=== PATIENT | male | born 1965 | race Caucasian/White ===

== ENCOUNTER 2016-12-09 22:34 | Emergency (ER) | payer SELFPAY ==
[~2016-12-09] VITALS: Ht 175.3 cm; Wt 70.0 kg
[~2016-12-09 22:34] MED LIST: BACT800T5 PO; LEVE500 PO; MOTR200T PO
[2016-12-09 22:44] VITALS: BP 151/76; PULSE 112; RESP 22; TEMP 97.5
[2016-12-09] MEDS ORDERED: LEVE500 PO (23:02)
[2016-12-09] MEDS ORDERED: ONDANSETRON HCL 4 MG/2 ML VIAL IV PUSH ONE (23:15)
[2016-12-09] MEDS ORDERED: SODIUM CHLOR 0.9% 1000 ML INJ 1,000 ML IV ONE (23:15)
[2016-12-09 23:16] LABS: AUTOMATED NEUTROPHIL # 6.8 TH/MM3 (1.8-7.7); BASOPHIL # 0.1 TH/MM3 (0-0.2); BASOPHIL % 0.7 % (0.0-2.0); EOSINOPHIL # 0.4 TH/MM3 (0-0.4); EOSINOPHIL % 3.4 % (0.0-4.0); HEMATOCRIT 42.8 % (39.0-51.0); LYMPHOCYTE # 3.7 TH/MM3 (1.0-4.8); MEAN CELL VOLUME 94.4 FL (80.0-100.0); MEAN CORPUSCULAR HEMOGLOBIN 31.7 PG (27.0-34.0); MEAN CORPUSCULAR HGB CONC 33.6 % (32.0-36.0); NEUT % 58.9 % (16.0-70.0); PLATELET COUNT 332 TH/MM3 (150-450); RED BLOOD COUNT 4.54 MIL/MM3 (4.50-5.90); RED CELL DISTRIBUTION WIDTH 14.4 % (11.6-17.2); WHITE BLOOD COUNT 11.6 TH/MM3 (4.0-11.0)
[2016-12-09 23:18] LABS: HEMO FLAGS AUTO DIFF
[2016-12-09 23:45] LABS: ALT (GPT) 27 U/L (12-78); ANION GAP 12 MEQ/L (5-15); AST (GOT) 34 U/L (15-37); BICARBONATE 23.6 MEQ/L (21.0-32.0); BLOOD UREA NITROGEN 20 MG/DL (7-18); CHLORIDE 105 MEQ/L (98-107); GLOMERULAR FILTRATION RATE 59 ML/MIN (>89); POTASSIUM 4.7 MEQ/L (3.5-5.1); SODIUM (NA) 141 MEQ/L (136-145)
[2016-12-09 23:47] LABS: ALKALINE PHOSPHATASE 123 U/L (45-117); TOTAL BILIRUBIN ADULT 0.4 MG/DL (0.2-1.0)
--- NOTE | 2016-12-09 23:49 | PD ---
HPI Chief Complaint: Alcohol/Drug Intoxication Time Seen by Provider: 23:01 Travel History International Travel<30 days: No Contact w/Intl Traveler<30days: No Traveled to known affect area: No History of Present Illness HPI So 51-year-old man who presents to the emergency department via EMS. He was found unresponsive with pinpoint pupils slumped up against a building. He was reportedly breathing. He received 2 mg of Narcan with resolution of those coma. Admits to IV heroin use alcohol use today. He has no complaints at this time. History Past Medical History Narrative Medical Seizures, Active IV drug use Tetanus Vaccination: > 5 Years Influenza Vaccination: No Social History Alcohol Use: Yes Tobacco Use: Yes Allergies-Medications (Allergen,Severity, Reaction): Coded Allergies: Erythromycin (Verified Allergy, Severe, 05/15/15) Penicillin (Verified Allergy, Severe, 05/15/15) Tetracycline (Verified Allergy, Severe, 05/15/15) Reported Meds & Prescriptions Reported Meds & Active Scripts Active Keppra (Levetriacetam) 500 Mg Tab 500 Mg PO BID Bactrim DS (Sulfamethoxazole-Trimethoprim DS) 1 Tab Tab 1 Tab PO BID 14 Days Reported Keppra (Levetiracetam) 500 Mg Tab 500 Mg PO BID Advil (Ibuprofen) 200 Mg Tab 400 Mg PO DAILY PRN Review of Systems Except as stated in HPI: all other systems reviewed are Neg Physical Exam Narrative GENERAL: 51-year-old man, tremulous and shaking, no acute distress. SKIN: Focused skin assessment warm/dry. HEAD: Atraumatic. Normocephalic. EYES: Pupils equal and round. No scleral icterus. No injection or drainage. ENT: No nasal bleeding or discharge. Mucous membranes pink and moist. NECK: Trachea midline. No JVD. CARDIOVASCULAR: Regular rate and rhythm. No murmur appreciated. RESPIRATORY: No accessory muscle use. Clear to auscultation. Breath sounds equal bilaterally. GASTROINTESTINAL: Abdomen soft, non-tender, nondistended. Hepatic and splenic margins not palpable. MUSCULOSKELETAL: No obvious deformities. NEUROLOGICAL: Awake and alert. No obvious cranial nerve deficits. Motor grossly within normal limits. Some shaking tremors. Normal speech. PSYCHIATRIC: Anxious. Data Data Last Documented VS Vital Signs Date Time Temp Pulse Resp B/P Pulse Ox O2 Delivery O2 Flow Rate FiO2 12/09/16 22:51 97 Room Air 6/14/17 22:44 97.5 112 22 151/76 Orders Chest, Single Ap (12/09/16 ) Complete Blood Count With Diff (12/09/16 23:01) Comprehensive Metabolic Panel (12/09/16 23:01) Alcohol (Ethanol) (12/09/16 23:01) Ondansetron Inj (Zofran Inj) (12/09/16 23:15) Sodium Chlor 0.9% 1000 Ml Inj (Ns 1000 M (12/09/16 23:15) Labs Laboratory Tests Test 12/09/16 23:00 Sodium Level 141 MEQ/L Potassium Level 4.7 MEQ/L Chloride Level 105 MEQ/L Carbon Dioxide Level 23.6 MEQ/L Anion Gap 12 MEQ/L Blood Urea Nitrogen 20 MG/DL Creatinine 1.29 MG/DL Estimat Glomerular Filtration 59 ML/MIN Rate Random Glucose 215 MG/DL Calcium Level 8.4 MG/DL Total Bilirubin 0.4 MG/DL Aspartate Amino Transf 34 U/L (AST/SGOT) Alanine Aminotransferase 27 U/L (ALT/SGPT) Alkaline Phosphatase 123 U/L Total Protein 8.0 GM/DL Albumin 3.8 GM/DL Ethyl Alcohol Level 208 MG/DL White Blood Count 11.6 TH/MM3 Red Blood Count 4.54 MIL/MM3 Hemoglobin 14.4 GM/DL Hematocrit 42.8 % Mean Corpuscular Volume 94.4 FL Mean Corpuscular Hemoglobin 31.7 PG Mean Corpuscular Hemoglobin 33.6 % Concent Red Cell Distribution Width 14.4 % Platelet Count 332 TH/MM3 Mean Platelet Volume 7.9 FL Neutrophils (%) (Auto) 58.9 % Lymphocytes (%) (Auto) 32.0 % Monocytes (%) (Auto) 5.0 % Eosinophils (%) (Auto) 3.4 % Basophils (%) (Auto) 0.7 % Neutrophils # (Auto) 6.8 TH/MM3 Lymphocytes # (Auto) 3.7 TH/MM3 Monocytes # (Auto) 0.6 TH/MM3 Eosinophils # (Auto) 0.4 TH/MM3 Basophils # (Auto) 0.1 TH/MM3 CBC Comment AUTO DIFF Differential Total Cells 100 Counted Neutrophils % (Manual) 59 % Band Neutrophils % 7 % Lymphocytes % 22 % Monocytes % 6 % Eosinophils % 5 % Neutrophils # (Manual) 7.8 TH/MM3 Metamyelocytes 1 % Differential Comment FINAL DIFF MANUAL Platelet Estimate NORMAL Platelet Morphology Comment NORMAL MDM Medical Decision Making Medical Screen Exam Complete: Yes Emergency Medical Condition: Yes Interpretation(s) LABS: CBC remarkable for mild leukocytosis, 7% bands CMP unremarkable, glucose 2:15 Alcohol 208 Chest x-ray: Negative Differential Diagnosis Opiate overdose, intoxication, cold injury, occult illness, other Narrative Course Medical decision making 51-year-old man status post heroin overdose wall intoxicated. Looks well. Responded to Narcan. We monitored in the emergency department, discharge in a.m. Diagnosis Primary Impression: Heroin overdose Qualified Code: T40.1X1A - Heroin overdose, accidental or unintentional, initial encounter Referrals: [facility] day Additional Instructions: Avoid using heroin. Return to the emergency department for any new or worsening symptoms. Follow-up with [facility] for assistance with substance abuse treatment. Med/Other Pt SpecificInfo: No Change to Meds Disposition: 01 DISCHARGE HOME Condition: Stable Marcell Singh MD Dec 09, 2016 23:49
--- NOTE | 2016-12-10 00:03 | RADRPT ---
EXAM DATE/TIME: 12/09/2016 23:06 [facility] COMPARISON: CHEST SINGLE AP, December 28, 2014, 23:54. INDICATIONS : Shortness of breath. MEDICAL HISTORY : None. SURGICAL HISTORY : None. ENCOUNTER: Initial ACUITY: 1 day PAIN SCORE: 0/10 LOCATION: Bilateral chest FINDINGS: The lungs are clear without infiltrate, nodule, or mass. There is no appreciable pleural effusion fo r technique. Heart and mediastinum are unremarkable. CONCLUSION: No acute cardiopulmonary disease. Dorys Arguelles MD on December 10, 2016 at 0:01 Board Certified Radiologist. This report was verified electronically.
[2016-12-10 00:32] LABS: BANDS 7 % (0-6); EOSINOPHILS 5 % (0-4); METAMYELOCYTES 1 % (0-1); NEUTROPHIL # MANUAL DIFF 7.8 TH/MM3 (1.8-7.7); PLATELET ESTIMATE SMEAR NORMAL (NORMAL); PLATELET MORPHOLOGY NORMAL (NORMAL); POLYS (SEG NEUTROPHILS) 59 % (16-70); SCAN/DIFF FINAL DIFF MANUAL; WBC DIFF SAMPLE 100
== END 2016-12-10 07:07 | disposition home or self-care (01) ==
LOC: NEPE 22:34
DX: T40.1X1A Poisoning by heroin, accidental (unintentional), initial encounter (principal); Z72.0 Tobacco use
CPT/HCPCS: 71010; 80053; 80307; 85007; 85027; 96361; 96374; 99284; J2405; J7030

== ENCOUNTER 2016-12-25 01:24 | Emergency (ER) | payer SELFPAY ==
[~2016-12-25] VITALS: Ht 175.3 cm; Wt 70.0 kg
[2016-12-25 01:28] VITALS: BP 134/86; PULSE 82; RESP 18; TEMP 98.2; O2SAT 97
[2016-12-25] MEDS ORDERED: PHEN-523 PO (01:34)
--- NOTE | 2016-12-25 01:57 | PD ---
HPI Chief Complaint: Alcohol/Drug Intoxication Time Seen by Provider: 01:48 Travel History International Travel<30 days: No Contact w/Intl Traveler<30days: No Traveled to known affect area: No History of Present Illness HPI 51-year-old white male presents to emergency department by EMS from psychological evaluation. The patient states that he is tired of living. He states that if he is released he will walk out into traffic or try to overdose on drugs. He states that he had smoked crack cocaine earlier today. He's lost his home, and his job. He states that he has nothing else live for. He also states that his mother is in the final stages of cancer and probably only has 1 month to live. The patient admits to a history of alcohol abuse as well as substance abuse. Patient stated that he has smoked $20 worth of crack cocaine today and was hoping that it would be laced with rat poison so he would . The patient states that he would like to be admitted for evaluation of his depression with suicidal ideation. The patient also states that he has history of seizures but has been off his medications now for last few months. [facility] Past Medical History Narrative Medical Allegedly colon cancer Ulcerative colitis, Seizure disorder, alcohol abuse, substance abuse Heart Rhythm Problems: Yes Cancer: Yes (colon- in remission) Cardiovascular Problems: Yes (CHEST PAIN AND ANGINA) Chest Pain: Yes Congestive Heart Failure: No Diminished Hearing: No Gastrointestinal Disorders: Yes (ULCERATIVE COLITIS) Genitourinary: No Hypertension: Yes Immune Disorder: No Musculoskeletal: Yes Neurologic: Yes (SEIZURES) Psychiatric: Yes Reproductive: No Respiratory: No Seizures: Yes (ALCOHOL RELATED) Tetanus Vaccination: < 5 Years Past Surgical History Other Surgery: Yes (colon cancer) Social History Alcohol Use: Yes Tobacco Use: Yes (2 ppd) Substance Use: Yes (HEROIN, crack) Allergies-Medications (Allergen,Severity, Reaction): Coded Allergies: Erythromycin (Verified Allergy, Severe, 12/25/16) Penicillin (Verified Allergy, Severe, 12/25/16) Tetracycline (Verified Allergy, Severe, 12/25/16) Reported Meds & Prescriptions Reported Meds & Active Scripts Active Reported Phenobarbital 30 Mg Tab 30 Mg PO BID Keppra (Levetiracetam) 500 Mg Tab 500 Mg PO BID Review of Systems Except as stated in HPI: all other systems reviewed are Neg General / Constitutional: No: Fever, Chills Eyes: No: Diploplia, Blurred Vision HENT: Positive: Headaches, No: Sore Throat Cardiovascular: Positive: Chest Pain or Discomfort, Tachycardia Respiratory: No: Cough, Shortness of Breath Gastrointestinal: No: Nausea, Vomiting Genitourinary: No: Dysuria, Hematuria Musculoskeletal: Positive: Arthralgias, Pain Skin: No Rash, No Itching Neurologic: No: Seizures, Sensory Disturbance Psychiatric: Positive: Anxiety, Depression, Suicidal Ideations, Mood Disorder, Substance Abuse, No: Disorder of Thought, Homicidal Ideation Physical Exam Narrative GENERAL: Well-nourished, well-developed patient. SKIN: Warm and dry. HEAD: Normocephalic and atraumatic. EYES: No scleral icterus. No injection or drainage. ENT: No nasal drainage noted. Mucous membranes pink. Airway patent. NECK: Supple, trachea midline. Moves head freely without obvious discomfort. CARDIOVASCULAR: Regular rate and rhythm without murmurs, gallops, or rubs. RESPIRATORY: Breath sounds equal bilaterally. No accessory muscle use. GASTROINTESTINAL: Abdomen soft, non-tender, nondistended. EXTREMITIES: No cyanosis or edema. BACK: Nontender without obvious deformity. No CVA tenderness. NEURO: Patient is alert and oriented. no sensorimotor deficits. Nonfocal. Normal speech. PSYCH: No delusions. No auditory or visual hallucinations. Data Data Last Documented VS Vital Signs Date Time Temp Pulse Resp B/P Pulse Ox O2 Delivery O2 Flow Rate FiO2 12/25/16 01:28 98.2 82 18 134/86 97 Orders Complete Blood Count With Diff (12/25/16 01:38) Comprehensive Metabolic Panel (12/25/16 01:38) Psych Screen (12/25/16 01:38) Phenobarbital (12/25/16 01:38) Drug Screen, Random Urine (12/25/16 01:38) Alcohol (Ethanol) (12/25/16 01:38) Salicylates (Aspirin) (12/25/16 01:38) Tylenol (Acetaminophen) (12/25/16 01:38) Labs Laboratory Tests Test 12/25/16 12/25/16 01:30 02:10 White Blood Count 8.9 TH/MM3 Red Blood Count 4.81 MIL/MM3 Hemoglobin 15.6 GM/DL Hematocrit 44.1 % Mean Corpuscular Volume 91.7 FL Mean Corpuscular Hemoglobin 32.4 PG Mean Corpuscular Hemoglobin 35.3 % Concent Red Cell Distribution Width 14.3 % Platelet Count 294 TH/MM3 Mean Platelet Volume 8.3 FL Neutrophils (%) (Auto) 66.1 % Lymphocytes (%) (Auto) 22.3 % Monocytes (%) (Auto) 9.2 % Eosinophils (%) (Auto) 1.5 % Basophils (%) (Auto) 0.9 % Neutrophils # (Auto) 5.9 TH/MM3 Lymphocytes # (Auto) 2.0 TH/MM3 Monocytes # (Auto) 0.8 TH/MM3 Eosinophils # (Auto) 0.1 TH/MM3 Basophils # (Auto) 0.1 TH/MM3 CBC Comment DIFF FINAL Differential Comment Sodium Level 139 MEQ/L Potassium Level 4.2 MEQ/L Chloride Level 104 MEQ/L Carbon Dioxide Level 20.3 MEQ/L Anion Gap 15 MEQ/L Blood Urea Nitrogen 11 MG/DL Creatinine 0.83 MG/DL Estimat Glomerular Filtration 98 ML/MIN Rate Random Glucose 65 MG/DL Calcium Level 8.9 MG/DL Total Bilirubin 0.5 MG/DL Aspartate Amino Transf 32 U/L (AST/SGOT) Alanine Aminotransferase 27 U/L (ALT/SGPT) Alkaline Phosphatase 127 U/L Total Protein 8.3 GM/DL Albumin 4.0 GM/DL Salicylates Level 4.8 MG/DL Acetaminophen Level LESS THAN 2.0 MCG/ML Phenobarbital Level LESS THAN 2.1 MCG/ML Ethyl Alcohol Level 158 MG/DL Urine Opiates Screen NEG Urine Barbiturates Screen NEG Urine Amphetamines Screen NEG Urine Benzodiazepines Screen NEG Urine Cocaine Screen POS Urine Cannabinoids Screen POS [facility] Medical Decision Making Medical Screen Exam Complete: Yes Emergency Medical Condition: Yes Medical Record Reviewed: Yes Interpretation(s) Laboratory Tests Test 12/25/16 12/25/16 01:30 02:10 White Blood Count 8.9 TH/MM3 Red Blood Count 4.81 MIL/MM3 Hemoglobin 15.6 GM/DL Hematocrit 44.1 % Mean Corpuscular Volume 91.7 FL Mean Corpuscular Hemoglobin 32.4 PG Mean Corpuscular Hemoglobin 35.3 % Concent Red Cell Distribution Width 14.3 % Platelet Count 294 TH/MM3 Mean Platelet Volume 8.3 FL Neutrophils (%) (Auto) 66.1 % Lymphocytes (%) (Auto) 22.3 % Monocytes (%) (Auto) 9.2 % Eosinophils (%) (Auto) 1.5 % Basophils (%) (Auto) 0.9 % Neutrophils # (Auto) 5.9 TH/MM3 Lymphocytes # (Auto) 2.0 TH/MM3 Monocytes # (Auto) 0.8 TH/MM3 Eosinophils # (Auto) 0.1 TH/MM3 Basophils # (Auto) 0.1 TH/MM3 CBC Comment DIFF FINAL Differential Comment Sodium Level 139 MEQ/L Potassium Level 4.2 MEQ/L Chloride Level 104 MEQ/L Carbon Dioxide Level 20.3 MEQ/L Anion Gap 15 MEQ/L Blood Urea Nitrogen 11 MG/DL Creatinine 0.83 MG/DL Estimat Glomerular Filtration 98 ML/MIN Rate Random Glucose 65 MG/DL Calcium Level 8.9 MG/DL Total Bilirubin 0.5 MG/DL Aspartate Amino Transf 32 U/L (AST/SGOT) Alanine Aminotransferase 27 U/L (ALT/SGPT) Alkaline Phosphatase 127 U/L Total Protein 8.3 GM/DL Albumin 4.0 GM/DL Salicylates Level 4.8 MG/DL Acetaminophen Level LESS THAN 2.0 MCG/ML Phenobarbital Level LESS THAN 2.1 MCG/ML Ethyl Alcohol Level 158 MG/DL Urine Opiates Screen NEG Urine Barbiturates Screen NEG Urine Amphetamines Screen NEG Urine Benzodiazepines Screen NEG Urine Cocaine Screen POS Urine Cannabinoids Screen POS Differential Diagnosis MDM: High Differential diagnoses: Schizophrenia, schizoaffective disorder, bipolar, anxiety, depression, adjustment reaction, mood disorder NOS, ODD, depressive disorder NOS, dementia, dementia with agitation, psychosis NOS, substance induced mood disorder, intermittent explosive disorder, Asperger syndrome, infection,electrolyte abnormality, malingering. Narrative Course Mental health screening discussed with the patient. Psychiatric screen ordered. The patient is been medically cleared This is medical clearance for psychiatric admission, polysubstance abuse, substance induced mood disorder medical clearance Diagnosis Primary Impression: Medical clearance for psychiatric admission Additional Impressions: Polysubstance abuse Substance induced mood disorder Condition: Stable Lavelle López Dec 25, 2016 01:57
[2016-12-25 02:00] LABS: AUTOMATED NEUTROPHIL # 5.9 TH/MM3 (1.8-7.7); BASOPHIL # 0.1 TH/MM3 (0-0.2); BASOPHIL % 0.9 % (0.0-2.0); EOSINOPHIL # 0.1 TH/MM3 (0-0.4); EOSINOPHIL % 1.5 % (0.0-4.0); HEMATOCRIT 44.1 % (39.0-51.0); HEMO FLAGS DIFF FINAL; LYMPH % 22.3 % (9.0-44.0); MEAN CELL VOLUME 91.7 FL (80.0-100.0); MEAN CORPUSCULAR HEMOGLOBIN 32.4 PG (27.0-34.0); MEAN CORPUSCULAR HGB CONC 35.3 % (32.0-36.0); MONO % 9.2 % (0.0-8.0); NEUT % 66.1 % (16.0-70.0); PLATELET COUNT 294 TH/MM3 (150-450); RED BLOOD COUNT 4.81 MIL/MM3 (4.50-5.90); RED CELL DISTRIBUTION WIDTH 14.3 % (11.6-17.2); WHITE BLOOD COUNT 8.9 TH/MM3 (4.0-11.0)
[2016-12-25 02:30] LABS: ALT (GPT) 27 U/L (12-78); ANION GAP 15 MEQ/L (5-15); AST (GOT) 32 U/L (15-37); BICARBONATE 20.3 MEQ/L (21.0-32.0); BLOOD UREA NITROGEN 11 MG/DL (7-18); CHLORIDE 104 MEQ/L (98-107); GLOMERULAR FILTRATION RATE 98 ML/MIN (>89); POTASSIUM 4.2 MEQ/L (3.5-5.1); SODIUM (NA) 139 MEQ/L (136-145)
[2016-12-25 02:31] LABS: ALKALINE PHOSPHATASE 127 U/L (45-117); PHENOBARBITAL LESS THAN 2.1 MCG/ML (15.0-40.0); TOTAL BILIRUBIN ADULT 0.5 MG/DL (0.2-1.0)
[2016-12-25 02:33] LABS: ACETAMINOPHEN LESS THAN 2.0 MCG/ML (10.0-30.0)
[2016-12-25 02:45] LABS: AMPHETAMINE, URINE NEG (NEG); BARBITURATES, URINE NEG (NEG); COCAINE, URINE POS (NEG)
[2016-12-25 04:00] VITALS: BP 130/78; PULSE 77; RESP 18; O2SAT 97
[2016-12-25 07:24] VITALS: BP 125/87; PULSE 68; RESP 18; O2SAT 100
[2016-12-25 12:31] VITALS: BP 123/80; PULSE 76; RESP 18; O2SAT 95
--- NOTE | 2016-12-25 14:49 | PD ---
History of Present Illness Chief Complaint: Alcohol/Drug Intoxication Time Seen by Provider: 13:50 Travel History International Travel<30 Days: No Contact w/Intl Traveler<30days: No Known affected area: No Legal Status Legal Status: Voluntary History of Present Illness: This is a 51-year-old male who presents voluntarily to the emergency department after reportedly attempting to overdose on crack cocaine. Patient reportedly experienced chest pain after this overdose and called 911 for assistance. Since he arrived at this emergency department, he has repeatedly asserted that he is suicidal and that he has nothing to live for. This physician investigated his past history and noted the patient has made similar claims after using heroin. The patient is currently complaining that he has lost his , lost his job, lost his home, all in relation to his drug and alcohol use. As a result of these decisions, he is now reporting he has nothing to live for. He was asked by this physician if he wanted assistance with drug and alcohol detox and rehabilitation. Patient states he does not. This physician pointed out that drugs and alcohol were this man's primary problem and that all of his resulting issues regarding his former , loss of job, loss of house, have followed that drug and alcohol abuse. Patient does not want to accept responsibility for his drug and alcohol use. He just states at this time that he wants to . Patient does admit to crack cocaine use earlier today. He also admits to consistent alcohol abuse. [facility] Past Medical History Heart Rhythm Problems: Yes Cancer: Yes (colon- in remission) Cardiovascular Problems: Yes (CHEST PAIN AND ANGINA) Chest Pain: Yes Congestive Heart Failure: No Diminished Hearing: No Gastrointestinal Disorders: Yes (ULCERATIVE COLITIS) Genitourinary: No Hypertension: Yes Immune Disorder: No Musculoskeletal: Yes Neurologic: Yes (SEIZURES) Psychiatric: Yes Reproductive: No Respiratory: No Seizures: Yes (ALCOHOL RELATED) Tetanus Vaccination: < 5 Years Past Surgical History Other Surgery: Yes (colon cancer) Psychiatric History Psychiatric History Hx Psychiatric Treatment: Denies that he is seeing a psychiatrist a this time. States that when he was in long-term - let out in Apr 11, 2016 per pt - a female provider was giving him 2x psych meds ("It begins with a Z I think and Buspar") but he has not had any since he was let out. This physician does not find any significant objective evidence of a major mental illness at this time. Patient appears to have drug abuse problems and a personality disorder. History of Inpatient Treatment: No Guns or firearms in home: No Social History Hx Alcohol Use: Yes Hx Tobacco Use: Yes (2 ppd) Hx Substance Use: Yes Substance Use Type: Alcohol, Crack, Marijuana, Nicotine/Cigarettes, Heroin, Cocaine Hx of Substance Use Treatment: Yes Allergies-Medications (Allergen,Severity, Reaction): Coded Allergies: Erythromycin (Verified Allergy, Severe, 12/25/16) Penicillin (Verified Allergy, Severe, 12/25/16) Tetracycline (Verified Allergy, Severe, 12/25/16) Reported Meds & Prescriptions Reported Meds & Active Scripts Active Reported Phenobarbital 30 Mg Tab 30 Mg PO BID Keppra (Levetiracetam) 500 Mg Tab 500 Mg PO BID Review of Systems ROS Limitations: Clinical Condition, Uncooperative Exam Alert: Yes Patrick: Person, Place, Date, Situation Mood: Calm Affect: Other Speech: Clear, Logical Eye Contact: Normal Memory Intact: Immediate, Recent, Remote Suicidal: Plan, Ideation Insight/Judgement Adequate MDM Medical Decision Making Medical Record Reviewed: Yes Assessment/Plan Although the patient remains at high risk for self-injurious behavior, including suicide attempts, he does this knowingly and not as the result of a significant major mental illness but as the result of a drug addict who is manipulative. This physician feels it is entirely counter therapeutic to get into this man's manipulations and to enable this behavior to continue. Therefore, despite the patient's ascertain patient's that he will kill himself, this physician will not admit him or Hagan act him. This physician did offer him a referral to [facility] for his obvious drug and alcohol problems. However the patient declines. The patient remains competent at this time. He is not psychotic and his cognition is intact. He is felt to be manipulative and experiencing the consequences of his drug abuse. Orders Complete Blood Count With Diff (12/25/16 01:38) Comprehensive Metabolic Panel (12/25/16 01:38) Psych Screen (12/25/16 01:38) Phenobarbital (12/25/16 01:38) Drug Screen, Random Urine (12/25/16 01:38) Alcohol (Ethanol) (12/25/16 01:38) Salicylates (Aspirin) (12/25/16 01:38) Tylenol (Acetaminophen) (12/25/16 01:38) Diet Regular Basic (12/25/16 Breakfast) Results Vital Signs Date Time Temp Pulse Resp B/P Pulse Ox O2 Delivery O2 Flow Rate FiO2 12/25/16 12:31 76 18 123/80 95 Room Air 12/25/16 07:24 68 18 125/87 100 12/25/16 04:00 77 18 130/78 97 Room Air 12/25/16 01:28 98.2 82 18 134/86 97 Laboratory Tests Test 12/25/16 12/25/16 01:30 02:10 White Blood Count 8.9 Red Blood Count 4.81 Hemoglobin 15.6 Hematocrit 44.1 Mean Corpuscular Volume 91.7 Mean Corpuscular Hemoglobin 32.4 Mean Corpuscular Hemoglobin 35.3 Concent Red Cell Distribution Width 14.3 Platelet Count 294 Mean Platelet Volume 8.3 Neutrophils (%) (Auto) 66.1 Lymphocytes (%) (Auto) 22.3 Monocytes (%) (Auto) 9.2 Eosinophils (%) (Auto) 1.5 Basophils (%) (Auto) 0.9 Neutrophils # (Auto) 5.9 Lymphocytes # (Auto) 2.0 Monocytes # (Auto) 0.8 Eosinophils # (Auto) 0.1 Basophils # (Auto) 0.1 CBC Comment DIFF FINAL Differential Comment Sodium Level 139 Potassium Level 4.2 Chloride Level 104 Carbon Dioxide Level 20.3 Anion Gap 15 Blood Urea Nitrogen 11 Creatinine 0.83 Estimat Glomerular Filtration 98 Rate Random Glucose 65 Calcium Level 8.9 Total Bilirubin 0.5 Aspartate Amino Transf 32 (AST/SGOT) Alanine Aminotransferase 27 (ALT/SGPT) Alkaline Phosphatase 127 Total Protein 8.3 Albumin 4.0 Salicylates Level 4.8 Acetaminophen Level LESS THAN 2.0 Phenobarbital Level LESS THAN 2.1 Ethyl Alcohol Level 158 Urine Opiates Screen NEG Urine Barbiturates Screen NEG Urine Amphetamines Screen NEG Urine Benzodiazepines Screen NEG Urine Cocaine Screen POS Urine Cannabinoids Screen POS Diagnosis Primary Impression: Adjustment disorder with mixed emotional features Additional Impression: Substance abuse Condition: Stable Problem Qualifiers Jerald Jimenez MD Dec 25, 2016 14:49
== END 2016-12-25 15:24 | disposition home or self-care (01) ==
LOC: NEPD 01:24
DX: F43.25 Adjustment disorder with mixed disturbance of emotions and conduct (principal); F19.10 Other psychoactive substance abuse, uncomplicated; F17.200 Nicotine dependence, unspecified, uncomplicated; I10 Essential (primary) hypertension; R56.9 Unspecified convulsions; Z79.899 Other long term (current) drug therapy; Z88.0 Allergy status to penicillin; Z88.8 Allergy status to other drugs, medicaments and biological substances
CPT/HCPCS: 80053; 80184; 80307; 85025; 99283

== ENCOUNTER 2017-03-16 15:44 | Inpatient (IN) | payer OTHER ==
[~2017-03-16] VITALS: Ht 177.8 cm; Wt 71.4 kg
[2017-03-16] VITALS (7 sets, daily range): BP systolic 113–163; BP diastolic 72–106; PULSE 66–80; RESP 12–21; TEMP 97.7–99.3; O2SAT 97–100
[~2017-03-16 15:44] MED LIST changes: -BACT800T5 PO; -MOTR200T PO; +PHEN-523 PO
[2017-03-16] MEDS ORDERED: FAMOTIDINE 20 MG/2 ML VIAL IV PUSH ONE (16:00)
[2017-03-16] MEDS ORDERED: DIPHTH/TETANUS/ACEL PERTUSSIS (BOOSTER) 0.5 ML VIAL/PFS IM ONE (16:00)
[2017-03-16] MEDS ORDERED: LORazepam 2 MG/ML VIAL ONE (16:00)
[2017-03-16] MEDS ORDERED: SODIUM CHLORIDE 0.9% FLUSH 10 ML FLUSH IV FLUSH PRN (16:00)
[2017-03-16] MEDS ORDERED: TETANUS IMMUNE GLOBULIN (HUMAN) 250 UNITS/ML SYRINGE IM ONE (16:00)
[2017-03-16] MEDS ORDERED: diphenhydrAMINE HCL 50 MG/ML VIAL IV PUSH ONE (16:00)
[2017-03-16] MEDS ORDERED: SODIUM CHLOR 0.9% 1000 ML INJ 1,000 ML IV ONE (16:04)
[2017-03-16] MEDS ORDERED: PHENobarbital 32.4 MG TAB PO ONE (16:15)
[2017-03-16] MEDS ORDERED: levETIRAcetam 500 MG TAB PO ONE (16:15)
[2017-03-16] MEDS ORDERED: HYDROmorphone HCL PF 1 MG/ML VIAL IV PUSH ONE (16:30)
--- NOTE | 2017-03-16 16:49 | PD ---
HPI Chief Complaint: Bite or Sting Time Seen by Provider: 15:57 Travel History International Travel<30 days: No Contact w/Intl Traveler<30days: No Traveled to known affect area: No History of Present Illness HPI 51-year-old male arrives complaining of a snake bite to the right forearm. He believes he saw a black yellow and red striped snake of approximately 10 cm in length latched onto his forearm. The bite was not painful. This was about 30 minutes prior to ER evaluation. He flicked the snake off the arm. He describes a generalized sensation of malaise and "not feeling right." PFSH Past Medical History Heart Rhythm Problems: Yes Cancer: Yes (colon- in remission) Cardiovascular Problems: Yes (CHEST PAIN AND ANGINA) Chest Pain: Yes Congestive Heart Failure: No Diminished Hearing: No Gastrointestinal Disorders: Yes (ULCERATIVE COLITIS) Genitourinary: No Hypertension: Yes Immune Disorder: No Musculoskeletal: Yes Neurologic: Yes (SEIZURES) Psychiatric: Yes Reproductive: No Respiratory: No Seizures: Yes (ALCOHOL RELATED) Past Surgical History Other Surgery: Yes (colon cancer) Social History Alcohol Use: Yes Tobacco Use: Yes (2 ppd) Substance Use: Yes Allergies-Medications (Allergen,Severity, Reaction): Coded Allergies: doxycycline (Unverified Allergy, Severe, 02/09/17) erythromycin base (Unverified Allergy, Severe, 02/09/17) minocycline (Unverified Allergy, Severe, 02/09/17) penicillin G (Unverified Allergy, Severe, 02/09/17) tigecycline (Unverified Allergy, Severe, 02/09/17) Reported Meds & Prescriptions Reported Meds & Active Scripts Active Reported Phenobarbital 30 Mg Tab 30 Mg PO BID Keppra (Levetiracetam) 500 Mg Tab 500 Mg PO BID Review of Systems Except as stated in HPI: all other systems reviewed are Neg Physical Exam Narrative GENERAL: 51 yo M, mild/moderate distress SKIN: No obvious site of envenomation R forearm. Occasional dry linear abrasions right forearm. Diaphoresis. HEAD: Atraumatic. Normocephalic. EYES: Pupils equal and round. No scleral icterus. No injection or drainage. ENT: No nasal bleeding or discharge. Mucous membranes pink and moist. NECK: Trachea midline. No JVD. CARDIOVASCULAR: Regular rate and rhythm. RESPIRATORY: No accessory muscle use. Clear to auscultation. Breath sounds equal bilaterally. GASTROINTESTINAL: Abdomen soft, non-tender, nondistended. Hepatic and splenic margins not palpable. MUSCULOSKELETAL: R forearm edema/swelling along DRUJ and dorsal hand. No obvious bite trejo/site of envenomation. NEUROLOGICAL: Awake and alert. No obvious cranial nerve deficits. Motor grossly within normal limits. Five out of 5 muscle strength in the arms and legs. Normal speech. PSYCHIATRIC: Cooperative. Appropriate seasonal attire. Data Data Last Documented VS Vital Signs Date Time Temp Pulse Resp B/P (MAP) Pulse Ox O2 Delivery O2 Flow Rate FiO2 03/16/17 19:02 72 14 113/72 (86) 99 03/16/17 18:00 97.9 Room Air VS reviewed Orders Orders Ecg Monitoring (03/16/17 15:57) Iv Access Insert/Monitor (03/16/17 15:57) Wound Care (03/16/17 15:57) NPO (03/16/17 15:57) Call Poison Control (03/16/17 15:57) Complete Blood Count With Diff (03/16/17 15:57) Prothrombin Time / Inr (Pt) (03/16/17 15:57) Act Partial Throm Time (Ptt) (03/16/17 15:57) Fibrinogen (03/16/17 15:57) Creatine Kinase (Cpk) (03/16/17 15:57) Twxp-Owl-Whrqpp (Booster) Inj (Boostrix (03/16/17 16:00) Tetanus Immune Globulin (Hypertet S/D) (03/16/17 16:00) Sodium Chloride 0.9% Flush (Ns Flush) (03/16/17 16:00) Diphenhydramine Inj (Benadryl Inj) (03/16/17 16:00) Famotidine Inj (Pepcid Inj) (03/16/17 16:00) Lorazepam Inj (Ativan Inj) (03/16/17 16:00) Comprehensive Metabolic Panel (03/16/17 16:04) Blood Culture (03/16/17 16:04) Ct Brain W/O Iv Contrast(Rout) (03/16/17 16:04) Sodium Chlor 0.9% 1000 Ml Inj (Ns 1000 M (03/16/17 16:04) Lactic Acid (03/16/17 16:04) Drug Screen, Random Urine (03/16/17 16:07) Alcohol (Ethanol) (03/16/17 16:07) Salicylates (Aspirin) (03/16/17 16:07) Tylenol (Acetaminophen) (03/16/17 16:07) Levetiracetam (Keppra) (03/16/17 16:15) Phenobarbital (Phenobarbital) (03/16/17 16:15) Phenobarbital (03/16/17 16:13) Hydromorphone Pf Inj (Dilaudid Pf Inj) (03/16/17 16:30) Lactic Acid (03/16/17 18:04) Admit Order (Ed Use Only) (03/16/17 19:03) Labs Laboratory Tests Test 03/16/17 16:15 03/16/17 17:30 03/16/17 18:15 White Blood Count 9.1 TH/MM3 Red Blood Count 4.23 MIL/MM3 Hemoglobin 13.5 GM/DL Hematocrit 40.1 % Mean Corpuscular Volume 94.7 FL Mean Corpuscular Hemoglobin 31.9 PG Mean Corpuscular Hemoglobin Concent 33.6 % Red Cell Distribution Width 14.5 % Platelet Count 200 TH/MM3 Mean Platelet Volume 7.9 FL Neutrophils (%) (Auto) 54.1 % Lymphocytes (%) (Auto) 26.8 % Monocytes (%) (Auto) 11.0 % Eosinophils (%) (Auto) 7.2 % Basophils (%) (Auto) 0.9 % Neutrophils # (Auto) 4.9 TH/MM3 Lymphocytes # (Auto) 2.4 TH/MM3 Monocytes # (Auto) 1.0 TH/MM3 Eosinophils # (Auto) 0.7 TH/MM3 Basophils # (Auto) 0.1 TH/MM3 CBC Comment DIFF FINAL Differential Comment Prothrombin Time 9.7 SEC Prothromb Time International Ratio 0.9 RATIO Activated Partial Thromboplast Time 28.4 SEC Fibrinogen 321 mg/dL Blood Urea Nitrogen 16 MG/DL Creatinine 0.62 MG/DL Random Glucose 71 MG/DL Total Protein 7.2 GM/DL Albumin 3.6 GM/DL Calcium Level 8.1 MG/DL Alkaline Phosphatase 94 U/L Aspartate Amino Transf (AST/SGOT) 51 U/L Alanine Aminotransferase (ALT/SGPT) 68 U/L Total Bilirubin 0.4 MG/DL Sodium Level 139 MEQ/L Potassium Level 3.4 MEQ/L Chloride Level 108 MEQ/L Carbon Dioxide Level 20.8 MEQ/L Anion Gap 10 MEQ/L Estimat Glomerular Filtration Rate 138 ML/MIN Lactic Acid Level 2.2 mmol/L 1.2 mmol/L Total Creatine Kinase 173 U/L Salicylates Level 2.8 MG/DL Acetaminophen Level LESS THAN 2.0 MCG/ML Phenobarbital Level LESS THAN 2.1 MCG/ML Ethyl Alcohol Level 173 MG/DL Urine Opiates Screen NEG Urine Barbiturates Screen NEG Urine Amphetamines Screen NEG Urine Benzodiazepines Screen NEG Urine Cocaine Screen POS Urine Cannabinoids Screen POS MDM Medical Decision Making Medical Screen Exam Complete: Yes Emergency Medical Condition: Yes Medical Record Reviewed: Yes Differential Diagnosis elapid envenomation, seizure, polysubstance abuse Narrative Course CBC & BMP Diagram 03/16/17 16:15 Total Protein 7.2, Albumin 3.6, Calcium Level 8.1 L, Alkaline Phosphatase 94, Aspartate Amino Transf (AST/SGOT) 51 H, Alanine Aminotransferase (ALT/SGPT) 68, Total Bilirubin 0.4 Lactic acid 2.2 Repeat LA 1.2 Total CK 173 ASA/APAP: negative U tox: + cocaine and marijuana EtOH 173 Phenobarb level < 2.1 Last [address] 03/16/17 1604 Signed Impressions: Service Date/Time: Thursday, March 16, 2017 16:45 - CONCLUSION: 1. No acute intracranial abnormalities. Lavelle Toledo MD 1 tonic seizure event lasting approx 45 seconds with spontaneously resolution. pt reports non-compliance with Phenobarb and Keppra x last four days. Phenobarb and Keppra ordered. 1mg IV Ativan given. d/[place] [facility] [place] Possible false positive snake envenomation. Poison control: Q1H neuro evaluations; repeat coags and supportive care overnight. Diagnosis Primary Impression: Snake bite Qualified Codes: W59.11XA - Bitten by nonvenomous snake, initial encounter Additional Impression: Polysubstance abuse Admitting Information Admitting Physician Requests: Observation Rajat Beatty MD Mar 16, 2017 16:49
[2017-03-16 16:50] LABS: AUTOMATED NEUTROPHIL # 4.9 TH/MM3 (1.8-7.7); BASOPHIL # 0.1 TH/MM3 (0-0.2); BASOPHIL % 0.9 % (0.0-2.0); EOSINOPHIL # 0.7 TH/MM3 (0-0.4); EOSINOPHIL % 7.2 % (0.0-4.0); HEMATOCRIT 40.1 % (39.0-51.0); HEMO FLAGS DIFF FINAL; LYMPH % 26.8 % (9.0-44.0); LYMPHOCYTE # 2.4 TH/MM3 (1.0-4.8); MEAN CELL VOLUME 94.7 FL (80.0-100.0); MEAN CORPUSCULAR HEMOGLOBIN 31.9 PG (27.0-34.0); MEAN CORPUSCULAR HGB CONC 33.6 % (32.0-36.0); NEUT % 54.1 % (16.0-70.0); PLATELET COUNT 200 TH/MM3 (150-450); RED BLOOD COUNT 4.23 MIL/MM3 (4.50-5.90); RED CELL DISTRIBUTION WIDTH 14.5 % (11.6-17.2); WHITE BLOOD COUNT 9.1 TH/MM3 (4.0-11.0)
[2017-03-16 17:09] LABS: ACETAMINOPHEN LESS THAN 2.0 MCG/ML (10.0-30.0); ALCOHOL 173 MG/DL (0-5)
--- NOTE | 2017-03-16 17:09 | RADRPT ---
EXAM DATE/TIME: 03/16/2017 16:45 [facility] COMPARISON: No previous studies available for comparison. INDICATIONS : Altered mental status, snake bite right arm. RADIATION DOSE: 34.11 CTDIvol (mGy) MEDICAL HISTORY : Hypertension. Carcinoma, colon. SURGICAL HISTORY : None. ENCOUNTER: Initial ACUITY: 1 day PAIN SCALE: 0/10 LOCATION: cranial TECHNIQUE: Multiple contiguous axial images were obtained of the head. Using automated exposure control and adj ustment of the mA and/or kV according to patient size, radiation dose was kept as low as reasonably a chievable to obtain optimal diagnostic quality images. DICOM format image data is available electro nically for review and comparison. FINDINGS: CEREBRUM: The ventricles are normal for age. No evidence of midline shift, mass lesion, hemorrhage or acute in farction. No extra-axial fluid collections are seen. POSTERIOR FOSSA: The cerebellum and brainstem are intact. The 4th ventricle is midline. The cerebellopontine angle i s unremarkable. EXTRACRANIAL: The visualized portion of the orbits is intact. SKULL: The calvaria is intact. No evidence of skull fracture. CONCLUSION: 1. No acute intracranial abnormalities. Lavelle Toledo MD on March 16, 2017 at 17:05 Board Certified Radiologist. This report was verified electronically.
[2017-03-16 17:25] LABS: ANION GAP 10 MEQ/L (5-15); BICARBONATE 20.8 MEQ/L (21.0-32.0); BLOOD UREA NITROGEN 16 MG/DL (7-18); CHLORIDE 108 MEQ/L (98-107); GLOMERULAR FILTRATION RATE 138 ML/MIN (>89); POTASSIUM 3.4 MEQ/L (3.5-5.1); SODIUM (NA) 139 MEQ/L (136-145)
[2017-03-16 17:26] LABS: ALT (GPT) 68 U/L (12-78); AST (GOT) 51 U/L (15-37)
[2017-03-16 17:28] LABS: ALKALINE PHOSPHATASE 94 U/L (45-117); TOTAL BILIRUBIN ADULT 0.4 MG/DL (0.2-1.0)
[2017-03-16 17:58] LABS: APTT (PATIENT) 28.4 SEC (24.3-30.1); INTERNATIONAL NORMALIZED RATIO 0.9 RATIO; PROTHROMBIN TIME - PATIENT 9.7 SEC (9.8-11.6)
[2017-03-16] MEDS ORDERED: SODIUM CHLORIDE 0.9% FLUSH 10 ML FLUSH PRN (19:30)
[2017-03-16] MEDS ORDERED: ONDANSETRON HCL 4 MG/2 ML VIAL IV PUSH PRN (19:30)
[2017-03-16] MEDS ORDERED: RESP: ALBUTEROL 2.5 MG/IPRATROPIUM 0.5 MG NEB (PRN) INH (19:30)
[2017-03-16] MEDS ORDERED: CHLORHEXIDINE GLUCONATE 2 % 1 PACK (2 CLOTHS) TOP PRN (19:30)
[2017-03-16] MEDS ORDERED: TEMAZEPAM 15 MG CAP PO PRN (19:30)
[2017-03-16] MEDS ORDERED: SENNOSIDES 8.6 MG TAB PO PRN (19:30)
[2017-03-16] MEDS ORDERED: ACETAMINOPHEN 325 MG TAB PO PRN (19:30)
[2017-03-16] MEDS ORDERED: LACTULOSE SYRUP 20 GM/30 ML CUP PO PRN (19:30)
[2017-03-16] MEDS ORDERED: MISCELLANEOUS NURSING INFORMATION XX SCH (19:30)
[2017-03-16] MEDS ORDERED: MAGNESIUM HYDROXIDE SUSP 30 ML CUP PO PRN (19:30)
[2017-03-16] MEDS ORDERED: BISACODYL 10 MG SUPP RECTAL PRN (19:30)
[2017-03-16] MEDS: SODIUM CHLOR 0.9% 1000 ML INJ 1,000 ML IV SCH (20:40)
--- NOTE | 2017-03-16 20:51 | HHI.HP ---
HPI Service Critical Care Medicine Primary Care Physician No Primary Care Physician Admission Diagnosis Elapid Envenomation; PSA; Seizure Diagnosis: Travel History International Travel<30 Days: No Contact w/Intl Traveler <30 Da: No Traveled to Known Affected Are: No History of Present Illness 51-year-old male presents complaining of a snake bite to the right forearm. He believes he saw a black yellow and red striped snake of approximately 10 cm in length latched onto his forearm. The bite was not painful. This was about 30 minutes prior to ER evaluation. He describes a generalized sensation of malaise and "not feeling right." However he is also intoxicated with alcohol, marijuana, and cocaine. Review of Systems ROS Unable to obtain due to altered mental status due to intoxication Past Family Social History Allergies: Coded Allergies: doxycycline (Unverified Allergy, Severe, 02/09/17) erythromycin base (Unverified Allergy, Severe, 02/09/17) minocycline (Unverified Allergy, Severe, 02/09/17) penicillin G (Unverified Allergy, Severe, 02/09/17) tigecycline (Unverified Allergy, Severe, 02/09/17) Past Medical History Arrhythmias Colon cancer Chest pains Ulcerative colitis Hypertension Seizure disorder Past Surgical History Colon cancer Reported Medications Reported Meds & Active Scripts Active Reported Phenobarbital 30 Mg Tab 30 Mg PO BID Keppra (Levetiracetam) 500 Mg Tab 500 Mg PO BID Active Ordered Medications Current Medications Medications (Trade) Dose Ordered Sig/Umberto Route PRN Reason Start Time Stop Time Status Last Admin Dose Admin Sodium Chloride (NS Flush) 2 ml UNSCH PRN IV FLUSH FLUSH AFTER USING IV ACCESS 03/16/17 16:00 03/16/17 16:00 Levetriacetam (Keppra) 500 mg BID PO 03/16/17 21:00 Phenobarbital (PHENobarbital) 32.4 mg BID PO 03/16/17 21:00 Sodium Chloride 1,000 ml @ 144 mls/hr Q6H57M IV 03/16/17 19:25 03/16/17 20:40 Sodium Chloride (NS Flush) 2 ml UNSCH PRN .XX FLUSH AFTER USING IV ACCESS 03/16/17 19:30 Sodium Chloride (NS Flush) 2 ml BID .XX 03/16/17 21:00 Acetaminophen (Tylenol) 650 mg Q6H PRN PO PAIN 1-10 AND/OR FEVER >101F 03/16/17 19:30 Morphine Sulfate (Morphine Inj) 2 mg Q2H PRN IV PUSH PAIN SCALE 6 TO 10 03/16/17 19:30 Famotidine (Pepcid) 20 mg Q12HR PO 03/16/17 21:00 Ondansetron HCl (Zofran Inj) 4 mg Q6H PRN IV PUSH NAUSEA OR VOMITING 03/16/17 19:30 Temazepam (Restoril) 15 mg HS PRN PO INSOMNIA 03/16/17 19:30 Albuterol/ Ipratropium (Duoneb Neb) 1 ampule Q2HR NEB PRN INH WHEEZING 03/16/17 19:30 Miscellaneous Information 1 Q361D XX 03/16/17 19:30 Chlorhexidine Gluconate (Chlorhexidine 2% Cloth) 3 pack Taper DAILY@04 TOP 03/17/17 04:00 03/13/18 03:59 Chlorhexidine Gluconate (Chlorhexidine 2% Cloth) 3 pack UNSCH PRN TOP HYGIENIC CARE 03/16/17 19:30 Senna/Docusate Sodium (Viri-Colace) 1 tab BID PO 03/16/17 21:00 Magnesium Hydroxide (Milk Of Magnesia Liq) 30 ml Q12H PRN PO MILD - MODERATE CONSTIPATION 03/16/17 19:30 Sennosides (Senokot) 17.2 mg Q12H PRN PO MODERATE - SEVERE CONSTIPATION 03/16/17 19:30 Bisacodyl (Dulcolax Supp) 10 mg DAILY PRN RECTAL SEVERE CONSITIPATION 03/16/17 19:30 Lactulose (Lactulose Liq) 30 ml DAILY PRN PO SEVERE CONSITIPATION 03/16/17 19:30 Family History No family history significant for early coronary artery disease or cancer Social History Alcohol Use: Yes Tobacco Use: Yes (2 ppd) Substance Use: Yes Physical Exam Vital Signs Vital Signs Date Time Temp Pulse Resp B/P (MAP) Pulse Ox O2 Delivery O2 Flow Rate FiO2 03/16/17 19:02 14 113/72 (86) 99 03/16/17 18:00 97.9 72 16 126/77 (93) 99 Room Air 03/16/17 17:00 97.8 70 17 129/86 (100) 99 Room Air 03/16/17 16:54 17 03/16/17 16:06 97.7 79 17 136/91 (106) 100 Room Air 03/16/17 15:55 87 17 03/16/17 15:46 99.3 80 14 163/106 (125) 100 Physical Exam GENERAL: Well-nourished, well-developed patient. Intoxicated SKIN: Warm and dry. HEAD: Normocephalic. EYES: No scleral icterus. No injection or drainage. NECK: Supple, trachea midline. No JVD or lymphadenopathy. CARDIOVASCULAR: Regular rate and rhythm without murmurs, gallops, or rubs. RESPIRATORY: Breath sounds equal bilaterally. No accessory muscle use. GASTROINTESTINAL: Abdomen soft, non-tender, nondistended. MUSCULOSKELETAL: No cyanosis, or edema. Right hand edema, wrist swelling, warm BACK: Nontender without obvious deformity. NEURO EXAM: GCS: M 6 V 5 E 4 Mental Status: The patient is alert and oriented to person, place, and time with slightly slurred speech. Cranial Nerves: Visual acuity intact bilaterally. Visual morales normal in all quadrants. Pupils are round, reactive to light. Extraocular movements are intact without ptosis. Hearing is normal bilaterally. Voice is normal. Tongue protrudes midline and moves symmetrically. Reflexes: Biceps, patellar, and Achilles are 2/4 bilaterally. No clonus. Laboratory Laboratory Tests Test 03/16/17 16:15 03/16/17 17:30 03/16/17 18:15 White Blood Count 9.1 Red Blood Count 4.23 Hemoglobin 13.5 Hematocrit 40.1 Mean Corpuscular Volume 94.7 Mean Corpuscular Hemoglobin 31.9 Mean Corpuscular Hemoglobin Concent 33.6 Red Cell Distribution Width 14.5 Platelet Count 200 Mean Platelet Volume 7.9 Neutrophils (%) (Auto) 54.1 Lymphocytes (%) (Auto) 26.8 Monocytes (%) (Auto) 11.0 Eosinophils (%) (Auto) 7.2 Basophils (%) (Auto) 0.9 Neutrophils # (Auto) 4.9 Lymphocytes # (Auto) 2.4 Monocytes # (Auto) 1.0 Eosinophils # (Auto) 0.7 Basophils # (Auto) 0.1 CBC Comment DIFF FINAL Differential Comment Prothrombin Time 9.7 Prothromb Time International Ratio 0.9 Activated Partial Thromboplast Time 28.4 Fibrinogen 321 Blood Urea Nitrogen 16 Creatinine 0.62 Random Glucose 71 Total Protein 7.2 Albumin 3.6 Calcium Level 8.1 Alkaline Phosphatase 94 Aspartate Amino Transf (AST/SGOT) 51 Alanine Aminotransferase (ALT/SGPT) 68 Total Bilirubin 0.4 Sodium Level 139 Potassium Level 3.4 Chloride Level 108 Carbon Dioxide Level 20.8 Anion Gap 10 Estimat Glomerular Filtration Rate 138 Lactic Acid Level 2.2 1.2 Total Creatine Kinase 173 Salicylates Level 2.8 Acetaminophen Level LESS THAN 2.0 Phenobarbital Level LESS THAN 2.1 Ethyl Alcohol Level 173 Urine Opiates Screen NEG Urine Barbiturates Screen NEG Urine Amphetamines Screen NEG Urine Benzodiazepines Screen NEG Urine Cocaine Screen POS Urine Cannabinoids Screen POS Date/Time Source Procedure Growth Status 03/16/17 16:15 Blood Peripheral Aerobic Blood Culture Pending Received 03/16/17 16:15 Blood Peripheral Anaerobic Blood Culture Pending Received Result Diagram: 03/16/17 1615 03/16/17 1615 Imaging Last [address] 03/16/17 1604 Signed Impressions: Service Date/Time: Thursday, March 16, 2017 16:45 - CONCLUSION: 1. No acute intracranial abnormalities. Lavelle Toledo MD Caprini VTE Risk Assessment Caprini VTE Risk Assessment: No/Low Risk (score <= 1) Caprini Risk Assessment Model Point Value = 1 Point Value = 2 Point Value = 3 Point Value = 5 Age 41-60 Minor surgery BMI > 25 kg/m2 Swollen legs Varicose veins or History of unexplained or recurrent spontaneous Oral contraceptives or hormone replacement Sepsis (< 1 month) Serious lung disease, including pneumonia (< 1 month) Abnormal pulmonary function Acute myocardial infarction Congestive heart failure (< 1 month) History of inflammatory bowel disease Medical patient at bed rest Age 61-74 Arthroscopic surgery Major open surgery (> 45 min) Laparoscopic surgery (> 45 min) Malignancy Confined to bed (> 72 hours) Immobilizing plaster cast Central venous access Age >= 75 History of VTE Family history of VTE Factor V Leiden Prothrombin [id number] Lupus anticoagulant Anticardiolipin antibodies Elevated serum homocysteine Heparin-induced thrombocytopenia Other congenital or acquired thrombophilia Stroke (< 1 month) Elective arthroplasty Hip, pelvis, or leg fracture Acute spinal cord injury (< 1 month) Prophylaxis Regimen Total Risk Factor Score Risk Level Prophylaxis Regimen 0-1 Low Early ambulation 2 Moderate Order ONE of the following: *Sequential Compression Device (SCD) *Heparin 5000 units SQ BID 3-4 Higher Order ONE of the following medications: *Heparin 5000 units SQ TID *Enoxaparin/Lovenox 40 mg SQ daily (WT < 150 kg, CrCl > 30 mL/min) *Enoxaparin/Lovenox 30 mg SQ daily (WT < 150 kg, CrCl > 10-29 mL/min) *Enoxaparin/Lovenox 30 mg SQ BID (WT < 150 kg, CrCl > 30 mL/min) AND/OR *Sequential Compression Device (SCD) 5 or more Highest Order ONE of the following medications: *Heparin 5000 units SQ TID (Preferred with Epidurals) *Enoxaparin/Lovenox 40 mg SQ daily (WT < 150 kg, CrCl > 30 mL/min) *Enoxaparin/Lovenox 30 mg SQ daily (WT < 150 kg, CrCl > 10-29 mL/min) *Enoxaparin/Lovenox 30 mg SQ BID (WT < 150 kg, CrCl > 30 mL/min) AND *Sequential Compression Device (SCD) Assessment and Plan Assessment and Plan Snake bite ??? - Admit to ICU - Frequent neuro checks - Frequent labs including coag's - Poison Control Center appreciated - Supportive care Polysubstance abuse - CIWA protocol - Monitor for withdrawal Altered mental status - CT head negative - Intoxicated - Neuro checks and supportive care Seizure disorder - Keppra - Phenobarbital Hypertension - Hydralazine when necessary to keep SBP less than 1 DVT GI prophylaxis - Teds SCDs - Early aggressive mobilization - Hold pharmacological DVT prophylaxis due to possibility of coagulopathy due to snake poison Critical Care: The total critical care time was 35 minutes. Time to perform other separately billable procedures was not included in the critical care time. Petr Raya MD Mar 16, 2017 20:51
[2017-03-16] MEDS ORDERED: SODIUM CHLORIDE 0.9% FLUSH 10 ML FLUSH SCH (21:00)
[2017-03-16] MEDS ORDERED: FLUMAZENIL 0.5 MG/5 ML VIAL IV PUSH PRN (23:00)
[2017-03-16] MEDS ORDERED: LORazepam 1 MG TAB PO PRN (23:00)
[2017-03-16] MEDS ORDERED: LORazepam 2 MG/ML VIAL IV PUSH PRN ×2 (23:00)
[2017-03-16] MEDS ORDERED: LORazepam 2 MG TAB PO PRN (23:00)
[2017-03-16] MEDS ORDERED: hydrALAZINE HCL 20 MG/ML VIAL IV PUSH PRN (23:15)
[2017-03-16 23:19] LABS: AUTOMATED NEUTROPHIL # 3.2 TH/MM3 (1.8-7.7); BASOPHIL # 0.1 TH/MM3 (0-0.2); BASOPHIL % 0.8 % (0.0-2.0); EOSINOPHIL # 0.6 TH/MM3 (0-0.4); EOSINOPHIL % 9.3 % (0.0-4.0); HEMATOCRIT 40.2 % (39.0-51.0); HEMO FLAGS DIFF FINAL; LYMPH % 32.4 % (9.0-44.0); LYMPHOCYTE # 2.1 TH/MM3 (1.0-4.8); MEAN CELL VOLUME 94.9 FL (80.0-100.0); MEAN CORPUSCULAR HEMOGLOBIN 31.5 PG (27.0-34.0); MEAN CORPUSCULAR HGB CONC 33.2 % (32.0-36.0); MONO % 8.6 % (0.0-8.0); NEUT % 48.9 % (16.0-70.0); PLATELET COUNT 183 TH/MM3 (150-450); RED BLOOD COUNT 4.24 MIL/MM3 (4.50-5.90); RED CELL DISTRIBUTION WIDTH 13.8 % (11.6-17.2); WHITE BLOOD COUNT 6.6 TH/MM3 (4.0-11.0)
[2017-03-16 23:36] LABS: ANION GAP 8 MEQ/L (5-15); BICARBONATE 23.7 MEQ/L (21.0-32.0); BLOOD UREA NITROGEN 15 MG/DL (7-18); CHLORIDE 108 MEQ/L (98-107); POTASSIUM 3.5 MEQ/L (3.5-5.1); SODIUM (NA) 140 MEQ/L (136-145)
[2017-03-16 23:37] LABS: AST (GOT) 52 U/L (15-37); GLOMERULAR FILTRATION RATE 162 ML/MIN (>89)
[2017-03-16 23:41] LABS: ALKALINE PHOSPHATASE 92 U/L (45-117); ALT (GPT) 63 U/L (12-78); TOTAL BILIRUBIN ADULT 0.4 MG/DL (0.2-1.0)
[2017-03-16 23:47] LABS: APTT (PATIENT) 27.5 SEC (24.3-30.1); INTERNATIONAL NORMALIZED RATIO 0.9 RATIO; PROTHROMBIN TIME - PATIENT 9.9 SEC (9.8-11.6)
[2017-03-17] VITALS (15 sets, daily range): BP systolic 127–148; BP diastolic 73–98; PULSE 64–77; RESP 14–34; TEMP 97.9–99; O2SAT 95–99
[2017-03-17] MEDS: LORazepam 2 MG/ML VIAL IV PUSH PRN ×6 (00:28→22:29)
[2017-03-17] MEDS: MORPHINE SULFATE 4 MG/ML INJ IV PUSH PRN ×8 (00:29→22:29)
[2017-03-17] MEDS ORDERED: CHLORHEXIDINE GLUCONATE 2 % 1 PACK (2 CLOTHS) TOP SCH (04:00)
[2017-03-17] MEDS: SODIUM CHLOR 0.9% 1000 ML INJ 1,000 ML IV SCH ×2 (04:33→16:16)
[2017-03-17 04:43] LABS: AUTOMATED NEUTROPHIL # 3.7 TH/MM3 (1.8-7.7); BASOPHIL % 0.6 % (0.0-2.0); EOSINOPHIL # 0.7 TH/MM3 (0-0.4); EOSINOPHIL % 9.7 % (0.0-4.0); HEMATOCRIT 40.3 % (39.0-51.0); HEMO FLAGS DIFF FINAL; LYMPH % 29.1 % (9.0-44.0); LYMPHOCYTE # 2.1 TH/MM3 (1.0-4.8); MEAN CELL VOLUME 94.3 FL (80.0-100.0); MEAN CORPUSCULAR HEMOGLOBIN 31.9 PG (27.0-34.0); MEAN CORPUSCULAR HGB CONC 33.8 % (32.0-36.0); MONO % 8.7 % (0.0-8.0); NEUT % 51.9 % (16.0-70.0); PLATELET COUNT 189 TH/MM3 (150-450); RED BLOOD COUNT 4.27 MIL/MM3 (4.50-5.90); RED CELL DISTRIBUTION WIDTH 14.1 % (11.6-17.2); WHITE BLOOD COUNT 7.1 TH/MM3 (4.0-11.0)
[2017-03-17 04:51] LABS: INTERNATIONAL NORMALIZED RATIO 0.9 RATIO
[2017-03-17 04:54] LABS: ANION GAP 7 MEQ/L (5-15); AST (GOT) 55 U/L (15-37); BICARBONATE 25.2 MEQ/L (21.0-32.0); BLOOD UREA NITROGEN 15 MG/DL (7-18); CHLORIDE 107 MEQ/L (98-107); GLOMERULAR FILTRATION RATE 140 ML/MIN (>89); MAGNESIUM 1.9 MG/DL (1.5-2.5); POTASSIUM 3.9 MEQ/L (3.5-5.1); SODIUM (NA) 139 MEQ/L (136-145)
[2017-03-17 04:59] LABS: ALKALINE PHOSPHATASE 98 U/L (45-117); ALT (GPT) 67 U/L (12-78); TOTAL BILIRUBIN ADULT 0.7 MG/DL (0.2-1.0)
[2017-03-17] MEDS ORDERED: MAGNESIUM OXIDE 400 MG TAB PO PRN (05:45)
[2017-03-17] MEDS ORDERED: MAGNESIUM SULFATE INJ 4 GM in SODIUM CHLORIDE 0.9% INJ 92 ML IV PRN (05:45)
[2017-03-17] MEDS ORDERED: POTASSIUM PHOSPHATE INJ 30 MMOL in SODIUM CHLOR 0.9% 250 ML INJ 250 ML IV PRN (05:45)
[2017-03-17] MEDS ORDERED: POTASSIUM CHLORIDE 25 MEQ EFFERVESCENT TAB PO PRN (05:45)
[2017-03-17] MEDS ORDERED: SODIUM PHOSPHATE INJ 30 MMOL in SODIUM CHLOR 0.9% 250 ML INJ 240 ML IV PRN (05:45)
[2017-03-17] MEDS ORDERED: POTASSIUM CHLOR 20 MEQ PREMIX 100 ML IV PRN ×2 (05:45)
[2017-03-17] MEDS ORDERED: MAGNESIUM SULFATE INJ 2 GM in SODIUM CHLORIDE 0.9% INJ 96 ML IV PRN (05:45)
[2017-03-17] MEDS ORDERED: POTASSIUM PHOSPHATE MONOBASIC 500 MG TAB PO PRN (05:45)
[2017-03-17] MEDS ORDERED: POTASSIUM CHLOR 40 MEQ PREMIX 100 ML IV PRN ×2 (05:45)
[2017-03-17] MEDS ORDERED: POTASSIUM PHOSPHATE MONOBASIC 500 MG TAB PO/TUBE PRN (05:45)
--- NOTE | 2017-03-17 08:05 | PD.TRANSFR ---
Transfer Summary Admission Date Mar 16, 2017 at 19:05 Admitting Diagnosis Elapid Envenomation; PSA; Seizure Diagnoses: (1) Snake bite Diagnosis: Principal (2) Swelling of right hand Diagnosis: Principal (3) Intoxication by drug Diagnosis: Principal (4) Seizure disorder Diagnosis: Secondary (5) Polysubstance abuse Diagnosis: Secondary Transfer Summary/Subjective 51-year-old male presents complaining of a snake bite to the right forearm. He believes he saw a black yellow and red striped snake of approximately 10 cm in length latched onto his forearm. The bite was not painful. This was about 30 minutes prior to ER evaluation. He describes a generalized sensation of malaise and "not feeling right." However he is also intoxicated with alcohol, marijuana, and cocaine. SUBJ 03/17: On my interview patient is not sure whether it was a snake or a caterpillar but that he thinks it was a small coral snake. Patient has no respiratory symptoms or neuromuscular weakness. He has swelling of dorsum of his hand, distal to the bite site, but he may have also been bit by a hornet. ( Patient was intoxicated at the time of incident and history is not very reliable ) Objective Vital Signs Date Time Temp Pulse Resp B/P (MAP) Pulse Ox O2 Delivery O2 Flow Rate FiO2 03/17/17 04:00 98.7 66 20 128/79 (95) 97 03/16/17 21:24 Room Air Intake and Output 03/17/17 03/17/17 03/18/17 08:00 16:00 00:00 Intake Total 823 ml Output Total 600 ml Balance 223 ml Result Diagram: 03/17/17 0413 03/17/17 0413 Imaging Last [address] 03/16/17 1604 Signed Impressions: Service Date/Time: Thursday, March 16, 2017 16:45 - CONCLUSION: 1. No acute intracranial abnormalities. Lavelle Toledo MD Objective Remarks GENERAL: Well-nourished, well-developed patient. SKIN: Warm and dry. Possible bite omero on R fore arm without swelling or inflammation HEAD: Normocephalic. EYES: No scleral icterus. No injection or drainage. NECK: Supple, trachea midline. CARDIOVASCULAR: Regular rate and rhythm without murmurs, gallops, or rubs. RESPIRATORY: Breath sounds equal bilaterally. No accessory muscle use. GASTROINTESTINAL: Abdomen soft, non-tender, nondistended. MUSCULOSKELETAL: Right hand edema, wrist swelling, warm BACK: Nontender without obvious deformity. NEURO EXAM: Alert and oriented to person, place, and time. No focal deficits A/P Assessment and Plan Possible Snake bite (?Coral snake) - Admit to ICU - Frequent neuro checks - Frequent labs including coag's had been normal. No [employer] indicated - Poison Control Center appreciated - Supportive care R hand swelling (Probable Hornet bite) - Decadron 4 mg IV x 4 doses - Benadryl and Pepcid - X-ray R hand to rule out trauma. MRI hand if swelling not improving by above measures Polysubstance abuse - [facility] protocol - Monitor for withdrawal - Thiamine, MVI Altered mental status-resolved - CT head negative - Intoxication related - Neuro checks and supportive care Seizure disorder - Keppra - Phenobarbital Hypertension - Hydralazine when necessary to keep SBP less than 160 DVT GI prophylaxis - Teds SCDs - Early aggressive mobilization - Hold pharmacological DVT prophylaxis due to possibility of coagulopathy due to snake poison Critical Care: Level 2 Transfer to Med Surg. Consult hospitalist to assume care in am Fariba Barron MD Mar 17, 2017 08:05
[2017-03-17] MEDS: DEXAMETHASONE SOD PHOS 4 MG/ML VIAL IV PUSH SCH ×2 (08:51→18:02)
[2017-03-17] MEDS: DOCUSATE SODIUM 50 MG/SENNA 8.6 MG TAB PO SCH ×2 (08:52→20:14)
[2017-03-17] MEDS: diphenhydrAMINE HCL 25 MG CAP PO SCH ×3 (08:52→20:14)
[2017-03-17] MEDS: levETIRAcetam 500 MG TAB PO SCH ×2 (08:52→20:15)
[2017-03-17] MEDS: FAMOTIDINE 20 MG TAB PO SCH ×2 (08:52→20:14)
--- NOTE | 2017-03-17 09:13 | RADRPT ---
EXAM DATE/TIME: 03/17/2017 08:27 [facility] COMPARISON: No previous studies available for comparison. INDICATIONS : Right hand pain and swelling after snake bite yesterday to right forearm. MEDICAL HISTORY : Hypertension. Carcinoma, colon. SURGICAL HISTORY : None. ENCOUNTER: Subsequent ACUITY: 2 days PAIN SCORE: 10/10 LOCATION: Right hand FINDINGS: Small radiopaque foreign body the thenar eminenc that could be a fang correlation suggested.. Genera lized soft tissue swelling without fracture. CONCLUSION: Radiopaque foreign body as described above. . Dewayne Mccray MD FACR on March 17, 2017 at 9:08 Board Certified Radiologist. This report was verified electronically.
[2017-03-17] MEDS: SULFAMETHOXAZOLE-TRIMETHOPRIM DS 800-160 MG TAB PO SCH ×2 (09:45→20:14)
--- NOTE | 2017-03-17 12:30 | RADRPT ---
EXAM DATE/TIME: 03/17/2017 11:32 [facility] COMPARISON: No previous studies available for comparison. INDICATIONS : Snake bite to right hand; foreign body, pain and swelling. RADIATION DOSE: 6.51 CTDIvol (mGy) MEDICAL HISTORY : Seizures. Carcinoma, colon. Liver disease. SURGICAL HISTORY : None. ENCOUNTER: Initial ACUITY: 2 days PAIN SCALE: 7/10 LOCATION: Right hand. TECHNIQUE: Volumetric scanning of the hand was performed. Using automated exposure control and adjustment of th e mA and/or kV according to patient size, radiation dose was kept as low as reasonably achievable to obtain optimal diagnostic quality images. DICOM format image data is available electronically for re view and comparison. FINDINGS: CT scan of the head with 3-D reconstructions reveals the small and shaped ossification in the soft ti ssues thenar eminence similar to what was seen by plain film suspicious for snake fang. Correlation is suggested. This could be localized preoperatively by ultrasound if there is no obvious puncture w ound. CONCLUSION: Foreign body as described above.. Dewayne Mccray MD FACR on March 17, 2017 at 12:26 Board Certified Radiologist. This report was verified electronically.
[2017-03-17] MEDS: PHENobarbital 32.4 MG TAB PO SCH ×2 (12:38→20:14)
--- NOTE | 2017-03-17 13:59 | MB ---
cc: JONI MUNOZ MD, SINOJ K. MD DATE OF CONSULTATION: 03/17/[address] Barron. REASON FOR CONSULTATION Swelling and cellulitis of the right upper extremity; patient status post snakebite. 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 He states that there was a snake which latched onto his arm and he eventually was able to pull it off. Shortly thereafter he got nauseated and vomited. He also felt sweaty and told his boss and was told to go to the emergency department for evaluation. The patient said that the snake was a black mixed with yellow and red stripes. He reported feeling generally tired as well after the episode. The patient was evaluated in the emergency department and his blood pressure was normal and also his heart rate and white blood cell count were normal. The patient has a history of a seizure disorder and takes medication for seizures. He states that he has taken medication except for one time yesterday when he missed the medication. He was noted to have slightly slurred speech yesterday evening and it is noted in the report from the emergency department that he had a clonic seizure event lasting approximately 45 seconds with spontaneous resolution. The patient's toxicology screen was positive for cocaine and marijuana. He also was noted to a high alcohol level in the blood and reportedly drank a lot of alcohol yesterday. Currently the patient is sleepy. He is easily arousable and was able to give me adequate information. He still feels somewhat tired. He is asking for lunch. He denies chills or other symptoms. He states that his pain in the right arm is throbbing from the elbow down to the wrist. PAST MEDICAL HISTORY 1. Seizure disorder. 2. Hypertension. 3. Ulcerative colitis. 4. History of colon cancer. ALLERGIES 1. DOXYCYCLINE. 2. AZITHROMYCIN. 3. MINOCYCLINE. 4. PENICILLIN. 5. TIGECYCLINE. MEDICATIONS 1. Bactrim. 2. Dexamethasone. 3. Ativan. 4. Keppra. 5. Phenobarbital. 6. Morphine sulfate p.r.n. 7. Lactulose. SOCIAL HISTORY Positive tobacco use, two pack of cigarettes a day. Positive alcohol use. Positive substance abuse. FAMILY HISTORY Noncontributory. REVIEW OF SYSTEMS Positives reported above in the history of present illness. PHYSICAL EXAMINATION GENERAL: This is a well-developed male who is in no acute distress. He is awake, alert and oriented. His speech is fluent. VITAL SIGNS: Temperature 98.7, BP 142/87, respirations 20, heart rate 70. HEENT: Extraocular movements grossly intact. Pupils reactive to light. No icterus. Oropharynx slightly dry mucosa without lesions. NECK: Supple without adenopathy. LUNGS: Clear breath sounds. HEART: Regular rate and rhythm without murmurs, rubs or gallops. ABDOMEN: Bowel sounds present. Soft, nontender. No palpable masses. LYMPH: Positive adenopathy at the right axilla. RECTAL: Not performed. EXTREMITIES: The right upper extremity has swelling at the dorsum of the right wrist and also swelling of the right forearm up to the elbow, and very severe tenderness to palpation over the forearm and also over the wrist. There is no significant erythema. No visible blisters. The patient has two punctate areas at the mid forearm. There is no visible necrosis. Ulnar and radial pulses intact. Sensation over the right upper extremity is intact. The other extremities have no clubbing, cyanosis or edema. SKIN: No diffuse rash. NEUROLOGIC: Nonfocal. LABORATORY WBC 7.1, platelets1 189, 51% neutrophils, 21% lymphocytes, 8% monocytes, hemoglobin 13.6. Creatinine 0.61, BUN 15, estimated GFR 140. Liver function tests include AST 155, ALT 67, alk phos 98. IMAGING Upper extremity CT scan shows a foreign body suspicious for a snake fang at the thenar eminence. IMPRESSION 1. Swelling of the right upper extremity following snakebite injury. Patient is status post snakebite and subsequently developed nausea, vomiting and sweats. 2. Multiple antibiotic allergies. He does not seem to have any significant cellulitis on inspection of the upper extremity; however, he has significant swelling with the absence of blisters or signs of shock. RECOMMENDATIONS 1. Continue the Bactrim. 2. Monitor the wound. 3. Elevate the right upper extremity. 4. Monitor clinical status. It is not clear whether the snake which bit the patient was poisonous. Thank you for this consultation. Joni F. Dontfraid, MD FD/PAULA /12:50 PM /1:24 PM MTDDena
[2017-03-17] MEDS ORDERED: REMOVE OLD PATCH T-DERMAL SCH (21:00)
[2017-03-18] MEDS: DEXAMETHASONE SOD PHOS 4 MG/ML VIAL IV PUSH SCH ×2 (01:40→09:06)
[2017-03-18] MEDS: LORazepam 2 MG/ML VIAL IV PUSH PRN ×6 (01:40→13:57)
[2017-03-18] MEDS: MORPHINE SULFATE 4 MG/ML INJ IV PUSH PRN ×4 (01:41→15:19)
[2017-03-18 03:00] VITALS: BP 152/81; PULSE 59; RESP 19; TEMP 98.6; O2SAT 96
[2017-03-18] MEDS ORDERED: levETIRAcetam INJ 500 MG in SODIUM CHLORIDE 0.9% INJ 100 ML IV ONE (03:15)
[2017-03-18] MEDS: diphenhydrAMINE HCL 25 MG CAP PO SCH ×3 (03:23→14:41)
[2017-03-18] MEDS: SODIUM CHLOR 0.9% 1000 ML INJ 1,000 ML IV SCH (07:59)
[2017-03-18 08:00] VITALS: BP 134/86; PULSE 68; PULSE 73; RESP 18; TEMP 98; O2SAT 98
[2017-03-18] MEDS ORDERED: NICOTINE 21 MG/24 HR PATCH T-DERMAL SCH (09:00)
[2017-03-18] MEDS: levETIRAcetam 500 MG TAB PO SCH (09:07)
[2017-03-18] MEDS: PHENobarbital 32.4 MG TAB PO SCH (09:07)
[2017-03-18] MEDS: DOCUSATE SODIUM 50 MG/SENNA 8.6 MG TAB PO SCH (09:07)
[2017-03-18] MEDS: SULFAMETHOXAZOLE-TRIMETHOPRIM DS 800-160 MG TAB PO SCH (09:07)
[2017-03-18] MEDS: FAMOTIDINE 20 MG TAB PO SCH (09:07)
[2017-03-18 12:00] VITALS: BP 119/79; PULSE 86; RESP 16; TEMP 98.1; O2SAT 96
--- NOTE | 2017-03-18 12:24 | HHI.IDPN ---
Note Infectious Disease Note Patient notes pain in the r. arm mid forearm to elbow. Arm looks better with les swelling. Afebrile. Tremulous. BP stable. PAST MEDICAL HISTORY 1. Seizure disorder. 2. Hypertension. 3. Ulcerative colitis. 4. History of colon cancer. ALLERGIES 1. DOXYCYCLINE. 2. AZITHROMYCIN. 3. MINOCYCLINE. 4. PENICILLIN. 5. TIGECYCLINE. Antibiotics Bactrim. SOCIAL HISTORY Positive tobacco use, two pack of cigarettes a day. Positive alcohol use. Positive substance abuse. OBJECTIVE: Vital Signs Date Time Temp Pulse Resp B/P (MAP) Pulse Ox O2 Delivery O2 Flow Rate FiO2 03/18/17 08:00 68 03/18/17 03:00 98.6 59 19 152/81 (104) 96 03/17/17 23:00 65 03/17/17 23:00 97.9 65 19 135/86 (102) 95 03/17/17 21:00 99.0 64 14 141/86 (104) 96 03/17/17 20:00 99.0 65 15 127/80 (96) 95 03/17/17 19:50 98 21 03/17/17 19:00 98.9 71 34 139/98 (112) 95 03/17/17 18:00 98.7 66 20 137/84 (101) 97 03/17/17 17:00 98.7 77 20 131/85 (100) 97 03/17/17 16:00 98.7 66 20 128/79 (95) 97 03/17/17 15:00 98.8 68 20 135/73 (93) 97 03/17/17 15:00 77 03/17/17 14:00 98.7 66 20 128/79 (95) 97 03/18/17 03/18/17 03/19/17 15:00 23:00 07:00 Intake Total 2061 ml Balance 2061 ml IV Total 2061 ml Laboratory Tests Test 03/16/17 16:15 03/16/17 22:29 03/17/17 04:13 White Blood Count 9.1 TH/MM3 6.6 TH/MM3 7.1 TH/MM3 Red Blood Count 4.23 MIL/MM3 4.24 MIL/MM3 4.27 MIL/MM3 Hemoglobin 13.5 GM/DL 13.3 GM/DL 13.6 GM/DL Hematocrit 40.1 % 40.2 % 40.3 % Mean Corpuscular Volume 94.7 FL 94.9 FL 94.3 FL Mean Corpuscular Hemoglobin 31.9 PG 31.5 PG 31.9 PG Mean Corpuscular Hemoglobin Concent 33.6 % 33.2 % 33.8 % Red Cell Distribution Width 14.5 % 13.8 % 14.1 % Platelet Count 200 TH/MM3 183 TH/MM3 189 TH/MM3 Mean Platelet Volume 7.9 FL 8.4 FL 8.1 FL Neutrophils (%) (Auto) 54.1 % 48.9 % 51.9 % Lymphocytes (%) (Auto) 26.8 % 32.4 % 29.1 % Monocytes (%) (Auto) 11.0 % 8.6 % 8.7 % Eosinophils (%) (Auto) 7.2 % 9.3 % 9.7 % Basophils (%) (Auto) 0.9 % 0.8 % 0.6 % Neutrophils # (Auto) 4.9 TH/MM3 3.2 TH/MM3 3.7 TH/MM3 Lymphocytes # (Auto) 2.4 TH/MM3 2.1 TH/MM3 2.1 TH/MM3 Monocytes # (Auto) 1.0 TH/MM3 0.6 TH/MM3 0.6 TH/MM3 Eosinophils # (Auto) 0.7 TH/MM3 0.6 TH/MM3 0.7 TH/MM3 Basophils # (Auto) 0.1 TH/MM3 0.1 TH/MM3 0.0 TH/MM3 CBC Comment DIFF FINAL DIFF FINAL DIFF FINAL Differential Comment Laboratory Tests Test 03/16/17 16:15 03/16/17 18:15 03/16/17 22:29 03/17/17 04:13 Blood Urea Nitrogen 16 MG/DL 15 MG/DL 15 MG/DL Creatinine 0.62 MG/DL 0.54 MG/DL 0.61 MG/DL Random Glucose 71 MG/DL 72 MG/DL 75 MG/DL Total Protein 7.2 GM/DL 6.6 GM/DL 6.7 GM/DL Albumin 3.6 GM/DL 3.3 GM/DL 3.2 GM/DL Calcium Level 8.1 MG/DL 8.3 MG/DL 8.2 MG/DL Alkaline Phosphatase 94 U/L 92 U/L 98 U/L Aspartate Amino Transf (AST/SGOT) 51 U/L 52 U/L 55 U/L Alanine Aminotransferase (ALT/SGPT) 68 U/L 63 U/L 67 U/L Total Bilirubin 0.4 MG/DL 0.4 MG/DL 0.7 MG/DL Sodium Level 139 MEQ/L 140 MEQ/L 139 MEQ/L Potassium Level 3.4 MEQ/L 3.5 MEQ/L 3.9 MEQ/L Chloride Level 108 MEQ/L 108 MEQ/L 107 MEQ/L Carbon Dioxide Level 20.8 MEQ/L 23.7 MEQ/L 25.2 MEQ/L Anion Gap 10 MEQ/L 8 MEQ/L 7 MEQ/L Estimat Glomerular Filtration Rate 138 ML/MIN 162 ML/MIN 140 ML/MIN Lactic Acid Level 2.2 mmol/L 1.2 mmol/L 0.6 mmol/L Total Creatine Kinase 173 U/L Phosphorus Level 3.1 MG/DL Magnesium Level 1.9 MG/DL Microbiology Date/Time Source Procedure Growth Status 03/17/17 12:45 Blood Peripheral Aerobic Blood Culture - Preliminary NO GROWTH IN 1 DAY Resulted 03/17/17 12:45 Blood Peripheral Anaerobic Blood Culture - Preliminary NO GROWTH IN 1 DAY Resulted 03/17/17 12:35 Blood Peripheral Aerobic Blood Culture - Preliminary NO GROWTH IN 1 DAY Resulted 03/17/17 12:35 Blood Peripheral Anaerobic Blood Culture - Preliminary NO GROWTH IN 1 DAY Resulted 03/16/17 16:15 Blood Peripheral Aerobic Blood Culture - Preliminary NO GROWTH IN 2 DAYS Resulted 03/16/17 16:15 Blood Peripheral Anaerobic Blood Culture - Preliminary NO GROWTH IN 2 DAYS Resulted 03/16/17 16:10 Blood Peripheral Aerobic Blood Culture - Preliminary NO GROWTH IN 2 DAYS Resulted 03/16/17 16:10 Blood Peripheral Anaerobic Blood Culture - Preliminary NO GROWTH IN 2 DAYS Resulted IMAGING: Upper Extremity CT 03/17/17 0000 Signed Impressions: Service Date/Time: Friday, March 17, 2017 11:32 - CONCLUSION: Foreign body as described above.. Dewayne Mccray MD FACR Hand X-Ray 03/17/17 0000 Signed Impressions: Service Date/Time: Friday, March 17, 2017 08:27 - CONCLUSION: Radiopaque foreign body as described above. . Dewayne Mccray MD FACR Head CT 03/16/17 1604 Signed Impressions: Service Date/Time: Thursday, March 16, 2017 16:45 - CONCLUSION: 1. No acute intracranial abnormalities. Lavelle Toledo MD PHYSICAL EXAMINATION GENERAL: No acute distress. He is awake, alert and oriented. His speech is fluent. HEENT: No icterus. Oropharynx slightly dry mucosa without lesions. NECK: Supple without adenopathy. LUNGS: Clear breath sounds. HEART: Regular rate and rhythm without murmurs, rubs or gallops. ABDOMEN: Bowel sounds present. Soft, nontender. No palpable masses. LYMPH: Positive adenopathy at the right axilla. EXTREMITIES: The right upper extremity swelling at the dorsum of the right wrist has resolve. Also swelling of the right forearm up to the elbow is markedly decreased. No erythema. No visible blisters. The patient has two punctate areas at the mid forearm. There is no visible necrosis. Ulnar and radial pulses intact. Sensation over the right upper extremity is intact. Tremulous at the hands. SKIN: No diffuse rash. NEUROLOGIC: Nonfocal. IMPRESSION 1. Swelling of the right upper extremity following snakebite injury. Improved. Patient is status post snakebite and subsequently developed nausea, vomiting and sweats. 2. Multiple antibiotic allergies. He does not seem to have any significant cellulitis on inspection of the upper extremity; however, he has significant swelling with the absence of blisters or signs of shock. RECOMMENDATIONS 1. Continue the Bactrim. 2. Monitor the wound. 3. Elevate the right upper extremity. 4. Monitor clinical status. Mina Tran MD Mar 18, 2017 12:24
--- NOTE | 2017-03-18 15:35 | HHI.PR ---
Subjective Remarks Patient threatning to leave AMA he states that his right arm hurts requesting pain medication - Dilaudid specifically as per RN patient comes out and shakes his hands stating that he needs more medications denies hallucinations Objective Vitals Vital Signs Date Time Temp Pulse Resp B/P (MAP) Pulse Ox O2 Delivery O2 Flow Rate FiO2 03/18/17 10:20 16 03/18/17 08:00 68 03/18/17 03:00 98.6 59 19 152/81 (104) 96 03/17/17 23:00 65 03/17/17 23:00 97.9 65 19 135/86 (102) 95 03/17/17 21:00 99.0 64 14 141/86 (104) 96 03/17/17 20:00 99.0 65 15 127/80 (96) 95 03/17/17 19:50 98 21 03/17/17 19:00 98.9 71 34 139/98 (112) 95 03/17/17 18:00 98.7 66 20 137/84 (101) 97 03/17/17 17:00 98.7 77 20 131/85 (100) 97 03/17/17 16:00 98.7 66 20 128/79 (95) 97 I/O 03/17/17 03/17/17 03/17/17 03/18/17 03/18/17 03/18/17 07:00 15:00 23:00 07:00 15:00 23:00 Intake Total 823 ml 480 ml 2061 ml Output Total 600 ml 2200 ml 1600 ml Balance 223 ml -1720 ml -1600 ml 2061 ml Intake Oral 480 ml IV Total 823 ml 2061 ml Output Urine Total 600 ml 2200 ml 1600 ml # Voids 1 5 Result Diagram: 03/17/17 0413 03/17/17 0413 Imaging Last Impressions Upper Extremity CT 03/17/17 0000 Signed Impressions: Service Date/Time: Friday, March 17, 2017 11:32 - CONCLUSION: Foreign body as described above.. Dewayne Mccray MD FACR Hand X-Ray 03/17/17 0000 Signed Impressions: Service Date/Time: Friday, March 17, 2017 08:27 - CONCLUSION: Radiopaque foreign body as described above. . Dewayne Mccray MD FACR Head CT 03/16/17 1604 Signed Impressions: Service Date/Time: Thursday, March 16, 2017 16:45 - CONCLUSION: 1. No acute intracranial abnormalities. Lavelle Toledo MD Objective Remarks GENERAL: Well-nourished, well-developed patient. SKIN: Warm and dry. There is some swelling of right hand. I do not appreciate any bite trejo. HEAD: Normocephalic. EYES: No scleral icterus. No injection or drainage. NECK: Supple, trachea midline. CARDIOVASCULAR: Regular rate and rhythm without murmurs, gallops, or rubs. RESPIRATORY: Breath sounds equal bilaterally. No accessory muscle use. GASTROINTESTINAL: Abdomen soft, non-tender, nondistended. MUSCULOSKELETAL: Right hand edema, wrist swelling, warm BACK: Nontender without obvious deformity. NEURO EXAM: Alert and oriented to person, place, and time. No focal deficits. Mild tremors on extremities. Medications and IVs Current Medications Medications (Trade) Dose Ordered Sig/Umberto Route Start Time Stop Time Status Last Admin (Keppra) 500 mg BID PO 03/16/17 21:00 03/18/17 09:07 (PHENobarbital) 32.4 mg BID PO 03/16/17 21:00 03/18/17 09:07 (NS Flush) 2 ml UNSCH PRN .XX 03/16/17 19:30 (NS Flush) 2 ml BID .XX 03/16/17 21:00 (Tylenol) 650 mg Q6H PRN PO 03/16/17 19:30 (Morphine Inj) 2 mg Q2H PRN IV PUSH 03/16/17 19:30 03/18/17 15:19 (Pepcid) 20 mg Q12HR PO 03/16/17 21:00 03/18/17 09:07 (Zofran Inj) 4 mg Q6H PRN IV PUSH 03/16/17 19:30 (Restoril) 15 mg HS PRN PO 03/16/17 19:30 (Duoneb Neb) 1 ampule Q2HR NEB PRN INH 03/16/17 19:30 Miscellaneous Information 1 Q361D XX 03/16/17 19:30 (Chlorhexidine 2% Cloth) 3 pack Taper DAILY@04 TOP 03/17/17 04:00 03/13/18 03:59 (Chlorhexidine 2% Cloth) 3 pack UNSCH PRN TOP 03/16/17 19:30 (Viri-Colace) 1 tab BID PO 03/16/17 21:00 03/18/17 09:07 (Milk Of Magnesia Liq) 30 ml Q12H PRN PO 03/16/17 19:30 (Senokot) 17.2 mg Q12H PRN PO 03/16/17 19:30 (Dulcolax Supp) 10 mg DAILY PRN RECTAL 03/16/17 19:30 (Lactulose Liq) 30 ml DAILY PRN PO 03/16/17 19:30 03/17/17 08:52 (Romazicon Inj) 0.2 mg Q1M PRN IV PUSH 03/16/17 23:00 (Ativan) 1 mg Q4H PRN PO 03/16/17 23:00 (Ativan Inj) 1 mg Q4H PRN IV PUSH 03/16/17 23:00 (Ativan) 2 mg Q2H PRN PO 03/16/17 23:00 (Ativan Inj) 2 mg Q2H PRN IV PUSH 03/16/17 23:00 03/18/17 13:57 (Ativan Inj) 2 mg Q1H PRN IV PUSH 03/16/17 23:00 03/18/17 10:16 (Ativan Inj) 2 mg Q15M PRN IV PUSH 03/16/17 23:00 (Apresoline Inj) 20 mg Q4H PRN IV PUSH 03/16/17 23:15 Potassium Chloride 100 ml @ 50 mls/hr Q2H PRN IV 03/17/17 05:45 Potassium Chloride 100 ml @ 50 mls/hr Q2H PRN IV 03/17/17 05:45 (K-Lyte Cl Eff) 50 meq UNSCH PRN PO 03/17/17 05:45 Potassium Chloride 100 ml @ 25 mls/hr UNSCH PRN IV 03/17/17 05:45 Potassium Chloride 100 ml @ 50 mls/hr Q2H PRN IV 03/17/17 05:45 Magnesium Sulfate 4 gm/Sodium Chloride 100 ml @ 50 mls/hr UNSCH PRN IV 03/17/17 05:45 (Mag-Ox) 800 mg UNSCH PRN PO 03/17/17 05:45 Magnesium Sulfate 2 gm/Sodium Chloride 100 ml @ 50 mls/hr UNSCH PRN IV 03/17/17 05:45 (K-Phos) 2,000 mg Q4H PRN PO 03/17/17 05:45 Sodium Phosphate 30 mmol/Sodium Chloride 250 ml @ 42 mls/hr UNSCH PRN IV 03/17/17 05:45 (K-Phos) 2,000 mg UNSCH PRN PO/TUBE 03/17/17 05:45 Potassium Phosphate 30 mmol/ Sodium Chloride 260 ml @ 42 mls/hr UNSCH PRN IV 03/17/17 05:45 (Benadryl) 25 mg Q6H PO 03/17/17 09:00 03/18/17 14:41 (Bactrim Ds 800-160 Mg) 1 tab Q12HR PO 03/17/17 09:45 03/18/17 09:07 (Habitrol 21 Mg Patch.24 Hr) 1 patch DAILY T-DERMAL 03/18/17 09:00 03/18/17 03:26 Miscellaneous Information 1 HS T-DERMAL 03/17/17 21:00 A/P Problem List: (1) Snake bite ICD Code: W59.11XA - Bitten by nonvenomous snake, initial encounter Status: Acute (2) Swelling of right hand ICD Code: M79.89 - Other specified soft tissue disorders (3) Intoxication by drug ICD Code: F19.929 - Other psychoactive substance use, unspecified with intoxication, unspecified (4) Seizure disorder ICD Code: G40.909 - Seizure disorder Status: Acute (5) Polysubstance abuse ICD Code: F19.10 - Other psychoactive substance abuse, uncomplicated Status: Acute (6) Foreign body of hand, right, infected ICD Code: S60.551A - Superficial foreign body of right hand, initial encounter ; L08.9 - Local infection of the skin and subcutaneous tissue, unspecified Plan: CT of the right upper extremity obtained. Foreign body described as possible Fang. Consult hand surgery. Assessment and Plan Possible Snake bite (?Coral snake) - Admit to ICU - Frequent neuro checks - Frequent labs including coag's had been normal. No CroFab indicated - Poison Control Center consulted. - Supportive care R hand cellulitis - Decadron 4 mg IV x 4 doses - Benadryl and Pepcid -X-ray of the hand showed a bilateral opaque foreign body which resembles a snake fang. - ID consulted, the patient started on Bactrim. Continue. Polysubstance abuse - CIWA protocol - Monitor for withdrawal - Thiamine, MVI Altered mental status-resolved - CT head negative - Intoxication related - Neuro checks and supportive care - Patient awake and alert, seems to be improving. Seizure disorder - Keppra - Phenobarbital Hypertension - Hydralazine when necessary to keep SBP less than 160 DVT GI prophylaxis - Teds SCDs - Early aggressive mobilization - Hold pharmacological DVT prophylaxis due to possibility of coagulopathy due to snake poison Problem Qualifiers (1) Snake bite: Qualified Codes: W59.11XA - Bitten by nonvenomous snake, initial encounter David Alexander MD Mar 18, 2017 15:35
[2017-03-18 16:00] VITALS: BP 122/77; PULSE 67; RESP 19; TEMP 98.2; O2SAT 98
[2017-03-18 17:01] VITALS: PULSE 64
--- NOTE | 2017-03-18 21:37 | MB ---
cc: ELIDA SYKES MD DATE OF CONSULTATION 03/18/17 HISTORY OF PRESENT ILLNESS The patient is a 51-year-old [id number] male who states he was bitten by what he thinks is a small coral snake two days ago. His hand and his arm became swollen and painful. He came to the hospital and was admitted. He was treated with observation as well as multiple medications for other issues, but he was treated with Bactrim and observation was taking place. He states it became dramatically better and he was ready to go home. PAST MEDICAL HISTORY 1. Arrhythmia 2. Colon cancer 3. Chest pain. 4. Ulcerative colitis 5. Hypertension 6. Seizure disorder. PAST SURGICAL HISTORY Colon cancer. MEDICATIONS Reported 1. Phenobarbital. 2. Keppra. ALLERGIES DOXYCYCLINE ERYTHROMYCIN MINOCYCLINE PENICILLIN G TIGECYCLINE FAMILY HISTORY Noncontributory and not pertinent to this setting. SOCIAL HISTORY smokes two packs of cigarettes a day per report. REVIEW OF SYSTEMS Patient is not complaining of any headaches, blurry or double vision. He is not complaining of any coughing, wheezing or shortness breath. He is not complaining of any double or blurry vision or altered hearing. He is not complaining of any coughing, wheezing or shortness of breath. He is not complaining of any nausea, vomiting or abdominal pain. He is not complaining of any burning, frequency or urgency with urination. He is not complaining of any spine, neck or back pain. He is not complaining of any anxiety, depression or suicidal ideations. He is not complaining of any night sweats, fevers or chills. He is not complaining of any skin lesions, rashes or eruptions. LABORATORY DATA All in the computer. His white blood cell count was normal when he came in and remained normal down to 7.1000. Coagulation studies were normal when he came in and remained normal. Renal function was normal. Drug screen was somewhat revealing and is in the chart and in the computer. IMAGING STUDIES X-rays were done. X-ray of his hands revealed no fractures or dislocations but did reveal a foreign body which appears to be old. A CAT scan of his hand was also done which revealed the same foreign body. PHYSICAL EXAMINATION He is well-developed, well-nourished in no apparent distress except for being slightly anxious and wanting to get out of here. VITAL SIGNS: temperature is 98.2, respiratory rate 19, blood pressure 122/77, pulse oximetry 99% on room air. He is awake, alert and oriented x3. He is very pleasant. He is up around in his room moving normally and moving all four extremities normally. Examination of the right hand, wrist, forearm and elbow reveals a completely normal examination. All musculotendinous units are intact. The skin is intact. There is no evidence of any infection anywhere. There is no tenderness to full active and passive range of motion. There is no open wound. There is no tenderness over the thenar eminence where the foreign body is located. There is no edema anywhere. There is no cellulitis. There is no epitrochlear or axillary adenopathy. IMPRESSION Normal examination. No surgical intervention indicated at this time. Please recall as needed. I will sign off. MD JACLYN Frausto III/ /7:29 PM /9:13 PM
== END 2017-03-18 20:50 | disposition left against medical advice (07) | DRG 556 ==
LOC: NEPE 15:44 → NEDA 19:05 → HIMW 22:35
PROVIDERS: ADMIT Hospitalist; ATTEND Hospitalist
DX: M79.89 Other specified soft tissue disorders (principal); K51.90 Ulcerative colitis, unspecified, without complications; G40.89 Other seizures; W57.XXXA Bitten or stung by nonvenomous insect and other nonvenomous arthropods, initial encounter; F17.210 Nicotine dependence, cigarettes, uncomplicated; I10 Essential (primary) hypertension; F10.129 Alcohol abuse with intoxication, unspecified; Y90.6 Blood alcohol level of 120-199 mg/100 ml; Z85.038 Personal history of other malignant neoplasm of large intestine; K59.00 Constipation, unspecified; G47.00 Insomnia, unspecified; F14.120 Cocaine abuse with intoxication, uncomplicated; F12.920 Cannabis use, unspecified with intoxication, uncomplicated
CPT/HCPCS: 70450; 73120; 73200; 76937; 80053; 80184; 80307; 82550; 83605; 83735; 84100; 85025; 85384; 85610; 85730; 87040; 87641; 90471; 90715; 96361; 96374; 96375; J1100; J1170; J1200; J1670; J2060; J2270; J7030

== ENCOUNTER 2017-08-05 15:58 | Inpatient (IN) | payer OTHER ==
[~2017-08-05] VITALS: Ht 175.3 cm; Wt 76.3 kg
[2017-08-05] MEDS ORDERED: ceFAZolin 2 GM PREMIX 50 ML IV ONE (16:15)
[2017-08-05] MEDS ORDERED: SODIUM CHLORIDE 0.9% FLUSH 10 ML FLUSH IVF PRN (16:15)
[2017-08-05] MEDS ORDERED: ONDANSETRON HCL 4 MG/2 ML VIAL IV PUSH ONE (16:15)
[2017-08-05] MEDS ORDERED: MORPHINE SULFATE 4 MG/ML INJ IV PUSH ONE (16:15)
[2017-08-05] MEDS ORDERED: DIPHTH/TETANUS/ACEL PERTUSSIS (BOOSTER) 0.5 ML VIAL/PFS IM ONE (16:15)
[2017-08-05] MEDS ORDERED: SODIUM CHLOR 0.9% 1000 ML INJ 1,000 ML IV SCH ×2 (16:15→17:30)
[2017-08-05] MEDS ORDERED: ETOMIDATE 20 MG/10 ML VIAL ONE (16:24)
[2017-08-05] MEDS ORDERED: LORazepam 2 MG/ML VIAL ONE (16:24)
[2017-08-05] MEDS ORDERED: SUCCINYLCHOLINE CHLORIDE 200 MG/10 ML VIAL ONE (16:25)
[2017-08-05] MEDS ORDERED: PROPOFOL 1000 MG/100 ML INJ 100 ML ONE (16:30)
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
[2017-08-05] MEDS ORDERED: IOHEXOL 350 MG/ML 10 ML VIAL (for RAD DIAG) IVCONTRAST ONE (16:52)
[2017-08-05 16:58] LABS: INTERNATIONAL NORMALIZED RATIO 0.9 RATIO; PROTHROMBIN TIME - PATIENT 9.4 SEC (9.8-11.6)
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
[2017-08-05 17:11] LABS: BICARBONATE 25.3 MEQ/L (21.0-32.0); BLOOD UREA NITROGEN 16 MG/DL (7-18); CALCIUM 8.6 MG/DL (8.5-10.1); CHLORIDE 106 MEQ/L (98-107); CREATININE 1.02 MG/DL (0.60-1.30); GLOMERULAR FILTRATION RATE 77 ML/MIN (>89); GLUCOSE,RANDOM 96 MG/DL (74-106); SODIUM (NA) 139 MEQ/L (136-145)
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
[2017-08-05 17:13] LABS: PHENYTOIN (DILANTIN) LESS THAN 0.4 MCG/ML (10.0-20.0)
[2017-08-05 17:15] VITALS: O2SAT 100
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
[2017-08-05] MEDS ORDERED: LACTULOSE SYRUP 20 GM/30 ML CUP PO PRN (17:30)
[2017-08-05] MEDS ORDERED: POTASSIUM PHOSPHATE INJ 30 MMOL in SODIUM CHLOR 0.9% 250 ML INJ 250 ML IV PRN (17:30)
[2017-08-05] MEDS ORDERED: POTASSIUM CHLORIDE 25 MEQ EFFERVESCENT TAB PO PRN (17:30)
[2017-08-05] MEDS ORDERED: MAGNESIUM SULFATE INJ 4 GM in SODIUM CHLORIDE 0.9% INJ 92 ML IV PRN (17:30)
[2017-08-05] MEDS ORDERED: SODIUM CHLORIDE 0.9% FLUSH 10 ML FLUSH IV FLUSH PRN (17:30)
[2017-08-05] MEDS ORDERED: DEXTROSE 50% IN WATER 50 ML VIAL(D50) IV PUSH PRN (17:30)
[2017-08-05] MEDS ORDERED: SODIUM PHOSPHATE INJ 30 MMOL in SODIUM CHLOR 0.9% 250 ML INJ 240 ML IV PRN (17:30)
[2017-08-05] MEDS ORDERED: POTASSIUM PHOSPHATE MONOBASIC 500 MG TAB PO PRN (17:30)
[2017-08-05] MEDS ORDERED: MAGNESIUM SULFATE INJ 2 GM in SODIUM CHLORIDE 0.9% INJ 96 ML IV PRN (17:30)
[2017-08-05] MEDS ORDERED: POTASSIUM PHOSPHATE MONOBASIC 500 MG TAB PO/TUBE PRN (17:30)
[2017-08-05] MEDS ORDERED: BISACODYL 10 MG SUPP RECTAL PRN (17:30)
[2017-08-05] MEDS ORDERED: CHLORHEXIDINE GLUCONATE 2 % 1 PACK (2 CLOTHS) TOP PRN (17:30)
[2017-08-05] MEDS ORDERED: MISCELLANEOUS NURSING INFORMATION XX SCH (17:30)
[2017-08-05] MEDS ORDERED: MAGNESIUM OXIDE 400 MG TAB PO PRN (17:30)
[2017-08-05] MEDS ORDERED: POTASSIUM CHLOR 40 MEQ PREMIX 100 ML IV PRN ×2 (17:30)
[2017-08-05] MEDS ORDERED: GLUCAGON 1 MG/ML VIAL OTHER PRN (17:30)
[2017-08-05] MEDS ORDERED: ACETAMINOPHEN 325 MG TAB PO PRN (17:30)
[2017-08-05] MEDS ORDERED: POTASSIUM CHLOR 20 MEQ PREMIX 100 ML IV PRN ×2 (17:30)
[2017-08-05 17:33] LABS: AUTOMATED NEUTROPHIL # 3.9 TH/MM3 (1.8-7.7); BASOPHIL # 0.1 TH/MM3 (0-0.2); BASOPHIL % 0.7 % (0.0-2.0); EOSINOPHIL # 0.4 TH/MM3 (0-0.4); HEMATOCRIT 43.6 % (39.0-51.0); HEMOGLOBIN 15.1 GM/DL (13.0-17.0); LYMPH % 40.8 % (9.0-44.0); LYMPHOCYTE # 3.6 TH/MM3 (1.0-4.8); MEAN CELL VOLUME 93.7 FL (80.0-100.0); MEAN CORPUSCULAR HEMOGLOBIN 32.5 PG (27.0-34.0); MEAN CORPUSCULAR HGB CONC 34.7 % (32.0-36.0); MEAN PLATELET VOLUME 8.5 FL (7.0-11.0); MONO % 9.4 % (0.0-8.0); MONOCYTE # 0.8 TH/MM3 (0-0.9); NEUT % 44.1 % (16.0-70.0); PLATELET COUNT 267 TH/MM3 (150-450); RED BLOOD COUNT 4.65 MIL/MM3 (4.50-5.90); WHITE BLOOD COUNT 8.7 TH/MM3 (4.0-11.0)
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
[2017-08-05] MEDS: fentaNYL DRIP 250 ML IV PRN (17:57)
[2017-08-05] MEDS: PROPOFOL 1000 MG/100 ML INJ 100 ML IV PRN ×2 (17:57→20:29)
[2017-08-05 18:00] VITALS: BP 134/90; PULSE 80; RESP 16; TEMP 98.6; O2SAT 100
[2017-08-05] MEDS: INSULIN NovoLIN REGULAR SUPPLEMENTAL SCALE SQ SCH (18:00)
[2017-08-05] MEDS ORDERED: ARTIFICIAL TEARS OPTH SOLN 15 ML BTL EACH EYE SCH ×2 (18:00→22:00)
[2017-08-05] MEDS ORDERED: RESP: ALBUTEROL 2.5 MG/3 ML NEB (PRN) INH (18:00)
[2017-08-05] MEDS ORDERED: ONDANSETRON HCL 4 MG/2 ML VIAL IV PUSH PRN (18:00)
[2017-08-05] MEDS ORDERED: VANCOMYCIN INJ 1,000 MG in SODIUM CHLOR 0.9% 250 ML INJ 250 ML IV ONE (18:15)
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
[2017-08-05] MEDS ORDERED: PHENobarbital INJ 1,000 MG in SODIUM CHLORIDE 0.9% INJ 100 ML IV ONE (18:30)
[2017-08-05] MEDS: THIAMINE INJ 100 MG in SODIUM CHLORIDE 0.9% INJ 100 ML IV SCH (18:45)
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
[2017-08-05] MEDS: RESP: ALBUTEROL 2.5 MG/IPRATROPIUM 0.5 MG NEB (SCH) INH (19:39)
[2017-08-05 19:40] VITALS: O2SAT 100
[2017-08-05 20:00] VITALS: BP 88/59; PULSE 69; RESP 16; TEMP 97.8; O2SAT 100
[2017-08-05] MEDS: CHLORHEXIDINE 0.12% (ORAL KIT) 15 ML CUP MT SCH (20:00)
[2017-08-05] MEDS: levETIRAcetam INJ 500 MG in SODIUM CHLORIDE 0.9% INJ 100 ML IV SCH (20:12)
[2017-08-05] MEDS: SODIUM CHLORIDE 0.9% FLUSH 10 ML FLUSH IV FLUSH SCH (20:28)
[2017-08-05] MEDS: FAMOTIDINE 20 MG/2 ML VIAL IV PUSH SCH (20:28)
[2017-08-05] MEDS: DOCUSATE SODIUM 50 MG/SENNA 8.6 MG TAB PO SCH (21:00)
[2017-08-05] MEDS ORDERED: levETIRAcetam INJ 500 MG in SODIUM CHLORIDE 0.9% INJ 100 ML IV SCH (21:00)
[2017-08-05] MEDS ORDERED: SENNOSIDES 8.6 MG TAB PO PRN (21:00)
[2017-08-05] MEDS ORDERED: MAGNESIUM HYDROXIDE SUSP 30 ML CUP PO PRN (21:00)
[2017-08-05] MEDS: PHENobarbital ELIX 20 MG/5 ML CUP PO SCH (21:47)
[2017-08-05 22:00] VITALS: PULSE 72
[2017-08-05] MEDS: AZTREONAM INJ 1,000 MG in SODIUM CHLORIDE 0.9% INJ 100 ML IV SCH (23:31)
[2017-08-05] MEDS: DEXT 5%-NACL 0.9% 1000 ML INJ 1,000 ML IV SCH (23:47)
[2017-08-06] VITALS (21 sets, daily range): BP systolic 89–115; BP diastolic 52–71; PULSE 53–75; RESP 12–16; TEMP 97.8–98.6; O2SAT 98–100
[2017-08-06] MEDS: PROPOFOL 1000 MG/100 ML INJ 100 ML IV PRN ×2 (01:32→18:30)
[2017-08-06] MEDS: AZTREONAM INJ 1,000 MG in SODIUM CHLORIDE 0.9% INJ 100 ML IV SCH ×3 (03:10→20:39)
[2017-08-06] MEDS: CHLORHEXIDINE GLUCONATE 2 % 1 PACK (2 CLOTHS) TOP SCH (03:11)
[2017-08-06] MEDS: RESP: ALBUTEROL 2.5 MG/IPRATROPIUM 0.5 MG NEB (SCH) INH ×4 (03:24→19:39)
[2017-08-06 04:50] LABS: AUTOMATED NEUTROPHIL # 3.8 TH/MM3 (1.8-7.7); BASOPHIL % 0.6 % (0.0-2.0); EOSINOPHIL # 0.3 TH/MM3 (0-0.4); EOSINOPHIL % 3.7 % (0.0-4.0); HEMOGLOBIN 12.8 GM/DL (13.0-17.0); LYMPH % 35.5 % (9.0-44.0); LYMPHOCYTE # 2.6 TH/MM3 (1.0-4.8); MEAN CELL VOLUME 93.6 FL (80.0-100.0); MEAN CORPUSCULAR HEMOGLOBIN 32.4 PG (27.0-34.0); MEAN CORPUSCULAR HGB CONC 34.7 % (32.0-36.0); MEAN PLATELET VOLUME 7.9 FL (7.0-11.0); MONO % 8.1 % (0.0-8.0); MONOCYTE # 0.6 TH/MM3 (0-0.9); NEUT % 52.1 % (16.0-70.0); PLATELET COUNT 216 TH/MM3 (150-450); RED BLOOD COUNT 3.96 MIL/MM3 (4.50-5.90); RED CELL DISTRIBUTION WIDTH 13.9 % (11.6-17.2); WHITE BLOOD COUNT 7.3 TH/MM3 (4.0-11.0)
[2017-08-06 05:24] LABS: ALBUMIN 3.1 GM/DL (3.4-5.0); ALKALINE PHOSPHATASE 79 U/L (45-117); ALT (GPT) 30 U/L (12-78); AST (GOT) 30 U/L (15-37); BICARBONATE 21.9 MEQ/L (21.0-32.0); BLOOD UREA NITROGEN 15 MG/DL (7-18); CHLORIDE 108 MEQ/L (98-107); CREATININE 0.67 MG/DL (0.60-1.30); GLOMERULAR FILTRATION RATE 126 ML/MIN (>89); GLUCOSE,RANDOM 70 MG/DL (74-106); MAGNESIUM 1.9 MG/DL (1.5-2.5); PHOSPHORUS 2.2 MG/DL (2.5-4.9); SODIUM (NA) 142 MEQ/L (136-145); TOTAL BILIRUBIN ADULT 0.3 MG/DL (0.2-1.0); TOTAL PROTEIN 6.3 GM/DL (6.4-8.2)
[2017-08-06] MEDS: PHENobarbital ELIX 20 MG/5 ML CUP PO SCH ×3 (05:28→22:42)
[2017-08-06] MEDS: INSULIN NovoLIN REGULAR SUPPLEMENTAL SCALE SQ SCH ×5 (06:00→23:29)
[2017-08-06] MEDS ORDERED: POTASSIUM CHLORIDE 20 MEQ PWD PACKET PO ONE (06:30)
[2017-08-06] MEDS ORDERED: POTASSIUM PHOSPHATE INJ 30 MMOL in SODIUM CHLOR 0.9% 250 ML INJ 250 ML IV ONE (06:30)
[2017-08-06] MEDS: MAGNESIUM SULFATE 1 GM PREMIX 100 ML IV SCH ×2 (07:18→08:19)
[2017-08-06] MEDS: MULTIVITAMIN TAB PO SCH (08:18)
[2017-08-06] MEDS: FOLIC ACID 1 MG TAB PO SCH (08:18)
[2017-08-06] MEDS: THIAMINE INJ 100 MG in SODIUM CHLORIDE 0.9% INJ 100 ML IV SCH (08:18)
[2017-08-06] MEDS: FAMOTIDINE 20 MG/2 ML VIAL IV PUSH SCH ×2 (08:18→20:39)
[2017-08-06] MEDS: DOCUSATE SODIUM 50 MG/SENNA 8.6 MG TAB PO SCH ×2 (08:18→20:39)
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
[2017-08-06] MEDS: SODIUM CHLORIDE 0.9% FLUSH 10 ML FLUSH IV FLUSH SCH ×2 (08:19→20:39)
[2017-08-06] MEDS: DEXT 5%-NACL 0.9% 1000 ML INJ 1,000 ML IV SCH ×2 (08:19→13:53)
[2017-08-06] MEDS: CHLORHEXIDINE 0.12% (ORAL KIT) 15 ML CUP MT SCH ×2 (08:19→20:00)
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
[2017-08-06] MEDS: levETIRAcetam INJ 500 MG in SODIUM CHLORIDE 0.9% INJ 100 ML IV SCH ×2 (09:21→20:39)
[2017-08-06] MEDS: DEXMEDETOMIDINE INJ 1,000 MCG in SODIUM CHLORIDE 0.9% INJ 240 ML IV PRN (09:36)
[2017-08-06] MEDS ORDERED: DEXMEDETOMIDINE INJ 200 MCG in SODIUM CHLORIDE 0.9% INJ 50 ML IV PRN (09:45)
[2017-08-06] MEDS ORDERED: DEXMEDETOMIDINE IV PRN (10:00)
[2017-08-06] MEDS ORDERED: SODIUM CHLORIDE 0.9% IV PRN (10:00)
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
[2017-08-06] MEDS: ARTIFICIAL TEARS OPTH SOLN 15 ML BTL EACH EYE SCH ×2 (13:43→22:00)
[2017-08-06] MEDS: fentaNYL DRIP 250 ML IV PRN (17:00)
--- NOTE | 2017-08-06 18:33 | RADRPT ---
EXAM DATE/TIME: 08/06/2017 17:51 [facility] COMPARISON: CT BRAIN W/O CONTRAST, August 05, 2017, 16:41. INDICATIONS : Altered mental status. Post trauma. MEDICAL HISTORY : Carcinoma, colon. Seizures. SURGICAL HISTORY : Colon surgery/rt hand. ENCOUNTER: Initial ACUITY: 2 day PAIN SCORE: Nonresponsive. LOCATION: head TECHNIQUE: Multiplanar, multisequence MRI of the brain was performed without contrast. FINDINGS: CEREBRUM: The ventricles are normal for age. No evidence of midline shift, mass lesion, hemorrhage or acute in farction. No extraaxial fluid collections are seen. The pituitary gland and suprasellar cistern are normal in configuration. WHITE MATTER: There is a single high signal spots in the white matter tracks of the right frontal lobe. Otherwise, the white matter tracts are within normal limits for patient's age. POSTERIOR FOSSA: The cerebellum and brainstem are intact. There is an arachnoid cyst in the midline posterior fossa me asuring 3.0 x 2.1 cm. The 4th ventricle is midline. The cerebellopontine angle is unremarkable. The cerebellar tonsils are normal in position. DIFFUSION IMAGING: No focal areas of restricted diffusion are seen. No evidence of acute infarction. EXTRACRANIAL: The visualized portions of the orbits and paranasal sinuses are unremarkable. CONCLUSION: 1. Single high signal spots in the white matter tracts of the right frontal lobe. This finding is non specific. This can be seen with ischemic demyelinization or any demyelinating process. Recommend foll owup MRI of the brain in 6 months. 2. Focal arachnoid cyst in the midline posterior fossa measuring 3.0 x 2.1 cm. 3. No acute pathology. Alcides Fairbanks MD on August 06, 2017 at 18:26 Board Certified Radiologist. This report was verified electronically.
--- NOTE | 2017-08-06 18:42 | RADRPT ---
EXAM DATE/TIME: 08/06/2017 17:51 [facility] COMPARISON: MRI BRAIN W/O CONTRAST, August 06, 2017, 17:51. INDICATIONS : Altered mental status. MEDICAL HISTORY : Seizures. Carcinoma, colon. SURGICAL HISTORY : Colon surgery/ rt hand. ENCOUNTER: Initial ACUITY: 2 day PAIN SCORE: Nonresponsive. LOCATION: head Please note a normal MRA of the brain does not entirely exclude the possibility of a small aneurysm, nor the possibility of distal intracranial vessel disease. TECHNIQUE: 3D time of flight MRA was performed. Source images, multiplanar STS MIP, and 3D volume MIP reconstru ctions were reviewed. FINDINGS: There is excellent visualization of the major intracranial arteries out to the second-order branch ve ssels. There is no evidence for aneurysm, vessel truncation or stenosis, and no evidence for vascula r malformation. CONCLUSION: Normal examination for a patient of this age. Alcieds Fairbanks MD on August 06, 2017 at 18:38 Board Certified Radiologist. This report was verified electronically.
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
[2017-08-06] MEDS ORDERED: GADODIAMIDE PF 287 MG/ML 20 ML VIAL (for RAD MRI) IVCONTRAST ONE (20:09)
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
[2017-08-07] VITALS (19 sets, daily range): BP systolic 95–142; BP diastolic 52–80; PULSE 53–91; RESP 12–21; TEMP 98.5–99.7; O2SAT 100
[2017-08-07] MEDS: PROPOFOL 1000 MG/100 ML INJ 100 ML IV PRN ×2 (01:40→07:48)
[2017-08-07] MEDS: DEXT 5%-NACL 0.9% 1000 ML INJ 1,000 ML IV SCH (03:25)
[2017-08-07] MEDS: RESP: ALBUTEROL 2.5 MG/IPRATROPIUM 0.5 MG NEB (SCH) INH ×4 (03:27→19:35)
[2017-08-07] MEDS: CHLORHEXIDINE GLUCONATE 2 % 1 PACK (2 CLOTHS) TOP SCH (03:52)
[2017-08-07] MEDS: LORazepam 2 MG/ML VIAL IV PUSH PRN ×2 (03:59→11:40)
[2017-08-07] MEDS: AZTREONAM INJ 1,000 MG in SODIUM CHLORIDE 0.9% INJ 100 ML IV SCH ×3 (04:00→20:31)
[2017-08-07] MEDS: ARTIFICIAL TEARS OPTH SOLN 15 ML BTL EACH EYE SCH ×3 (05:21→20:31)
[2017-08-07] MEDS: PHENobarbital ELIX 20 MG/5 ML CUP PO SCH ×3 (05:22→21:49)
--- NOTE | 2017-08-07 05:51 | RADRPT ---
EXAM DATE/TIME: 08/07/2017 03:29 [facility] COMPARISON: CHEST SINGLE AP, August 05, 2017, 16:25. INDICATIONS : Respiratory failure. MEDICAL HISTORY : Seizures. Carcinoma, colon. SURGICAL HISTORY : Colon surgery/ rt hand. ENCOUNTER: Subsequent ACUITY: 3 days PAIN SCORE: Non-responsive. LOCATION: Bilateral chest FINDINGS: A single view of the chest demonstrates endotracheal tube tip at the level of the aortic arch. NG ent ers stomach. Subsegmental opacities in the lungs most likely basilar dependent atelectasis. No effusi on or pneumothorax. CONCLUSION: 1. Endotracheal tube and nasogastric tube in good position. Subsegmental basilar and dependent opacit y in the lungs, probably atelectasis. Lavelle Toledo MD on August 07, 2017 at 5:49 Board Certified Radiologist. This report was verified electronically.
[2017-08-07 05:53] LABS: BASOPHIL % 0.4 % (0.0-2.0); EOSINOPHIL # 0.3 TH/MM3 (0-0.4); EOSINOPHIL % 4.4 % (0.0-4.0); HEMATOCRIT 35.4 % (39.0-51.0); LYMPH % 20.2 % (9.0-44.0); LYMPHOCYTE # 1.6 TH/MM3 (1.0-4.8); MEAN CELL VOLUME 92.6 FL (80.0-100.0); MEAN CORPUSCULAR HEMOGLOBIN 31.5 PG (27.0-34.0); MEAN PLATELET VOLUME 8.4 FL (7.0-11.0); MONO % 10.3 % (0.0-8.0); MONOCYTE # 0.8 TH/MM3 (0-0.9); NEUT % 64.7 % (16.0-70.0); PLATELET COUNT 188 TH/MM3 (150-450); RED BLOOD COUNT 3.82 MIL/MM3 (4.50-5.90); RED CELL DISTRIBUTION WIDTH 13.9 % (11.6-17.2); WHITE BLOOD COUNT 7.8 TH/MM3 (4.0-11.0)
[2017-08-07] MEDS: INSULIN NovoLIN REGULAR SUPPLEMENTAL SCALE SQ SCH ×4 (06:00→23:35)
[2017-08-07 06:19] LABS: ALBUMIN 2.8 GM/DL (3.4-5.0); ALT (GPT) 25 U/L (12-78); AST (GOT) 24 U/L (15-37); BICARBONATE 25.9 MEQ/L (21.0-32.0); BLOOD UREA NITROGEN 14 MG/DL (7-18); CALCIUM 7.8 MG/DL (8.5-10.1); CHLORIDE 106 MEQ/L (98-107); CREATININE 0.61 MG/DL (0.60-1.30); GLOMERULAR FILTRATION RATE 140 ML/MIN (>89); GLUCOSE,RANDOM 81 MG/DL (74-106); MAGNESIUM 2.1 MG/DL (1.5-2.5); SODIUM (NA) 139 MEQ/L (136-145)
[2017-08-07 06:30] LABS: ALKALINE PHOSPHATASE 73 U/L (45-117); PHOSPHORUS 2.9 MG/DL (2.5-4.9); TOTAL BILIRUBIN ADULT 0.4 MG/DL (0.2-1.0); TOTAL PROTEIN 5.7 GM/DL (6.4-8.2)
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
[2017-08-07] MEDS: CHLORHEXIDINE 0.12% (ORAL KIT) 15 ML CUP MT SCH ×2 (07:47→20:31)
[2017-08-07] MEDS: levETIRAcetam INJ 500 MG in SODIUM CHLORIDE 0.9% INJ 100 ML IV SCH ×2 (07:48→20:31)
[2017-08-07] MEDS: DOCUSATE SODIUM 50 MG/SENNA 8.6 MG TAB PO SCH ×2 (07:49→21:00)
[2017-08-07] MEDS: MULTIVITAMIN TAB PO SCH (07:49)
[2017-08-07] MEDS: SODIUM CHLORIDE 0.9% FLUSH 10 ML FLUSH IV FLUSH SCH ×2 (07:49→20:31)
[2017-08-07] MEDS: FOLIC ACID 1 MG TAB PO SCH (07:49)
[2017-08-07] MEDS: THIAMINE INJ 100 MG in SODIUM CHLORIDE 0.9% INJ 100 ML IV SCH (07:49)
[2017-08-07] MEDS: FAMOTIDINE 20 MG TAB NG SCH ×2 (08:19→21:00)
[2017-08-07] MEDS: ENOXAPARIN SODIUM 40 MG/0.4 ML SYRINGE SQ SCH (08:51)
[2017-08-07] MEDS ORDERED: POTASSIUM CHLORIDE 20 MEQ PWD PACKET PO ONE (09:00)
[2017-08-07] MEDS: DEXMEDETOMIDINE INJ 1,000 MCG in SODIUM CHLORIDE 0.9% INJ 240 ML IV PRN (13:24)
[2017-08-07] MEDS ORDERED: ACETAMINOPHEN 325 MG TAB PO PRN (20:15)
[2017-08-07] MEDS: MORPHINE SULFATE 4 MG/ML INJ IV PUSH PRN (20:31)
[2017-08-08] VITALS (11 sets, daily range): BP systolic 116–158; BP diastolic 71–90; PULSE 74–85; RESP 18–22; TEMP 96.9–99.4; O2SAT 96–100
[2017-08-08] MEDS: MORPHINE SULFATE 4 MG/ML INJ IV PUSH PRN ×6 (00:12→19:46)
[2017-08-08] MEDS: LORazepam 2 MG/ML VIAL IV PUSH PRN (02:17)
[2017-08-08] MEDS: RESP: ALBUTEROL 2.5 MG/IPRATROPIUM 0.5 MG NEB (SCH) INH ×4 (03:15→19:38)
[2017-08-08] MEDS: CHLORHEXIDINE GLUCONATE 2 % 1 PACK (2 CLOTHS) TOP SCH (04:00)
[2017-08-08] MEDS: INSULIN NovoLIN REGULAR SUPPLEMENTAL SCALE SQ SCH ×4 (05:05→23:45)
[2017-08-08] MEDS: ARTIFICIAL TEARS OPTH SOLN 15 ML BTL EACH EYE SCH ×3 (05:05→19:46)
[2017-08-08] MEDS: PHENobarbital ELIX 20 MG/5 ML CUP PO SCH ×3 (05:20→22:53)
[2017-08-08] MEDS: AZTREONAM INJ 1,000 MG in SODIUM CHLORIDE 0.9% INJ 100 ML IV SCH ×3 (05:20→19:45)
[2017-08-08] MEDS: CHLORHEXIDINE 0.12% (ORAL KIT) 15 ML CUP MT SCH ×2 (07:32→19:45)
[2017-08-08] MEDS: THIAMINE INJ 100 MG in SODIUM CHLORIDE 0.9% INJ 100 ML IV SCH (08:13)
[2017-08-08] MEDS: SODIUM CHLORIDE 0.9% FLUSH 10 ML FLUSH IV FLUSH SCH ×2 (08:14→19:46)
[2017-08-08] MEDS: DOCUSATE SODIUM 50 MG/SENNA 8.6 MG TAB PO SCH ×2 (08:14→19:46)
[2017-08-08] MEDS: FAMOTIDINE 20 MG TAB NG SCH ×2 (08:14→19:46)
[2017-08-08] MEDS: FOLIC ACID 1 MG TAB PO SCH (08:14)
[2017-08-08] MEDS: ENOXAPARIN SODIUM 40 MG/0.4 ML SYRINGE SQ SCH (08:14)
[2017-08-08] MEDS: MULTIVITAMIN TAB PO SCH (08:14)
[2017-08-08] MEDS: levETIRAcetam INJ 500 MG in SODIUM CHLORIDE 0.9% INJ 100 ML IV SCH ×2 (08:14→19:45)
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
[2017-08-08 14:09] LABS: AUTOMATED NEUTROPHIL # 5.1 TH/MM3 (1.8-7.7); BASOPHIL % 0.4 % (0.0-2.0); EOSINOPHIL # 0.5 TH/MM3 (0-0.4); EOSINOPHIL % 5.9 % (0.0-4.0); HEMATOCRIT 37.8 % (39.0-51.0); HEMOGLOBIN 12.9 GM/DL (13.0-17.0); LYMPH % 21.3 % (9.0-44.0); LYMPHOCYTE # 1.8 TH/MM3 (1.0-4.8); MEAN CELL VOLUME 93.2 FL (80.0-100.0); MEAN CORPUSCULAR HEMOGLOBIN 31.9 PG (27.0-34.0); MEAN CORPUSCULAR HGB CONC 34.2 % (32.0-36.0); MEAN PLATELET VOLUME 8.9 FL (7.0-11.0); MONO % 10.2 % (0.0-8.0); MONOCYTE # 0.8 TH/MM3 (0-0.9); NEUT % 62.2 % (16.0-70.0); PLATELET COUNT 178 TH/MM3 (150-450); RED BLOOD COUNT 4.06 MIL/MM3 (4.50-5.90); RED CELL DISTRIBUTION WIDTH 13.6 % (11.6-17.2); WHITE BLOOD COUNT 8.3 TH/MM3 (4.0-11.0)
[2017-08-08 14:28] LABS: ALBUMIN 3.3 GM/DL (3.4-5.0); ALT (GPT) 27 U/L (12-78); AMYLASE 50 U/L (25-115); AST (GOT) 25 U/L (15-37); BICARBONATE 28.3 MEQ/L (21.0-32.0); BLOOD UREA NITROGEN 6 MG/DL (7-18); CALCIUM 8.6 MG/DL (8.5-10.1); CHLORIDE 101 MEQ/L (98-107); CREATININE 0.57 MG/DL (0.60-1.30); GLOMERULAR FILTRATION RATE 151 ML/MIN (>89); GLUCOSE,RANDOM 91 MG/DL (74-106); MAGNESIUM 1.8 MG/DL (1.5-2.5); PHOSPHORUS 3.7 MG/DL (2.5-4.9); SODIUM (NA) 136 MEQ/L (136-145)
[2017-08-08 14:31] LABS: ALKALINE PHOSPHATASE 85 U/L (45-117); TOTAL BILIRUBIN ADULT 0.5 MG/DL (0.2-1.0); TOTAL PROTEIN 6.9 GM/DL (6.4-8.2)
[2017-08-08] MEDS ORDERED: diphenhydrAMINE HCL 50 MG/ML VIAL IV PUSH PRN (18:00)
[2017-08-08] MEDS: ACETAMINOPHEN/HYDROcodone 325 MG/5 MG TAB PO PRN (19:46)
[2017-08-09] MEDS: CHLORHEXIDINE GLUCONATE 2 % 1 PACK (2 CLOTHS) TOP SCH (04:00)
[2017-08-09] MEDS: RESP: ALBUTEROL 2.5 MG/IPRATROPIUM 0.5 MG NEB (SCH) INH ×2 (04:42→08:54)
[2017-08-09 04:47] VITALS: BP 115/71; PULSE 80; RESP 18; TEMP 97.8; O2SAT 96
[2017-08-09] MEDS: ARTIFICIAL TEARS OPTH SOLN 15 ML BTL EACH EYE SCH (05:11)
[2017-08-09] MEDS: AZTREONAM INJ 1,000 MG in SODIUM CHLORIDE 0.9% INJ 100 ML IV SCH (05:11)
[2017-08-09] MEDS: PHENobarbital ELIX 20 MG/5 ML CUP PO SCH (05:11)
[2017-08-09] MEDS: ACETAMINOPHEN/HYDROcodone 325 MG/5 MG TAB PO PRN ×3 (05:12→09:04)
[2017-08-09] MEDS: INSULIN NovoLIN REGULAR SUPPLEMENTAL SCALE SQ SCH (05:18)
[2017-08-09 08:00] VITALS: BP 123/74; PULSE 70; RESP 18; TEMP 96.4; O2SAT 96
[2017-08-09] MEDS: CHLORHEXIDINE 0.12% (ORAL KIT) 15 ML CUP MT SCH (08:00)
[2017-08-09] MEDS: levETIRAcetam INJ 500 MG in SODIUM CHLORIDE 0.9% INJ 100 ML IV SCH (09:00)
[2017-08-09] MEDS: THIAMINE INJ 100 MG in SODIUM CHLORIDE 0.9% INJ 100 ML IV SCH (09:00)
[2017-08-09] MEDS: FOLIC ACID 1 MG TAB PO SCH (09:03)
[2017-08-09] MEDS: FAMOTIDINE 20 MG TAB NG SCH (09:03)
[2017-08-09] MEDS: DOCUSATE SODIUM 50 MG/SENNA 8.6 MG TAB PO SCH (09:04)
[2017-08-09] MEDS: MULTIVITAMIN TAB PO SCH (09:04)
[2017-08-09] MEDS: ENOXAPARIN SODIUM 40 MG/0.4 ML SYRINGE SQ SCH (09:04)
[2017-08-09] MEDS: SODIUM CHLORIDE 0.9% FLUSH 10 ML FLUSH IV FLUSH SCH (09:04)
== END 2017-08-09 10:14 | disposition left against medical advice (07) | DRG 208 ==
LOC: NEPE 15:58 → NEDA 16:39 → N03A 17:03 → N06B 08-08 21:56
PROVIDERS: ADMIT Hospitalist; ATTEND Hospitalist
PROC: 5A1945Z Respiratory Ventilation, 24-96 Consecutive Hours (ICD-10-PCS; principal; 2017-08-05)
PROC: 0BH17EZ Insertion of Endotracheal Airway into Trachea, Via Natural or Artificial Opening (ICD-10-PCS; 2017-08-05)
DX: S27.321A Contusion of lung, unilateral, initial encounter (principal); J96.00 Acute respiratory failure, unspecified whether with hypoxia or hypercapnia; J98.11 Atelectasis; M41.9 Scoliosis, unspecified; E88.09 Other disorders of plasma-protein metabolism, not elsewhere classified; S01.112A Laceration without foreign body of left eyelid and periocular area, initial encounter; S02.2XXA Fracture of nasal bones, initial encounter for closed fracture; F10.129 Alcohol abuse with intoxication, unspecified; F17.210 Nicotine dependence, cigarettes, uncomplicated; G40.909 Epilepsy, unspecified, not intractable, without status epilepticus; M25.552 Pain in left hip; K21.9 Gastro-esophageal reflux disease without esophagitis; Y90.8 Blood alcohol level of 240 mg/100 ml or more; G93.0 Cerebral cysts; F12.90 Cannabis use, unspecified, uncomplicated; M51.36 Other intervertebral disc degeneration, lumbar region; J34.2 Deviated nasal septum; J34.1 Cyst and mucocele of nose and nasal sinus; E83.39 Other disorders of phosphorus metabolism; E87.6 Hypokalemia; R00.1 Bradycardia, unspecified; Z85.038 Personal history of other malignant neoplasm of large intestine; Z92.3 Personal history of irradiation; Z91.19 Patient's noncompliance with other medical treatment and regimen; Z91.14 Patient's other noncompliance with medication regimen; V17.0XXA Pedal cycle driver injured in collision with fixed or stationary object in nontraffic accident, initial encounter; Y93.55 Activity, bike riding; Y92.89 Other specified places as the place of occurrence of the external cause
CPT/HCPCS: 31500; 36600; 70450; 70486; 70544; 70548; 70551; 71045; 71260; 72125; 72129; 72132; 72170; 74177; 80048; 80053; 80184; 80185; 80307; 82140; 82150; 82805; 82948; 83690; 83735; 84100; 84443; 85025; 85610; 85730; 86850; 86900; 86901; 87641; 94002; 94003; 94150; 94640; 94664; 94667; 94668; 95819; 96374; 96375; A9579; J0330; J0690; J1200; J1650; J1953; J2060; J2270; J2560; J3010; J3370; J3411; J3475; J7030; J7042; J7050; Q9967

== ENCOUNTER 2018-03-26 17:01 | Inpatient (IN) ==
[2018-03-26] MEDS ORDERED: Sod Chloride 0.9% Inj 1,000 ML IV.SIG ONE (17:07)
[2018-03-26] MEDS ORDERED: levETIRAcetam 1000mg/100mL Inj 100 ML IV.SIG ONE (17:13)
--- NOTE | 2018-03-26 17:15 | ED ---
HPI General Chief complaint: Seizure Stated complaint: medical Time Seen by Provider: 03/26/18 17:07 History of Present Illness HPI narrative: 52-year-old male with a history of seizure disorder is brought to the emergency department by EMS for evaluation of seizures. Per EMS report the patient was noted to have one witnessed seizure in front of friends who then called EMS. While patient under care of EMS he had 3 more seizures. He was then administered 2 mg of IV Versed. He has not had any seizures since then. Patient is currently sedated and unable to provide any history. Per EMS report the patient was awake and answering questions prior to the seizures and versed. Per EMS report the patient told them that he has about 2 seizures per day and "just rides them out." Per EMS report patient told them he has not taken his Keppra in several months or more. Related Data Previous Rx's Medication Instructions Recorded cyclobenzaprine 2.5 mg PO TID PRN #60 tab 04/08/18 levetiracetam [Keppra] 1,000 mg PO Q12H #60 tab 04/08/18 Allergies Allergy/AdvReac Type Severity Reaction Status Date / Time doxycycline Allergy Severe Rash Verified 03/30/18 16:38 erythromycin base Allergy Severe Rash Verified 03/30/18 16:38 minocycline Allergy Severe Rash Verified 03/30/18 16:38 penicillin G Allergy Severe Rash Verified 03/30/18 16:38 tigecycline Allergy Severe Rash Verified 03/30/18 16:38 Review of Systems ROS Unobtainable ROS Unobtainable: unobtainable due to mental status PMFSH Social History Social History Substance History: Unable to Obtain Second Hand Smoke Exposure: Yes Smoking Status: Cognitive impairment Tobacco Type: Cigarettes How Often Do You Have a Drink Containing Alcohol: Unable to Obtain Exam Narrative Exam Narrative: GENERAL: Well-nourished and well-developed male patient in no acute distress. Smells of etoh. SKIN: Warm and dry. HEAD: Normocephalic and atraumatic. EYES: No injection, drainage, or hyphema noted. PERRLA. EOMI. ENT: No nasal drainage noted. Oropharynx is clear. NECK: Supple and the trachea is midline. CARDIOVASCULAR: Regular rate and rhythm. RESPIRATORY: Breath sounds are equal bilaterally with no accessory muscle use, wheezing, rhonchi, or crackles. GASTROINTESTINAL: Abdomen is soft, non-tender, and nondistended. MUSCULOSKELETAL: No obvious deformities, swelling, cyanosis, or ecchymosis is present throughout the upper and lower extremities. Patient has full range of motion without any signs of neurovascular compromise. Distal pulses are 2+ throughout. NEUROLOGICAL: Sedated but responds to painful stimuli. Cranial nerves are grossly intact. Course Reevaluation(s) Reevaluation #1: Attending note: 52-year-old man with recurrent episodes of seizures secondary to medication noncompliance, current evaluation in process, was asked to be seen by me for complaint of right elbow pain, but no particular history that he is aware of, but is not thought to have injured himself during 1 of his seizures. He is concerned mostly about 2 skin lesions he has in the area, worried about infection, and repeats several times that he has had MRSA infections in the past. On my examination, patient is awake alert, coherent, but strong odor of alcohol , but somewhat confrontational, slightly insistent, but not quite belligerent. He is neurologically intact, right upper extremity shows full range of motion of the elbow, no bony effusion at the elbow joint, wrist joint, shoulder move normally as well. He has 2 old scabbed lesions on either posterior skin surrounding the epicondyles, with mild chronic changes, but no edema, no fluctuance, no signs of acute infection, no lymphangitis, and no increase in pain with range of motion. Patient is here by himself, brought by EMS, but will have someone to come pick him up, up acetaminophen had been ordered, but we will give him a single dose of codeine for his discomfort now, will probably cover him with Bactrim as well , but do not expect to provide any other analgesics beyond ibuprofen or acetaminophen on discharge. Time: 19:52 Initial Documented Vital Signs Temperature 97.7 F 03/26/18 17:05 Pulse Rate 88 03/26/18 17:05 Respiratory Rate 21 03/26/18 17:05 Blood Pressure 137/90 03/26/18 17:05 Pulse Oximetry 100 03/26/18 17:05 Last Documented Vital Signs Temperature 98.2 F 03/29/18 08:00 Pulse Rate 84 03/29/18 08:00 Respiratory Rate 22 03/29/18 08:00 Blood Pressure 131/66 03/29/18 08:00 Pulse Oximetry 98 03/29/18 08:07 Medical Decision Making MDM Narrative Medical decision making narrative: 52-year-old male is brought to the emergency department by EMS for evaluation of multiple seizures. Patient is afebrile, vital signs are stable. Patient is currently sedated and unable to provide any history. He was administered Versed 2 mg IV by EMS. IV access is obtained, labs of been drawn and sent. Patient is placed on cardiac telemetry and pulse oximetry monitoring. Will administer 1 g of Keppra IV. Patient became awake, alert and oriented after about 30 minutes here in the ED. He states he has not been on his seizure meds for 1 month or so. States he usually takes Keppra, phenytoin and phenobarbital but has no money to get these filled. Admits to drinking alcohol daily. States that he has had 3 beers today , normally has 12 beers. He denies any complaints at this time. CBC is unremarkable. Magnesium is unremarkable. CMP shows low calcium if 7.7, otherwise unremarkable. Urine tox positive for cannabinoids, benzos and cocaine. Chest x-ray is negative. Patient is now complaining of right elbow pain. States it has been bothering him for over a week. Denies any known injury or trauma to the elbow. He has a few abrasions to the elbow and it is slightly swollen. No erythema, warmth, discharge or drainage. Full range of motion. Will do x-ray of the right elbow to rule out any bony injury. Head CT is unremarkable. X-ray of the right elbow is negative for any acute abnormalities. Patient will be admitted due to multiple seizures. I spoke with Dr. Montemayor [facility] who accepts patient to her service. Medical Screen Exam Complete: Yes Emergency Medical Condition: Yes Differential Diagnosis Differential Diagnosis: Seizure disorder versus alcohol abuse versus substance abuse versus electrolyte abnormality versus other Lab Data Result diagrams: 03/27/18 03:55 03/27/18 03:55 Lab Results 03/26/18 03/26/18 03/26/18 Range/Units 17:15 17:15 17:15 WBC 9.7 (4.0-11.0) th/mm3 RBC 4.48 L (4.50-5.90) mil/mm3 Hgb 15.0 (13.0-17.0) gm/dL Hct 43.3 (39.0-51.0) % MCV 96.7 (80.0-100.0) fL MCH 33.5 (27.0-34.0) pg MCHC 34.6 (32.0-36.0) % RDW 13.5 (11.6-17.2) % Plt Count 265 (150-450) th/mm3 MPV 8.0 (7.0-11.0) fL Neut % (Auto) 55.2 (16.0-70.0) % Lymph % (Auto) 32.2 (9.0-44.0) % Limestone % (Auto) 9.2 H (0.0-8.0) % Eos % (Auto) 3.0 (0.0-4.0) % Baso % (Auto) 0.4 (0.0-2.0) % Neut # (Auto) 5.4 (1.8-7.7) th/mm3 Lymph # (Auto) 3.1 (1.0-4.8) th/mm3 Limestone # (Auto) 0.9 (0.0-0.9) th/mm3 Eos # (Auto) 0.3 (0.0-0.4) th/mm3 Baso # (Auto) 0.0 (0.0-0.2) th/mm3 WBC Differential . Differential Comment Auto diff final Sodium 141 (136-145) meq/L Potassium 3.5 (3.5-5.1) meq/L Chloride 107 (98-107) meq/L Carbon Dioxide 23.2 (21.0-32.0) meq/L Anion Gap 11 (5-15) meq/L BUN 11 (7-18) mg/dL Creatinine 0.72 (0.60-1.30) mg/dL Estimated GFR Greater than 89 (>89) mL/min POC Glucose (68-110) mg/dl Random Glucose 79 (74-106) mg/dL Calcium 7.7 L (8.5-10.1) mg/dL Magnesium 1.9 (1.5-2.5) mg/dL Total Bilirubin 0.2 (0.2-1.0) mg/dL AST 31 (15-37) U/L ALT 31 (12-78) U/L Alkaline Phosphatase 88 (45-117) U/L Total Protein 7.6 (6.4-8.2) g/dL Albumin 3.5 (3.4-5.0) g/dL Nasal Screen MRSA (PCR) (Negative) Urine Opiates Screen (Neg) Ur Barbiturates Screen (Neg) Ur Amphetamines Screen (Neg) Phenobarbital (15.0-40.0) mcg/mL U Benzodiazepines Scrn (Neg) Urine Cocaine Screen (Neg) U Cannabinoids Screen (Neg) Serum Alcohol 278 H (0-5) mg/dL 03/26/18 03/26/18 03/27/18 Range/Units 17:45 23:20 03:55 WBC 12.7 H (4.0-11.0) th/mm3 RBC 4.23 L (4.50-5.90) mil/mm3 Hgb 14.0 (13.0-17.0) gm/dL Hct 41.0 (39.0-51.0) % MCV 96.9 (80.0-100.0) fL MCH 33.1 (27.0-34.0) pg MCHC 34.1 (32.0-36.0) % RDW 13.4 (11.6-17.2) % Plt Count 237 (150-450) th/mm3 MPV 8.4 (7.0-11.0) fL Neut % (Auto) 78.7 H (16.0-70.0) % Lymph % (Auto) 13.3 (9.0-44.0) % Limestone % (Auto) 6.0 (0.0-8.0) % Eos % (Auto) 1.7 (0.0-4.0) % Baso % (Auto) 0.3 (0.0-2.0) % Neut # (Auto) 10.0 H (1.8-7.7) th/mm3 Lymph # (Auto) 1.7 (1.0-4.8) th/mm3 Limestone # (Auto) 0.8 (0.0-0.9) th/mm3 Eos # (Auto) 0.2 (0.0-0.4) th/mm3 Baso # (Auto) 0.0 (0.0-0.2) th/mm3 WBC Differential . Differential Comment Auto diff final Sodium (136-145) meq/L Potassium (3.5-5.1) meq/L Chloride (98-107) meq/L Carbon Dioxide (21.0-32.0) meq/L Anion Gap (5-15) meq/L BUN (7-18) mg/dL Creatinine (0.60-1.30) mg/dL Estimated GFR (>89) mL/min POC Glucose 111 H (68-110) mg/dl Random Glucose (74-106) mg/dL Calcium (8.5-10.1) mg/dL Magnesium (1.5-2.5) mg/dL Total Bilirubin (0.2-1.0) mg/dL AST (15-37) U/L ALT (12-78) U/L Alkaline Phosphatase (45-117) U/L Total Protein (6.4-8.2) g/dL Albumin (3.4-5.0) g/dL Nasal Screen MRSA (PCR) (Negative) Urine Opiates Screen Neg (Neg) Ur Barbiturates Screen Neg (Neg) Ur Amphetamines Screen Neg (Neg) Phenobarbital (15.0-40.0) mcg/mL U Benzodiazepines Scrn Pos H (Neg) Urine Cocaine Screen Pos H (Neg) U Cannabinoids Screen Pos H (Neg) Serum Alcohol (0-5) mg/dL 03/27/18 03/27/18 03/27/18 Range/Units 03:55 07:43 11:09 WBC (4.0-11.0) th/mm3 RBC (4.50-5.90) mil/mm3 Hgb (13.0-17.0) gm/dL Hct (39.0-51.0) % MCV (80.0-100.0) fL MCH (27.0-34.0) pg MCHC (32.0-36.0) % RDW (11.6-17.2) % Plt Count (150-450) th/mm3 MPV (7.0-11.0) fL Neut % (Auto) (16.0-70.0) % Lymph % (Auto) (9.0-44.0) % Limestone % (Auto) (0.0-8.0) % Eos % (Auto) (0.0-4.0) % Baso % (Auto) (0.0-2.0) % Neut # (Auto) (1.8-7.7) th/mm3 Lymph # (Auto) (1.0-4.8) th/mm3 Limestone # (Auto) (0.0-0.9) th/mm3 Eos # (Auto) (0.0-0.4) th/mm3 Baso # (Auto) (0.0-0.2) th/mm3 WBC Differential Differential Comment Sodium 144 (136-145) meq/L Potassium 3.7 (3.5-5.1) meq/L Chloride 111 H (98-107) meq/L Carbon Dioxide 22.5 (21.0-32.0) meq/L Anion Gap 11 (5-15) meq/L BUN 12 (7-18) mg/dL Creatinine 0.65 (0.60-1.30) mg/dL Estimated GFR Greater than 89 (>89) mL/min POC Glucose 120 H 167 H (68-110) mg/dl Random Glucose 68 L (74-106) mg/dL Calcium 7.8 L (8.5-10.1) mg/dL Magnesium (1.5-2.5) mg/dL Total Bilirubin 0.5 (0.2-1.0) mg/dL AST 24 (15-37) U/L ALT 27 (12-78) U/L Alkaline Phosphatase 80 (45-117) U/L Total Protein 6.8 D (6.4-8.2) g/dL Albumin 3.1 L (3.4-5.0) g/dL Nasal Screen MRSA (PCR) (Negative) Urine Opiates Screen (Neg) Ur Barbiturates Screen (Neg) Ur Amphetamines Screen (Neg) Phenobarbital (15.0-40.0) mcg/mL U Benzodiazepines Scrn (Neg) Urine Cocaine Screen (Neg) U Cannabinoids Screen (Neg) Serum Alcohol (0-5) mg/dL 03/27/18 03/27/18 03/28/18 Range/Units 15:39 21:28 08:10 WBC (4.0-11.0) th/mm3 RBC (4.50-5.90) mil/mm3 Hgb (13.0-17.0) gm/dL Hct (39.0-51.0) % MCV (80.0-100.0) fL MCH (27.0-34.0) pg MCHC (32.0-36.0) % RDW (11.6-17.2) % Plt Count (150-450) th/mm3 MPV (7.0-11.0) fL Neut % (Auto) (16.0-70.0) % Lymph % (Auto) (9.0-44.0) % [place] % (Auto) (0.0-8.0) % Eos % (Auto) (0.0-4.0) % Baso % (Auto) (0.0-2.0) % Neut # (Auto) (1.8-7.7) th/mm3 Lymph # (Auto) (1.0-4.8) th/mm3 Limestone # (Auto) (0.0-0.9) th/mm3 Eos # (Auto) (0.0-0.4) th/mm3 Baso # (Auto) (0.0-0.2) th/mm3 WBC Differential Differential Comment Sodium (136-145) meq/L Potassium (3.5-5.1) meq/L Chloride (98-107) meq/L Carbon Dioxide (21.0-32.0) meq/L Anion Gap (5-15) meq/L BUN (7-18) mg/dL Creatinine (0.60-1.30) mg/dL Estimated GFR (>89) mL/min POC Glucose 114 H 127 H (68-110) mg/dl Random Glucose (74-106) mg/dL Calcium (8.5-10.1) mg/dL Magnesium (1.5-2.5) mg/dL Total Bilirubin (0.2-1.0) mg/dL AST (15-37) U/L ALT (12-78) U/L Alkaline Phosphatase (45-117) U/L Total Protein (6.4-8.2) g/dL Albumin (3.4-5.0) g/dL Nasal Screen MRSA (PCR) Mrsa detected (Negative) Urine Opiates Screen (Neg) Ur Barbiturates Screen (Neg) Ur Amphetamines Screen (Neg) Phenobarbital (15.0-40.0) mcg/mL U Benzodiazepines Scrn (Neg) Urine Cocaine Screen (Neg) U Cannabinoids Screen (Neg) Serum Alcohol (0-5) mg/dL 03/28/18 03/28/18 03/29/18 Range/Units 08:20 16:47 04:23 WBC (4.0-11.0) th/mm3 RBC (4.50-5.90) mil/mm3 Hgb (13.0-17.0) gm/dL Hct (39.0-51.0) % MCV (80.0-100.0) fL MCH (27.0-34.0) pg MCHC (32.0-36.0) % RDW (11.6-17.2) % Plt Count (150-450) th/mm3 MPV (7.0-11.0) fL Neut % (Auto) (16.0-70.0) % Lymph % (Auto) (9.0-44.0) % Limestone % (Auto) (0.0-8.0) % Eos % (Auto) (0.0-4.0) % Baso % (Auto) (0.0-2.0) % Neut # (Auto) (1.8-7.7) th/mm3 Lymph # (Auto) (1.0-4.8) th/mm3 Limestone # (Auto) (0.0-0.9) th/mm3 Eos # (Auto) (0.0-0.4) th/mm3 Baso # (Auto) (0.0-0.2) th/mm3 WBC Differential Differential Comment Sodium (136-145) meq/L Potassium (3.5-5.1) meq/L Chloride (98-107) meq/L Carbon Dioxide (21.0-32.0) meq/L Anion Gap (5-15) meq/L BUN (7-18) mg/dL Creatinine (0.60-1.30) mg/dL Estimated GFR (>89) mL/min POC Glucose 97 (68-110) mg/dl Random Glucose (74-106) mg/dL Calcium (8.5-10.1) mg/dL Magnesium (1.5-2.5) mg/dL Total Bilirubin (0.2-1.0) mg/dL AST (15-37) U/L ALT (12-78) U/L Alkaline Phosphatase (45-117) U/L Total Protein (6.4-8.2) g/dL Albumin (3.4-5.0) g/dL Nasal Screen MRSA (PCR) (Negative) Urine Opiates Screen (Neg) Ur Barbiturates Screen (Neg) Ur Amphetamines Screen (Neg) Phenobarbital Less than 2.1 L 4.3 L (15.0-40.0) mcg/mL U Benzodiazepines Scrn (Neg) Urine Cocaine Screen (Neg) U Cannabinoids Screen (Neg) Serum Alcohol (0-5) mg/dL 03/29/18 Range/Units 08:43 WBC (4.0-11.0) th/mm3 RBC (4.50-5.90) mil/mm3 Hgb (13.0-17.0) gm/dL Hct (39.0-51.0) % MCV (80.0-100.0) fL MCH (27.0-34.0) pg MCHC (32.0-36.0) % RDW (11.6-17.2) % Plt Count (150-450) th/mm3 MPV (7.0-11.0) fL Neut % (Auto) (16.0-70.0) % Lymph % (Auto) (9.0-44.0) % [place] % (Auto) (0.0-8.0) % Eos % (Auto) (0.0-4.0) % Baso % (Auto) (0.0-2.0) % Neut # (Auto) (1.8-7.7) th/mm3 Lymph # (Auto) (1.0-4.8) th/mm3 Limestone # (Auto) (0.0-0.9) th/mm3 Eos # (Auto) (0.0-0.4) th/mm3 Baso # (Auto) (0.0-0.2) th/mm3 WBC Differential Differential Comment Sodium (136-145) meq/L Potassium (3.5-5.1) meq/L Chloride (98-107) meq/L Carbon Dioxide (21.0-32.0) meq/L Anion Gap (5-15) meq/L BUN (7-18) mg/dL Creatinine (0.60-1.30) mg/dL Estimated GFR (>89) mL/min POC Glucose 114 H (68-110) mg/dl Random Glucose (74-106) mg/dL Calcium (8.5-10.1) mg/dL Magnesium (1.5-2.5) mg/dL Total Bilirubin (0.2-1.0) mg/dL AST (15-37) U/L ALT (12-78) U/L Alkaline Phosphatase (45-117) U/L Total Protein (6.4-8.2) g/dL Albumin (3.4-5.0) g/dL Nasal Screen MRSA (PCR) (Negative) Urine Opiates Screen (Neg) Ur Barbiturates Screen (Neg) Ur Amphetamines Screen (Neg) Phenobarbital (15.0-40.0) mcg/mL U Benzodiazepines Scrn (Neg) Urine Cocaine Screen (Neg) U Cannabinoids Screen (Neg) Serum Alcohol (0-5) mg/dL Imaging Data Radiologist's impression: Head CT 03/26/18 17:07 CONCLUSION: 1. No acute findings in the brain. . Chest X-Ray 03/26/18 17:11 CONCLUSION: The lungs are clear. Elbow X-Ray 03/26/18 19:07 CONCLUSION: Negative examination Discharge Plan Discharge Disposition Patient Disposition: 30 Still Patient Discharge Condition Condition: Stable Discharge Order Discharge Orders: AMA Discharge (Routine); Ordered 03/29/18 Ordered By: Silvano Bloom Discharge Details Diagnosis: Seizures, Polysubstance abuse Physicians Team ED Provider: Isidro Montero ED Midlevel Provider: Sandra Cardozo Primary Care Provider: UNKNOWN, Attending Provider: Silvano Bloom Other Providers: Chavez Givens Discharge Interventions Interventions: ED Discharge Assessment Last Done: 03/26/18 21:30 Status ED Status: Left Department Discharge Information Discharge Date/Time: 03/26/18 21:34
[2018-03-26 17:46] LABS: Baso % (Auto) 0.4 % (0.0-2.0); Eos # (Auto) 0.3 th/mm3 (0.0-0.4); Hematocrit 43.3 % (39.0-51.0); Lymph # (Auto) 3.1 th/mm3 (1.0-4.8); Lymph % (Auto) 32.2 % (9.0-44.0); Mean Corpuscular HGB Conc 34.6 % (32.0-36.0); Mean Corpuscular Hemoglobin 33.5 pg (27.0-34.0); Mean Corpuscular Volume 96.7 fL (80.0-100.0); Mono # (Auto) 0.9 th/mm3 (0.0-0.9); Mono % (Auto) 9.2 % (0.0-8.0); Neut # (Auto) 5.4 th/mm3 (1.8-7.7); Neut % (Auto) 55.2 % (16.0-70.0); Platelet Count 265 th/mm3 (150-450); Red Blood Count 4.48 mil/mm3 (4.50-5.90); Red Cell Distribution Width 13.5 % (11.6-17.2); White Blood Count 9.7 th/mm3 (4.0-11.0)
[2018-03-26 18:15] LABS: Albumin 3.5 g/dL (3.4-5.0); Anion Gap 11 meq/L (5-15); Aspartate Aminotransferase 31 U/L (15-37); Blood Urea Nitrogen 11 mg/dL (7-18); Calcium 7.7 mg/dL (8.5-10.1); Carbon Dioxide 23.2 meq/L (21.0-32.0); Chloride 107 meq/L (98-107); Glomerular Filtration Rate Greater Than 89 mL/min (>89); Glucose,Random 79 mg/dL (74-106); Potassium 3.5 meq/L (3.5-5.1); Sodium 141 meq/L (136-145)
[2018-03-26 18:16] LABS: Alanine Aminotransferase 31 U/L (12-78)
[2018-03-26 18:19] LABS: Alkaline Phosphatase 88 U/L (45-117); Total Protein 7.6 g/dL (6.4-8.2)
--- NOTE | 2018-03-26 18:24 | XR ---
EXAM DATE: 03/26/2018 5:11 PM EDT AGE/SEX: 52 years / Male INDICATIONS: Cough. Medical. CLINICAL DATA: This is the patient's initial encounter. Patient reports that signs and symptoms have been present for 1 day and indicates a pain score of Nonresponsive. MEDICAL/SURGICAL HISTORY: . Seizures. Carcinoma, colon Non-responsive. COMPARISON: [facility], RIBS RIGHT MIN 3V W EXP CHEST, 01/02/2018. . FINDINGS: A single AP view of the chest demonstrates the lungs to be symmetrically aerated without evidence of mass, infiltrate or effusion. The cardiomediastinal contours are unremarkable. Osseous structures a re intact. CONCLUSION: The lungs are clear. Electronically signed by: Janak Soriano MD 03/26/2018 6:22 PM EDT
[2018-03-26 18:41] LABS: Amphetamine Screen,Urine Neg (Neg); Barbiturate Screen,Urine Neg (Neg); Cannabinoid Screen,Urine Pos (Neg); Cocaine Screen,Urine Pos (Neg)
[2018-03-26 18:49] LABS: Opiate Screen,Urine Neg (Neg)
[2018-03-26 18:49] LABS: Alcohol 278 mg/dL (0-5)
[2018-03-26] MEDS ORDERED: Acetaminophen 500 MG Tablet PO ONE (19:09)
--- NOTE | 2018-03-26 19:25 | CT ---
EXAM DATE: 03/26/2018 5:19 PM EDT AGE/SEX: 52 years / Male INDICATIONS: Seizure; fall. CLINICAL DATA: This is the patient's initial encounter. Patient reports that signs and symptoms have been present for 1 day and indicates a pain score of Nonresponsive. MEDICAL/SURGICAL HISTORY: . Seizure, ETOH None. RADIATION DOSE: 41.75 CTDI (mGy) COMPARISON: [facility] [place], CT HEAD W/O CONTRAST, 01/02/2018. [facility] [place], CT BRAIN W/O CONTRAST, 09/12/2012. . TECHNIQUE: CT of the head without contrast. Using automated exposure control and adjustment of the mA and/or kV according to patient size, radiation dose was kept as low as reasonably achievable to ob tain optimal diagnostic quality images. DICOM format image data is available electronically for revi ew and comparison. FINDINGS: Cerebrum: The ventricles are normal for age. No evidence of midline shift, mass lesion, hemorrhage or acute infarction. No extraaxial fluid collections are seen. Posterior Fossa: The cerebellum and brainstem are intact. The 4th ventricle is midline. The cerebe llopontine angle is unremarkable. Stable alexander cisterna magna in the left posterior fossa, unchanged f rom Extracranial: The visualized portion of the orbits is intact. Skull: The calvaria is intact. No evidence of skull fracture. CONCLUSION: 1. No acute findings in the brain. . Electronically signed by: Janak Soriano MD 03/26/2018 7:23 PM EDT
--- NOTE | 2018-03-26 19:38 | XR ---
EXAM DATE: 03/26/2018 7:07 PM EDT AGE/SEX: 52 years / Male INDICATIONS: Right elbow pain. CLINICAL DATA: This is the patient's initial encounter. Patient reports that signs and symptoms have been present for 1 day and indicates a pain score of Nonresponsive. MEDICAL/SURGICAL HISTORY: . Seizures. Carcinoma, colon. None. COMPARISON: No prior exams available for comparison. FINDINGS: Bony structures are intact and in normal alignment. Joints are intact without dislocation or signifi cant arthropathy. Osseous density is normal. Soft tissues are unremarkable. Angiocath in the antecu bital fossa.. CONCLUSION: Negative examination Electronically signed by: Janak Soriano MD 03/26/2018 7:37 PM EDT
[2018-03-26] MEDS ORDERED: Acetaminophen/Codeine 300/30 MG Tablet PO ONE (19:49)
[2018-03-26] MEDS ORDERED: Bisacodyl 10 MG Supp RECTAL PRN (20:01)
--- NOTE | 2018-03-26 20:02 | P.HPIM ---
History of Present Illness Primary Care Physician: UNKNOWN History of Present Illness: This is a 52-year-old male with a PMH of Seizure Disorder, Alcohol Abuse, Tobacco Abuse and Cocaine Abuse to the ER by EMS for seizures x4. Pt had apparent episode of seizure activity witnessed by friend who called EMS, while en route to ER pt had 3 additional seizures witnessed by EMS, s/p Versed 2mg IV. Pt post-ictal/sedated on arrival, currently AA&Ox4, mental status back to baseline. Pt tells me he is supposed to be taking Keppra 500mg bid and Phenobarbital 30mg bid. Says he's been taking medications [facility] / expiration date of Jul 2015 and has been taking a decreased dose "to make it last". Reports "mini seizures" weekly. Also admits to alcohol abuse, drinks daily 4-6 beers, and reports withdrawal symptoms. On arrival, BP 134/86, HR 87 , O2 sat 100% on 2L NC, Afebrile. CBC unremarkable. Chemistry essentially unremarkable. Urine Drug Screen positive for Benzos, Cocaine and Cannabis. Alcohol 278. CT Head with no acute findings. CXR negative. Elbow X-ray negative. - Diagnosis (1) Seizures (2) Alcohol abuse (3) Cocaine abuse Review of Systems PAST FAMILY HISTORY: Reviewed. 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 - Medical History Medical History: Medical History (Last Updated 03/26/18 @ 17:33 by Jennifer Patel) No significant past surgical history Seizure - Tobacco History Second Hand Smoke Exposure: Yes Tobacco Use In Past 30 Days: Yes Smoking Status: Current every day smoker Tobacco Type: Cigarettes - Alcohol History How Often Do You Have a Drink Containing Alcohol: 4 or more times a week - Travel History Recent Travel in the [facility] Within the Last 8 Weeks: No Recent Travel Out of the Country Within the Last 8 Weeks: No - Immunization History Tetanus Immunization: >5 Years Hx Influenza Vaccine This Season: No Medications and Allergies Active Medications: Active Medications Sodium Chloride (Ns Flush) 2 ml IV.FLUSH PRN PRN PRN Reason: FLUSH AFTER USING IV ACCESS Last Admin: 03/26/18 17:32 Dose: 2 ml Allergies Allergy/AdvReac Type Severity Reaction Status Date / Time doxycycline Allergy Severe Rash Verified 03/26/18 17:09 erythromycin base Allergy Severe Rash Verified 03/26/18 17:09 minocycline Allergy Severe Rash Verified 03/26/18 17:09 penicillin G Allergy Severe Rash Verified 03/26/18 17:09 tigecycline Allergy Severe Rash Verified 03/26/18 17:09 Home Medications Medication Instructions Recorded Confirmed Type levetiracetam [Keppra] 500 mg PO Q12H 01/02/18 03/26/18 History phenobarbital 30 mg PO Q12H 01/02/18 03/26/18 History phenytoin sodium extended 30 mg PO TID 01/02/18 03/26/18 History [Dilantin] Exam Vital signs: Vital Signs 03/26/18 17:05 03/26/18 17:08 03/26/18 17:48 Temperature 97.7 F 97.7 F Pulse Rate 88 88 87 Respiratory Rate 21 18 Blood Pressure 137/90 134/86 Pulse Oximetry 100 100 100 03/26/18 19:00 Temperature Pulse Rate 70 Respiratory Rate 15 Blood Pressure 121/77 Pulse Oximetry 99 Intake & Output 03/26/18 03/26/18 03/27/18 06:59 18:59 06:59 Intake Total 1100 / 1100 Output Total 500 / 500 Balance 600 / 600 Weight 81.647 kg Intake: IV 1100 / 1100 NS Inj 1,000 ML @ Wide Open IV. 1000 / 1000 SIG BOLUS ONE Rx#:[id number] Keppra 1000 mg/100 mL Premix 100 / 100 100 ML @ 400 mls/hr IV.SIG ONCE ONE Rx#:[id number] Output: Urine 500 / 500 Other: # Voids 1 Narrative: PE: GENERAL: Middle-aged white male in no acute distress, but anxious/tearful, mildly tremulous. SKIN: Focused skin assessment warm and dry. HEENT: PERRLA, EOMI. No scleral icterus or conjunctival pallor. No lid lag or facial droop. CARDIOVASCULAR: Regular rate and rhythm. No obvious murmurs to auscultation. No chest tenderness to palpation. RESPIRATORY: No obvious rhonchi or wheezing. Clear to auscultation. Breath sounds equal bilaterally. GASTROINTESTINAL: Abdomen soft, non-tender, nondistended. BS normal. MUSCULOSKELETAL: Extremities without clubbing, cyanosis, or edema. No obvious deformities. NEUROLOGICAL: Awake, alert and oriented x4. No focal neurologic deficits. Moving both upper and lower extremities spontaneously. PSYCHIATRIC: Appropriate mood and affect. Insight and judgment normal. Results - Labs CBC & Chem 7: 03/26/18 17:15 03/26/18 17:15 Labs: Short CBC 03/26/18 Range/Units 17:15 WBC 9.7 (4.0-11.0) th/mm3 Hgb 15.0 (13.0-17.0) gm/dL Hct 43.3 (39.0-51.0) % Plt Count 265 (150-450) th/mm3 BMP 03/26/18 17:15 Sodium 141 Potassium 3.5 Chloride 107 Carbon Dioxide 23.2 BUN 11 Creatinine 0.72 Calcium 7.7 L Liver Function 03/26/18 Range/Units 17:15 Total Bilirubin 0.2 (0.2-1.0) mg/dL AST 31 (15-37) U/L ALT 31 (12-78) U/L Alkaline Phosphatase 88 (45-117) U/L Albumin 3.5 (3.4-5.0) g/dL - Imaging Impressions Head CT 03/26/18 17:07 CONCLUSION: 1. No acute findings in the brain. . Chest X-Ray 03/26/18 17:11 CONCLUSION: The lungs are clear. Elbow X-Ray 03/26/18 19:07 CONCLUSION: Negative examination Caprini VTE Risk Assessment Caprini VTE Risk Assessment: No/Low Risk (score <= 1) Caprini Risk Assessment Model: Point Value = 1 Point Value = 2 Point Value = 3 Point Value = 5 Age 41-60 Minor surgery BMI > 25 kg/m2 Swollen legs Varicose veins or History of unexplained or recurrent spontaneous Oral contraceptives or hormone replacement Sepsis (< 1 month) Serious lung disease, including pneumonia (< 1 month) Abnormal pulmonary function Acute myocardial infarction Congestive heart failure (< 1 month) History of inflammatory bowel disease Medical patient at bed rest Age 61-74 Arthroscopic surgery Major open surgery (> 45 min) Laparoscopic surgery (> 45 min) Malignancy Confined to bed (> 72 hours) Immobilizing plaster cast Central venous access Age >= 75 History of VTE Family history of VTE Factor V Leiden Prothrombin [id number] Lupus anticoagulant Anticardiolipin antibodies Elevated serum homocysteine Heparin-induced thrombocytopenia Other congenital or acquired thrombophilia Stroke (< 1 month) Elective arthroplasty Hip, pelvis, or leg fracture Acute spinal cord injury (< 1 month) Prophylaxis Regimen: Total Risk Factor Score Risk Level Prophylaxis Regimen 0-1 Low Early ambulation 2 Moderate Order ONE of the following: *Sequential Compression Device (SCD) *Heparin 5000 units SQ BID 3-4 Higher Order ONE of the following medications: *Heparin 5000 units SQ TID *Enoxaparin/Lovenox 40 mg SQ daily (WT < 150 kg, CrCl > 30 mL/min) *Enoxaparin/Lovenox 30 mg SQ daily (WT < 150 kg, CrCl > 10-29 mL/min) *Enoxaparin/Lovenox 30 mg SQ BID (WT < 150 kg, CrCl > 30 mL/min) AND/OR *Sequential Compression Device (SCD) 5 or more Highest Order ONE of the following medications: *Heparin 5000 units SQ TID (Preferred with Epidurals) *Enoxaparin/Lovenox 40 mg SQ daily (WT < 150 kg, CrCl > 30 mL/min) *Enoxaparin/Lovenox 30 mg SQ daily (WT < 150 kg, CrCl > 10-29 mL/min) *Enoxaparin/Lovenox 30 mg SQ BID (WT < 150 kg, CrCl > 30 mL/min) AND *Sequential Compression Device (SCD) Assessment and Plan - Assessment (1) Seizures Code(s): R56.9 - Unspecified convulsions Status: Acute (2) Alcohol abuse Code(s): F10.10 - Alcohol abuse, uncomplicated Status: Acute (3) Cocaine abuse Code(s): F14.10 - Cocaine abuse, uncomplicated Status: Acute - Plan A/P: 1. Seizure: h/o Seizure Disorder, on Keppra 500mg bid and Phenobarbital 30mg bid, not taking medications as prescribed and using medications from 2015 [facility] in [facility]. Seizure x4 today. CT Head w/ no acute findings, images reviewed. Seizure Precautions, Ativan prn, Consult Neurology for further recommendations, s/p Keppra 1gm IV in ER, will continue w/ Keppra 500mg bid and Phenobarb 30mg bid. 2. Alcohol Abuse: w/ Acute Alcohol Intoxication, CIWA, Seizure Precautions, MVT/Thiamine/Folate 3. Cocaine Abuse: UDS +Cocaine, Ativan prn for withdrawal. 4. DVT Prophylaxis: SCD/Teds 5. Social work for d/c planning as needed 6. Case discussed w/ ER physician at length, labs/records/imaging reviewed by me
[2018-03-26] MEDS ORDERED: Haloperidol Inj 5 MG/ML Ampul IV.PUSH PRN (20:12)
[2018-03-26] MEDS: Senna/Docusate Sodium 8.6/50 MG Tablet PO SCH (21:02)
[2018-03-26] MEDS: Sod Chloride 0.9% Inj 1,000 ML IV.CONT SCH (21:02)
--- NOTE | 2018-03-26 21:32 | ECG ---
Date Performed: 03/26/2018 Time Performed: 17:06:25 PTAGE: 52 years EKG: Sinus rhythm INCOMPLETE RIGHT BUNDLE BRANCH BLOCK BORDERLINE ECG No significant change from prior electrocardiogr am. DOCTOR: Prakash Dumont Interpretating Date/Time 03/26/2018 21:31:26
[2018-03-27 04:56] LABS: Baso % (Auto) 0.3 % (0.0-2.0); Eos # (Auto) 0.2 th/mm3 (0.0-0.4); Eos % (Auto) 1.7 % (0.0-4.0); Lymph # (Auto) 1.7 th/mm3 (1.0-4.8); Lymph % (Auto) 13.3 % (9.0-44.0); Mean Corpuscular HGB Conc 34.1 % (32.0-36.0); Mean Corpuscular Hemoglobin 33.1 pg (27.0-34.0); Mean Corpuscular Volume 96.9 fL (80.0-100.0); Mean Platelet Volume 8.4 fL (7.0-11.0); Mono # (Auto) 0.8 th/mm3 (0.0-0.9); Neut % (Auto) 78.7 % (16.0-70.0); Platelet Count 237 th/mm3 (150-450); Red Blood Count 4.23 mil/mm3 (4.50-5.90); Red Cell Distribution Width 13.4 % (11.6-17.2); White Blood Count 12.7 th/mm3 (4.0-11.0)
[2018-03-27 05:26] LABS: Albumin 3.1 g/dL (3.4-5.0); Anion Gap 11 meq/L (5-15); Aspartate Aminotransferase 24 U/L (15-37); Blood Urea Nitrogen 12 mg/dL (7-18); Calcium 7.8 mg/dL (8.5-10.1); Carbon Dioxide 22.5 meq/L (21.0-32.0); Chloride 111 meq/L (98-107); Glomerular Filtration Rate Greater Than 89 mL/min (>89); Glucose,Random 68 mg/dL (74-106); Potassium 3.7 meq/L (3.5-5.1); Sodium 144 meq/L (136-145)
[2018-03-27 05:27] LABS: Alanine Aminotransferase 27 U/L (12-78)
[2018-03-27 05:29] LABS: Alkaline Phosphatase 80 U/L (45-117); Total Protein 6.8 g/dL (6.4-8.2)
[2018-03-27] MEDS: Sod Chloride 0.9% Inj 1,000 ML IV.CONT SCH (07:04)
[2018-03-27] MEDS: levETIRAcetam 500 MG Tablet PO SCH ×4 (08:23→20:49)
[2018-03-27] MEDS: Multivitamin/Minerals Therapeutic Tablet PO SCH (08:23)
[2018-03-27] MEDS: Folic Acid 1 MG Tablet PO SCH (08:23)
[2018-03-27] MEDS: Senna/Docusate Sodium 8.6/50 MG Tablet PO SCH ×2 (08:23→20:48)
--- NOTE | 2018-03-27 09:09 | P.PN ---
Subjective Interval history: Follow-up breakthrough seizures/alcohol abuse March 27, 2018-patient seen and examined, complains of right shoulder pain and requesting stronger narcotics. States he will go to withdrawal. Denies any more seizure activity since admission. Physical Exam Vital signs: Vital Signs 03/26/18 17:05 03/26/18 17:08 03/26/18 17:48 Temperature 97.7 F 97.7 F Pulse Rate 88 88 87 Respiratory Rate 21 18 Blood Pressure 137/90 134/86 Pulse Oximetry 100 100 100 03/26/18 19:00 03/26/18 21:43 03/27/18 00:00 Temperature 97.1 F L 97.6 F Pulse Rate 70 74 75 Respiratory Rate 15 21 18 Blood Pressure 121/77 130/84 103/66 Pulse Oximetry 99 98 100 03/27/18 01:27 03/27/18 04:00 03/27/18 05:01 Temperature 98.0 F Pulse Rate 77 79 87 Respiratory Rate 18 Blood Pressure 111/74 Pulse Oximetry 96 03/27/18 07:00 03/27/18 07:59 03/27/18 08:00 Temperature 97.4 F L Pulse Rate 85 Respiratory Rate 12 20 12 Blood Pressure 115/76 Pulse Oximetry 98 03/27/18 08:16 Temperature Pulse Rate 85 Respiratory Rate Blood Pressure Pulse Oximetry Intake & Output 03/26/18 03/27/18 03/27/18 18:59 06:59 18:59 Intake Total 1100 / 1100 2200 / 2200 1480 / 1480 Output Total 500 / 500 850 / 850 450 / 450 Balance 600 / 600 1350 / 1350 1030 / 1030 Weight 81.647 kg 73.4 kg Intake: IV 1100 / 1100 1000 / 1000 NS Inj 1,000 ML @ 100 mls/hr IV 1000 / 1000 .CONT .Q10H [facility] Rx#:[id number] NS Inj 1,000 ML @ Wide Open IV. 1000 / 1000 SIG BOLUS ONE Rx#:[id number] Keppra 1000 mg/100 mL Premix 100 / 100 100 ML @ 400 mls/hr IV.SIG ONCE ONE Rx#:[id number] Oral 2200 / 2200 480 / 480 Output: Urine 500 / 500 850 / 850 450 / 450 Other: # Voids 1 1 Date of Last Bowel Movement 03/27/18 Weight On Admission 73.4 kg Narrative: PE: GENERAL: Middle-aged white male in no acute distress, but anxious/tearful, mildly tremulous. SKIN: Focused skin assessment warm and dry. HEENT: PERRLA, EOMI. No scleral icterus or conjunctival pallor. CARDIOVASCULAR: Regular rate and rhythm. No obvious murmurs to auscultation. No chest tenderness to palpation. RESPIRATORY: No obvious rhonchi or wheezing. Clear to auscultation. Breath sounds equal bilaterally. GASTROINTESTINAL: Abdomen soft, non-tender, nondistended. BS normal. MUSCULOSKELETAL: Extremities without clubbing, cyanosis, or edema. No obvious deformities. Right upper extremity with limited range of motion NEUROLOGICAL: Awake, alert and oriented x4. No focal neurologic deficits. Moving both upper and lower extremities spontaneously. Results - Labs CBC & Chem 7: 03/27/18 03:55 03/27/18 03:55 Laboratory Results - last 24 hr 03/26/18 03/26/18 03/26/18 17:15 17:15 17:15 WBC 9.7 RBC 4.48 L Hgb 15.0 Hct 43.3 MCV 96.7 MCH 33.5 MCHC 34.6 RDW 13.5 Plt Count 265 MPV 8.0 Neut % (Auto) 55.2 Lymph % (Auto) 32.2 [place] % (Auto) 9.2 H Eos % (Auto) 3.0 Baso % (Auto) 0.4 Neut # (Auto) 5.4 Lymph # (Auto) 3.1 [place] # (Auto) 0.9 Eos # (Auto) 0.3 Baso # (Auto) 0.0 WBC Differential . Differential Comment Auto diff final Sodium 141 Potassium 3.5 Chloride 107 Carbon Dioxide 23.2 Anion Gap 11 BUN 11 Creatinine 0.72 Estimated GFR Greater than 89 POC Glucose Random Glucose 79 Calcium 7.7 L Magnesium 1.9 Total Bilirubin 0.2 AST 31 ALT 31 Alkaline Phosphatase 88 Total Protein 7.6 Albumin 3.5 Urine Opiates Screen Ur Barbiturates Screen Ur Amphetamines Screen U Benzodiazepines Scrn Urine Cocaine Screen U Cannabinoids Screen Serum Alcohol 278 H 03/26/18 03/26/18 03/27/18 17:45 23:20 03:55 WBC 12.7 H RBC 4.23 L Hgb 14.0 Hct 41.0 MCV 96.9 MCH 33.1 MCHC 34.1 RDW 13.4 Plt Count 237 MPV 8.4 Neut % (Auto) 78.7 H Lymph % (Auto) 13.3 [place] % (Auto) 6.0 Eos % (Auto) 1.7 Baso % (Auto) 0.3 Neut # (Auto) 10.0 H Lymph # (Auto) 1.7 [place] # (Auto) 0.8 Eos # (Auto) 0.2 Baso # (Auto) 0.0 WBC Differential . Differential Comment Auto diff final Sodium Potassium Chloride Carbon Dioxide Anion Gap BUN Creatinine Estimated GFR POC Glucose 111 H Random Glucose Calcium Magnesium Total Bilirubin AST ALT Alkaline Phosphatase Total Protein Albumin Urine Opiates Screen Neg Ur Barbiturates Screen Neg Ur Amphetamines Screen Neg U Benzodiazepines Scrn Pos H Urine Cocaine Screen Pos H U Cannabinoids Screen Pos H Serum Alcohol 03/27/18 03/27/18 03:55 07:43 WBC RBC Hgb Hct MCV MCH MCHC RDW Plt Count MPV Neut % (Auto) Lymph % (Auto) [place] % (Auto) Eos % (Auto) Baso % (Auto) Neut # (Auto) Lymph # (Auto) [place] # (Auto) Eos # (Auto) Baso # (Auto) WBC Differential Differential Comment Sodium 144 Potassium 3.7 Chloride 111 H Carbon Dioxide 22.5 Anion Gap 11 BUN 12 Creatinine 0.65 Estimated GFR Greater than 89 POC Glucose 120 H Random Glucose 68 L Calcium 7.8 L Magnesium Total Bilirubin 0.5 AST 24 ALT 27 Alkaline Phosphatase 80 Total Protein 6.8 D Albumin 3.1 L Urine Opiates Screen Ur Barbiturates Screen Ur Amphetamines Screen U Benzodiazepines Scrn Urine Cocaine Screen U Cannabinoids Screen Serum Alcohol - Imaging Impressions Head CT 03/26/18 17:07 CONCLUSION: 1. No acute findings in the brain. . Chest X-Ray 03/26/18 17:11 CONCLUSION: The lungs are clear. Elbow X-Ray 03/26/18 19:07 CONCLUSION: Negative examination Assessment and Plan - Assessment (1) Seizures Code(s): R56.9 - Unspecified convulsions Status: Acute (2) Alcohol abuse Code(s): F10.10 - Alcohol abuse, uncomplicated Status: Acute (3) Cocaine abuse Code(s): F14.10 - Cocaine abuse, uncomplicated Status: Acute - Plan 52-year-old man with 1. Seizure: h/o Seizure Disorder s/p Keppra 1gm IV in ER, will continue w/ Keppra 500mg bid and Phenobarb 30mg bid. Neurology consultation pending EEG, seizure precaution 2. Alcohol Abuse: w/ Acute Alcohol Intoxication, CIWA, Seizure Precautions, MVT/Thiamine/ Folate. Add Librium protocol 3. Cocaine Abuse: UDS +Cocaine, Ativan prn for withdrawal. 4. Right shoulder pain X-ray negative Tylenol as needed for pain 5. DVT Prophylaxis: SCD/Teds
[2018-03-27] MEDS: chlordiazePOXIDE 25 MG Capsule PO SCH ×2 (09:47→16:07)
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
[2018-03-27] MEDS: Acetaminophen 325 MG Tablet PO PRN (20:44)
[2018-03-28] MEDS: chlordiazePOXIDE 25 MG Capsule PO SCH ×5 (01:34→20:08)
--- NOTE | 2018-03-28 08:13 | P.PNNEU ---
Subjective Subjective Comments: 2 sz this am Active Medications: Active Medications Acetaminophen (Tylenol) 650 mg PO Q4H PRN PRN Reason: Temp > 100.4, pain 1 to 10 Last Admin: 03/27/18 20:44 Dose: 650 mg Al Hydroxide/Mg Hydroxide (Milk Of Magnesia Liq) 30 ml PO Q12H PRN PRN Reason: Mild Constipation Bisacodyl (Dulcolax Supp) 10 mg RECTAL DAILY PRN PRN Reason: SEVERE CONSITIPATION Chlordiazepoxide (Librium) 25 mg PO Q8H [facility] Last Admin: 03/28/18 01:34 Dose: 25 mg Flumazenil (Romazecon Inj) 0.2 mg IV.PUSH Q1M PRN PRN Reason: OVERSEDATION Folic Acid (Folic Acid) 1 mg PO DAILY [facility] Stop: 04/01/18 08:59 Last Admin: 03/27/18 08:23 Dose: 1 mg Haloperidol Lactate (Haldol Inj) 1 mg IV.PUSH Q15M PRN PRN Reason: for severe agitation Lactulose (Lactulose Liq) 30 ml PO DAILY PRN PRN Reason: SEVERE CONSITIPATION Levetiracetam (Keppra) 1,000 mg PO Q12HR [facility] Last Admin: 03/27/18 20:49 Dose: 1,000 mg Lorazepam (Ativan Inj) 1 mg IV.PUSH Q5M PRN PRN Reason: SEIZURES Lorazepam (Ativan) 1 mg PO Q4H PRN PRN Reason: for CIWA 8-10 Lorazepam (Ativan) 2 mg PO Q2H PRN PRN Reason: for CIWA 11-14 Lorazepam (Ativan Inj) 2 mg IV.PUSH Q2H PRN PRN Reason: for CIWA 11-14 Last Admin: 03/27/18 04:05 Dose: 2 mg Lorazepam (Ativan Inj) 2 mg IV.PUSH Q1H PRN PRN Reason: for CIWA 15-20 Lorazepam (Ativan Inj) 2 mg IV.PUSH Q15M PRN PRN Reason: for CIWA > 20 Lorazepam (Ativan Inj) 1 mg IV.PUSH Q4H PRN PRN Reason: for CIWA 8-10 Lorazepam (Ativan Inj) 8 mg IV.PUSH ONCE ONE Stop: 03/28/18 07:52 Multivitamins/Minerals (Theragran-M) 1 tab PO DAILY [facility] Stop: 04/01/18 08:59 Last Admin: 03/27/18 08:23 Dose: 1 tab Ondansetron HCl (Zofran Inj) 4 mg IV.PUSH Q6H PRN PRN Reason: NAUSEA OR VOMITING Phenobarbital (Phenobarbital) 32.4 mg PO Q12HR [facility] Last Admin: 03/27/18 20:48 Dose: 32.4 mg Senna/Docusate Sodium (Viri-Colace) 1 tab PO BID [facility] Last Admin: 03/27/18 20:48 Dose: 1 tab Sennosides (Senokot) 17.2 mg PO Q12H PRN PRN Reason: Moderate Constipation Sodium Chloride (Ns Flush) 2 ml IV.FLUSH PRN PRN PRN Reason: FLUSH AFTER USING IV ACCESS Last Admin: 03/26/18 17:32 Dose: 2 ml Thiamine HCl (Vitamin B1) 100 mg PO DAILY [facility] Last Admin: 03/27/18 08:23 Dose: 100 mg Allergies/Adverse Reactions: Allergies Allergy/AdvReac Type Severity Reaction Status Date / Time doxycycline Allergy Severe Rash Verified 03/26/18 17:09 erythromycin base Allergy Severe Rash Verified 03/26/18 17:09 minocycline Allergy Severe Rash Verified 03/26/18 17:09 penicillin G Allergy Severe Rash Verified 03/26/18 17:09 tigecycline Allergy Severe Rash Verified 03/26/18 17:09 Physical Exam Vital signs: Vital Signs 03/27/18 08:16 03/27/18 09:56 03/27/18 11:37 Temperature 97.4 F L Pulse Rate 85 84 Respiratory Rate 12 18 Blood Pressure 146/88 H Pulse Oximetry 97 03/27/18 13:39 03/27/18 15:31 03/27/18 16:00 Temperature 99 F Pulse Rate 75 Respiratory Rate 12 12 18 Blood Pressure 146/85 H Pulse Oximetry 97 03/27/18 16:49 03/27/18 20:00 03/27/18 20:38 Temperature 98.6 F Pulse Rate 77 75 Respiratory Rate 18 Blood Pressure 147/84 H Pulse Oximetry 97 98 03/28/18 00:00 03/28/18 04:00 03/28/18 08:09 Temperature 97.6 F 97.8 F Pulse Rate 63 Respiratory Rate 18 18 Blood Pressure 147/93 H 126/78 Pulse Oximetry 96 97 98 Intake & Output 03/27/18 03/28/18 03/28/18 18:59 06:59 18:59 Intake Total 3920 / 3920 Output Total 1250 / 1250 900 / 900 Balance 2670 / 2670 -900 / -900 Weight 73.4 kg Intake: IV 1999 NS Inj 1,000 ML @ 100 mls/hr IV 1999 .CONT .Q10H [facility] Rx#:[id number] Oral 1920 / 1920 Output: Urine 1250 / 1250 900 / 900 Other: Date of Last Bowel Movement 03/27/18 03/27/18 # Bowel Movements 1 Narrative: awake alert interact with me and moving all after 12 mg ativan Objective Laboratory Results - last 24 hr 03/27/18 03/27/18 03/27/18 11:09 15:39 21:28 POC Glucose 167 H 114 H 127 H Review/Management - Review/Management Plan: imp i am not sure these could not be pseudosz after 12 mg ativan still wide awake check eeg librium i dw nurse check pbarb level
[2018-03-28] MEDS: levETIRAcetam 500 MG Tablet PO SCH ×2 (09:11→20:06)
[2018-03-28] MEDS: Folic Acid 1 MG Tablet PO SCH (09:12)
[2018-03-28] MEDS: Senna/Docusate Sodium 8.6/50 MG Tablet PO SCH ×2 (09:12→20:09)
[2018-03-28] MEDS: Multivitamin/Minerals Therapeutic Tablet PO SCH (09:12)
--- NOTE | 2018-03-28 10:26 | P.PN ---
Subjective Interval history: Follow-up breakthrough seizures/alcohol abuse March 27, 2018-patient seen and examined, complains of right shoulder pain and requesting stronger narcotics. States he will go to withdrawal. Denies any more seizure activity since admission. March 28, 2018-patient seen and examined, patient had witnessed seizure for which I personally ordered a total of 4 mg x2 of Ativan, and he was transferred to [facility]/ICU for close monitoring Physical Exam Vital signs: Vital Signs 03/27/18 11:37 03/27/18 13:39 03/27/18 15:31 Temperature 97.4 F L Pulse Rate 84 Respiratory Rate 18 12 12 Blood Pressure 146/88 H Pulse Oximetry 97 03/27/18 16:00 03/27/18 16:49 03/27/18 20:00 Temperature 99 F 98.6 F Pulse Rate 75 77 75 Respiratory Rate 18 18 Blood Pressure 146/85 H 147/84 H Pulse Oximetry 97 97 03/27/18 20:38 03/28/18 00:00 03/28/18 04:00 Temperature 97.6 F 97.8 F Pulse Rate 63 Respiratory Rate 18 18 Blood Pressure 147/93 H 126/78 Pulse Oximetry 98 96 97 03/28/18 08:00 03/28/18 08:09 03/28/18 08:10 Temperature 98.1 F Pulse Rate 67 Respiratory Rate 23 Blood Pressure 158/96 H Pulse Oximetry 100 98 98 Intake & Output 03/27/18 03/28/18 03/28/18 18:59 06:59 18:59 Intake Total 3920 / 3920 Output Total 1250 / 1250 900 / 900 Balance 2670 / 2670 -900 / -900 Weight 73.4 kg Intake: IV 1999 NS Inj 1,000 ML @ 100 mls/hr IV 1999 .CONT .Q10H [facility] Rx#:[id number] Oral 1920 / 1920 Output: Urine 1250 / 1250 900 / 900 Other: Date of Last Bowel Movement 03/27/18 03/27/18 03/27/18 # Bowel Movements 1 Narrative: GENERAL: actively seizing during my exam SKIN: Warm and dry. HEAD: Normocephalic. EYES: No scleral icterus. No injection or drainage. NECK: Supple, trachea midline. No JVD or lymphadenopathy. CARDIOVASCULAR: Regular rate and rhythm without murmurs, gallops, or rubs. RESPIRATORY: Breath sounds equal bilaterally. No accessory muscle use. GASTROINTESTINAL: Abdomen soft, non-tender, nondistended. MUSCULOSKELETAL: No cyanosis, or edema. BACK: Nontender without obvious deformity. No CVA tenderness. Results - Labs CBC & Chem 7: 03/27/18 03:55 03/27/18 03:55 Laboratory Results - last 24 hr 03/27/18 03/27/18 03/27/18 11:09 15:39 21:28 POC Glucose 167 H 114 H 127 H Phenobarbital 03/28/18 08:20 POC Glucose Phenobarbital Less than 2.1 L Assessment and Plan - Assessment (1) Seizures Code(s): R56.9 - Status: Acute (2) Alcohol abuse Code(s): F10.10 - Status: Acute (3) Cocaine abuse Code(s): F14.10 - Status: Acute - Plan 52-year-old man with 1. Seizure: h/o Seizure Disorder Breakthrough seizure 03/28/18-given total of 8 mg IV Ativan, patient transferred to ICU continue w/ Keppra 500mg bid and Phenobarb 30mg bid. Neurology input appreciated EEG, seizure precaution 2. Alcohol Abuse: w/ Acute Alcohol Intoxication, CIWA, Seizure Precautions, MVT/Thiamine/ Folate. Continue Librium protocol 3. Cocaine Abuse: UDS +Cocaine, Ativan prn for withdrawal. 4. Right shoulder pain X-ray negative Tylenol as needed for pain 5. DVT Prophylaxis: SCD/Teds
[2018-03-28] MEDS: Acetaminophen 325 MG Tablet PO PRN ×2 (11:08→20:06)
[2018-03-28] MEDS ORDERED: chlordiazePOXIDE 25 MG Capsule PO ONE (11:15)
--- NOTE | 2018-03-28 11:44 | MG ---
cc: Donny Trujillo MD, PhD TEST NUMBER: [id number] TECHNIQUE: A 17-channel EEG. DESCRIPTION: The background rhythm reveals a symmetrical alpha frequency of 8 Hz, amplitude about 10-20 microvolts. There is some slowing in the theta range, probably related to drowsiness. There is some muscle artifact present. No lateralizing features are seen. No epileptiform discharges are present. Photic results in a good driving response. INTERPRETATION: Normal EEG. Donny Trujillo MD, PhD CORBY/jocy , 11:29 AM , 11:34 AM
[2018-03-29] MEDS: LORazepam 1 MG Tablet PO PRN ×2 (02:47→06:24)
[2018-03-29] MEDS: chlordiazePOXIDE 25 MG Capsule PO SCH ×2 (02:48→08:52)
[2018-03-29] MEDS: Acetaminophen 325 MG Tablet PO PRN (05:49)
--- NOTE | 2018-03-29 07:08 | P.PNNEU ---
Subjective Subjective Comments: no "sz" Active Medications: Active Medications Acetaminophen (Tylenol) 650 mg PO Q4H PRN PRN Reason: Temp > 100.4, pain 1 to 10 Last Admin: 03/29/18 05:49 Dose: 650 mg Al Hydroxide/Mg Hydroxide (Milk Of Magnesia Liq) 30 ml PO Q12H PRN PRN Reason: Mild Constipation Bisacodyl (Dulcolax Supp) 10 mg RECTAL DAILY PRN PRN Reason: SEVERE CONSITIPATION Chlordiazepoxide (Librium) 25 mg PO Q6H [facility] Stop: 03/31/18 13:00 Chlordiazepoxide (Librium) 25 mg PO Q4H [facility] Stop: 03/30/18 13:00 Chlordiazepoxide (Librium) 50 mg PO Q6H [facility] Stop: 03/29/18 13:00 Last Admin: 03/29/18 02:48 Dose: 50 mg Flumazenil (Romazecon Inj) 0.2 mg IV.PUSH Q1M PRN PRN Reason: OVERSEDATION Folic Acid (Folic Acid) 1 mg PO DAILY [facility] Stop: 04/01/18 08:59 Last Admin: 03/28/18 09:12 Dose: 1 mg Haloperidol Lactate (Haldol Inj) 1 mg IV.PUSH Q15M PRN PRN Reason: for severe agitation Lactulose (Lactulose Liq) 30 ml PO DAILY PRN PRN Reason: SEVERE CONSITIPATION Levetiracetam (Keppra) 1,000 mg PO Q12HR [facility] Last Admin: 03/28/18 20:06 Dose: 1,000 mg Lorazepam (Ativan Inj) 1 mg IV.PUSH Q5M PRN PRN Reason: SEIZURES Lorazepam (Ativan) 1 mg PO Q4H PRN PRN Reason: for CIWA 8-10 Last Admin: 03/29/18 06:24 Dose: 1 mg Lorazepam (Ativan) 2 mg PO Q2H PRN PRN Reason: for CIWA 11-14 Last Admin: 03/28/18 20:08 Dose: 2 mg Lorazepam (Ativan Inj) 2 mg IV.PUSH Q2H PRN PRN Reason: for CIWA 11-14 Last Admin: 03/29/18 05:02 Dose: 2 mg Lorazepam (Ativan Inj) 2 mg IV.PUSH Q1H PRN PRN Reason: for CIWA 15-20 Lorazepam (Ativan Inj) 2 mg IV.PUSH Q15M PRN PRN Reason: for CIWA > 20 Lorazepam (Ativan Inj) 1 mg IV.PUSH Q4H PRN PRN Reason: for CIWA 8-10 Multivitamins/Minerals (Theragran-M) 1 tab PO DAILY [facility] Stop: 04/01/18 08:59 Last Admin: 03/28/18 09:12 Dose: 1 tab Nicotine (Habitrol 21 Mg Patch.24 Hr) 1 patch T-DERMAL HS [facility] Last Admin: 03/28/18 20:43 Dose: 1 patch Ondansetron HCl (Zofran Inj) 4 mg IV.PUSH Q6H PRN PRN Reason: NAUSEA OR VOMITING Last Admin: 03/28/18 10:45 Dose: 4 mg Patch Removal (Remove Old Patch) 1 each T-DERMAL HS [facility] Last Admin: 03/28/18 20:44 Dose: 1 each Phenobarbital (Phenobarbital) 64.8 mg PO Q12H [facility] Last Admin: 03/28/18 22:00 Dose: 64.8 mg Senna/Docusate Sodium (Viri-Colace) 1 tab PO BID [facility] Last Admin: 03/28/18 20:09 Dose: Not Given Sennosides (Senokot) 17.2 mg PO Q12H PRN PRN Reason: Moderate Constipation Sodium Chloride (Ns Flush) 2 ml IV.FLUSH PRN PRN PRN Reason: FLUSH AFTER USING IV ACCESS Last Admin: 03/26/18 17:32 Dose: 2 ml Thiamine HCl (Vitamin B1) 100 mg PO DAILY [facility] Last Admin: 03/28/18 09:13 Dose: 100 mg Allergies/Adverse Reactions: Allergies Allergy/AdvReac Type Severity Reaction Status Date / Time doxycycline Allergy Severe Rash Verified 03/26/18 17:09 erythromycin base Allergy Severe Rash Verified 03/26/18 17:09 minocycline Allergy Severe Rash Verified 03/26/18 17:09 penicillin G Allergy Severe Rash Verified 03/26/18 17:09 tigecycline Allergy Severe Rash Verified 03/26/18 17:09 Physical Exam Vital signs: Vital Signs 03/28/18 08:00 03/28/18 08:09 03/28/18 08:10 Temperature 98.1 F Pulse Rate 67 Respiratory Rate 23 Blood Pressure 158/96 H Pulse Oximetry 100 98 98 03/28/18 10:00 03/28/18 12:00 03/28/18 16:00 Temperature 98.1 F 98.1 F Pulse Rate 64 64 Respiratory Rate 18 21 23 Blood Pressure 124/80 124/80 Pulse Oximetry 99 99 03/28/18 16:13 03/28/18 20:00 03/29/18 00:00 Temperature 98.4 F 98.5 F Pulse Rate 70 72 Respiratory Rate 21 17 Blood Pressure 127/88 146/85 H Pulse Oximetry 100 100 95 03/29/18 04:00 Temperature 98.6 F Pulse Rate 80 Respiratory Rate Blood Pressure 138/85 Pulse Oximetry 96 Intake & Output 03/28/18 03/29/18 03/29/18 18:59 06:59 18:59 Intake Total 1200 / 1200 560 / 560 Output Total 1400 / 1400 Balance -200 / -200 560 / 560 Weight 72.7 kg Intake: Oral 1200 / 1200 560 / 560 Output: Urine 1400 / 1400 Other: # Voids 4 Date of Last Bowel Movement 03/27/18 03/29/18 # Bowel Movements 2 1 Narrative: sleepy but awakens coarse tremor bue Objective Laboratory Results - last 24 hr 03/28/18 03/28/18 03/28/18 08:10 08:20 16:47 POC Glucose 97 Nasal Screen MRSA (PCR) Mrsa detected Phenobarbital Less than 2.1 L 03/29/18 04:23 POC Glucose Nasal Screen MRSA (PCR) Phenobarbital 4.3 L Review/Management - Review/Management Plan: imp i am not sure these could not be pseudosz after 12 mg ativan still wide awake check eeg librium i dw nurse check pbarb level 03/29/18 dt's eeg nl pbarb 4 cont pbarb and keppra ? brandon carrington? st[facility] neuro
[2018-03-29 08:08] VITALS: O2SAT 98
[2018-03-29] MEDS: levETIRAcetam 500 MG Tablet PO SCH (08:51)
[2018-03-29] MEDS: Senna/Docusate Sodium 8.6/50 MG Tablet PO SCH (08:51)
[2018-03-29] MEDS: Folic Acid 1 MG Tablet PO SCH (08:51)
[2018-03-29] MEDS: Multivitamin/Minerals Therapeutic Tablet PO SCH (08:51)
[2018-03-29 12:40] VITALS: BP 131/66; PULSE 84; RESP 22; TEMP 98.2
--- NOTE | 2018-03-29 14:12 | P.PN ---
Subjective Interval history: Follow-up breakthrough seizures/alcohol abuse March 27, 2018-patient seen and examined, complains of right shoulder pain and requesting stronger narcotics. States he will go to withdrawal. Denies any more seizure activity since admission. March 28, 2018-patient seen and examined, patient had witnessed seizure for which I personally ordered a total of 4 mg x2 of Ativan, and he was transferred to [facility]/ICU for close monitoring March 29, 2018-patient seen and examined, no seizure episode since yesterday. Wanted to sign AMA. States if he does not go home he will loose his house Physical Exam Vital signs: Vital Signs 03/28/18 16:00 03/28/18 16:13 03/28/18 20:00 Temperature 98.1 F 98.4 F Pulse Rate 64 70 Respiratory Rate 23 21 Blood Pressure 124/80 127/88 Pulse Oximetry 99 100 100 03/29/18 00:00 03/29/18 04:00 03/29/18 08:00 Temperature 98.5 F 98.6 F 98.2 F Pulse Rate 72 80 84 Respiratory Rate 17 22 Blood Pressure 146/85 H 138/85 131/66 Pulse Oximetry 95 96 97 03/29/18 08:07 Temperature Pulse Rate Respiratory Rate Blood Pressure Pulse Oximetry 98 Intake & Output 03/28/18 03/29/18 03/29/18 18:59 06:59 18:59 Intake Total 1200 / 1200 560 / 560 Output Total 1400 / 1400 Balance -200 / -200 560 / 560 Weight 72.7 kg Intake: Oral 1200 / 1200 560 / 560 Output: Urine 1400 / 1400 Other: # Voids 4 Date of Last Bowel Movement 03/27/18 03/29/18 03/29/18 # Bowel Movements 2 1 Narrative: GENERAL: NAD SKIN: Warm and dry. HEAD: Normocephalic. EYES: No scleral icterus. No injection or drainage. NECK: Supple, trachea midline. No JVD or lymphadenopathy. CARDIOVASCULAR: Regular rate and rhythm without murmurs, gallops, or rubs. RESPIRATORY: Breath sounds equal bilaterally. No accessory muscle use. GASTROINTESTINAL: Abdomen soft, non-tender, nondistended. MUSCULOSKELETAL: No cyanosis, or edema. BACK: Nontender without obvious deformity. No CVA tenderness. Results - Labs CBC & Chem 7: 03/27/18 03:55 03/27/18 03:55 Laboratory Results - last 24 hr 03/28/18 03/29/18 03/29/18 16:47 04:23 08:43 POC Glucose 97 114 H Phenobarbital 4.3 L - Procedures none Assessment and Plan - Assessment (1) Seizures Code(s): R56.9 - Unspecified convulsions Status: Acute (2) Alcohol abuse Code(s): F10.10 - Alcohol abuse, uncomplicated Status: Acute (3) Cocaine abuse Code(s): F14.10 - Cocaine abuse, uncomplicated Status: Acute - Plan 52-year-old man with 1. Seizure: h/o Seizure Disorder Breakthrough seizure 03/28/18-given total of 8 mg IV Ativan, patient transferred to ICU continue w/ Keppra and Phenobarb, which was adjusted by Neuro. Neurology input appreciated EEG, seizure precaution 2. Alcohol Abuse: w/ Acute Alcohol Intoxication, CIWA, Seizure Precautions, MVT/Thiamine/ Folate. Continue Librium protocol, which was adjusted 3. Cocaine Abuse: UDS +Cocaine, Ativan prn for withdrawal. 4. Right shoulder pain X-ray negative Tylenol as needed for pain 5. DVT Prophylaxis: SCD/Teds
--- NOTE | 2018-03-29 14:14 | P.DS ---
Date of admission: 03/26/18 19:52 Primary care physician: UNKNOWN Brief History from admission: This is a 52-year-old male with a PMH of Seizure Disorder, Alcohol Abuse, Tobacco Abuse and Cocaine Abuse to the ER by EMS for seizures x4. Pt had apparent episode of seizure activity witnessed by friend who called EMS, while en route to ER pt had 3 additional seizures witnessed by EMS, s/p Versed 2mg IV. Pt post-ictal/sedated on arrival, currently AA&Ox4, mental status back to baseline. Pt tells me he is supposed to be taking Keppra 500mg bid and Phenobarbital 30mg bid. Says he's been taking medications he got from [facility] w / expiration date of Jul 2015 and has been taking a decreased dose "to make it last". Reports "mini seizures" weekly. Also admits to alcohol abuse, drinks daily 4-6 beers, and reports withdrawal symptoms. On arrival, BP 134/86, HR 87 , O2 sat 100% on 2L NC, Afebrile. CBC unremarkable. Chemistry essentially unremarkable. Urine Drug Screen positive for Benzos, Cocaine and Cannabis. Alcohol 278. CT Head with no acute findings. CXR negative. Elbow X-ray negative. DS: Diagnosis - Discharge Diagnosis (1) Seizures Status: Acute (2) Alcohol abuse Status: Acute (3) Cocaine abuse Status: Acute DS: Summary Hospital Course: Prior to signing AMA, patient was treated for: 1. Seizure: h/o Seizure Disorder Breakthrough seizure 03/28/18-given total of 8 mg IV Ativan, patient transferred to ICU continue w/ Keppra and Phenobarb, Phenytoin was added Neurology input appreciated EEG, seizure precaution 2. Alcohol Abuse: w/ Acute Alcohol Intoxication, CIWA, Seizure Precautions, MVT/Thiamine/ Folate. Continue Librium protocol, which was adjusted 3. Cocaine Abuse: UDS +Cocaine, Ativan prn for withdrawal. 4. Right shoulder pain X-ray negative Tylenol as needed for pain 5. DVT Prophylaxis: SCD/Teds - Time Spent with Patient Total time spent providing and/or coordinating discharge services: Less than 30 minutes Exam Vital signs: Vital Signs 03/28/18 16:00 03/28/18 16:13 03/28/18 20:00 Temperature 98.1 F 98.4 F Pulse Rate 64 70 Respiratory Rate 23 21 Blood Pressure 124/80 127/88 Pulse Oximetry 99 100 100 03/29/18 00:00 03/29/18 04:00 03/29/18 08:00 Temperature 98.5 F 98.6 F 98.2 F Pulse Rate 72 80 84 Respiratory Rate 17 22 Blood Pressure 146/85 H 138/85 131/66 Pulse Oximetry 95 96 97 03/29/18 08:07 Temperature Pulse Rate Respiratory Rate Blood Pressure Pulse Oximetry 98 Intake & Output 03/28/18 03/29/18 03/29/18 18:59 06:59 18:59 Intake Total 1200 / 1200 560 / 560 Output Total 1400 / 1400 Balance -200 / -200 560 / 560 Weight 72.7 kg Intake: Oral 1200 / 1200 560 / 560 Output: Urine 1400 / 1400 Other: # Voids 4 Date of Last Bowel Movement 03/27/18 03/29/18 03/29/18 # Bowel Movements 2 1 Narrative: GENERAL: NAD SKIN: Warm and dry. HEAD: Normocephalic. EYES: No scleral icterus. No injection or drainage. NECK: Supple, trachea midline. No JVD or lymphadenopathy. CARDIOVASCULAR: Regular rate and rhythm without murmurs, gallops, or rubs. RESPIRATORY: Breath sounds equal bilaterally. No accessory muscle use. GASTROINTESTINAL: Abdomen soft, non-tender, nondistended. MUSCULOSKELETAL: No cyanosis, or edema. BACK: Nontender without obvious deformity. No CVA tenderness. Results Procedures completed during hospitalization: none Labs on day of discharge: Labs from last 24 hours 03/29/18 03/29/18 03/28/18 08:43 04:23 16:47 POC Glucose 114 H 97 Phenobarbital 4.3 L - Impressions ITS Impressions Head CT 03/26/18 17:07 CONCLUSION: 1. No acute findings in the brain. . Chest X-Ray 03/26/18 17:11 CONCLUSION: The lungs are clear. Elbow X-Ray 03/26/18 19:07 CONCLUSION: Negative examination Discharge Plan - Discharge Disposition Patient Disposition: 07 Against Medical Advice - Discharge Order Discharge Orders: AMA Discharge (Routine); Ordered 03/29/18 Ordered By: Silvano Bloom - Physicians Team Primary Care Provider: UNKNOWN, Attending Provider: Silvano Bloom Other Providers: Chavez Givens MD
[2018-03-29] MEDS ORDERED: chlordiazePOXIDE 25 MG Capsule PO SCH (14:15)
[2018-03-30] MEDS ORDERED: chlordiazePOXIDE 25 MG Capsule PO SCH (14:30)
== END 2018-03-29 12:21 | disposition left against medical advice (07) ==
LOC: NEPC 17:01 → NEDA 19:52 → N05 21:22 → N03 03-28 08:04
PROVIDERS: ADMIT Hospitalist; ATTEND Hospitalist

== ENCOUNTER 2018-03-30 16:33 | Inpatient (IN) ==
[2018-03-30] MEDS ORDERED: Naloxone Inj 2 MG/2 ML Vial ONE (16:42)
[2018-03-30] MEDS ORDERED: Naloxone Inj 0.4 MG/ML Vial ONE (16:42)
[2018-03-30] MEDS ORDERED: Etomidate Inj 40 MG/20 ML Vial IV.PUSH ONE (16:49)
[2018-03-30] MEDS ORDERED: Sod Chloride 0.9% Inj 1,000 ML IV.CONT SCH (17:00)
[2018-03-30] MEDS ORDERED: Etomidate Inj 20 MG/10 ML Ampul IV.PUSH ONE (17:02)
[2018-03-30] MEDS ORDERED: Naloxone Inj 2 MG/2 ML Vial IV.PUSH ONE (17:02)
[2018-03-30] MEDS ORDERED: Succinylcholine Inj 200 MG/10 ML Vial IV.PUSH ONE (17:02)
[2018-03-30] MEDS: Propofol 1000 mg/100 ml Inj 1,000 MG/100 ML BOTTLE IV.CONT PRN ×2 (17:02→21:41)
[2018-03-30] MEDS ORDERED: Sod Chloride 0.9% Inj 1,000 ML IV.SIG SCH (17:15)
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
[2018-03-30 17:17] LABS: Baso % (Auto) 0.4 % (0.0-2.0); Eos # (Auto) 0.4 th/mm3 (0.0-0.4); Eos % (Auto) 4.2 % (0.0-4.0); Hematocrit 41.6 % (39.0-51.0); Hemoglobin 14.7 gm/dL (13.0-17.0); Lymph # (Auto) 2.4 th/mm3 (1.0-4.8); Lymph % (Auto) 26.4 % (9.0-44.0); Mean Corpuscular HGB Conc 35.3 % (32.0-36.0); Mean Corpuscular Hemoglobin 33.7 pg (27.0-34.0); Mean Corpuscular Volume 95.5 fL (80.0-100.0); Mean Platelet Volume 8.3 fL (7.0-11.0); Mono % (Auto) 10.9 % (0.0-8.0); Neut # (Auto) 5.2 th/mm3 (1.8-7.7); Neut % (Auto) 58.1 % (16.0-70.0); Platelet Count 276 th/mm3 (150-450); Red Blood Count 4.35 mil/mm3 (4.50-5.90); Red Cell Distribution Width 13.4 % (11.6-17.2)
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
[2018-03-30 17:40] LABS: Albumin 3.3 g/dL (3.4-5.0); Anion Gap 10 meq/L (5-15); Aspartate Aminotransferase 24 U/L (15-37); Blood Urea Nitrogen 9 mg/dL (7-18); Calcium 8.5 mg/dL (8.5-10.1); Carbon Dioxide 24.2 meq/L (21.0-32.0); Chloride 105 meq/L (98-107); Glomerular Filtration Rate Greater Than 89 mL/min (>89); Glucose,Random 81 mg/dL (74-106); Potassium 3.6 meq/L (3.5-5.1); Sodium 139 meq/L (136-145)
[2018-03-30 17:44] LABS: Alanine Aminotransferase 29 U/L (12-78); Alcohol 144 mg/dL (0-5); Alkaline Phosphatase 91 U/L (45-117); Total Protein 7.3 g/dL (6.4-8.2)
[2018-03-30 17:47] LABS: Creatine Kinase 76 U/L (39-308)
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
[2018-03-30 18:48] LABS: ABG Base Excess -3.8 mmol/L (-2-2); ABG PCO2 26 mmHg (38-42); ABG PO2 172 mmHg (61-120)
[2018-03-30] MEDS ORDERED: levETIRAcetam 1000mg/100mL Inj 100 ML IV.SIG ONE (19:01)
[2018-03-30 19:10] LABS: Bilirubin,Urine Negative (Negative); Clarity,Urine Clear (Clear); Glucose,Urine (UA) Negative (Negative); Leukocyte Esterase,Urine Negative (Negative); Nitrite,Urine Negative (Negative); Specific Gravity,Urine 1.032 (1.002-1.035)
[2018-03-30 19:14] LABS: Color,Urine Light-Yellow (Yellw/Straw)
[2018-03-30 19:18] LABS: Amphetamine Screen,Urine Neg (Neg); Barbiturate Screen,Urine Pos (Neg); Cannabinoid Screen,Urine Neg (Neg); Cocaine Screen,Urine Neg (Neg)
[2018-03-30 19:20] LABS: Opiate Screen,Urine Neg (Neg)
[2018-03-30] MEDS ORDERED: fentaNYL Citrate Inj 100 MCG/2 ML Ampul IV PUSH PRN (21:16)
[2018-03-30] MEDS ORDERED: Bisacodyl 10 MG Supp RECTAL PRN (21:16)
[2018-03-30] MEDS ORDERED: SODIUM CHLOR IV.SIG ONE (21:26)
[2018-03-30] MEDS ORDERED: FOSPHENYTOIN IV.SIG ONE (21:26)
[2018-03-30] MEDS: Enoxaparin Inj 40 MG/0.4 ML Syringe SQ SCH (21:41)
[2018-03-31] MEDS: KCL 20 mEq/D5W/NaCl 0.45% Inj 1,000 ML IV.CONT SCH ×2 (01:56→12:26)
[2018-03-31] MEDS: Propofol 1000 mg/100 ml Inj 1,000 MG/100 ML BOTTLE IV.CONT PRN ×5 (02:50→19:49)
[2018-03-31] MEDS ORDERED: Chlorhexidine Gluconate 2% 1 Pack (2 Cloths) TOPICAL PRN (04:00)
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
[2018-03-31] MEDS: Chlorhexidine Gluconate 2% 1 Pack (2 Cloths) TOPICAL SCH (05:53)
[2018-03-31 06:34] LABS: Hematocrit 45.1 % (39.0-51.0); Hemoglobin 15.4 gm/dL (13.0-17.0); Mean Corpuscular HGB Conc 34.1 % (32.0-36.0); Mean Corpuscular Hemoglobin 33.3 pg (27.0-34.0); Mean Corpuscular Volume 97.6 fL (80.0-100.0); Platelet Count 246 th/mm3 (150-450); Red Blood Count 4.62 mil/mm3 (4.50-5.90); Red Cell Distribution Width 13.5 % (11.6-17.2); White Blood Count 11.7 th/mm3 (4.0-11.0)
[2018-03-31] MEDS: Pantoprazole Inj 40 MG Vial IV.PUSH SCH (08:56)
[2018-03-31] MEDS: Senna/Docusate Sodium 8.6/50 MG Tablet PO SCH ×2 (08:56→21:16)
[2018-03-31] MEDS: Fosphenytoin Inj 150 MGPE in Sodium Chlor 0.9% Inj 50 ML IV.SIG SCH ×2 (08:56→21:16)
[2018-03-31] MEDS: levETIRAcetam 1000mg/100mL Inj 100 ML IV.SIG SCH ×2 (08:57→21:16)
[2018-03-31] MEDS ORDERED: Dexmedetomidine Inj 200 MCG in Sodium Chlor 0.9% Inj 48 ML IV.CONT PRN (13:22)
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
--- NOTE | 2018-03-31 17:51 | MR ---
EXAM DATE: 03/31/2018 4:00 PM EDT AGE/SEX: 52 years / Male INDICATIONS: Epilepsy. Skin trauma. CLINICAL DATA: This is the patient's subsequent encounter. Patient reports that signs and symptoms h ave been present for 1 day and indicates a pain score of Nonresponsive. MEDICAL/SURGICAL HISTORY: Seizures. Non-responsive. COMPARISON: [facility] [place], MRI BRAIN W/O CONTRAST, 08/06/2017. . TECHNIQUE: Multiplanar, multisequence examination of the brain was performed without contrast. FINDINGS: Cerebrum: The ventricles are normal for age. No evidence of midline shift, mass lesion, hemorrhage or acute infarction. No extraaxial fluid collections are seen. The pituitary gland and suprasellar cistern are normal in configuration. White Matter: No significant signal abnormalities are seen in the white matter. Posterior Fossa: The cerebellum and brainstem are intact. The 4th ventricle is midline. The cerebel lopontine angle is unremarkable. The cerebellar tonsils are normal in position. Diffusion Imaging: No focal areas of restricted diffusion are seen. No evidence of acute infarction . Extracranial: The visualized portions of the orbits are unremarkable. There is mucosal thickening in the ethmoidal air cells and left sphenoid sinus. There are small retention cysts in the maxillary si nus. CONCLUSION: 1. No acute hemorrhage, mass or infarction. Electronically signed by: Hever Ortega MD 03/31/2018 5:50 PM EDT
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
[2018-03-31] MEDS: Enoxaparin Inj 40 MG/0.4 ML Syringe SQ SCH (21:16)
[2018-04-01] MEDS: Propofol 1000 mg/100 ml Inj 1,000 MG/100 ML BOTTLE IV.CONT PRN ×2 (00:05→04:18)
[2018-04-01] MEDS: Acetaminophen 325 MG Tablet PO PRN ×2 (00:37→09:04)
[2018-04-01] MEDS: KCL 20 mEq/D5W/NaCl 0.45% Inj 1,000 ML IV.CONT SCH ×3 (02:19→20:10)
[2018-04-01] MEDS: Chlorhexidine Gluconate 2% 1 Pack (2 Cloths) TOPICAL SCH (03:46)
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
[2018-04-01] MEDS: Fosphenytoin Inj 150 MGPE in Sodium Chlor 0.9% Inj 50 ML IV.SIG SCH ×2 (07:59→20:10)
[2018-04-01] MEDS: Pantoprazole Inj 40 MG Vial IV.PUSH SCH (07:59)
[2018-04-01] MEDS: Senna/Docusate Sodium 8.6/50 MG Tablet PO SCH ×2 (07:59→20:12)
[2018-04-01] MEDS: levETIRAcetam 1000mg/100mL Inj 100 ML IV.SIG SCH ×2 (08:00→20:11)
[2018-04-01 09:06] LABS: ABG PCO2 34 mmHg (38-42); ABG PO2 136 mmHG (61-120)
[2018-04-01 09:10] LABS: Baso # (Auto) 0.1 th/mm3 (0.0-0.2); Baso % (Auto) 0.3 % (0.0-2.0); Eos # (Auto) 0.1 th/mm3 (0.0-0.4); Eos % (Auto) 0.7 % (0.0-4.0); Hematocrit 42.7 % (39.0-51.0); Hemoglobin 14.5 gm/dL (13.0-17.0); Lymph # (Auto) 1.2 th/mm3 (1.0-4.8); Lymph % (Auto) 6.1 % (9.0-44.0); Mean Corpuscular Hemoglobin 32.5 pg (27.0-34.0); Mean Corpuscular Volume 95.7 fL (80.0-100.0); Mean Platelet Volume 8.2 fL (7.0-11.0); Mono # (Auto) 1.5 th/mm3 (0.0-0.9); Mono % (Auto) 7.7 % (0.0-8.0); Neut % (Auto) 85.2 % (16.0-70.0); Platelet Count 250 th/mm3 (150-450); Red Blood Count 4.46 mil/mm3 (4.50-5.90); Red Cell Distribution Width 13.3 % (11.6-17.2)
[2018-04-01] MEDS ORDERED: Vancomycin Inj 1 GM/200 ML PIGGYBACK IV.SIG ONE (09:22)
[2018-04-01 09:27] LABS: Albumin 3.1 g/dL (3.4-5.0); Anion Gap 11 meq/L (5-15); Aspartate Aminotransferase 19 U/L (15-37); Blood Urea Nitrogen 5 mg/dL (7-18); Calcium 8.4 mg/dL (8.5-10.1); Carbon Dioxide 24.9 meq/L (21.0-32.0); Chloride 102 meq/L (98-107); Glomerular Filtration Rate 89 mL/min (>89); Glucose,Random 143 mg/dL (74-106); Magnesium 1.7 mg/dL (1.5-2.5); Potassium 3.8 meq/L (3.5-5.1); Sodium 138 meq/L (136-145)
[2018-04-01 09:28] LABS: Alanine Aminotransferase 24 U/L (12-78); Phosphorus 2.7 mg/dL (2.5-4.9)
[2018-04-01 09:31] LABS: Alkaline Phosphatase 110 U/L (45-117); Total Protein 7.5 g/dL (6.4-8.2)
[2018-04-01] MEDS ORDERED: Vancomycin Inj 1,000 MG in Sodium Chlor 0.9% Inj 250 ML IV.SIG ONE (10:00)
[2018-04-01] MEDS: Enoxaparin Inj 40 MG/0.4 ML Syringe SQ SCH (21:46)
[2018-04-02] MEDS: Haloperidol Inj 5 MG/ML Ampul IV.PUSH PRN (00:20)
[2018-04-02] MEDS: KCL 20 mEq/D5W/NaCl 0.45% Inj 1,000 ML IV.CONT SCH ×2 (03:55→14:33)
[2018-04-02] MEDS: Chlorhexidine Gluconate 2% 1 Pack (2 Cloths) TOPICAL SCH (03:55)
[2018-04-02 05:30] LABS: Baso % (Auto) 0.2 % (0.0-2.0); Eos # (Auto) 0.5 th/mm3 (0.0-0.4); Eos % (Auto) 2.9 % (0.0-4.0); Hematocrit 39.7 % (39.0-51.0); Hemoglobin 13.6 gm/dL (13.0-17.0); Lymph # (Auto) 1.7 th/mm3 (1.0-4.8); Lymph % (Auto) 9.7 % (9.0-44.0); Mean Corpuscular HGB Conc 34.3 % (32.0-36.0); Mean Corpuscular Hemoglobin 32.8 pg (27.0-34.0); Mean Corpuscular Volume 95.6 fL (80.0-100.0); Mean Platelet Volume 8.3 fL (7.0-11.0); Mono # (Auto) 1.8 th/mm3 (0.0-0.9); Mono % (Auto) 10.1 % (0.0-8.0); Neut # (Auto) 13.6 th/mm3 (1.8-7.7); Neut % (Auto) 77.1 % (16.0-70.0); Platelet Count 213 th/mm3 (150-450); Red Blood Count 4.15 mil/mm3 (4.50-5.90); White Blood Count 17.6 th/mm3 (4.0-11.0)
[2018-04-02 05:44] LABS: Albumin 2.6 g/dL (3.4-5.0); Anion Gap 10 meq/L (5-15); Aspartate Aminotransferase 14 U/L (15-37); Blood Urea Nitrogen 5 mg/dL (7-18); Carbon Dioxide 26.3 meq/L (21.0-32.0); Chloride 103 meq/L (98-107); Glomerular Filtration Rate Greater Than 89 mL/min (>89); Glucose,Random 96 mg/dL (74-106); Magnesium 1.8 mg/dL (1.5-2.5); Potassium 3.6 meq/L (3.5-5.1); Sodium 139 meq/L (136-145)
[2018-04-02 05:45] LABS: Alanine Aminotransferase 18 U/L (12-78); Phosphorus 2.6 mg/dL (2.5-4.9)
[2018-04-02 05:48] LABS: Alkaline Phosphatase 86 U/L (45-117); Total Protein 6.4 g/dL (6.4-8.2)
[2018-04-02] MEDS: Senna/Docusate Sodium 8.6/50 MG Tablet PO SCH ×2 (08:03→20:15)
[2018-04-02] MEDS: Fosphenytoin Inj 150 MGPE in Sodium Chlor 0.9% Inj 50 ML IV.SIG SCH ×2 (08:03→20:14)
[2018-04-02] MEDS: levETIRAcetam 1000mg/100mL Inj 100 ML IV.SIG SCH ×2 (08:03→20:15)
[2018-04-02] MEDS: Pantoprazole Inj 40 MG Vial IV.PUSH SCH (08:04)
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
[2018-04-02] MEDS: Acetaminophen 325 MG Tablet PO PRN (10:34)
[2018-04-02] MEDS: chlordiazePOXIDE 25 MG Capsule PO SCH ×2 (10:35→17:03)
[2018-04-02] MEDS: Enoxaparin Inj 40 MG/0.4 ML Syringe SQ SCH (22:42)
[2018-04-03] MEDS: chlordiazePOXIDE 25 MG Capsule PO SCH ×3 (00:46→16:08)
[2018-04-03] MEDS: KCL 20 mEq/D5W/NaCl 0.45% Inj 1,000 ML IV.CONT SCH ×2 (02:20→15:49)
[2018-04-03] MEDS: Haloperidol Inj 5 MG/ML Ampul IV.PUSH PRN ×3 (03:18→16:08)
[2018-04-03] MEDS: Chlorhexidine Gluconate 2% 1 Pack (2 Cloths) TOPICAL SCH (03:18)
[2018-04-03] MEDS: levETIRAcetam 1000mg/100mL Inj 100 ML IV.SIG SCH ×2 (08:02→20:39)
[2018-04-03] MEDS: Fosphenytoin Inj 150 MGPE in Sodium Chlor 0.9% Inj 50 ML IV.SIG SCH ×2 (08:02→20:41)
[2018-04-03] MEDS: Pantoprazole Inj 40 MG Vial IV.PUSH SCH (08:03)
[2018-04-03] MEDS: Senna/Docusate Sodium 8.6/50 MG Tablet PO SCH ×2 (08:03→20:41)
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
[2018-04-03] MEDS: Enoxaparin Inj 40 MG/0.4 ML Syringe SQ SCH (21:43)
[2018-04-04] MEDS: chlordiazePOXIDE 25 MG Capsule PO SCH ×3 (02:20→18:07)
[2018-04-04 03:58] LABS: Baso # (Auto) 0.1 th/mm3 (0.0-0.2); Baso % (Auto) 0.8 % (0.0-2.0); Eos # (Auto) 0.5 th/mm3 (0.0-0.4); Eos % (Auto) 6.3 % (0.0-4.0); Hematocrit 41.1 % (39.0-51.0); Lymph # (Auto) 1.6 th/mm3 (1.0-4.8); Lymph % (Auto) 18.6 % (9.0-44.0); Mean Corpuscular HGB Conc 34.1 % (32.0-36.0); Mean Corpuscular Hemoglobin 32.5 pg (27.0-34.0); Mean Corpuscular Volume 95.5 fL (80.0-100.0); Mean Platelet Volume 7.8 fL (7.0-11.0); Mono # (Auto) 0.8 th/mm3 (0.0-0.9); Mono % (Auto) 9.5 % (0.0-8.0); Neut # (Auto) 5.6 th/mm3 (1.8-7.7); Neut % (Auto) 64.8 % (16.0-70.0); Platelet Count 340 th/mm3 (150-450); White Blood Count 8.6 th/mm3 (4.0-11.0)
[2018-04-04] MEDS: Chlorhexidine Gluconate 2% 1 Pack (2 Cloths) TOPICAL SCH (04:08)
[2018-04-04 04:30] LABS: Alanine Aminotransferase 18 U/L (12-78); Alkaline Phosphatase 107 U/L (45-117); Anion Gap 11 meq/L (5-15); Aspartate Aminotransferase 12 U/L (15-37); Blood Urea Nitrogen 3 mg/dL (7-18); Calcium 8.9 mg/dL (8.5-10.1); Carbon Dioxide 26.1 meq/L (21.0-32.0); Chloride 104 meq/L (98-107); Free T4 (Free Thyroxine) 1.04 ng/dL (0.76-1.46); Glomerular Filtration Rate Greater Than 89 mL/min (>89); Glucose,Random 101 mg/dL (74-106); Magnesium 1.8 mg/dL (1.5-2.5); Phosphorus 3.3 mg/dL (2.5-4.9); Potassium 3.7 meq/L (3.5-5.1); Sodium 141 meq/L (136-145); Total Protein 7.3 g/dL (6.4-8.2)
[2018-04-04] MEDS: levETIRAcetam 1000mg/100mL Inj 100 ML IV.SIG SCH ×2 (08:16→20:11)
[2018-04-04] MEDS: KCL 20 mEq/D5W/NaCl 0.45% Inj 1,000 ML IV.CONT SCH ×3 (08:16→20:10)
[2018-04-04] MEDS: Senna/Docusate Sodium 8.6/50 MG Tablet PO SCH ×2 (08:17→20:12)
[2018-04-04] MEDS: Pantoprazole Inj 40 MG Vial IV.PUSH SCH (08:18)
[2018-04-04] MEDS: Fosphenytoin Inj 150 MGPE in Sodium Chlor 0.9% Inj 50 ML IV.SIG SCH ×2 (08:18→20:11)
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
[2018-04-04 15:53] LABS: Hemoglobin A1c 5.1 % (4.3-6.0)
[2018-04-04] MEDS: Acetaminophen 325 MG Tablet PO PRN (18:07)
[2018-04-04] MEDS: Enoxaparin Inj 40 MG/0.4 ML Syringe SQ SCH (23:40)
[2018-04-05] MEDS: chlordiazePOXIDE 25 MG Capsule PO SCH ×3 (01:50→17:49)
[2018-04-05] MEDS: KCL 20 mEq/D5W/NaCl 0.45% Inj 1,000 ML IV.CONT SCH ×3 (06:56→22:18)
[2018-04-05] MEDS: Pantoprazole Inj 40 MG Vial IV.PUSH SCH (07:59)
[2018-04-05] MEDS: Fosphenytoin Inj 150 MGPE in Sodium Chlor 0.9% Inj 50 ML IV.SIG SCH ×2 (08:00→20:47)
[2018-04-05] MEDS: levETIRAcetam 1000mg/100mL Inj 100 ML IV.SIG SCH ×2 (08:00→20:48)
[2018-04-05] MEDS: Senna/Docusate Sodium 8.6/50 MG Tablet PO SCH ×2 (08:01→20:48)
[2018-04-05 08:14] LABS: Baso # (Auto) 0.1 th/mm3 (0.0-0.2); Baso % (Auto) 0.7 % (0.0-2.0); Eos # (Auto) 0.4 th/mm3 (0.0-0.4); Eos % (Auto) 5.4 % (0.0-4.0); Hematocrit 44.6 % (39.0-51.0); Lymph # (Auto) 1.8 th/mm3 (1.0-4.8); Lymph % (Auto) 25.1 % (9.0-44.0); Mean Corpuscular HGB Conc 33.7 % (32.0-36.0); Mean Corpuscular Hemoglobin 32.6 pg (27.0-34.0); Mean Corpuscular Volume 96.8 fL (80.0-100.0); Mean Platelet Volume 8.1 fL (7.0-11.0); Mono # (Auto) 0.7 th/mm3 (0.0-0.9); Mono % (Auto) 10.4 % (0.0-8.0); Neut # (Auto) 4.1 th/mm3 (1.8-7.7); Neut % (Auto) 58.4 % (16.0-70.0); Platelet Count 366 th/mm3 (150-450); Red Blood Count 4.61 mil/mm3 (4.50-5.90); Red Cell Distribution Width 13.3 % (11.6-17.2)
[2018-04-05 08:37] LABS: Albumin 2.8 g/dL (3.4-5.0); Anion Gap 8 meq/L (5-15); Aspartate Aminotransferase 12 U/L (15-37); Blood Urea Nitrogen 5 mg/dL (7-18); Calcium 9.3 mg/dL (8.5-10.1); Carbon Dioxide 23.2 meq/L (21.0-32.0); Chloride 105 meq/L (98-107); Glomerular Filtration Rate Greater Than 89 mL/min (>89); Glucose,Random 99 mg/dL (74-106); Magnesium 1.8 mg/dL (1.5-2.5); Sodium 136 meq/L (136-145)
[2018-04-05 08:38] LABS: Alanine Aminotransferase 16 U/L (12-78)
[2018-04-05 08:41] LABS: Alkaline Phosphatase 104 U/L (45-117); Total Protein 7.4 g/dL (6.4-8.2)
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
[2018-04-05] MEDS ORDERED: Vancomycin Consult Pharmacy 1 EACH OTHER SCH (10:30)
[2018-04-05] MEDS ORDERED: Vancomycin Inj 1,000 MG in Sodium Chlor 0.9% Inj 250 ML IV.SIG ONE (11:00)
[2018-04-05] MEDS: LORazepam 1 MG Tablet PO PRN (20:46)
[2018-04-05] MEDS: Enoxaparin Inj 40 MG/0.4 ML Syringe SQ SCH (21:28)
[2018-04-05] MEDS: Vancomycin Inj 1,250 MG in Sodium Chlor 0.9% Inj 250 ML IV.SIG SCH (22:19)
[2018-04-06] MEDS: chlordiazePOXIDE 25 MG Capsule PO SCH ×3 (00:05→17:24)
[2018-04-06 04:07] LABS: Baso # (Auto) 0.1 th/mm3 (0.0-0.2); Baso % (Auto) 1.1 % (0.0-2.0); Eos # (Auto) 0.2 th/mm3 (0.0-0.4); Eos % (Auto) 4.1 % (0.0-4.0); Hematocrit 45.2 % (39.0-51.0); Hemoglobin 15.9 gm/dL (13.0-17.0); Lymph # (Auto) 1.6 th/mm3 (1.0-4.8); Lymph % (Auto) 29.7 % (9.0-44.0); Mean Corpuscular HGB Conc 35.2 % (32.0-36.0); Mean Corpuscular Hemoglobin 33.2 pg (27.0-34.0); Mean Corpuscular Volume 94.5 fL (80.0-100.0); Mean Platelet Volume 7.8 fL (7.0-11.0); Mono # (Auto) 0.4 th/mm3 (0.0-0.9); Mono % (Auto) 8.2 % (0.0-8.0); Neut % (Auto) 56.9 % (16.0-70.0); Platelet Count 420 th/mm3 (150-450); Red Blood Count 4.78 mil/mm3 (4.50-5.90); Red Cell Distribution Width 13.2 % (11.6-17.2); White Blood Count 5.2 th/mm3 (4.0-11.0)
[2018-04-06 04:24] LABS: Alkaline Phosphatase 109 U/L (45-117); Total Protein 7.7 g/dL (6.4-8.2)
[2018-04-06 04:25] LABS: Alanine Aminotransferase 17 U/L (12-78); Anion Gap 9 meq/L (5-15); Aspartate Aminotransferase 15 U/L (15-37); Blood Urea Nitrogen 3 mg/dL (7-18); Calcium 8.7 mg/dL (8.5-10.1); Carbon Dioxide 25.8 meq/L (21.0-32.0); Chloride 104 meq/L (98-107); Glomerular Filtration Rate Greater Than 89 mL/min (>89); Glucose,Random 107 mg/dL (74-106); Magnesium 1.8 mg/dL (1.5-2.5); Phosphorus 3.3 mg/dL (2.5-4.9); Potassium 4.1 meq/L (3.5-5.1); Sodium 139 meq/L (136-145)
[2018-04-06] MEDS: LORazepam 1 MG Tablet PO PRN ×4 (04:27→22:27)
[2018-04-06] MEDS: KCL 20 mEq/D5W/NaCl 0.45% Inj 1,000 ML IV.CONT SCH ×2 (07:59→17:25)
[2018-04-06] MEDS: levETIRAcetam 1000mg/100mL Inj 100 ML IV.SIG SCH ×2 (08:00→21:29)
[2018-04-06] MEDS: Pantoprazole Inj 40 MG Vial IV.PUSH SCH (08:01)
[2018-04-06] MEDS: Senna/Docusate Sodium 8.6/50 MG Tablet PO SCH ×2 (08:04→21:29)
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
[2018-04-06] MEDS: Fosphenytoin Inj 150 MGPE in Sodium Chlor 0.9% Inj 50 ML IV.SIG SCH ×2 (09:58→21:29)
[2018-04-06] MEDS: Vancomycin Inj 1,250 MG in Sodium Chlor 0.9% Inj 250 ML IV.SIG SCH ×2 (09:59→23:01)
[2018-04-06] MEDS: Enoxaparin Inj 40 MG/0.4 ML Syringe SQ SCH (21:29)
[2018-04-07] MEDS: chlordiazePOXIDE 25 MG Capsule PO SCH ×3 (01:04→18:59)
[2018-04-07] MEDS: KCL 20 mEq/D5W/NaCl 0.45% Inj 1,000 ML IV.CONT SCH ×2 (05:50→18:00)
[2018-04-07 06:36] LABS: Baso # (Auto) 0.1 th/mm3 (0.0-0.2); Baso % (Auto) 1.4 % (0.0-2.0); Eos # (Auto) 0.4 th/mm3 (0.0-0.4); Eos % (Auto) 6.1 % (0.0-4.0); Hematocrit 41.4 % (39.0-51.0); Hemoglobin 14.5 gm/dL (13.0-17.0); Lymph % (Auto) 28.6 % (9.0-44.0); Mean Corpuscular HGB Conc 35.1 % (32.0-36.0); Mean Corpuscular Hemoglobin 33.3 pg (27.0-34.0); Mean Corpuscular Volume 94.7 fL (80.0-100.0); Mean Platelet Volume 7.6 fL (7.0-11.0); Mono # (Auto) 0.9 th/mm3 (0.0-0.9); Mono % (Auto) 13.5 % (0.0-8.0); Neut # (Auto) 3.5 th/mm3 (1.8-7.7); Neut % (Auto) 50.4 % (16.0-70.0); Platelet Count 408 th/mm3 (150-450); Red Blood Count 4.37 mil/mm3 (4.50-5.90); Red Cell Distribution Width 13.2 % (11.6-17.2)
--- NOTE | 2018-04-07 09:00 | P.PNIM ---
Subjective Interval history: f/u; DT's in no acute distress. no seizures over night. no fever. d/w the RN and no acute issues over night. Physical Exam Vital signs: Vital Signs 04/06/18 10:00 04/06/18 12:00 04/06/18 16:00 Temperature 98.4 F 98.8 F Pulse Rate 75 80 77 Respiratory Rate 23 24 Blood Pressure 123/75 130/75 Pulse Oximetry 98 97 04/06/18 20:00 04/07/18 00:00 04/07/18 04:00 Temperature 97.1 F L 97.6 F 97.7 F Pulse Rate 84 81 82 Respiratory Rate 27 H 27 H 27 H Blood Pressure 130/84 118/63 97/74 L Pulse Oximetry 97 96 94 L Intake & Output 04/06/18 04/07/18 04/07/18 18:59 06:59 18:59 Intake Total 3466 / 3466 2415.5 / 2415.5 Output Total 1200 / 1200 1600 / 1600 Balance 2266 / 2266 815.5 / 815.5 Weight 69 kg Intake: IV 2666 / 2666 1515.5 / 1515.5 D5W/1/2NS + KCL 20 mEq Inj , 2049 / 2049 1000 / 1000 000 ML @ 100 mls/hr IV.CONT . Q10H [facility] Rx#:[id number] Azactam Inj 1,000 MG In NS Inj 200 / 200 100 / 100 100 ML @ 200 mls/hr IV.SIG Q8H [facility] Rx#:[id number] Cerebyx Inj 150 MGPE In NS Inj 53 / 53 53 / 53 50 ML @ 212 mls/hr IV.SIG Q12H [facility] Rx#:[id number] Vancomycin Inj 1,250 MG In NS 263 / 263 262.5 / 262.5 Inj 250 ML @ 250 mls/hr IV.SIG Q12H [facility] Rx#:[id number] Keppra 1000 mg/100 mL Premix 100 / 100 100 / 100 100 ML @ 400 mls/hr IV.SIG Q12H [facility] Rx#:[id number] Oral 800 / 800 900 / 900 Output: Urine 1200 / 1200 1600 / 1600 Other: Date of Last Bowel Movement 04/06/18 04/06/18 # Bowel Movements 2 1 - Constitutional no acute distress - Routine Respiratory Exam Present: CTA bilaterally - Routine Cardiovascular Exam Present: RRR - Routine Abdominal Exam Present: soft - Routine Extremities Exam Comments: no pedal edema. - Routine Neurological Exam Present: alert, oriented X3 - Urinary Catheter Management Indwelling Urethral Catheter Cath placed during this visit: yes, but has since been removed by the nurse Reason for continuing: Not indwelling catheter Insertion date: 03/30/18 Insertion time: 16:57 Removal date: 04/01/18 Removal time: 12:45 Condom Cath placed during this visit: no Results - Labs CBC & Chem 7: 04/07/18 06:15 04/06/18 03:49 Laboratory Results - last 24 hr 04/06/18 04/06/18 04/06/18 12:54 17:01 22:50 WBC RBC Hgb Hct MCV MCH MCHC RDW Plt Count MPV Neut % (Auto) Lymph % (Auto) [place] % (Auto) Eos % (Auto) Baso % (Auto) Neut # (Auto) Lymph # (Auto) [place] # (Auto) Eos # (Auto) Baso # (Auto) WBC Differential Differential Comment POC Glucose 102 115 H 111 H Ammonia 04/07/18 04/07/18 04/07/18 05:56 06:15 06:15 WBC 7.0 RBC 4.37 L Hgb 14.5 Hct 41.4 MCV 94.7 MCH 33.3 MCHC 35.1 RDW 13.2 Plt Count 408 MPV 7.6 Neut % (Auto) 50.4 Lymph % (Auto) 28.6 [place] % (Auto) 13.5 H Eos % (Auto) 6.1 H Baso % (Auto) 1.4 Neut # (Auto) 3.5 Lymph # (Auto) 2.0 [place] # (Auto) 0.9 Eos # (Auto) 0.4 Baso # (Auto) 0.1 WBC Differential . Differential Comment Auto diff final POC Glucose 99 Ammonia 40 H Microbiology 04/01/18 01:55 Blood - Peripheral Aerobic Blood Culture - Final No growth in 5 days 04/01/18 01:55 Blood - Peripheral Anaerobic Blood Culture - Final QNS - See aerobic report. 04/01/18 02:00 Blood - Peripheral Aerobic Blood Culture - Final No growth in 5 days 04/01/18 02:00 Blood - Peripheral Anaerobic Blood Culture - Final QNS - See aerobic report. - Procedures NONE Assessment and Plan - Plan Acute alcohol withdrawal/delirium tremens Acute seizure Acute encephalopathy Hx seizure disorder with prior suspicion of non epileptic seizure Cocaine abuse (UDS +03/17 03/15) Marijuana abuse EtOH dependence. Currently on CIWA protocol. Start Librium 50 mg p.o. every 8 hours, use Precedex if needed MRI brain 03/31: No acute findings. EEG 03/31: Unremarkable UDS 06/30: + Radha, Benzos. On Keppra and Cerebyx. Has h/o seizures and medication nonadherence. 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 Use Ativan as needed, loaded with Cerebyx for additional seizures post intubation. CT brain 03/29 and 03/30 were negative for acute abnormality MRI brain 08/06/17 - Report states abnormality R frontal lobe c/w demyelinating process. Posterior fossa arachnoid cyst 3x2.1 cm. MRA brain and neck 08/06/17 was negative. consulted neurology. Thiamine/MVI/folic acid Acute respiratory failure-resolved possible pneumonia Tobacco abuse Intubated in the emergency department for airway protection on 03/30, extubated 04/01/2018 Albuterol every 2 hours as needed Tobacco cessation counseling when appropriate CT chest 03/30 bibasilar atelectasis SP EXTUBATION ON 04-01 continue Bactrim- will stop Vanco and Aztreonam elevated ammonia level started on Lactulose- will monitor. for transfer to floor.
[2018-04-07] MEDS: Senna/Docusate Sodium 8.6/50 MG Tablet PO SCH ×2 (09:25→21:41)
[2018-04-07] MEDS: Pantoprazole Inj 40 MG Vial IV.PUSH SCH (09:26)
[2018-04-07] MEDS: levETIRAcetam 1000mg/100mL Inj 100 ML IV.SIG SCH ×2 (09:26→21:41)
[2018-04-07] MEDS: Fosphenytoin Inj 150 MGPE in Sodium Chlor 0.9% Inj 50 ML IV.SIG SCH ×2 (09:30→21:00)
[2018-04-07] MEDS: LORazepam 1 MG Tablet PO PRN ×3 (09:47→21:41)
[2018-04-07] MEDS ORDERED: Pharmacy Ordered Lab Info OTHER ONE (10:45)
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
[2018-04-07 12:22] LABS: Alanine Aminotransferase 17 U/L (12-78); Anion Gap 11 meq/L (5-15); Aspartate Aminotransferase 11 U/L (15-37); Blood Urea Nitrogen 3 mg/dL (7-18); Calcium 8.6 mg/dL (8.5-10.1); Carbon Dioxide 24.8 meq/L (21.0-32.0); Chloride 104 meq/L (98-107); Glomerular Filtration Rate Greater Than 89 mL/min (>89); Glucose,Random 87 mg/dL (74-106); Magnesium 1.8 mg/dL (1.5-2.5); Phosphorus 2.9 mg/dL (2.5-4.9); Potassium 4.1 meq/L (3.5-5.1); Sodium 140 meq/L (136-145)
[2018-04-07 12:24] LABS: Alkaline Phosphatase 110 U/L (45-117); Total Protein 7.7 g/dL (6.4-8.2); Vancomycin,Trough 7.7 mcg/mL (5.0-10.0)
[2018-04-07 15:47] LABS: Alanine Aminotransferase 17 U/L (12-78); Albumin 2.8 g/dL (3.4-5.0); Anion Gap 11 meq/L (5-15); Aspartate Aminotransferase 13 U/L (15-37); Blood Urea Nitrogen 4 mg/dL (7-18); Calcium 8.5 mg/dL (8.5-10.1); Carbon Dioxide 24.9 meq/L (21.0-32.0); Chloride 104 meq/L (98-107); Glomerular Filtration Rate Greater Than 89 mL/min (>89); Glucose,Random 91 mg/dL (74-106); Potassium 3.9 meq/L (3.5-5.1); Sodium 140 meq/L (136-145)
[2018-04-07 15:49] LABS: Alkaline Phosphatase 100 U/L (45-117); Total Protein 7.1 g/dL (6.4-8.2)
[2018-04-07] MEDS: Enoxaparin Inj 40 MG/0.4 ML Syringe SQ SCH (21:41)
[2018-04-08] MEDS: chlordiazePOXIDE 25 MG Capsule PO SCH ×2 (00:25→08:19)
[2018-04-08] MEDS: KCL 20 mEq/D5W/NaCl 0.45% Inj 1,000 ML IV.CONT SCH ×3 (00:52→14:20)
[2018-04-08] MEDS: LORazepam 1 MG Tablet PO PRN (05:06)
--- NOTE | 2018-04-08 07:55 | P.PNNEU ---
Subjective Active Medications: Active Medications Acetaminophen (Tylenol) 650 mg PO Q6H PRN PRN Reason: PAIN 1-5 AND/OR FEVER >101F Last Admin: 04/04/18 18:07 Dose: 650 mg Al Hydroxide/Mg Hydroxide (Milk Of Magnesia Liq) 30 ml PO Q12H PRN PRN Reason: Mild Constipation Bisacodyl (Dulcolax Supp) 10 mg RECTAL DAILY PRN PRN Reason: SEVERE CONSITIPATION Chlordiazepoxide (Librium) 50 mg PO Q8H [facility] Last Admin: 04/08/18 00:25 Dose: 50 mg Cyclobenzaprine HCl (Flexeril) 5 mg PO Q8H PRN PRN Reason: muscle spasm Last Admin: 04/07/18 23:27 Dose: 5 mg Enoxaparin Sodium (Lovenox Inj) 40 mg SQ Q24H [facility] Last Admin: 04/07/18 21:41 Dose: 40 mg Flumazenil (Romazecon Inj) 0.2 mg IV.PUSH Q1M PRN PRN Reason: OVERSEDATION Fluticasone Propionate (Flonase Nasal [place]) 1 spray NASAL BID PRN PRN Reason: NASAL CONGESTION Last Admin: 04/05/18 22:20 Dose: 1 spray Haloperidol Lactate (Haldol Inj) 1 mg IV.PUSH Q15M PRN PRN Reason: for severe agitation Last Admin: 04/03/18 16:08 Dose: 1 mg Levetiracetam (Keppra 1000 Mg/100 Ml Premix) 100 mls @ 400 mls/hr IV.SIG Q12H [facility] Last Admin: 04/07/18 21:41 Dose: 400 mls/hr Fosphenytoin Sodium 150 mgpe/ (Sodium Chloride) 53 mls @ 212 mls/hr IV.SIG Q12H [facility] Last Admin: 04/07/18 21:00 Dose: 212 mls/hr Potassium Chloride/Dextrose/Sod Cl (D5w/1/2ns + Kcl 20 Meq Inj) 1,000 mls @ 100 mls/hr IV.CONT .Q10H [facility] Last Admin: 04/08/18 05:07 Dose: 100 mls/hr Lactulose (Lactulose Liq) 30 ml PO TID [facility] Last Admin: 04/07/18 18:29 Dose: Not Given Lorazepam (Ativan Inj) 2 mg IV.PUSH Q15M PRN PRN Reason: seizure Last Admin: 04/05/18 08:00 Dose: 2 mg Lorazepam (Ativan) 1 mg PO Q4H PRN PRN Reason: for CIWA 8-10 Last Admin: 04/08/18 05:06 Dose: 1 mg Lorazepam (Ativan) 2 mg PO Q2H PRN PRN Reason: for CIWA 11-14 Last Admin: 04/04/18 15:50 Dose: 2 mg Lorazepam (Ativan Inj) 2 mg IV.PUSH Q2H PRN PRN Reason: for CIWA 11-14 Last Admin: 04/05/18 01:52 Dose: 2 mg Lorazepam (Ativan Inj) 2 mg IV.PUSH Q1H PRN PRN Reason: for CIWA 15-20 Last Admin: 04/05/18 06:56 Dose: 2 mg Lorazepam (Ativan Inj) 2 mg IV.PUSH Q15M PRN PRN Reason: for CIWA > 20 Lorazepam (Ativan Inj) 1 mg IV.PUSH Q4H PRN PRN Reason: for CIWA 8-10 Nicotine (Habitrol 21 Mg Patch.24 Hr) 1 patch T-DERMAL DAILY [facility] Last Admin: 04/07/18 09:46 Dose: 1 patch Ondansetron HCl (Zofran Inj) 4 mg IV.PUSH Q6H PRN PRN Reason: NAUSEA OR VOMITING Pantoprazole Sodium (Protonix Inj) 40 mg IV.PUSH DAILY [facility] Last Admin: 04/07/18 09:26 Dose: 40 mg Patch Removal (Remove Old Patch) 1 each T-DERMAL DAILY [facility] Last Admin: 04/07/18 09:31 Dose: 1 each Senna/Docusate Sodium (Viri-Colace) 1 tab PO BID [facility] Last Admin: 04/07/18 21:41 Dose: 1 tab Sennosides (Senokot) 17.2 mg PO Q12H PRN PRN Reason: Moderate Constipation Sodium Chloride (Ns Flush) 2 ml IV.FLUSH BID [facility] Last Admin: 04/07/18 21:41 Dose: 2 ml Sodium Chloride (Ns Flush) 2 ml IV.FLUSH PRN PRN PRN Reason: FLUSH AFTER USING IV ACCESS Trimethoprim/Sulfamethoxazole (Bactrim Ds) 1 tab PO Q12H [facility] Last Admin: 04/07/18 23:27 Dose: 1 tab Zinc Sulfate (Zinc-220) 220 mg PO DAILY [facility] Last Admin: 04/07/18 09:25 Dose: 220 mg Allergies/Adverse Reactions: Allergies Allergy/AdvReac Type Severity Reaction Status Date / Time doxycycline Allergy Severe Rash Verified 03/30/18 16:38 erythromycin base Allergy Severe Rash Verified 03/30/18 16:38 minocycline Allergy Severe Rash Verified 03/30/18 16:38 penicillin G Allergy Severe Rash Verified 03/30/18 16:38 tigecycline Allergy Severe Rash Verified 03/30/18 16:38 Physical Exam Vital signs: Vital Signs 04/07/18 08:00 04/07/18 09:00 04/07/18 10:00 Temperature 98.5 F Pulse Rate 72 71 75 Respiratory Rate 24 23 25 H Blood Pressure 121/77 122/78 117/79 Pulse Oximetry 98 98 99 04/07/18 10:58 04/07/18 11:00 04/07/18 12:00 Temperature Pulse Rate 85 77 79 Respiratory Rate 27 H 19 21 Blood Pressure 118/76 112/64 117/62 Pulse Oximetry 95 96 04/07/18 13:00 04/07/18 14:00 04/07/18 15:00 Temperature Pulse Rate 81 74 76 Respiratory Rate 18 24 24 Blood Pressure 118/77 116/73 123/75 Pulse Oximetry 97 98 04/07/18 16:00 04/07/18 17:00 04/07/18 17:01 Temperature Pulse Rate 76 76 76 Respiratory Rate 23 23 23 Blood Pressure 109/67 112/68 Pulse Oximetry 97 88 L 94 L 04/07/18 20:00 04/08/18 00:00 Temperature 98.6 F 98.1 F Pulse Rate 77 76 Respiratory Rate 23 17 Blood Pressure 121/69 113/65 Pulse Oximetry 100 99 Intake & Output 04/07/18 04/08/18 04/08/18 18:59 06:59 18:59 Intake Total 1153 / 1153 1880 / 1880 Output Total 1850 / 1850 2700 / 2700 Balance -697 / -697 -820 / -820 Weight 69 kg Intake: IV 1153 / 1153 1000 / 1000 D5W/1/2NS + KCL 20 mEq Inj 1, 1000 / 1000 1000 / 1000 000 ML @ 100 mls/hr IV.CONT . Q10H [facility] Rx#:[id number] Cerebyx Inj 150 MGPE In NS Inj 53 / 53 50 ML @ 212 mls/hr IV.SIG Q12H [facility] Rx#:[id number] Keppra 1000 mg/100 mL Premix 100 / 100 100 ML @ 400 mls/hr IV.SIG Q12H [facility] Rx#:[id number] Oral 880 / 880 Output: Urine 1850 / 1850 2700 / 2700 Other: # Voids 2 Date of Last Bowel Movement 04/06/18 04/07/18 # Bowel Movements 1 Narrative: sleeping quietly - Urinary Catheter Management Indwelling Urethral Catheter Cath placed during this visit: yes, but has since been removed by the nurse Reason for continuing: Not indwelling catheter Insertion date: 03/30/18 Insertion time: 16:57 Removal date: 04/01/18 Removal time: 12:45 Condom Cath placed during this visit: no Objective Laboratory Results - last 24 hr 04/07/18 04/07/18 04/07/18 10:23 11:46 11:46 Sodium 140 Potassium 4.1 Chloride 104 Carbon Dioxide 24.8 Anion Gap 11 BUN 3 L Creatinine 0.73 Estimated GFR Greater than 89 POC Glucose 102 Random Glucose 87 Calcium 8.6 Phosphorus 2.9 Magnesium 1.8 Total Bilirubin 0.2 AST 11 L ALT 17 Alkaline Phosphatase 110 Ammonia 51 H Total Protein 7.7 Albumin 3.0 L Vancomycin Trough 7.7 Phenytoin 04/07/18 04/07/18 04/07/18 11:46 14:23 23:07 Sodium 140 Potassium 3.9 Chloride 104 Carbon Dioxide 24.9 Anion Gap 11 BUN 4 L Creatinine 0.81 Estimated GFR Greater than 89 POC Glucose 67 L Random Glucose 91 Calcium 8.5 Phosphorus Magnesium Total Bilirubin Less than 0.1 L AST 13 L ALT 17 Alkaline Phosphatase 100 Ammonia Total Protein 7.1 D Albumin 2.8 L Vancomycin Trough Phenytoin 5.5 L 04/07/18 04/08/18 23:15 05:06 Sodium Potassium Chloride Carbon Dioxide Anion Gap BUN Creatinine Estimated GFR POC Glucose 83 113 H Random Glucose Calcium Phosphorus Magnesium Total Bilirubin AST ALT Alkaline Phosphatase Ammonia Total Protein Albumin Vancomycin Trough Phenytoin Review/Management - Review/Management Plan: imp i suspect some drug seeking behavior eeg always neg etoh withdrawa some tremors yest but no sz considering hx i would not use pbarb ok dc by me
[2018-04-08] MEDS: Pantoprazole Inj 40 MG Vial IV.PUSH SCH (08:19)
[2018-04-08] MEDS: Senna/Docusate Sodium 8.6/50 MG Tablet PO SCH (08:19)
[2018-04-08] MEDS: Fosphenytoin Inj 150 MGPE in Sodium Chlor 0.9% Inj 50 ML IV.SIG SCH (08:42)
[2018-04-08] MEDS: levETIRAcetam 1000mg/100mL Inj 100 ML IV.SIG SCH (09:06)
[2018-04-08 09:26] VITALS: BP 113/70; PULSE 74; RESP 19; TEMP 97.2; O2SAT 97
[2018-04-08] MEDS ORDERED: diphenhydrAMINE 2%/Zinc Cream 30 GM Tube TOPICAL ONE (11:00)
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
== END 2018-04-08 15:31 | disposition home or self-care (01) ==
LOC: NEPE 16:33 → NEDA 19:01 → HIMC 21:00 → N07 04-07 22:50
PROVIDERS: ADMIT Hospitalist; ATTEND Hospitalist

== ENCOUNTER 2018-04-24 18:13 | Observation (INO) ==
[2018-04-24] MEDS ORDERED: levETIRAcetam 1000mg/100mL Inj 100 ML IV.SIG ONE (18:26)
--- NOTE | 2018-04-24 18:38 | ED ---
HPI General Chief Complaint: Seizure Stated Complaint: poss seizure/evac Time Seen by Provider: 04/24/18 18:26 Source: EMS Mode of arrival: EMS Limitations: altered mental status History of Present Illness HPI Narrative: Middle-aged male was brought in by EMS after patient was witnessed to having seizure at a local facility. EMS was called. Patient was witnessed to have 2 more seizure episodes on the way to the ED. Patient was given Versed 2 [address] IV [address] the way to the ED. Patient has active seizure activity upon arrival. Patient gave EMS information on the way that patient was on Keppra however has not been taking it for the past month because of financial situation. Patient denies any recent injury. Patient denies any alcohol or drug abuse. No report of bladder or bowel incontinence. Patient was postictal between seizure episodes. MD complaint: Reports seizure Onset (ago): minute(s) Description of Episode: Reports tonic-clonic movement -: minutes(s) Witnessed: yes - by bystander and yes - by EMS Trauma: No Seizure History: Reports known seizure disorder and history of non-compliance with treatment Place: other (Local restaurant) Possible Precipitating Event: Reports none Associated symptoms: Reports denies other symptoms Treatments prior to arrival: Reports benzodiazepines and restraints Related Data Home Medications Medication Instructions Recorded Confirmed Unable to Obtain Home Meds 04/24/18 04/24/18 Allergies Allergy/AdvReac Type Severity Reaction Status Date / Time erythromycin base Allergy Rash, Verified 04/25/18 08:40 Generalized tetracycline Allergy Hives Verified 04/25/18 09:04 Penicillins AdvReac Difficulty Verified 04/25/18 08:40 Breathing Review of Systems ROS Unobtainable ROS Unobtainable: unobtainable due to mental condition PMFSH History History 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 SKIN: Focused skin assessment warm/dry. HEAD: Normocephalic. EYES: No scleral icterus. No injection or drainage. NECK: Supple, trachea midline. No JVD or lymphadenopathy. CARDIOVASCULAR: Regular rate and rhythm without murmurs, gallops, or rubs. RESPIRATORY: Breath sounds equal bilaterally. No accessory muscle use. GASTROINTESTINAL: Abdomen soft, non-tender, nondistended. MUSCULOSKELETAL: No cyanosis, or edema. BACK: Nontender without obvious deformity. No CVA tenderness. Neurologic exam patient is having generalized tonic-clonic seizure upon arrival. Patient moves all extremity. No obvious focal neurologic deficit. Course Initial Documented Vital Signs Temperature 98.0 F 04/24/18 18:26 Pulse Rate 104 H 04/24/18 18:26 Respiratory Rate 20 04/24/18 18:26 Blood Pressure 140/88 04/24/18 18:26 Pulse Oximetry 99 04/24/18 18:26 Last Documented Vital Signs Temperature 98.3 F 04/25/18 16:00 Pulse Rate 78 04/25/18 16:00 Respiratory Rate 16 04/25/18 16:00 Blood Pressure 123/78 04/25/18 16:00 Pulse Oximetry 97 04/25/18 16:00 Sign Out Sign Out Data: Patient Sign Out occurred on 04/24/18 at 19:35. Patient's care was discussed, and care was transferred from Berhane Baugh to Janice Cortez MD. Sign Out Comment: Patient with recurrent seizure. Patient has been noncompliant on Keppra. Keppra 1 g IV given. Ativan 8 mg IV given. Patient will be signed out to incoming ED physician. Last updated by Berhane Baugh MD at 04/24/18 19:20 Post-Handoff Eval: The patient's case was checked out to me by Dr. Baugh. Please see his complete history and physical. The patient's case was checked out to me at the conclusion of the shift. The patient presented with a history of recurrent seizure activity. Patient reportedly received Versed in the field and then a total of 8 mg of Ativan IV. The patient is drowsy on my arrival to the room. The patient was loaded with Keppra. The patient has had no further seizure activity since being in the emergency department since my arrival to assume care. The patient will be admitted for status epilepticus. The patient's case including history, pertinent physical examination findings, and laboratory studies were discussed with the family practice residents It was agreed that the patient would be admitted to the family practice resident's service. The patient's results were discussed with the patient, including the plan of care. I explained that further testing and/ or monitoring is indicated based on the patient's history, examination, and/ or laboratory findings. Therefore, I recommended admission for additional evaluation. The patient expressed understanding and was agreeable with this plan. The patient was admitted to the hospital in guarded condition and sent to a bed under the care of the family practice resident's service. Medical Decision Making MDM Narrative Medical decision making narrative: Middle-aged male was brought in by EMS for seizure. Patient continued to have persistent seizure upon arrival. History of seizure and noncompliant on Keppra. Ativan 4 mg IV x2. Keppra 1 g IV given. Medical Screen Exam Complete: Yes Emergency Medical Condition: Yes Differential Diagnosis Differential Diagnosis: Differential diagnosis including breakthrough seizure, noncompliance on medications, electrolyte abnormality, substance abuse. Lab Data Result diagrams: 04/24/18 18:50 04/25/18 05:00 Lab Results 04/24/18 04/24/18 04/24/18 Range/Units 18:50 18:50 18:50 WBC 7.6 (4.0-11.0) th/mm3 RBC 4.24 L (4.50-5.90) mil/mm3 Hgb 13.6 (13.0-17.0) gm/dL Hct 40.0 (39.0-51.0) % MCV 94.4 (80.0-100.0) fL MCH 32.1 (27.0-34.0) pg MCHC 34.0 (32.0-36.0) % RDW 13.4 (11.6-17.2) % Plt Count 255 (150-450) th/mm3 MPV 8.7 (7.0-11.0) fL Neut % (Auto) 50.8 (16.0-70.0) % Lymph % (Auto) 38.7 (9.0-44.0) % [place] % (Auto) 9.9 H (0.0-8.0) % Eos % (Auto) 0.0 (0.0-4.0) % Baso % (Auto) 0.6 (0.0-2.0) % Neut # (Auto) 3.9 (1.8-7.7) th/mm3 Lymph # (Auto) 2.9 (1.0-4.8) th/mm3 [place] # (Auto) 0.8 (0.0-0.9) th/mm3 Eos # (Auto) 0.0 (0.0-0.4) th/mm3 Baso # (Auto) 0.0 (0.0-0.2) th/mm3 WBC Differential . Differential Comment Auto diff final Sodium 138 (136-145) meq/L Potassium 3.5 (3.5-5.1) meq/L Chloride 104 (98-107) meq/L Carbon Dioxide 24.0 (21.0-32.0) meq/L Anion Gap 10 (5-15) meq/L BUN 9 (7-18) mg/dL Creatinine 0.70 (0.60-1.30) mg/dL Estimated GFR Greater than 89 (>89) mL/min POC Glucose (68-110) mg/dl Random Glucose 70 L (74-106) mg/dL Calcium 8.1 L (8.5-10.1) mg/dL Phosphorus 3.4 (2.5-4.9) mg/dL Magnesium 1.8 (1.5-2.5) mg/dL Total Bilirubin 0.3 (0.2-1.0) mg/dL AST 22 (15-37) U/L ALT 21 (12-78) U/L Alkaline Phosphatase 99 (45-117) U/L Ammonia (11-32) mcmol/L Total Creatine Kinase (39-308) U/L Total Protein 7.8 (6.4-8.2) g/dL Albumin 3.7 (3.4-5.0) g/dL TSH (0.358-3.740) uIU/mL Urine Color (Yellw/Straw) Urine Clarity (Clear) Urine pH (5.0-8.5) Ur Specific [place] (1.002-1.035) Urine Protein (Neg-Trace) mg/dL Urine Glucose (UA) (Negative) mg/dL Urine Ketones (Negative) mg/dL Urine Occult Blood (Negative) Urine Nitrate (Negative) Urine Bilirubin (Negative) Urine Urobilinogen (Less than 2) mg/dL Ur Leukocyte Esterase (Negative) Urine RBC (0-3) /hpf Micro UA Comment Ur Microscopic Review Urine Culture Comments Urine Opiates Screen (Neg) Ur Barbiturates Screen (Neg) Ur Amphetamines Screen (Neg) U Benzodiazepines Scrn (Neg) Urine Cocaine Screen (Neg) U Cannabinoids Screen (Neg) Serum Alcohol 319 H (0-5) mg/dL 04/24/18 04/24/18 04/24/18 Range/Units 18:50 18:50 18:50 WBC (4.0-11.0) th/mm3 RBC (4.50-5.90) mil/mm3 Hgb (13.0-17.0) gm/dL Hct (39.0-51.0) % MCV (80.0-100.0) fL MCH (27.0-34.0) pg MCHC (32.0-36.0) % RDW (11.6-17.2) % Plt Count (150-450) th/mm3 MPV (7.0-11.0) fL Neut % (Auto) (16.0-70.0) % Lymph % (Auto) (9.0-44.0) % [place] % (Auto) (0.0-8.0) % Eos % (Auto) (0.0-4.0) % Baso % (Auto) (0.0-2.0) % Neut # (Auto) (1.8-7.7) th/mm3 Lymph # (Auto) (1.0-4.8) th/mm3 [place] # (Auto) (0.0-0.9) th/mm3 Eos # (Auto) (0.0-0.4) th/mm3 Baso # (Auto) (0.0-0.2) th/mm3 WBC Differential Differential Comment Sodium (136-145) meq/L Potassium (3.5-5.1) meq/L Chloride (98-107) meq/L Carbon Dioxide (21.0-32.0) meq/L Anion Gap (5-15) meq/L BUN (7-18) mg/dL Creatinine (0.60-1.30) mg/dL Estimated GFR (>89) mL/min POC Glucose (68-110) mg/dl Random Glucose (74-106) mg/dL Calcium (8.5-10.1) mg/dL Phosphorus (2.5-4.9) mg/dL Magnesium (1.5-2.5) mg/dL Total Bilirubin (0.2-1.0) mg/dL AST (15-37) U/L ALT (12-78) U/L Alkaline Phosphatase (45-117) U/L Ammonia (11-32) mcmol/L Total Creatine Kinase 295 (39-308) U/L Total Protein (6.4-8.2) g/dL Albumin (3.4-5.0) g/dL TSH (0.358-3.740) uIU/mL Urine Color Colorless (Yellw/Straw) Urine Clarity Clear (Clear) Urine pH 6.0 (5.0-8.5) Ur Specific [place] 1.003 (1.002-1.035) Urine Protein Negative (Neg-Trace) mg/dL Urine Glucose (UA) Negative (Negative) mg/dL Urine Ketones Negative (Negative) mg/dL Urine Occult Blood Negative (Negative) Urine Nitrate Negative (Negative) Urine Bilirubin Negative (Negative) Urine Urobilinogen Less than 2 (Less than 2) mg/dL Ur Leukocyte Esterase Negative (Negative) Urine RBC Less than 1 (0-3) /hpf Micro UA Comment Cath-culture not ind Ur Microscopic Review Not Reportable Urine Culture Comments Cath-cult not ind Urine Opiates Screen Neg (Neg) Ur Barbiturates Screen Neg (Neg) Ur Amphetamines Screen Neg (Neg) U Benzodiazepines Scrn Pos H (Neg) Urine Cocaine Screen Neg (Neg) U Cannabinoids Screen Neg (Neg) Serum Alcohol (0-5) mg/dL 04/24/18 04/24/18 04/25/18 Range/Units 18:50 22:20 05:00 WBC (4.0-11.0) th/mm3 RBC (4.50-5.90) mil/mm3 Hgb (13.0-17.0) gm/dL Hct (39.0-51.0) % MCV (80.0-100.0) fL MCH (27.0-34.0) pg MCHC (32.0-36.0) % RDW (11.6-17.2) % Plt Count (150-450) th/mm3 MPV (7.0-11.0) fL Neut % (Auto) (16.0-70.0) % Lymph % (Auto) (9.0-44.0) % [place] % (Auto) (0.0-8.0) % Eos % (Auto) (0.0-4.0) % Baso % (Auto) (0.0-2.0) % Neut # (Auto) (1.8-7.7) th/mm3 Lymph # (Auto) (1.0-4.8) th/mm3 [place] # (Auto) (0.0-0.9) th/mm3 Eos # (Auto) (0.0-0.4) th/mm3 Baso # (Auto) (0.0-0.2) th/mm3 WBC Differential Differential Comment Sodium 144 (136-145) meq/L Potassium 3.8 (3.5-5.1) meq/L Chloride 112 H D (98-107) meq/L Carbon Dioxide 23.8 (21.0-32.0) meq/L Anion Gap 8 (5-15) meq/L BUN 8 (7-18) mg/dL Creatinine 0.54 L (0.60-1.30) mg/dL Estimated GFR Greater than 89 (>89) mL/min POC Glucose (68-110) mg/dl Random Glucose 70 L (74-106) mg/dL Calcium 7.9 L (8.5-10.1) mg/dL Phosphorus (2.5-4.9) mg/dL Magnesium (1.5-2.5) mg/dL Total Bilirubin 0.4 (0.2-1.0) mg/dL AST 22 (15-37) U/L ALT 19 (12-78) U/L Alkaline Phosphatase 95 (45-117) U/L Ammonia 27 (11-32) mcmol/L Total Creatine Kinase (39-308) U/L Total Protein 6.9 D (6.4-8.2) g/dL Albumin 3.2 L (3.4-5.0) g/dL TSH 1.870 (0.358-3.740) uIU/mL Urine Color (Yellw/Straw) Urine Clarity (Clear) Urine pH (5.0-8.5) Ur Specific [place] (1.002-1.035) Urine Protein (Neg-Trace) mg/dL Urine Glucose (UA) (Negative) mg/dL Urine Ketones (Negative) mg/dL Urine Occult Blood (Negative) Urine Nitrate (Negative) Urine Bilirubin (Negative) Urine Urobilinogen (Less than 2) mg/dL Ur Leukocyte Esterase (Negative) Urine RBC (0-3) /hpf Micro UA Comment Ur Microscopic Review Urine Culture Comments Urine Opiates Screen (Neg) Ur Barbiturates Screen (Neg) Ur Amphetamines Screen (Neg) U Benzodiazepines Scrn (Neg) Urine Cocaine Screen (Neg) U Cannabinoids Screen (Neg) Serum Alcohol (0-5) mg/dL 04/25/18 04/25/18 Range/Units 06:49 12:07 WBC (4.0-11.0) th/mm3 RBC (4.50-5.90) mil/mm3 Hgb (13.0-17.0) gm/dL Hct (39.0-51.0) % MCV (80.0-100.0) fL MCH (27.0-34.0) pg MCHC (32.0-36.0) % RDW (11.6-17.2) % Plt Count (150-450) th/mm3 MPV (7.0-11.0) fL Neut % (Auto) (16.0-70.0) % Lymph % (Auto) (9.0-44.0) % [place] % (Auto) (0.0-8.0) % Eos % (Auto) (0.0-4.0) % Baso % (Auto) (0.0-2.0) % Neut # (Auto) (1.8-7.7) th/mm3 Lymph # (Auto) (1.0-4.8) th/mm3 [place] # (Auto) (0.0-0.9) th/mm3 Eos # (Auto) (0.0-0.4) th/mm3 Baso # (Auto) (0.0-0.2) th/mm3 WBC Differential Differential Comment Sodium (136-145) meq/L Potassium (3.5-5.1) meq/L Chloride (98-107) meq/L Carbon Dioxide (21.0-32.0) meq/L Anion Gap (5-15) meq/L BUN (7-18) mg/dL Creatinine (0.60-1.30) mg/dL Estimated GFR (>89) mL/min POC Glucose 75 88 (68-110) mg/dl Random Glucose (74-106) mg/dL Calcium (8.5-10.1) mg/dL Phosphorus (2.5-4.9) mg/dL Magnesium (1.5-2.5) mg/dL Total Bilirubin (0.2-1.0) mg/dL AST (15-37) U/L ALT (12-78) U/L Alkaline Phosphatase (45-117) U/L Ammonia (11-32) mcmol/L Total Creatine Kinase (39-308) U/L Total Protein (6.4-8.2) g/dL Albumin (3.4-5.0) g/dL TSH (0.358-3.740) uIU/mL Urine Color (Yellw/Straw) Urine Clarity (Clear) Urine pH (5.0-8.5) Ur Specific [place] (1.002-1.035) Urine Protein (Neg-Trace) mg/dL Urine Glucose (UA) (Negative) mg/dL Urine Ketones (Negative) mg/dL Urine Occult Blood (Negative) Urine Nitrate (Negative) Urine Bilirubin (Negative) Urine Urobilinogen (Less than 2) mg/dL Ur Leukocyte Esterase (Negative) Urine RBC (0-3) /hpf Micro UA Comment Ur Microscopic Review Urine Culture Comments Urine Opiates Screen (Neg) Ur Barbiturates Screen (Neg) Ur Amphetamines Screen (Neg) U Benzodiazepines Scrn (Neg) Urine Cocaine Screen (Neg) U Cannabinoids Screen (Neg) Serum Alcohol (0-5) mg/dL Imaging Data Radiologist's impression: Chest X-Ray 04/25/18 00:00 CONCLUSION: Negative for acute process Head CT 04/25/18 00:00 CONCLUSION: 1. Prominent cisterna magna otherwise negative . Discharge Plan Discharge Disposition Patient Disposition: 30 Still Patient Discharge Details Diagnosis: Status epilepticus Physicians Team ED Provider: Janice Cortez Primary Care Provider: UNKNOWN, Attending Provider: Johan Valdez Other Providers: Yadira Stout ED Status: Left Department Discharge Information Discharge Date/Time: 04/25/18 01:54
[2018-04-24] MEDS: Sod Chloride 0.9% Inj 1,000 ML IV.CONT SCH (19:10)
[2018-04-24 19:52] LABS: Baso % (Auto) 0.6 % (0.0-2.0); Hemoglobin 13.6 gm/dL (13.0-17.0); Lymph # (Auto) 2.9 th/mm3 (1.0-4.8); Lymph % (Auto) 38.7 % (9.0-44.0); Mean Corpuscular Hemoglobin 32.1 pg (27.0-34.0); Mean Corpuscular Volume 94.4 fL (80.0-100.0); Mean Platelet Volume 8.7 fL (7.0-11.0); Mono # (Auto) 0.8 th/mm3 (0.0-0.9); Mono % (Auto) 9.9 % (0.0-8.0); Neut # (Auto) 3.9 th/mm3 (1.8-7.7); Neut % (Auto) 50.8 % (16.0-70.0); Platelet Count 255 th/mm3 (150-450); Red Blood Count 4.24 mil/mm3 (4.50-5.90); Red Cell Distribution Width 13.4 % (11.6-17.2); White Blood Count 7.6 th/mm3 (4.0-11.0)
[2018-04-24 19:59] LABS: Bilirubin,Urine Negative (Negative); Clarity,Urine Clear (Clear); Color,Urine Colorless (Yellw/Straw); Glucose,Urine (UA) Negative (Negative); Leukocyte Esterase,Urine Negative (Negative); Nitrite,Urine Negative (Negative); Specific Gravity,Urine 1.003 (1.002-1.035)
[2018-04-24 20:07] LABS: Amphetamine Screen,Urine Neg (Neg); Barbiturate Screen,Urine Neg (Neg); Cocaine Screen,Urine Neg (Neg)
[2018-04-24 20:11] LABS: Opiate Screen,Urine Neg (Neg)
[2018-04-24 20:14] LABS: Albumin 3.7 g/dL (3.4-5.0); Anion Gap 10 meq/L (5-15); Aspartate Aminotransferase 22 U/L (15-37); Blood Urea Nitrogen 9 mg/dL (7-18); Calcium 8.1 mg/dL (8.5-10.1); Chloride 104 meq/L (98-107); Glomerular Filtration Rate Greater Than 89 mL/min (>89); Glucose,Random 70 mg/dL (74-106); Potassium 3.5 meq/L (3.5-5.1); Sodium 138 meq/L (136-145)
[2018-04-24 20:15] LABS: Alanine Aminotransferase 21 U/L (12-78); Phosphorus 3.4 mg/dL (2.5-4.9)
[2018-04-24 20:17] LABS: Alkaline Phosphatase 99 U/L (45-117); Total Protein 7.8 g/dL (6.4-8.2)
[2018-04-24 20:21] LABS: Cannabinoid Screen,Urine Neg (Neg)
[2018-04-24 20:31] LABS: Alcohol 319 mg/dL (0-5)
[2018-04-24] MEDS ORDERED: Ibuprofen 600 MG Tablet PO PRN (21:19)
[2018-04-24] MEDS ORDERED: Acetaminophen 325 MG Tablet PO PRN (21:19)
--- NOTE | 2018-04-24 21:19 | P.HPFP ---
History of Present Illness Chief Complaint: Status epilepticus <Radha Eugene 04/24/18 21:19> History of Present Illness: Middle aged M presenting w/status epilepticus. Per ED report, patient was witnessed to have a [place] seizure [place]. Had 2 more seizures occur on the way to the ED. Was given Versed x1 which did not break the seizure. Arrived in the ED seizing. Received 4 mg Ativan x2 and 1 g of Keppra in the ED, after which the seizure resolved. EMS was told (by patient) that he was supposed to be taking Keppra but stopped due to lack of finances. No recent injury. No bladder or bowel incontinence was observed. Denies a hx of alcohol or drug use but blood alcohol level is 319 on arrival. Unable to obtain patient information upon arrival to his room, as he is very sleepy and post-ictal and does not arouse to verbal or physical stimuli. Hands are in soft restraints. <Radha Eugene 04/24/18 21:40> - Diagnosis (1) Status epilepticus (2) History of seizures (3) Nutrition, metabolism, and development symptoms (4) DVT prophylaxis <Radha Eugene 04/24/18 23:04> Inpatient Certification: I certify that the inpatient services were ordered in accordance with Medicare regulations governing the order. This includes certification that hospital inpatient services are reasonable and necessary and in the case of services not specified as inpatient-only under 42 CFR 419.22(n), that they are appropriately provided as inpatient services in accordance to with the 2-midnight benchmark under 43 CFR 412.3(e) <Johan Valdez - 04/25/18 14:00> I certify that the inpatient services were ordered in accordance with Medicare regulations governing the order. This includes certification that hospital inpatient services are reasonable and necessary and in the case of services not specified as inpatient-only under 42 CFR 419.22(n), that they are appropriately provided as inpatient services in accordance to with the 2-midnight benchmark under 43 CFR 412.3(e) <Radha Eugene 04/24/18 21:19> Review of Systems unobtainable due to mental status <Radha Eugene 04/24/18 21:40> PMFSH - History History Provided By: [facility] Consultant / EMT <Radha Eugene - 04/24/18 21:19> - Medical History Medical History: Medical History (Last Reviewed 04/24/18 @ 18:35 by Berhane Baugh MD) Medical history unknown Seizure Surgical history unknown <Johan Valdez - 04/25/18 14:00> Medical History (Last Reviewed 04/24/18 @ 18:35 by Berhane Baugh MD) Medical history unknown Seizure Surgical history unknown <Radha Eugene - 04/24/18 21:19> - Tobacco History Smoking Status: Cognitive impairment <Radha Eugene - 04/24/18 21:19> - Alcohol History How Often Do You Have a Drink Containing Alcohol: Unable to Obtain <Radha Eugene 04/24/18 21:19> - Travel History Recent Travel in the [facility] Within the Last 8 Weeks: No <Radha Eugene 21:19> Recent Travel Out of the Country Within the Last 8 Weeks: No <Radha Eugene 04/24/18 21:19> - Immunization History Tetanus Immunization: Unable to Assess <Radha Eugene 04/24/18 21:19> Medications and Allergies Allergies Allergy/AdvReac Type Severity Reaction Status Date / Time erythromycin base Allergy Rash, Verified 04/25/18 08:40 Generalized tetracycline Allergy Hives Verified 04/25/18 09:04 Penicillins AdvReac Difficulty Verified 04/25/18 08:40 Breathing <Johan Valdez - 04/25/18 14:00> Home Medications Medication Instructions Recorded Confirmed Type Unable to Obtain Home Meds 04/24/18 04/24/18 History <Johan Valdez - 04/25/18 14:00> Active Medications: Active Medications Acetaminophen (Tylenol) 650 mg PO Q4H PRN PRN Reason: PAIN 1-5/FEVER Flumazenil (Romazecon Inj) 0.2 mg IV.PUSH Q1M PRN PRN Reason: OVERSEDATION Folic Acid (Folic Acid) 1 mg PO DAILY [facility] Stop: 04/30/18 08:59 Last Admin: 04/25/18 09:01 Dose: 1 mg Haloperidol Lactate (Haldol Inj) 1 mg IV.PUSH Q15M PRN PRN Reason: for severe agitation Ketorolac Tromethamine (Toradol Inj) 15 mg IV.PUSH Q6H PRN PRN Reason: PAIN 3-5; IF UABLE TO TAKE PO Stop: 04/30/18 08:51 Ketorolac Tromethamine (Toradol Inj) 30 mg IV.PUSH Q6H PRN PRN Reason: PAIN SCALE 6 TO 10 Stop: 04/30/18 08:51 Last Admin: 04/25/18 09:21 Dose: 30 mg Levetiracetam (Keppra) 1,000 mg PO BID [facility]OL[facility] Lorazepam (Ativan Inj) 2 mg IV.PUSH Q10M PRN PRN Reason: SEE LABEL COMMENTS Lorazepam (Ativan) 1 mg PO Q4H PRN PRN Reason: for CIWA 8-10 Lorazepam (Ativan) 2 mg PO Q2H PRN PRN Reason: for CIWA 11-14 Lorazepam (Ativan Inj) 2 mg IV.PUSH Q2H PRN PRN Reason: for CIWA 11-14 Lorazepam (Ativan Inj) 2 mg IV.PUSH Q15M PRN PRN Reason: for CIWA > 20 Lorazepam (Ativan Inj) 1 mg IV.PUSH Q4H PRN PRN Reason: for CIWA 8-10 Lorazepam (Ativan Inj) 2 mg IV.PUSH Q1H PRN PRN Reason: for CIWA 15-20 Multivitamins/Minerals (Theragran-M) 1 tab PO DAILY [facility] Stop: 04/30/18 08:59 Last Admin: 04/25/18 09:01 Dose: 1 tab Naloxone HCl (Narcan Inj) 0.4 mg IV.PUSH UNSCH PRN PRN Reason: SEE LABEL COMMENTS Ondansetron HCl (Zofran Inj) 4 mg IV.PUSH Q6H PRN PRN Reason: NAUSEA Thiamine HCl (Vitamin B1) 100 mg PO DAILY [facility] Last Admin: 04/25/18 09:01 Dose: 100 mg <Johan Valdez - 04/25/18 14:00> Active Medications Sodium Chloride (Ns Inj) 1,000 mls @ 125 mls/hr IV.CONT .Q8H [facility] Last Admin: 04/24/18 19:10 Dose: 125 mls/hr <Radha Eugene N - 04/24/18 21:19> Exam Vital signs: Vital Signs 04/24/18 18:26 10/28/18 19:15 04/24/18 19:19 Temperature 98.0 F Pulse Rate 104 H 95 H 93 H Respiratory Rate 20 17 Blood Pressure 140/88 128/73 Pulse Oximetry 99 100 100 04/24/18 21:01 04/24/18 21:53 04/25/18 00:00 Temperature Pulse Rate 91 H 77 Respiratory Rate 18 17 Blood Pressure 143/83 H 114/74 Pulse Oximetry 96 94 L 97 04/25/18 04:00 04/25/18 07:50 04/25/18 11:57 Temperature 98.0 F 98.6 F Pulse Rate 83 78 76 Respiratory Rate 17 16 18 Blood Pressure 100/67 117/78 121/68 Pulse Oximetry 95 99 98 Intake & Output 04/24/18 04/25/18 04/25/18 18:59 06:59 18:59 Intake Total 1100 / 1100 Balance 1100 / 1100 Weight 72.575 kg 72.5 kg Intake: IV 1100 / 1100 NS Inj 1,000 ML @ 125 mls/hr IV 1000 / 1000 .CONT .Q8H [facility] Rx#:[id number] Keppra 1000 mg/100 mL Premix 100 / 100 100 ML @ 400 mls/hr IV.SIG ONCE ONE Rx#:[id number] Other: # Voids 1 <Johan Valdez - 04/25/18 14:00> Vital Signs 04/24/18 18:26 04/24/18 19:15 04/24/18 19:19 Temperature 98.0 F Pulse Rate 104 H 95 H 93 H Respiratory Rate 20 17 Blood Pressure 140/88 128/73 Pulse Oximetry 99 100 100 04/24/18 21:01 Temperature Pulse Rate 91 H Respiratory Rate 18 Blood Pressure 143/83 H Pulse Oximetry 96 Intake & Output 04/24/18 04/24/18 04/25/18 06:59 18:59 06:59 Intake Total 100 / 100 Balance 100 / 100 Weight 72.575 kg Intake: IV 100 / 100 Keppra 1000 mg/100 mL Premix 100 / 100 100 ML @ 400 mls/hr IV.SIG ONCE ONE Rx#:[id number] <Radha Eugene - 04/24/18 21:19> Narrative: GENERAL: Thin, flushed, disheveled white man sleeping deeply in bed. Not rousable to verbal stimuli. SKIN: Warm and dry. HEAD: Normocephalic. EYES: No scleral icterus. Pupils dilated, reacting slowly to light. NECK: Supple, trachea midline. CARDIOVASCULAR: Regular rate and rhythm without murmurs, gallops, or rubs. Pulses 2+ at the upper extremities. RESPIRATORY: Breath sounds equal bilaterally at the anterior chest. No crackles or rhonchi. GASTROINTESTINAL: Abdomen soft, non-tender, nondistended. MUSCULOSKELETAL: No cyanosis, or edema. <Radha Eugene - 04/24/18 23:12> Results - Labs Result diagrams: 04/24/18 18:50 04/25/18 05:00 <Johan Valdez - 04/25/18 14:00> Abnormal lab results 04/24/18 04/24/18 04/24/18 Range/Units 18:50 18:50 18:50 RBC 4.24 L (4.50-5.90) mil/mm3 [place] % (Auto) 9.9 H (0.0-8.0) % Chloride (98-107) meq/L Creatinine (0.60-1.30) mg/dL Random Glucose 70 L (74-106) mg/dL Calcium 8.1 L (8.5-10.1) mg/dL Albumin (3.4-5.0) g/dL U Benzodiazepines Scrn Pos H (Neg) Serum Alcohol 319 H (0-5) mg/dL 04/25/18 Range/Units 05:00 RBC (4.50-5.90) mil/mm3 [place] % (Auto) (0.0-8.0) % Chloride 112 H D (98-107) meq/L Creatinine 0.54 L (0.60-1.30) mg/dL Random Glucose 70 L (74-106) mg/dL Calcium 7.9 L (8.5-10.1) mg/dL Albumin 3.2 L (3.4-5.0) g/dL U Benzodiazepines Scrn (Neg) Serum Alcohol (0-5) mg/dL Short CBC 04/24/18 Range/Units 18:50 WBC 7.6 (4.0-11.0) th/mm3 Hgb 13.6 (13.0-17.0) gm/dL Hct 40.0 (39.0-51.0) % Plt Count 255 (150-450) th/mm3 BMP 04/24/18 04/25/18 18:50 05:00 Sodium 138 144 Potassium 3.5 3.8 Chloride 104 112 H D Carbon Dioxide 24.0 23.8 BUN 9 8 Creatinine 0.70 0.54 L Calcium 8.1 L 7.9 L Cardiac Enzymes 04/24/18 Range/Units 18:50 Total Creatine Kinase 295 (39-308) U/L Liver Function 04/24/18 04/25/18 Range/Units 18:50 05:00 Total Bilirubin 0.3 0.4 (0.2-1.0) mg/dL AST 22 22 (15-37) U/L ALT 21 19 (12-78) U/L Alkaline Phosphatase 99 95 (45-117) U/L Albumin 3.7 3.2 L (3.4-5.0) g/dL Urine 04/24/18 Range/Units 18:50 Urine Color Colorless (Yellw/Straw) Urine Clarity Clear (Clear) Urine pH 6.0 (5.0-8.5) Ur Specific [place] 1.003 (1.002-1.035) Urine Protein Negative (Neg-Trace) mg/dL Urine Glucose (UA) Negative (Negative) mg/dL <Johan Valdez - 04/25/18 14:00> Abnormal lab results 04/24/18 04/24/18 04/24/18 Range/Units 18:50 18:50 18:50 RBC 4.24 L (4.50-5.90) mil/mm3 [place] % (Auto) 9.9 H (0.0-8.0) % Random Glucose 70 L (74-106) mg/dL Calcium 8.1 L (8.5-10.1) mg/dL U Benzodiazepines Scrn Pos H (Neg) Serum Alcohol 319 H (0-5) mg/dL Short CBC 04/24/18 Range/Units 18:50 WBC 7.6 (4.0-11.0) th/mm3 Hgb 13.6 (13.0-17.0) gm/dL Hct 40.0 (39.0-51.0) % Plt Count 255 (150-450) th/mm3 BMP 04/24/18 18:50 Sodium 138 Potassium 3.5 Chloride 104 Carbon Dioxide 24.0 BUN 9 Creatinine 0.70 Calcium 8.1 L Liver Function 04/24/18 Range/Units 18:50 Total Bilirubin 0.3 (0.2-1.0) mg/dL AST 22 (15-37) U/L ALT 21 (12-78) U/L Alkaline Phosphatase 99 (45-117) U/L Albumin 3.7 (3.4-5.0) g/dL Urine 04/24/18 Range/Units 18:50 Urine Color Colorless (Yellw/Straw) Urine Clarity Clear (Clear) Urine pH 6.0 (5.0-8.5) Ur Specific [place] 1.003 (1.002-1.035) Urine Protein Negative (Neg-Trace) mg/dL Urine Glucose (UA) Negative (Negative) mg/dL <Radha Eugene N - 04/24/18 21:19> - Imaging Impressions Chest X-Ray 04/25/18 00:00 CONCLUSION: Negative for acute process Head CT 04/25/18 00:00 CONCLUSION: 1. Prominent cisterna magna otherwise negative . <Johan Valdez - 04/25/18 14:00> Caprini VTE Risk Assessment Caprini VTE Risk Assessment: No/Low Risk (score <= 1) <Radha Eugene - 23:12> Caprini Risk Assessment Model: Point Value = 1 Point Value = 2 Point Value = 3 Point Value = 5 Age 41-60 Minor surgery BMI > 25 kg/m2 Swollen legs Varicose veins or History of unexplained or recurrent spontaneous Oral contraceptives or hormone replacement Sepsis (< 1 month) Serious lung disease, including pneumonia (< 1 month) Abnormal pulmonary function Acute myocardial infarction Congestive heart failure (< 1 month) History of inflammatory bowel disease Medical patient at bed rest Age 61-74 Arthroscopic surgery Major open surgery (> 45 min) Laparoscopic surgery (> 45 min) Malignancy Confined to bed (> 72 hours) Immobilizing plaster cast Central venous access Age >= 75 History of VTE Family history of VTE Factor V Leiden Prothrombin [id number] Lupus anticoagulant Anticardiolipin antibodies Elevated serum homocysteine Heparin-induced thrombocytopenia Other congenital or acquired thrombophilia Stroke (< 1 month) Elective arthroplasty Hip, pelvis, or leg fracture Acute spinal cord injury (< 1 month) <Johan Valdez - 04/25/18 14:00> Point Value = 1 Point Value = 2 Point Value = 3 Point Value = 5 Age 41-60 Minor surgery BMI > 25 kg/m2 Swollen legs Varicose veins or History of unexplained or recurrent spontaneous Oral contraceptives or hormone replacement Sepsis (< 1 month) Serious lung disease, including pneumonia (< 1 month) Abnormal pulmonary function Acute myocardial infarction Congestive heart failure (< 1 month) History of inflammatory bowel disease Medical patient at bed rest Age 61-74 Arthroscopic surgery Major open surgery (> 45 min) Laparoscopic surgery (> 45 min) Malignancy Confined to bed (> 72 hours) Immobilizing plaster cast Central venous access Age >= 75 History of VTE Family history of VTE Factor V Leiden Prothrombin [id number] Lupus anticoagulant Anticardiolipin antibodies Elevated serum homocysteine Heparin-induced thrombocytopenia Other congenital or acquired thrombophilia Stroke (< 1 month) Elective arthroplasty Hip, pelvis, or leg fracture Acute spinal cord injury (< 1 month) <Radha Eugene - 04/24/18 21:19> Prophylaxis Regimen: Total Risk Factor Score Risk Level Prophylaxis Regimen 0-1 Low Early ambulation 2 Moderate Order ONE of the following: *Sequential Compression Device (SCD) *Heparin 5000 units SQ BID 3-4 Higher Order ONE of the following medications: *Heparin 5000 units SQ TID *Enoxaparin/Lovenox 40 mg SQ daily (WT < 150 kg, CrCl > 30 mL/min) *Enoxaparin/Lovenox 30 mg SQ daily (WT < 150 kg, CrCl > 10-29 mL/min) *Enoxaparin/Lovenox 30 mg SQ BID (WT < 150 kg, CrCl > 30 mL/min) AND/OR *Sequential Compression Device (SCD) 5 or more Highest Order ONE of the following medications: *Heparin 5000 units SQ TID (Preferred with Epidurals) *Enoxaparin/Lovenox 40 mg SQ daily (WT < 150 kg, CrCl > 30 mL/min) *Enoxaparin/Lovenox 30 mg SQ daily (WT < 150 kg, CrCl > 10-29 mL/min) *Enoxaparin/Lovenox 30 mg SQ BID (WT < 150 kg, CrCl > 30 mL/min) AND *Sequential Compression Device (SCD) <Johan Valdez - 04/25/18 14:00> Total Risk Factor Score Risk Level Prophylaxis Regimen 0-1 Low Early ambulation 2 Moderate Order ONE of the following: *Sequential Compression Device (SCD) *Heparin 5000 units SQ BID 3-4 Higher Order ONE of the following medications: *Heparin 5000 units SQ TID *Enoxaparin/Lovenox 40 mg SQ daily (WT < 150 kg, CrCl > 30 mL/min) *Enoxaparin/Lovenox 30 mg SQ daily (WT < 150 kg, CrCl > 10-29 mL/min) *Enoxaparin/Lovenox 30 mg SQ BID (WT < 150 kg, CrCl > 30 mL/min) AND/OR *Sequential Compression Device (SCD) 5 or more Highest Order ONE of the following medications: *Heparin 5000 units SQ TID (Preferred with Epidurals) *Enoxaparin/Lovenox 40 mg SQ daily (WT < 150 kg, CrCl > 30 mL/min) *Enoxaparin/Lovenox 30 mg SQ daily (WT < 150 kg, CrCl > 10-29 mL/min) *Enoxaparin/Lovenox 30 mg SQ BID (WT < 150 kg, CrCl > 30 mL/min) AND *Sequential Compression Device (SCD) <Radha Eugene N - 04/24/18 21:19> Assessment and Plan - Assessment (1) Status epilepticus Code(s): G40.901 - Epilepsy, unspecified, not intractable, with status epilepticus Status: Acute Plan: S/p loading dose of Keppra - Start Keppra 500 BID 12 hours after loading dose - Ativan 2 mg IV push PRN for seizures - seizure precautions - NPO for now - CT head pending - TSH, ammonia, CPK ordered - Vital signs and neurochecks - EKG - ETOH level elevated. Assess in AM for alcohol abuse hx, consider CIWA protocol after 12 hrs - Neurology consulted - CM consulted for D/C assistance (hx of poor compliance and financial challenges) (2) History of seizures Code(s): Z87.898 - Personal history of other specified conditions Status: Acute Plan: Hx of taking Keppra, rest unknown Con't Keppra level Check CMP tomorrow for changes (3) Nutrition, metabolism, and development symptoms Code(s): R63.8 - Other symptoms and signs concerning food and fluid intake Status: Acute Plan: Fluids: maintenance IV Electrolytes: PRN Nutrition: NPO for now, reg diet after awakening/per demand (4) DVT prophylaxis Status: Acute Plan: SCDs <Radha Eugene - 04/24/18 23:04> - Assessment and Plan See the residents documentation for details. I saw and evaluated the patient regarding the lopez portions of this evaluation and agree with the residents findings and plans as written. Parts of this note were created using [employer] voice recognition software program. While efforts were made to correct any mistakes made by this software, some mistakes, errors, and omissions may remain in the final note that were not caught when the note was originally created. Plan of care was discussed and agreed upon with the patient as specifically documented in the above note. An opportunity to ask questions with explanation was provided. Patient voiced understanding on all information reviewed and discussed. <Johan Valdez - 04/25/18 14:00> Discussed w/ED physician <Radha Eugene - 04/24/18 23:12>
[2018-04-24] MEDS ORDERED: Sod Chloride 0.9% Inj 1,000 ML IV.CONT SCH (21:30)
[2018-04-25 06:11] LABS: Alanine Aminotransferase 19 U/L (12-78); Albumin 3.2 g/dL (3.4-5.0); Anion Gap 8 meq/L (5-15); Aspartate Aminotransferase 22 U/L (15-37); Blood Urea Nitrogen 8 mg/dL (7-18); Calcium 7.9 mg/dL (8.5-10.1); Carbon Dioxide 23.8 meq/L (21.0-32.0); Chloride 112 meq/L (98-107); Glomerular Filtration Rate Greater Than 89 mL/min (>89); Glucose,Random 70 mg/dL (74-106); Potassium 3.8 meq/L (3.5-5.1); Sodium 144 meq/L (136-145)
[2018-04-25] MEDS: levETIRAcetam 500 MG Tablet PO SCH ×4 (06:12→20:32)
[2018-04-25] MEDS: Sod Chloride 0.9% Inj 1,000 ML IV.CONT SCH (06:12)
[2018-04-25 06:16] LABS: Alkaline Phosphatase 95 U/L (45-117); Total Protein 6.9 g/dL (6.4-8.2)
[2018-04-25] MEDS ORDERED: Naloxone Inj 0.4 MG/ML Vial IV.PUSH PRN ×2 (08:41→08:52)
[2018-04-25] MEDS ORDERED: Haloperidol Inj 5 MG/ML Ampul IV.PUSH PRN (08:45)
[2018-04-25] MEDS ORDERED: LORazepam 1 MG Tablet PO PRN (08:45)
[2018-04-25] MEDS ORDERED: Ketorolac Inj 30 MG/ML (IVP) Vial IV.PUSH PRN (08:52)
[2018-04-25] MEDS: Folic Acid 1 MG Tablet PO SCH (09:01)
[2018-04-25] MEDS: Multivitamin/Minerals Therapeutic Tablet PO SCH (09:01)
[2018-04-25] MEDS: Ketorolac Inj 30 MG/ML (IVP) Vial IV.PUSH PRN ×2 (09:21→14:52)
--- NOTE | 2018-04-25 09:24 | XR ---
EXAM DATE: 04/25/2018 9:00 AM EDT AGE/SEX: 89 years / Male INDICATIONS: Left sided chest pain post seizure. CLINICAL DATA: This is the patient's initial encounter. Patient reports that signs and symptoms have been present for 2 days and indicates a pain score of 10/10. MEDICAL/SURGICAL HISTORY: Seizures. None. COMPARISON: No prior exams available for comparison. FINDINGS: A single AP view of the chest demonstrates the lungs to be symmetrically aerated without evidence of mass, infiltrate or effusion. The cardiomediastinal contours are unremarkable. Osseous structures a re intact. CONCLUSION: Negative for acute process Electronically signed by: Dewayne Mccray MD 04/25/2018 9:23 AM EDT
--- NOTE | 2018-04-25 10:23 | P.PNFP ---
Subjective Interval history: Patient's name is SIM Smith 1965. He is a 52 yo male with known seizure D/o admitted for repeat seizure, now being seen for f/u. Post-ictal state has resolved, now notes pain in his lower left chest, non-radiating, no SOB. No tremor, weakness, or paresthesias. Today he provides additional history: He was recently discharged from the hospital on 04/08 after a similar seizure episode. MRI brain at that time was negative for intracranial mass or ischemia. He was discharged on 1000 mg Keppra BID but has been out of it since hospitalization (cant' afford his meds). He has not followed up with anyone because [employer] wanted him to pay $20 which he states he does not have. <Anshu Tyler - 04/25/18 10:22> Results - Labs Result diagrams: 04/24/18 18:50 04/25/18 05:00 <Johan Valdez - 04/25/18 14:14> Abnormal lab results 04/24/18 04/24/18 04/24/18 Range/Units 18:50 18:50 18:50 RBC 4.24 L (4.50-5.90) mil/mm3 Sierra % (Auto) 9.9 H (0.0-8.0) % Chloride (98-107) meq/L Creatinine (0.60-1.30) mg/dL Random Glucose 70 L (74-106) mg/dL Calcium 8.1 L (8.5-10.1) mg/dL Albumin (3.4-5.0) g/dL U Benzodiazepines Scrn Pos H (Neg) Serum Alcohol 319 H (0-5) mg/dL 04/25/18 Range/Units 05:00 RBC (4.50-5.90) mil/mm3 Sierra % (Auto) (0.0-8.0) % Chloride 112 H D (98-107) meq/L Creatinine 0.54 L (0.60-1.30) mg/dL Random Glucose 70 L (74-106) mg/dL Calcium 7.9 L (8.5-10.1) mg/dL Albumin 3.2 L (3.4-5.0) g/dL U Benzodiazepines Scrn (Neg) Serum Alcohol (0-5) mg/dL Short CBC 04/24/18 Range/Units 18:50 WBC 7.6 (4.0-11.0) th/mm3 Hgb 13.6 (13.0-17.0) gm/dL Hct 40.0 (39.0-51.0) % Plt Count 255 (150-450) th/mm3 BMP 04/24/18 04/25/18 18:50 05:00 Sodium 138 144 Potassium 3.5 3.8 Chloride 104 112 H D Carbon Dioxide 24.0 23.8 BUN 9 8 Creatinine 0.70 0.54 L Calcium 8.1 L 7.9 L Cardiac Enzymes 04/24/18 Range/Units 18:50 Total Creatine Kinase 295 (39-308) U/L Liver Function 04/24/18 04/25/18 Range/Units 18:50 05:00 Total Bilirubin 0.3 0.4 (0.2-1.0) mg/dL AST 22 22 (15-37) U/L ALT 21 19 (12-78) U/L Alkaline Phosphatase 99 95 (45-117) U/L Albumin 3.7 3.2 L (3.4-5.0) g/dL Urine 04/24/18 Range/Units 18:50 Urine Color Colorless (Yellw/Straw) Urine Clarity Clear (Clear) Urine pH 6.0 (5.0-8.5) Ur Specific Leon 1.003 (1.002-1.035) Urine Protein Negative (Neg-Trace) mg/dL Urine Glucose (UA) Negative (Negative) mg/dL <Johan Valdez - 04/25/18 14:14> Abnormal lab results 04/24/18 04/24/18 04/24/18 Range/Units 18:50 18:50 18:50 RBC 4.24 L (4.50-5.90) mil/mm3 Sierra % (Auto) 9.9 H (0.0-8.0) % Chloride (98-107) meq/L Creatinine (0.60-1.30) mg/dL Random Glucose 70 L (74-106) mg/dL Calcium 8.1 L (8.5-10.1) mg/dL Albumin (3.4-5.0) g/dL U Benzodiazepines Scrn Pos H (Neg) Serum Alcohol 319 H (0-5) mg/dL 04/25/18 Range/Units 05:00 RBC (4.50-5.90) mil/mm3 Sierra % (Auto) (0.0-8.0) % Chloride 112 H D (98-107) meq/L Creatinine 0.54 L (0.60-1.30) mg/dL Random Glucose 70 L (74-106) mg/dL Calcium 7.9 L (8.5-10.1) mg/dL Albumin 3.2 L (3.4-5.0) g/dL U Benzodiazepines Scrn (Neg) Serum Alcohol (0-5) mg/dL Short CBC 04/24/18 Range/Units 18:50 WBC 7.6 (4.0-11.0) th/mm3 Hgb 13.6 (13.0-17.0) gm/dL Hct 40.0 (39.0-51.0) % Plt Count 255 (150-450) th/mm3 BMP 04/24/18 04/25/18 18:50 05:00 Sodium 138 144 Potassium 3.5 3.8 Chloride 104 112 H D Carbon Dioxide 24.0 23.8 BUN 9 8 Creatinine 0.70 0.54 L Calcium 8.1 L 7.9 L Cardiac Enzymes 04/24/18 Range/Units 18:50 Total Creatine Kinase 295 (39-308) U/L Liver Function 04/24/18 04/25/18 Range/Units 18:50 05:00 Total Bilirubin 0.3 0.4 (0.2-1.0) mg/dL AST 22 22 (15-37) U/L ALT 21 19 (12-78) U/L Alkaline Phosphatase 99 95 (45-117) U/L Albumin 3.7 3.2 L (3.4-5.0) g/dL Urine 04/24/18 Range/Units 18:50 Urine Color Colorless (Yellw/Straw) Urine Clarity Clear (Clear) Urine pH 6.0 (5.0-8.5) Ur Specific Leon 1.003 (1.002-1.035) Urine Protein Negative (Neg-Trace) mg/dL Urine Glucose (UA) Negative (Negative) mg/dL <Anshu Tyler S - 04/25/18 10:22> - Imaging Impressions Chest X-Ray 04/25/18 00:00 CONCLUSION: Negative for acute process Head CT 10/29/18 00:00 CONCLUSION: 1. Prominent cisterna magna otherwise negative . <Johan Valdez - 04/25/18 14:14> Impressions Chest X-Ray 04/25/18 00:00 CONCLUSION: Negative for acute process <Anshu Tyler S - 04/25/18 10:22> Physical Exam Vital signs: Vital Signs 04/24/18 18:26 04/24/18 19:15 04/24/18 19:19 Temperature 98.0 F Pulse Rate 104 H 95 H 93 H Respiratory Rate 20 17 Blood Pressure 140/88 128/73 Pulse Oximetry 99 100 100 04/24/18 21:01 04/24/18 21:53 04/25/18 00:00 Temperature Pulse Rate 91 H 77 Respiratory Rate 18 17 Blood Pressure 143/83 H 114/74 Pulse Oximetry 96 94 L 97 04/25/18 04:00 04/25/18 07:50 04/25/18 11:57 Temperature 98.0 F 98.6 F Pulse Rate 83 78 76 Respiratory Rate 17 16 18 Blood Pressure 100/67 117/78 121/68 Pulse Oximetry 95 99 98 Intake & Output 04/24/18 04/25/18 04/25/18 18:59 06:59 18:59 Intake Total 1100 / 1100 Balance 1100 / 1100 Weight 72.575 kg 72.5 kg Intake: IV 1100 / 1100 NS Inj 1,000 ML @ 125 mls/hr IV 1000 / 1000 .CONT .Q8H [facility] Rx#:[id number] Keppra 1000 mg/100 mL Premix 100 / 100 100 ML @ 400 mls/hr IV.SIG ONCE ONE Rx#:[id number] Other: # Voids 1 <Johan Valdez - 04/25/18 14:14> Vital Signs 04/24/18 18:26 04/24/18 19:15 04/24/18 19:19 Temperature 98.0 F Pulse Rate 104 H 95 H 93 H Respiratory Rate 20 17 Blood Pressure 140/88 128/73 Pulse Oximetry 99 100 100 04/24/18 21:01 04/24/18 21:53 04/25/18 00:00 Temperature Pulse Rate 91 H 77 Respiratory Rate 18 17 Blood Pressure 143/83 H 114/74 Pulse Oximetry 96 94 L 97 04/25/18 04:00 04/25/18 07:50 Temperature 98.0 F Pulse Rate 83 78 Respiratory Rate 17 16 Blood Pressure 100/67 117/78 Pulse Oximetry 95 99 Intake & Output 04/24/18 04/25/18 04/25/18 18:59 06:59 18:59 Intake Total 1100 / 1100 Balance 1100 / 1100 Weight 72.575 kg 72.5 kg Intake: IV 1100 / 1100 NS Inj 1,000 ML @ 125 mls/hr IV 1000 / 1000 .CONT .Q8H [facility] Rx#:[id number] Keppra 1000 mg/100 mL Premix 100 / 100 100 ML @ 400 mls/hr IV.SIG ONCE ONE Rx#:[id number] Other: # Voids 1 <Anshu Tyler S - 04/25/18 10:22> - Constitutional no acute distress, average body habitus, cooperative <Anshu Tyler S - 10:22> - Routine HEENT Exam Head: Present: normocephalic, atraumatic <TylerAnshu lopez S - 04/25/18 10:22> Eye: Present: EOMI, PERRL <Anshu Tyler S - 04/25/18 10:22> - Routine Neck Exam Present: supple, full ROM <TlyerAnshu lopez S - 04/25/18 10:22> - Routine Chest/Breast/Axilla Exam Chest wall: Present: tenderness (on left side) <TylerAnshu lopez S - 04/25/18 10: 22> - Routine Respiratory Exam Present: CTA bilaterally. Absent: accessory muscle use, wheezes, crackles < TylerAnshu lopez S - 04/25/18 10:22> - Routine Cardiovascular Exam Present: RRR, S1, S2. Absent: murmur <TylerAnshu lopez S - 04/25/18 10:22> - Routine Extremities Exam Absent: cyanosis, edema <TylerAnshu lopez S - 04/25/18 10:22> - Routine Neurological Exam Present: alert, oriented X3, CN II-XII intact, moving all extremities <Tyler Anshu S - 04/25/18 10:22> - Detailed Neurological Exam: Coma Scale Eye Opening: Spontaneous <TylerAnshu S - 04/25/18 10:22> Verbal Response: Oriented <Anshu Tyler - 04/25/18 10:22> Motor Response: Obey commands <Anshu Tyler - 04/25/18 10:22> [place] Coma Scale Total: 15 <Anshu Tyler - 04/25/18 10:22> - Urinary Catheter Management Straight Cath placed during this visit: no <Johan Valdez - 04/25/18 14:14> no <Anshu Tyler - 04/25/18 10:22> Reason for continuing: Not indwelling catheter <Anshu Tyler - 04/25/18 10: 22> Assessment and Plan - Assessment (1) Status epilepticus Code(s): G40.901 - Epilepsy, unspecified, not intractable, with status epilepticus Status: Resolved Plan: Status epilepticus now resolved, likely occurred due to alcohol use and being off Keppra. * Plan as below (2) History of seizures Code(s): Z87.898 - Personal history of other specified conditions Status: Acute Plan: Known seizure d/o with repeat seizure due to missing Keppra, alcohol use CT head pending Negative MRI brain from 03/31/18 - Start Keppra 1000 BID unless otherwise directed by neurology - Check EEG - Ativan 2 mg IV push PRN for seizures - seizure precautions - Vital signs and neurochecks - ETOH level elevated, patient is chronic drinker - [facility] protocol - Await neurology consult for further recs - CM consulted for D/C assistance (hx of poor compliance and financial challenges) (3) Costochondritis Code(s): M94.0 - Chondrocostal junction syndrome [Tietze] Status: Acute Plan: Exam consistent w/ costochondral pain CXR negative for rib fracture or acute pathology EKG without evidence of ischemia; questionable incomplete RBBB - Tylenol and Toradol PRN based on pain scale (4) Nutrition, metabolism, and development symptoms Code(s): R63.8 - Other symptoms and signs concerning food and fluid intake Status: Acute Plan: Fluids: PO only Electrolytes: PRN Nutrition: reg diet (5) DVT prophylaxis Status: Acute Plan: SCDs <Anshu Tyler - 04/25/18 10:12> - Assessment and Plan See the residents documentation for details. I saw and evaluated the patient regarding the lopez portions of this evaluation and agree with the residents findings and plans as written. Parts of this note were created using [employer] voice recognition software program. While efforts were made to correct any mistakes made by this software, some mistakes, errors, and omissions may remain in the final note that were not caught when the note was originally created. Plan of care was discussed and agreed upon with the patient as specifically documented in the above note. An opportunity to ask questions with explanation was provided. Patient voiced understanding on all information reviewed and discussed. <Johan Valdez - 04/25/18 14:14> Discharge Planning: Pending neurology evaluation and clearance <Anshu Tyler - 04/25/18 10:22>
--- NOTE | 2018-04-25 10:42 | CT ---
EXAM DATE: 04/25/2018 10:38 AM EDT AGE/SEX: 89 years / Male INDICATIONS: Seizures after drinking alcohol CLINICAL DATA: This is the patient's initial encounter. Patient reports that signs and symptoms have been present for 1 day and indicates a pain score of 0/10. MEDICAL/SURGICAL HISTORY: Seizures. None. RADIATION DOSE: 37.64 CTDI (mGy) COMPARISON: No prior exams available for comparison. TECHNIQUE: CT of the head without contrast. Using automated exposure control and adjustment of the mA and/or kV according to patient size, radiation dose was kept as low as reasonably achievable to ob tain optimal diagnostic quality images. DICOM format image data is available electronically for revi ew and comparison. FINDINGS: Cerebrum: The ventricles are normal for age. No evidence of midline shift, mass lesion, hemorrhage or acute infarction. No extraaxial fluid collections are seen. Posterior Fossa: Prominent cisterna magna The cerebellum and brainstem are intact. The 4th ventricle is midline. The cerebellopontine angle is unremarkable. Extracranial: The visualized portion of the orbits is intact. Skull: The calvaria is intact. No evidence of skull fracture. CONCLUSION: 1. Prominent cisterna magna otherwise negative . Electronically signed by: Dewayne Mccray MD 04/25/2018 10:41 AM EDT
--- NOTE | 2018-04-25 12:02 | MB ---
cc: Yadira Stout MD DATE: 04/25/2018 HISTORY OF PRESENT ILLNESS: This is a 15-h[age]-fglr-old man who comes in with possible status epilepticus. Had what was described as a witnessed seizure, tonic-clonic at a local club. Had [address] to the ED. Given Versed which did not break the seizure. Arrived in the ED seizing. Received 4 mg Ativan twice and 1 g of Keppra, after which the seizure resolved. EMS was told by the patient that he was supposed to take Keppra, but is homeless and could not afford it. It costs him $20. His actual name is I am told by the nurse as Lavelle Mcqueen with a date of 1965 and has been here, last time back in 03/2018. Has been seen by my partner, and I saw him back in 07/2017. Has had normal seizures, some drug-seeking behavior, polysubstance abuse, ethanol, cocaine, and heroin in the past. His blood alcohol level on admission this time was 319. He is asking for some pain medication when I am trying to talk to him, as well as muscle relaxants. He is awake and alert. He is not in any distress, but does have some rib pain. He states that he cannot afford the medicines. It costs him $20 even if he goes to [place]. He is pending another EEG. PAST MEDICAL HISTORY: He states he had some head trauma about 20 years ago, and that is the cause of his seizures. MEDICATIONS: Denies SUBSTANCE ABUSE: Denies. PHYSICAL EXAMINATION: VITAL SIGNS: Temperature is 98, pulse 70, respiratory rate 16, blood pressure 117/78, saturating at 99% on room air. NEUROLOGIC: He is awake and alert. He is fluent. His pupils are reactive. Face is symmetric. Tongue midline. Motor murray, he seems to move everything fairly equal. DTRs are slightly brisk. He has been ambulating to the bathroom. No significant difficulty. LABORATORY DATA: His CBC is unremarkable. Chemistries are reviewed. Urine negative. Tox screen positive for benzodiazepines and serum alcohol 319. IMAGING: CT head: Prominent cisterna magna, otherwise negative. His last MRI did not show anything really acute either, some white matter changes. IMPRESSION: Seizure, questionable nonepileptic seizures as well. Continue his Keppra 1000 mg twice a day. Avoid any drugs such as tramadol that can decrease his seizure threshold and provoke seizures. Maintain seizure precautions. He was at one point on phenobarbital, but I would not restart that drug at this point in time. Continue current care and is stable. DISCHARGE PLANNING: Have social service to see if they can assist him with obtaining medication. I would recommend that he go ahead and buy his medications if needed instead of alcohol, and he should not be drinking whatsoever as this would just provoke withdrawal seizures. Continue current care. MD MARLEE Sloan/jocy , 11:12 AM , 11:21 AM
--- NOTE | 2018-04-25 14:36 | ECG ---
Date Performed: 04/24/2018 Time Performed: 18:55:34 PTAGE: 89 years EKG: Sinus rhythm INCOMPLETE RIGHT BUNDLE BRANCH BLOCK BORDERLINE ECG NO PREVIOUS TRACING DOCTOR: Chavez Mendez Interpretating Date/Time 04/25/2018 14:35:29
--- NOTE | 2018-04-25 20:41 | MG ---
cc: Yadira Stout MD Hyperventilation and photic with good effort. Awake, drowsy, asleep. CT shows no significant findings. CLINICAL HISTORY: Apparently came in with a seizure. History of seizures. Unable to taper his Keppra. Also history of remote alcohol use. DESCRIPTION OF RECORD: A somewhat low-amplitude EEG with overall some faster frequency waves but overall about 9 Hz, 20 microvolt background. Symmetrical. EKG is artifactual and cannot be interpreted. EEG overall is low amplitude, but again, the patient has a normal overall alpha rhythm. No epileptic activity seen. Photic stimulation shows a driving response. IMPRESSION: Overall normal-appearing electroencephalogram. No change with hyperventilation. There was a driving response. Clinical correlation. MD MARLEE Sloan/chris , 08:21 PM , 08:25 PM
[2018-04-26] MEDS: Folic Acid 1 MG Tablet PO SCH (08:25)
[2018-04-26] MEDS: Multivitamin/Minerals Therapeutic Tablet PO SCH (08:25)
[2018-04-26] MEDS: levETIRAcetam 500 MG Tablet PO SCH (08:26)
[2018-04-26] MEDS: Ketorolac Inj 30 MG/ML (IVP) Vial IV.PUSH PRN (08:33)
--- NOTE | 2018-04-26 11:47 | P.PNFP ---
Subjective Interval history: Patient states he is ok. Would like Flexeril to go home on. Discussing difficulty with finances this morning. No new seizure activity. <Radha Eugene N - 04/26/18 11:47> Results - Labs Result diagrams: 04/24/18 18:50 04/25/18 05:00 <Sandy Valdezy - 04/27/18 11:33> Physical Exam Vital signs: Intake & Output 04/26/18 04/27/18 04/27/18 18:59 06:59 18:59 Other: Date of Last Bowel Movement 04/24/18 <CourtneyJohan - 04/27/18 11:33> Vital Signs 04/25/18 11:57 04/25/18 16:00 04/25/18 19:55 Temperature 98.6 F 98.3 F Pulse Rate 76 78 Respiratory Rate 18 16 Blood Pressure 121/68 123/78 Pulse Oximetry 98 97 97 04/25/18 20:00 04/26/18 00:00 04/26/18 03:45 Temperature 97.8 F Pulse Rate 67 62 54 L Respiratory Rate 19 19 19 Blood Pressure 124/79 133/87 139/87 Pulse Oximetry 98 98 98 04/26/18 07:29 04/26/18 11:28 Temperature 98.5 F 98.3 F Pulse Rate 60 61 Respiratory Rate 18 16 Blood Pressure 129/84 125/83 Pulse Oximetry 98 97 Intake & Output 04/25/18 04/26/18 04/26/18 18:59 06:59 18:59 Intake Total 0 / 0 Balance 0 / 0 Intake: IV 0 / 0 NS Inj 1,000 ML @ 125 mls/hr IV 0 / 0 .CONT .Q8H [facility] Rx#:[id number] Other: Date of Last Bowel Movement 04/24/18 <Radha Eugene N - 04/26/18 11:47> Narrative: GENERAL: Thin, white man resting comfortably in bed. No new focal deficits. Alert and conversant. SKIN: Warm and dry. HEAD: Normocephalic. EYES: No scleral icterus. NECK: Supple, trachea midline. CARDIOVASCULAR: Regular rate and rhythm without murmurs, gallops, or rubs. RESPIRATORY: Breath sounds equal bilaterally at the anterior chest. No crackles or rhonchi. GASTROINTESTINAL: Abdomen nondistended. MUSCULOSKELETAL: No cyanosis, or edema. <Radha Eugene N - 04/26/18 11:51> - Urinary Catheter Management Straight Cath placed during this visit: no <Johan Valdez - 04/27/18 11:33> no <Radha Eugene N - 04/26/18 11:51> Reason for continuing: Not indwelling catheter <Radha Eugene N - 04/26/18 11:47 > Assessment and Plan - Assessment (1) Status epilepticus Code(s): G40.901 - Epilepsy, unspecified, not intractable, with status epilepticus Status: Resolved Plan: Status epilepticus now resolved, likely occurred due to alcohol use and being off Keppra. Keppra 1,000 BID per neurology Counseled to avoid alcohol CM consulted to help with medications and PCP f/u (2) History of seizures Code(s): Z87.898 - Personal history of other specified conditions Status: Acute Plan: See above (3) Nutrition, metabolism, and development symptoms Code(s): R63.8 - Other symptoms and signs concerning food and fluid intake Status: Acute Plan: Fluids: PO only Electrolytes: PRN Nutrition: reg diet (4) DVT prophylaxis Status: Acute Plan: SCDs <Radha Eugene N - 04/26/18 11:50> - Assessment and Plan Discharge Planning: DC today <Radha Eugene N - 04/26/18 11:51> - Attending Attestation I have reviewed the patients past medical/surgical and social histories and updated as appropriate. Parts of this note were created using [employer] voice recognition software program. While efforts were made to correct any mistakes made by this software, some mistakes, errors, and omissions may remain in the final note that were not caught when the note was originally created. Plan of care was discussed and agreed upon with the patient as specifically documented in the above note. An opportunity to ask questions with explanation was provided. Medications were reviewed and discussed as appropriate including side effects and risks vs. benefit. Pt. was instructed should any symptoms worsen he should call for an [facility] appointment or report to the emergency department for further evaluation. Patient voiced understanding on all information reviewed and discussed. <Johan Valdez - 04/27/18 11:33>
--- NOTE | 2018-04-26 16:10 | P.DS ---
Date of admission: 04/24/18 20:32 Primary care physician: UNKNOWN Brief History from admission: Middle aged M presenting w/status epilepticus. Per ED report, patient was witnessed to have a tonic-clonic seizure at a local strip club. Had 2 more seizures occur on the way to the ED. Was given Versed x1 which did not break the seizure. Arrived in the ED seizing. Received 4 mg Ativan x2 and 1 g of Keppra in the ED, after which the seizure resolved. EMS was told (by patient) that he was supposed to be taking Keppra but stopped due to lack of finances. No recent injury. No bladder or bowel incontinence was observed. Denies a hx of alcohol or drug use but blood alcohol level is 319 on arrival. Unable to obtain patient information upon arrival to his room, as he is very sleepy and post-ictal and does not arouse to verbal or physical stimuli. Hands are in soft restraints. DS: Medications - Discharge Medications Prescriptions: levetiracetam [Keppra] 1,000 mg PO BID 30 Days #120 tab DS: Summary Hospital Course: This is a 52 year old male with history of seizure disorder admitted for status epilepticus. Patient was initially post-ictal in the ED following a seizure that lasted for greater than 30 mins and given versed and ativan by EMS prior to arrival. Patient given a loading dose of Keppra and placed on seizure precautions. Patient had a serum alcohol level in the 300s and UDS positive for benzodiazepines following ativan administration by EMS and in the ED. Patient placed on CIWA protocol overnight. Patient alert and oriented the following morning. Patient has been seen multiple times at [facility] for seizures in the past, almost always occurring after running out of seizure medications. He is homeless and admitted to drinking 4-5 alcoholic drinks daily. He states that he has been provided with seizure medications by the hospital with prior hospital discharges, but that he refused to pay the $20 copay to establish primary care for continued monitoring of his seizure disorder. Neurology consulted who ordered CT head and EEG, which showed no acute abnormalities. Recommended that patient continue Keppra 1000 mg BID, stop drinking alcohol and establish primary care with [facility]. Patient discharged in stable condition from the hospital with 30 days worth of Keppra, provided by CM, and was instructed and given contact information for [facility]. - Time Spent with Patient Total time spent providing and/or coordinating discharge services: Greater than 30 minutes - Quality: VTE Deep Vein Thrombosis/Pulmonary Embolism Present on Admission: No Exam Vital signs: Vital Signs 04/25/18 16:00 04/25/18 19:55 04/25/18 20:00 Temperature 98.3 F 97.8 F Pulse Rate 78 67 Respiratory Rate 16 19 Blood Pressure 123/78 124/79 Pulse Oximetry 97 97 98 04/26/18 00:00 04/26/18 03:45 04/26/18 07:29 Temperature 98.5 F Pulse Rate 62 54 L 60 Respiratory Rate 19 19 18 Blood Pressure 133/87 139/87 129/84 Pulse Oximetry 98 98 98 04/26/18 11:28 Temperature 98.3 F Pulse Rate 61 Respiratory Rate 16 Blood Pressure 125/83 Pulse Oximetry 97 Intake & Output 04/25/18 04/26/18 04/26/18 18:59 06:59 18:59 Intake Total 0 / 0 Balance 0 / 0 Intake: IV 0 / 0 NS Inj 1,000 ML @ 125 mls/hr IV 0 / 0 .CONT .Q8H [facility] Rx#:[id number] Other: Date of Last Bowel Movement 04/24/18 Results Procedures completed during hospitalization: EEG - Impressions ITS Impressions Chest X-Ray 04/25/18 00:00 CONCLUSION: Negative for acute process Head CT 04/25/18 00:00 CONCLUSION: 1. Prominent cisterna magna otherwise negative . Discharge Plan - Discharge Disposition Patient Disposition: 01 Discharge Home - Discharge Condition Condition: Stable - Discharge Order Discharge Orders: Discharge Order (Routine); Ordered 04/26/18 Ordered By: Bridgett Mooney - Discharge Details Anticipated Discharge Date: 04/26/18 Discharge Comment: Discharge after CM/financial services director speaks to patient - Physicians Team Primary Care Provider: UNKNOWN, Attending Provider: Johan Valdez Other Providers: Yadira Stout MD
== END 2018-04-26 13:58 | disposition home or self-care (01) ==
LOC: NEPE 18:13 → MERGE 20:32 → EDBD 20:32 → NEDA 20:32 → INTOOBSV 21:19 → NEPFCDU 22:53
PROVIDERS: ADMIT Family Medicine; ATTEND Family Medicine

== ENCOUNTER 2018-04-26 23:24 | Inpatient (IN) ==
[2018-04-26] MEDS ORDERED: Sodium Chlor 0.9% Inj 500 ML IV.SIG ONE (23:39)
--- NOTE | 2018-04-27 00:16 | ED ---
HPI General Chief complaint: Seizure Stated complaint: Medical Time Seen by Provider: 04/26/18 23:33 Source: patient Limitations: no limitations History of Present Illness HPI narrative: The patient is a reportedly 52 year old male who presents to the [facility] emergency department with a history of generalized tonic-clonic seizure activity noted by bystanders prior to arrival. Ambulance services were called and when they were on scene the patient continued to have generalized tonic-clonic seizure activity with frothing at the mouth. The patient had IV access obtained and was given Versed 2 mg IV. The patient had resolution of his seizure activity, however he continued to be altered with a reported GCS of 7. The patient in route to this facility was given 20 mg of etomidate IV and an attempt was made at intubation, however the patient vomited. The patient was suctioned and reportedly his airway was clear. The patient was bagged in route to this facility. The patient on arrival is moving all extremities spontaneously, however not in a purposeful way. The patient does not appear to be having any active seizure activity currently. The patient is nonverbal, therefore his history is obtained from reviewing the electronic medical record. The patient does have a bottle of Keppra on his person. The patient's name is Lavelle Mcqueen with date of 1965. The patient according to the record was just discharged from the hospital this morning after an admission for status epilepticus. The patient was discharged home on the Keppra found on his person. Related Data Home Medications Medication Instructions Recorded Confirmed Unable to Obtain Home Meds 04/27/18 04/27/18 Allergies Allergy/AdvReac Type Severity Reaction Status Date / Time No Known Allergies Allergy Verified 04/26/18 23:39 Review of Systems ROS Unobtainable ROS Unobtainable: unobtainable due to mental status PMFSH History History Provided By: Medical Record Social History Social History Substance History: Unable to Obtain Smoking Status: Current every day smoker Tobacco Type: Cigarettes How Often Do You Have a Drink Containing Alcohol: 4 or more times a week Recent Travel in [facility] within the Last 8 Weeks: No Recent Out of Country Travel within the Last 8 Weeks: No Exam Narrative Exam Narrative: The patient arrives by ambulance services being bagged to bag valve mask. The patient is moving all extremities with 5/5 strength. The patient is nonverbal. Const General: acute distress and disheveled Nutritional Appearance: well nourished Orientation: other (Agitated, moving all extremities in a nonpurposeful way.) HENNC Head: normocephalic and atraumatic Nose: no nasal discharge and no epistaxis Mouth: moist mucous membranes Throat: posterior oropharynx normal and uvula midline Eyes Sclera: normal sclerae Pupils: PERRL Neck Neck: no meningeal signs, trachea midline and no JVD Resp Effort & Inspection: no use of accessory muscles Auscultation: clear to auscultation bilaterally Cardio Rate: tachycardic (Sinus tachycardia in the 1 teens, no pulse deficits to the extremities on simultaneous auscultation and palpation of his radial artery) Rhythm: regular rhythm Heart Sounds: no gallops, no murmurs and no rubs GI Inspection: non-distended Palpation: soft, no hepatosplenomegaly, no guarding, not rigid and nontender Auscultation: normal bowel sounds Skin General: dry skin (warm) Neuro General: awake, moves all extremities, no focal motor deficits and other (The patient is nonverbal, the patient is not following commands.) Motor: strength 5/5 throughout and no movement abnormalities noted Sensory Exam: other (The patient is unable to state whether his sensation is intact on neurologic examination.) Extrem General: normal to inspection (2+ pulses in all 4 extremities.), no calf tenderness, no clubbing, no cyanosis and no edema Right upper extremity: normal to inspection and full ROM Left upper extremity: normal to inspection and full ROM Right lower extremity: normal to inspection and full ROM Left lower extremity: normal to inspection and full ROM Course Consultations Consultation #1: The patient's case including history, pertinent physical examination findings, and laboratory studies were discussed with Dr. Barron. It was agreed that the patient would be admitted to the [facility]. Initial Documented Vital Signs Pulse Rate 128 H 04/26/18 23:31 Respiratory Rate 16 04/26/18 23:31 Blood Pressure 116/72 04/26/18 23:31 Pulse Oximetry 98 04/26/18 23:31 Last Documented Vital Signs Temperature 98.1 F 04/27/18 04:00 Pulse Rate 71 04/27/18 06:00 Respiratory Rate 16 04/27/18 06:00 Blood Pressure 117/79 04/27/18 06:00 Pulse Oximetry 100 04/27/18 06:00 Critical Care Time Critical Care Time: Yes Total Critical Care Time: 41 Attestation: Aggregate critical care time was 41 minutes. Time to perform other separately billable procedures was not included in the critical care time. My time did not include minutes spent treating any other patients simultaneously or on activities that did not directly contribute to the patient's treatment. The services I provided to this patient were to treat and/or prevent clinically significant deterioration that could result in: Hypoxic brain injury, versus cardiovascular collapse, versus brain injury from status epilepticus I provided critical care services requiring my management, as noted below: Chart data review, documentation time, medication orders and management, vital sign assessments/reviewing monitor data, ordering and reviewing lab tests, ordering and interpreting/reviewing x-rays and diagnostic studies, care of the patient and discussion of the patient with the admitting physicians. Medical Decision Making MDM Narrative Medical decision making narrative: During the course of the patient's emergency department visit, the patient was placed on a fish bailer with oximetry and frequent blood pressure monitoring. The patient had IV access obtained and blood work sent for analysis. The patient was prepped for rapid sequence intubation. The patient was initially provided normal saline IV fluids, supplemental oxygen by bag valve mask. The patient was provided 20 mg of etomidate, 100 mg of succinyl choline and intubated with an 8 size endotracheal tube. The patient was placed on propofol for sedation. The patient continued to be agitated in spite of maximum doses of propofol, therefore a Versed drip was also added for sedation. An OG tube was placed and connected to low intermittent suction. The patient had a Asher catheter placed to gravity. Diagnostic studies revealed a normal CBC, PT PTT within normal limits, chemistries remarkable for a sodium of 146, chloride 110, BUN 6, GFR of 78, cardiac enzymes within normal limits, lipase elevated at 505, urinalysis shows 2 urobilinogen, trace ketones, rare bacteria, many mucus, urine drug screen is positive for benzodiazepines and cannabinoids, alcohol level 261. CT scan of the brain shows no acute abnormality, incidental posterior fossa arachnoid cyst , sinusitis, CT scan of the C-spine shows degenerative changes, no other acute abnormality. Chest x-ray shows no acute cardiopulmonary disease, endotracheal tube and NG tube in good position. As the patient has been on Keppra. The patient was loaded with fosphenytoin 1 g IV for recurrent seizure activity. The patient's results were discussed with the patient, including the plan of care. I explained that further testing and/ or monitoring is indicated based on the patient's history, examination, and/ or laboratory findings. Therefore, I recommended admission for additional evaluation. The patient expressed understanding and was agreeable with this plan. The patient was admitted to the hospital in guarded condition and sent to a bed under the care of the [facility]. The patient was started on normal saline 500 mL's x1. The patient was continued on maintenance IV fluids. Medical Screen Exam Complete: Yes Emergency Medical Condition: Yes Differential Diagnosis Differential Diagnosis: Intracranial hemorrhage, versus ischemic stroke, versus status epilepticus, versus encephalopathy, versus withdrawal syndrome Medical Records Medical records reviewed: Yes I reviewed the patient's medical records. Lab Data Lab results reviewed: Yes I reviewed the patient's lab results. Result diagrams: 04/26/18 23:45 04/26/18 23:45 Lab Results 04/26/18 04/26/18 04/26/18 Range/Units 23:42 23:45 23:45 WBC 7.8 (4.0-11.0) th/mm3 RBC 4.56 (4.50-5.90) mil/mm3 Hgb 14.8 (13.0-17.0) gm/dL Hct 43.9 (39.0-51.0) % MCV 96.2 (80.0-100.0) fL MCH 32.4 (27.0-34.0) pg MCHC 33.6 (32.0-36.0) % RDW 13.3 (11.6-17.2) % Plt Count 259 (150-450) th/mm3 MPV 8.7 (7.0-11.0) fL Neut % (Auto) 50.8 (16.0-70.0) % Lymph % (Auto) 42.0 (9.0-44.0) % [place] % (Auto) 6.4 (0.0-8.0) % Eos % (Auto) 0.0 (0.0-4.0) % Baso % (Auto) 0.8 (0.0-2.0) % Neut # (Auto) 4.0 (1.8-7.7) th/mm3 Lymph # (Auto) 3.3 (1.0-4.8) th/mm3 [place] # (Auto) 0.5 (0.0-0.9) th/mm3 Eos # (Auto) 0.0 (0.0-0.4) th/mm3 Baso # (Auto) 0.1 (0.0-0.2) th/mm3 WBC Differential . Differential Comment Auto diff final PT (9.8-11.6) sec INR Ratio APTT (24.3-30.1) sec Puncture Site Left radial Patient Temperature 98.6 O2 Saturation 94 (90-100) % ABG pH 7.37 L (7.380-7.420) ABG pCO2 40 (38-42) mmHg ABG pO2 195 H (61-120) mmHg ABG HCO3 23 (22-26) mmol/L ABG O2 Content 17.4 (12.0-20.0) Vol % ABG Base Excess -1.9 (-2-2) mmol/L ABG Methemoglobin 0.9 (0-2) % Augie Test Present Hemoglobin 12.8 (12.0-16.0) G/DL Carboxyhemoglobin 4.5 H (0-4) % O2 Delivery Device Vent Vent Setting Prvc/ac Inspired O2 40 % Critical Value No Sodium 146 H (136-145) meq/L Potassium 4.6 (3.5-5.1) meq/L Chloride 110 H (98-107) meq/L Carbon Dioxide 27.0 (21.0-32.0) meq/L Anion Gap 9 (5-15) meq/L BUN 6 L (7-18) mg/dL Creatinine 0.85 (0.60-1.30) mg/dL Estimated GFR 78 L (>89) mL/min Random Glucose 83 (74-106) mg/dL Calcium 8.9 (8.5-10.1) mg/dL Magnesium 2.2 (1.5-2.5) mg/dL Total Bilirubin 0.3 (0.2-1.0) mg/dL AST 27 (15-37) U/L ALT 23 (12-78) U/L Alkaline Phosphatase 96 (45-117) U/L Total Creatine Kinase 288 (39-308) U/L CK-MB (CK-2) Less than 1.0 (0.5-3.6) ng/mL Troponin I Less than 0.02 L (0.02-0.05) ng/mL Total Protein 7.8 (6.4-8.2) g/dL Albumin 3.6 (3.4-5.0) g/dL Lipase 505 H (73-393) U/L Urine Color (Yellw/Straw) Urine Clarity (Clear) Urine pH (5.0-8.5) Ur Specific [place] (1.002-1.035) Urine Protein (Neg-Trace) mg/dL Urine Glucose (UA) (Negative) mg/dL Urine Ketones (Negative) mg/dL Urine Occult Blood (Negative) Urine Nitrate (Negative) Urine Bilirubin (Negative) Urine Urobilinogen (Less than 2) mg/dL Ur Leukocyte Esterase (Negative) Urine RBC (0-3) /hpf Urine WBC (0-5) /hpf Urine Bacteria (None) /hpf Hyaline Casts (0-3) /lpf Granular Casts (None) /lpf Waxy Casts (None) /lpf Urine Mucus (Occasional) /lpf Micro UA Comment Ur Microscopic Review Urine Culture Comments Nasal Screen MRSA (PCR) (Negative) Urine Opiates Screen (Neg) Ur Barbiturates Screen (Neg) Ur Amphetamines Screen (Neg) U Benzodiazepines Scrn (Neg) Urine Cocaine Screen (Neg) U Cannabinoids Screen (Neg) Serum Alcohol 261 H (0-5) mg/dL 04/26/18 04/26/18 04/26/18 Range/Units 23:45 23:45 23:45 WBC (4.0-11.0) th/mm3 RBC (4.50-5.90) mil/mm3 Hgb (13.0-17.0) gm/dL Hct (39.0-51.0) % MCV (80.0-100.0) fL MCH (27.0-34.0) pg MCHC (32.0-36.0) % RDW (11.6-17.2) % Plt Count (150-450) th/mm3 MPV (7.0-11.0) fL Neut % (Auto) (16.0-70.0) % Lymph % (Auto) (9.0-44.0) % [place] % (Auto) (0.0-8.0) % Eos % (Auto) (0.0-4.0) % Baso % (Auto) (0.0-2.0) % Neut # (Auto) (1.8-7.7) th/mm3 Lymph # (Auto) (1.0-4.8) th/mm3 [place] # (Auto) (0.0-0.9) th/mm3 Eos # (Auto) (0.0-0.4) th/mm3 Baso # (Auto) (0.0-0.2) th/mm3 WBC Differential Differential Comment PT 10.0 (9.8-11.6) sec INR 1.0 Ratio APTT 25.3 (24.3-30.1) sec Puncture Site Patient Temperature O2 Saturation (90-100) % ABG pH (7.380-7.420) ABG pCO2 (38-42) mmHg ABG pO2 (61-120) mmHg ABG HCO3 (22-26) mmol/L ABG O2 Content (12.0-20.0) Vol % ABG Base Excess (-2-2) mmol/L ABG Methemoglobin (0-2) % Augie Test Hemoglobin (12.0-16.0) G/DL Carboxyhemoglobin (0-4) % O2 Delivery Device Vent Setting Inspired O2 % Critical Value Sodium (136-145) meq/L Potassium (3.5-5.1) meq/L Chloride (98-107) meq/L Carbon Dioxide (21.0-32.0) meq/L Anion Gap (5-15) meq/L BUN (7-18) mg/dL Creatinine (0.60-1.30) mg/dL Estimated GFR (>89) mL/min Random Glucose (74-106) mg/dL Calcium (8.5-10.1) mg/dL Magnesium (1.5-2.5) mg/dL Total Bilirubin (0.2-1.0) mg/dL AST (15-37) U/L ALT (12-78) U/L Alkaline Phosphatase (45-117) U/L Total Creatine Kinase (39-308) U/L CK-MB (CK-2) (0.5-3.6) ng/mL Troponin I (0.02-0.05) ng/mL Total Protein (6.4-8.2) g/dL Albumin (3.4-5.0) g/dL Lipase (73-393) U/L Urine Color Abby (Yellw/Straw) Urine Clarity Hazy H (Clear) Urine pH 5.0 (5.0-8.5) Ur Specific [place] 1.027 (1.002-1.035) Urine Protein Negative (Neg-Trace) mg/dL Urine Glucose (UA) Negative (Negative) mg/dL Urine Ketones Trace H (Negative) mg/dL Urine Occult Blood Negative (Negative) Urine Nitrate Negative (Negative) Urine Bilirubin Negative (Negative) Urine Urobilinogen 2.0 H (Less than 2) mg/dL Ur Leukocyte Esterase Negative (Negative) Urine RBC 1 (0-3) /hpf Urine WBC 2 (0-5) /hpf Urine Bacteria Rare H (None) /hpf Hyaline Casts 8 (0-3) /lpf Granular Casts 3 (None) /lpf Waxy Casts 1 (None) /lpf Urine Mucus Many H (Occasional) /lpf Micro UA Comment Cath-culture ind Ur Microscopic Review Not Reportable Urine Culture Comments Cath-cult indicated Nasal Screen MRSA (PCR) (Negative) Urine Opiates Screen Neg (Neg) Ur Barbiturates Screen Neg (Neg) Ur Amphetamines Screen Neg (Neg) U Benzodiazepines Scrn Pos H (Neg) Urine Cocaine Screen Neg (Neg) U Cannabinoids Screen Pos H (Neg) Serum Alcohol (0-5) mg/dL 04/27/18 Range/Units 03:30 WBC (4.0-11.0) th/mm3 RBC (4.50-5.90) mil/mm3 Hgb (13.0-17.0) gm/dL Hct (39.0-51.0) % MCV (80.0-100.0) fL MCH (27.0-34.0) pg MCHC (32.0-36.0) % RDW (11.6-17.2) % Plt Count (150-450) th/mm3 MPV (7.0-11.0) fL Neut % (Auto) (16.0-70.0) % Lymph % (Auto) (9.0-44.0) % [place] % (Auto) (0.0-8.0) % Eos % (Auto) (0.0-4.0) % Baso % (Auto) (0.0-2.0) % Neut # (Auto) (1.8-7.7) th/mm3 Lymph # (Auto) (1.0-4.8) th/mm3 [place] # (Auto) (0.0-0.9) th/mm3 Eos # (Auto) (0.0-0.4) th/mm3 Baso # (Auto) (0.0-0.2) th/mm3 WBC Differential Differential Comment PT (9.8-11.6) sec INR Ratio APTT (24.3-30.1) sec Puncture Site Patient Temperature O2 Saturation (90-100) % ABG pH (7.380-7.420) ABG pCO2 (38-42) mmHg ABG pO2 (61-120) mmHg ABG HCO3 (22-26) mmol/L ABG O2 Content (12.0-20.0) Vol % ABG Base Excess (-2-2) mmol/L ABG Methemoglobin (0-2) % Augie Test Hemoglobin (12.0-16.0) G/DL Carboxyhemoglobin (0-4) % O2 Delivery Device Vent Setting Inspired O2 % Critical Value Sodium (136-145) meq/L Potassium (3.5-5.1) meq/L Chloride (98-107) meq/L Carbon Dioxide (21.0-32.0) meq/L Anion Gap (5-15) meq/L BUN (7-18) mg/dL Creatinine (0.60-1.30) mg/dL Estimated GFR (>89) mL/min Random Glucose (74-106) mg/dL Calcium (8.5-10.1) mg/dL Magnesium (1.5-2.5) mg/dL Total Bilirubin (0.2-1.0) mg/dL AST (15-37) U/L ALT (12-78) U/L Alkaline Phosphatase (45-117) U/L Total Creatine Kinase (39-308) U/L CK-MB (CK-2) (0.5-3.6) ng/mL Troponin I (0.02-0.05) ng/mL Total Protein (6.4-8.2) g/dL Albumin (3.4-5.0) g/dL Lipase (73-393) U/L Urine Color (Yellw/Straw) Urine Clarity (Clear) Urine pH (5.0-8.5) Ur Specific [place] (1.002-1.035) Urine Protein (Neg-Trace) mg/dL Urine Glucose (UA) (Negative) mg/dL Urine Ketones (Negative) mg/dL Urine Occult Blood (Negative) Urine Nitrate (Negative) Urine Bilirubin (Negative) Urine Urobilinogen (Less than 2) mg/dL Ur Leukocyte Esterase (Negative) Urine RBC (0-3) /hpf Urine WBC (0-5) /hpf Urine Bacteria (None) /hpf Hyaline Casts (0-3) /lpf Granular Casts (None) /lpf Waxy Casts (None) /lpf Urine Mucus (Occasional) /lpf Micro UA Comment Ur Microscopic Review Urine Culture Comments Nasal Screen MRSA (PCR) Not detected (Negative) Urine Opiates Screen (Neg) Ur Barbiturates Screen (Neg) Ur Amphetamines Screen (Neg) U Benzodiazepines Scrn (Neg) Urine Cocaine Screen (Neg) U Cannabinoids Screen (Neg) Serum Alcohol (0-5) mg/dL Imaging Data Radiologist's impression: Cervical Spine CT 04/26/18 23:39 CONCLUSION: 1. No fracture, subluxation or other acute abnormality seen of the cervical spine. 2. Degenerative changes as above. Associated mild to moderate bilateral foraminal stenosis and mild spinal stenosis at C5/C6. Chest X-Ray 04/26/18 23:39 CONCLUSION: No acute cardiopulmonary disease. Endotracheal tube and nasogastric tube positions as above. Head CT 04/26/18 23:39 CONCLUSION: 1. No acute intracranial abnormality. 2. Incidentally seen posterior fossa arachnoid cyst. 3. Sinusitis. . ECG Data Attestation: I personally reviewed and interpreted this ECG as follows: Interpretation: An EKG was done on arrival. The patient's EKG reveals a sinus tachycardia rate of 109, QRS duration 103 ms, QTC 408 ms. The patient has an incomplete right bundle branch block noted. No acute ST segment elevation. Discharge Plan Discharge Disposition Patient Disposition: 30 Still Patient Discharge Details Diagnosis: Seizure disorder, Alcohol intoxication, Altered mental status Physicians Team ED Provider: Janice Cortez Primary Care Provider: UNKNOWN, Attending Provider: Fariba Barron Other Providers: Donny Trujillo Discharge Interventions Interventions: ED Discharge Assessment Last Done: 04/27/18 03:26 Vital Signs Last Done: 04/26/18 23:38 Status ED Status: Left Department Discharge Information Discharge Date/Time: 04/27/18 03:28
[2018-04-27] MEDS ORDERED: Midazolam 50 MG/50 ML Inj 50 MG/50 ML BAG IV.CONT ONE (00:17)
[2018-04-27 00:19] LABS: Baso # (Auto) 0.1 th/mm3 (0.0-0.2); Baso % (Auto) 0.8 % (0.0-2.0); Hematocrit 43.9 % (39.0-51.0); Hemoglobin 14.8 gm/dL (13.0-17.0); Lymph # (Auto) 3.3 th/mm3 (1.0-4.8); Mean Corpuscular HGB Conc 33.6 % (32.0-36.0); Mean Corpuscular Hemoglobin 32.4 pg (27.0-34.0); Mean Corpuscular Volume 96.2 fL (80.0-100.0); Mean Platelet Volume 8.7 fL (7.0-11.0); Mono # (Auto) 0.5 th/mm3 (0.0-0.9); Mono % (Auto) 6.4 % (0.0-8.0); Neut % (Auto) 50.8 % (16.0-70.0); Platelet Count 259 th/mm3 (150-450); Red Blood Count 4.56 mil/mm3 (4.50-5.90); Red Cell Distribution Width 13.3 % (11.6-17.2); White Blood Count 7.8 th/mm3 (4.0-11.0)
--- NOTE | 2018-04-27 00:23 | XR ---
EXAM DATE: 04/27/2018 12:15 AM EDT AGE/SEX: 89 years / Male INDICATIONS: Post intubation. CLINICAL DATA: This is the patient's initial encounter. Patient reports that signs and symptoms have been present for 1 day and indicates a pain score of 0/10. MEDICAL/SURGICAL HISTORY: Non-responsive. Non-responsive. COMPARISON: No prior exams available for comparison. FINDINGS: A single AP view of the chest demonstrates the lungs to be symmetrically aerated without evidence of mass, infiltrate or effusion. The cardiomediastinal contours are unremarkable. Osseous structures are grossly intact. Endotracheal tube tip is approximately 4 cm above the mayur. Nasogastric tube is coiled in the stoma ch. CONCLUSION: No acute cardiopulmonary disease. Endotracheal tube and nasogastric tube positions as above. Electronically signed by: Anderson Elizondo MD 04/27/2018 12:21 AM EDT
[2018-04-27 00:28] LABS: Amphetamine Screen,Urine Neg (Neg); Barbiturate Screen,Urine Neg (Neg); Cannabinoid Screen,Urine Pos (Neg); Cocaine Screen,Urine Neg (Neg); Opiate Screen,Urine Neg (Neg)
[2018-04-27 00:29] LABS: Activated Partial Thrombo Time 25.3 sec (24.3-30.1)
[2018-04-27 00:34] LABS: Bacteria,Urine Rare /hpf; Bilirubin,Urine Negative (Negative); Clarity,Urine Hazy (Clear); Color,Urine Amber (Yellw/Straw); Glucose,Urine (UA) Negative (Negative); Hyaline Casts,Urine 8 /lpf (0-3); Leukocyte Esterase,Urine Negative (Negative); Mucus,Urine Many /lpf (Occasional); Nitrite,Urine Negative (Negative); Specific Gravity,Urine 1.027 (1.002-1.035)
[2018-04-27 00:40] LABS: Anion Gap 9 meq/L (5-15)
[2018-04-27] MEDS: Midazolam 50 MG/50 ML Inj 50 MG/50 ML BAG IV.CONT PRN ×4 (00:41→22:01)
--- NOTE | 2018-04-27 00:42 | CT ---
EXAM DATE: 04/27/2018 12:34 AM EDT AGE/SEX: 89 years / Male INDICATIONS: Seizure. CLINICAL DATA: This is the patient's initial encounter. Patient reports that signs and symptoms have been present for 1 day and indicates a pain score of Nonresponsive. MEDICAL/SURGICAL HISTORY: Non-responsive. Non-responsive. RADIATION DOSE: 17.62 CTDI (mGy) COMPARISON: No prior exams available for comparison. TECHNIQUE: Contiguous axial images were obtained using helical multirow detector technique. The vol umetric data was post-processed with multiplanar reconstruction in oblique axial, sagittal, and coron al planes. Using automated exposure control and adjustment of the mA and/or kV according to patient s ize, radiation dose was kept as low as reasonably achievable to obtain optimal diagnostic quality chano ges. DICOM format image data is available electronically for review and comparison. FINDINGS: Vertebrae: Normal vertebral body height. Alignment: Normal. No subluxation. C2-3: The bony spinal canal is normal in size. No evidence of disc bulge or herniation. The neural foramina are bilaterally patent. C3-4: The bony spinal canal is normal in size. No evidence of disc bulge or herniation. The neural foramina are bilaterally patent. C4-5: Slight disc space narrowing and mild bilateral uncovertebral and facet osteoarthritis. No fora amry or spinal stenosis. C5-6: Moderate to severe disc space narrowing and moderate bilateral uncovertebral and facet osteoar thritis. There is mild to moderate bilateral foraminal stenosis and mild spinal stenosis. C6-7: Mild disc space narrowing and annular bulging. Mild bilateral uncovertebral and facet osteoart hritis. No foraminal or spinal stenosis. C7-T1: The bony spinal canal is normal in size. No evidence of disc bulge or herniation. The neura l foramina are bilaterally patent. CONCLUSION: 1. No fracture, subluxation or other acute abnormality seen of the cervical spine. 2. Degenerative changes as above. Associated mild to moderate bilateral foraminal stenosis and mild spinal stenosis at C5/C6. Electronically signed by: Anderson Elizondo MD 04/27/2018 12:40 AM EDT
[2018-04-27] MEDS: Propofol 1000 mg/100 ml Inj 1,000 MG/100 ML BOTTLE IV.CONT PRN ×5 (00:44→22:01)
[2018-04-27 00:45] LABS: Alanine Aminotransferase 23 U/L (12-78); Albumin 3.6 g/dL (3.4-5.0); Alcohol 261 mg/dL (0-5); Alkaline Phosphatase 96 U/L (45-117); Aspartate Aminotransferase 27 U/L (15-37); Blood Urea Nitrogen 6 mg/dL (7-18); Calcium 8.9 mg/dL (8.5-10.1); Chloride 110 meq/L (98-107); Creatine Kinase 288 U/L (39-308); Glomerular Filtration Rate 78 mL/min (>89); Glucose,Random 83 mg/dL (74-106); Lipase 505 U/L (73-393); Magnesium 2.2 mg/dL (1.5-2.5); Potassium 4.6 meq/L (3.5-5.1); Sodium 146 meq/L (136-145); Total Protein 7.8 g/dL (6.4-8.2)
--- NOTE | 2018-04-27 00:45 | CT ---
EXAM DATE: 04/27/2018 12:33 AM EDT AGE/SEX: 89 years / Male INDICATIONS: Seizure CLINICAL DATA: This is the patient's initial encounter. Patient reports that signs and symptoms have been present for 1 day and indicates a pain score of Nonresponsive. MEDICAL/SURGICAL HISTORY: Non-responsive. Non-responsive. RADIATION DOSE: 56.34 CTDI (mGy) COMPARISON: No prior exams available for comparison. TECHNIQUE: CT of the head without contrast. Using automated exposure control and adjustment of the mA and/or kV according to patient size, radiation dose was kept as low as reasonably achievable to ob tain optimal diagnostic quality images. DICOM format image data is available electronically for revi ew and comparison. FINDINGS: Cerebrum: The ventricles are normal for age. No evidence of midline shift, mass lesion, hemorrhage or acute infarction. No extraaxial fluid collections are seen. Posterior Fossa: The cerebellum and brainstem are intact. 2.8 cm arachnoid cyst posteriorly in the posterior fossa. The 4th ventricle is midline. The cerebellopontine angle is unremarkable. Extracranial: Mucoperiosteal thickening of the ethmoid air cells. There is a 9 mm polyp or mucous re tention cysts of the left sphenoid sinuses. Skull: The calvaria is intact. No evidence of skull fracture. CONCLUSION: 1. No acute intracranial abnormality. 2. Incidentally seen posterior fossa arachnoid cyst. 3. Sinusitis. . Electronically signed by: Anderson Elizondo MD 04/27/2018 12:43 AM EDT
[2018-04-27 00:47] LABS: ABG Base Excess -1.9 mmol/L (-2-2); ABG PCO2 40 mmHg (38-42); ABG PO2 195 mmHg (61-120)
[2018-04-27] MEDS ORDERED: Sodium Chlor 0.9% Inj 500 ML IV.SIG ONE ×2 (01:37→02:40)
[2018-04-27] MEDS ORDERED: Fosphenytoin Inj 1,000 MGPE in Sodium Chlor 0.9% Inj 50 ML IV.SIG ONE (01:38)
[2018-04-27] MEDS ORDERED: Acetaminophen 325 MG Tablet PO PRN (01:41)
[2018-04-27] MEDS: Sod Chloride 0.9% Inj 1,000 ML IV.CONT SCH ×5 (02:45→17:11)
[2018-04-27] MEDS: Fosphenytoin Sodium Inj 100 MGPE/2 ML Vial IV.SIG SCH ×3 (02:46→17:25)
[2018-04-27] MEDS: levETIRAcetam 1000mg/100mL Inj 100 ML IV.SIG SCH ×2 (02:55→13:46)
[2018-04-27] MEDS: Heparin - SQ 10,000 UNITS/ML Vial SQ SCH ×3 (02:55→17:26)
--- NOTE | 2018-04-27 03:25 | P.HPCC ---
History of Present Illness Primary Care Physician: UNKNOWN Chief Complaint: Status epilepticus History of Present Illness: The patient is a 52 year old male (Lavelle Mcqueen with date of 04/1966) who was brought to the ED after sustaining witnessed tonic-clonic seizures. Patient received IV Versed by EMS, with which the seizure resolved but patient remained partially responsive with a GCS of 7. En route, intubation was attempted by EMS after giving 20 mg etomidate IV, however patient vomited and attempt was unsuccessful. Patient was suctioned, bag and mask ventilation was started and he was intubated in the emergency department. ER workup showed an alcohol level of 261, CT of the head and CT of the neck was unremarkable, chest x-ray did not show any evidence of aspiration. Critical care medicine was contacted for admission When I evaluated the patient he was intubated heavily sedated with propofol and Versed. Patient has received loading dose of Cerebyx in the ED. I will continue Cerebyx 100 mg IV every 8 hours, add Keppra 1 g every 12 hours, consult neurology, and get an EEG. Watch for alcohol withdrawal and supplement multivitamin and thiamine. - Diagnosis (1) Status epilepticus (2) Acute respiratory failure (3) Alcohol intoxication (4) Seizure disorder Inpatient Certification: I certify that the inpatient services were ordered in accordance with Medicare regulations governing the order. This includes certification that hospital inpatient services are reasonable and necessary and in the case of services not specified as inpatient-only under 42 CFR 419.22(n), that they are appropriately provided as inpatient services in accordance to with the 2-midnight benchmark under 43 CFR 412.3(e) Estimated Total Length of Stay (Days): 5 Plans for Post Hospital Care: Not yet determined Review of Systems unobtainable due to endotracheal tube PMFSH - History History Provided By: Medical Record - Medical History Medical History: Medical History (Last Reviewed 04/27/18 @ 03:18 by Fariba Barron MD) Seizures Surgical history unknown TBI (traumatic brain injury) - Tobacco History Smoking Status: Current every day smoker - Alcohol History How Often Do You Have a Drink Containing Alcohol: 4 or more times a week - Substance Use History Substance History: Unable to Obtain - Travel History Recent Travel in the [place] Within the Last 8 Weeks: No Recent Travel Out of the Country Within the Last 8 Weeks: No - Immunization History Tetanus Immunization: Unable to Assess Medications and Allergies Active Medications: Active Medications Acetaminophen (Tylenol) 650 mg PO Q6H PRN PRN Reason: PAIN 1-10 AND/OR FEVER >101F Albuterol (Duoneb Neb (Umberto)) 1 ampul NEB Q6HR NEB UMBERTO Albuterol (Duoneb Neb (Prn)) 1 ampul NEB Q4HR NEB PRN PRN Reason: SHORTNESS OF BREATH Chlorhexidine Gluconate (Chlorhexidine 2% Cloth) 3 pack TOPICAL DAILY@0400 UMBERTO Stop: 05/02/18 03:59 Chlorhexidine Gluconate (Chlorhexidine 2% Cloth) 3 pack TOPICAL DAILY@0400 PRN PRN Reason: Extra cloth needed Stop: 05/02/18 03:59 Chlorhexidine Gluconate (Peridex 0.12% Oral Kit) 15 ml OROPHARYNG BID@0800, 2000 [facility] Famotidine (Pepcid Pf Inj) 20 mg IV.PUSH Q12HR [facility] Fosphenytoin Sodium (Cerebyx Inj) 100 mgpe IV.SIG Q8H [facility] Last Admin: 04/27/18 02:46 Dose: Not Given Heparin Sodium (Porcine) (Heparin Inj) 5,000 units SQ Q8H [facility] Last Admin: 04/27/18 02:55 Dose: 5,000 units Propofol (Diprivan 1000 Mg/100 Ml Inj) 1,000 mg in 100 mls @ 2.1 mls/hr IV.CONT TITRATE PRN; Protocol PRN Reason: Per Protocol Last Titration: 04/27/18 01:09 Dose: 35 mcg/kg/min, 14.7 mls/hr Midazolam HCl (Versed Inj) 50 mg in 50 mls @ 2 mls/hr IV.CONT TITRATE PRN; Protocol PRN Reason: Per Protocol Last Titration: 04/27/18 02:29 Dose: 8 mg/hr, 8 mls/hr Sodium Chloride (Ns Inj) 1,000 mls @ 125 mls/hr IV.CONT .Q8H [facility] Last Admin: 04/27/18 02:45 Dose: 125 mls/hr Sodium Chloride (Ns Inj) 1,000 mls @ 75 mls/hr IV.CONT .[id number] [facility] Last Admin: 04/27/18 02:45 Dose: Not Given Levetiracetam (Keppra 1000 Mg/100 Ml Premix) 100 mls @ 400 mls/hr IV.SIG Q12H UMBERTO Last Admin: 04/27/18 02:55 Dose: 400 mls/hr Miscellaneous Medication () 1 each OROPHARYNG 0000,0400,1200,1600 UMBERTO Sodium Chloride (Ns Flush) 2 ml IV.FLUSH UNSCH PRN PRN Reason: FLUSH AFTER USING IV ACCESS Allergies Allergy/AdvReac Type Severity Reaction Status Date / Time No Known Allergies Allergy Verified 04/26/18 23:39 Home Medications Medication Instructions Recorded Confirmed Type Unable to Obtain Home Meds 04/27/18 04/27/18 History Results - Labs CBC & Chem 7: 04/26/18 23:45 04/26/18 23:45 Labs: Short CBC 04/26/18 Range/Units 23:45 WBC 7.8 (4.0-11.0) th/mm3 Hgb 14.8 (13.0-17.0) gm/dL Hct 43.9 (39.0-51.0) % Plt Count 259 (150-450) th/mm3 BMP 04/26/18 23:45 Sodium 146 H Potassium 4.6 Chloride 110 H Carbon Dioxide 27.0 BUN 6 L Creatinine 0.85 Calcium 8.9 Cardiac Enzymes 04/26/18 Range/Units 23:45 Total Creatine Kinase 288 (39-308) U/L CK-MB (CK-2) Less than 1.0 (0.5-3.6) ng/mL Troponin I Less than 0.02 L (0.02-0.05) ng/mL Liver Function 04/26/18 Range/Units 23:45 Total Bilirubin 0.3 (0.2-1.0) mg/dL AST 27 (15-37) U/L ALT 23 (12-78) U/L Alkaline Phosphatase 96 (45-117) U/L Albumin 3.6 (3.4-5.0) g/dL Urine 04/26/18 Range/Units 23:45 Urine Color Abby (Yellw/Straw) Urine Clarity Hazy H (Clear) Urine pH 5.0 (5.0-8.5) Ur Specific [place] 1.027 (1.002-1.035) Urine Protein Negative (Neg-Trace) mg/dL Urine Glucose (UA) Negative (Negative) mg/dL - Imaging Impressions Cervical Spine CT 04/26/18 23:39 CONCLUSION: 1. No fracture, subluxation or other acute abnormality seen of the cervical spine. 2. Degenerative changes as above. Associated mild to moderate bilateral foraminal stenosis and mild spinal stenosis at C5/C6. Chest X-Ray 04/26/18 23:39 CONCLUSION: No acute cardiopulmonary disease. Endotracheal tube and nasogastric tube positions as above. Head CT 04/26/18 23:39 CONCLUSION: 1. No acute intracranial abnormality. 2. Incidentally seen posterior fossa arachnoid cyst. 3. Sinusitis. . Exam Vital signs: Vital Signs 04/26/18 23:31 04/26/18 23:34 04/26/18 23:38 Pulse Rate 128 H 110 H Respiratory Rate 16 15 22 Blood Pressure 116/72 131/71 Pulse Oximetry 98 100 98 04/26/18 23:39 04/27/18 00:10 04/27/18 00:42 Pulse Rate 99 H Respiratory Rate 18 Blood Pressure 101/62 Pulse Oximetry 98 100 99 04/27/18 01:05 04/27/18 01:55 04/27/18 02:07 Pulse Rate 90 85 Respiratory Rate 15 17 16 Blood Pressure 81/44 L 94/51 L Pulse Oximetry 99 99 99 04/27/18 02:29 Pulse Rate 83 Respiratory Rate 16 Blood Pressure 109/64 Pulse Oximetry 99 Intake & Output 04/26/18 04/26/18 04/27/18 06:59 18:59 06:59 Intake Total 500 / 500 Balance 500 / 500 Weight 70 kg Intake: IV 500 / 500 NS Inj 500 ML @ Wide Open IV. 500 / 500 SIG BOLUS ONE Rx#:[id number] Narrative: GEN: Intubated sedated with propofol and Versed HEENT: normocephalic and atraumatic. Orotracheally intubated. ANA Neck: no meningeal signs, trachea midline and no JVD Resp: Air entry equal, no wheezes or crackles CVS: Regular rhythm, no gallops, no murmurs and no rubs GI:Soft, no hepatosplenomegaly, no guarding, not rigid and nontender Neuro: Intubated sedated, ANA, Moves all extremities to painful stimuli Septic Shock Reassessment Septic shock perfusion: reassessment completed Caprini VTE Risk Assessment Caprini VTE Risk Assessment: Moderate/High Risk (score >= 2) Caprini Risk Assessment Model: Point Value = 1 Point Value = 2 Point Value = 3 Point Value = 5 Age 41-60 Minor surgery BMI > 25 kg/m2 Swollen legs Varicose veins or History of unexplained or recurrent spontaneous Oral contraceptives or hormone replacement Sepsis (< 1 month) Serious lung disease, including pneumonia (< 1 month) Abnormal pulmonary function Acute myocardial infarction Congestive heart failure (< 1 month) History of inflammatory bowel disease Medical patient at bed rest Age 61-74 Arthroscopic surgery Major open surgery (> 45 min) Laparoscopic surgery (> 45 min) Malignancy Confined to bed (> 72 hours) Immobilizing plaster cast Central venous access Age >= 75 History of VTE Family history of VTE Factor V Leiden Prothrombin [id number] Lupus anticoagulant Anticardiolipin antibodies Elevated serum homocysteine Heparin-induced thrombocytopenia Other congenital or acquired thrombophilia Stroke (< 1 month) Elective arthroplasty Hip, pelvis, or leg fracture Acute spinal cord injury (< 1 month) Prophylaxis Regimen: Total Risk Factor Score Risk Level Prophylaxis Regimen 0-1 Low Early ambulation 2 Moderate Order ONE of the following: *Sequential Compression Device (SCD) *Heparin 5000 units SQ BID 3-4 Higher Order ONE of the following medications: *Heparin 5000 units SQ TID *Enoxaparin/Lovenox 40 mg SQ daily (WT < 150 kg, CrCl > 30 mL/min) *Enoxaparin/Lovenox 30 mg SQ daily (WT < 150 kg, CrCl > 10-29 mL/min) *Enoxaparin/Lovenox 30 mg SQ BID (WT < 150 kg, CrCl > 30 mL/min) AND/OR *Sequential Compression Device (SCD) 5 or more Highest Order ONE of the following medications: *Heparin 5000 units SQ TID (Preferred with Epidurals) *Enoxaparin/Lovenox 40 mg SQ daily (WT < 150 kg, CrCl > 30 mL/min) *Enoxaparin/Lovenox 30 mg SQ daily (WT < 150 kg, CrCl > 10-29 mL/min) *Enoxaparin/Lovenox 30 mg SQ BID (WT < 150 kg, CrCl > 30 mL/min) AND *Sequential Compression Device (SCD) Assessment and Plan - Problem List (1) Status epilepticus Code(s): G40.901 - Epilepsy, unspecified, not intractable, with status epilepticus Status: Acute (2) Acute respiratory failure Code(s): J96.00 - Acute respiratory failure, unspecified whether with hypoxia or hypercapnia Status: Acute (3) Alcohol intoxication Code(s): F10.929 - Alcohol use, unspecified with intoxication, unspecified Status: Acute (4) Seizure disorder Code(s): G40.909 - Epilepsy, unspecified, not intractable, without status epilepticus Status: Acute - Assessment and Plan Plan: NEURO: Status epilepticus Acute metabolic encephalopathy Seizure disorder Alcohol intoxication History of TBI Cocaine abuse and Marijuana abuse -Propofol and Versed for sedation and ventilator synchrony -Loaded with Cerebyx in the ED, continue Cerebyx 100 mg IV every 8 hours -Keppra thousand milligrams IV every 12 -Check EEG, neurology consult -Once extubated patient needs counseling/treatment for alcohol abuse -Multivitamin thiamine, watch for withdrawal -CT head, CT C-spine negative for acute findings RESP: Acute respiratory failure -PRVC/AC -Ventilator bundle -DuoNeb every 6 hours scheduled and as needed -SBT when appropriate CV: -Normal saline IV fluids 125 ML per hour GI: -N.p.o., IV famotidine : -Monitor renal function closely. ID: -Monitor for evidence infection HEME: -Monitor CBC, coags ENDO: -Electrolyte replacement per protocol PROPH: -Bilateral lower extremity SCDs. Heparin sq/famotidine LINES: -Utilize peripheral IVs, central line if needed CC time 35 min Code Status: Full Discussed Condition With: Dr. Cortez
[2018-04-27] MEDS ORDERED: Chlorhexidine Gluconate 2% 1 Pack (2 Cloths) TOPICAL PRN (04:00)
[2018-04-27] MEDS: Multivitamin Inj 10 ML, Thiamine Inj 100 MG, Folic Acid Inj 1 MG in Sodium Chlor 0.9% I... IV.SIG SCH (05:26)
[2018-04-27] MEDS: Chlorhexidine Gluconate 2% 1 Pack (2 Cloths) TOPICAL SCH (05:26)
[2018-04-27] MEDS: Oral Hygiene Kit OROPHARYNG SCH ×3 (05:26→17:11)
[2018-04-27] MEDS ORDERED: Fosphenytoin Inj 100 MGPE in Sodium Chlor 0.9% Inj 50 ML IV.SIG SCH (06:00)
[2018-04-27] MEDS: Chlorhexidine 0.12% Oral Kit 15 ML UDC OROPHARYNG SCH ×2 (10:38→21:59)
[2018-04-27] MEDS: Famotidine PF Inj 20 MG/2 ML Vial IV.PUSH SCH ×2 (10:38→21:59)
--- NOTE | 2018-04-27 17:11 | MG ---
cc: Yadira Stout MD EEG NUMBER: [id number] CLINICAL HISTORY: The patient is room 511. Intubated on Versed 6 mg, Diprivan 40 mcg with photic only. EEG 04/15/2018 overall was unremarkable. The patient was positive for benzos, marijuana, ethanol. CT did not show anything acute. Admitted with generalized tonic seizure. Activity nonverbal on 04/26/2018 status. CURRENT MEDICATIONS: On Keppra, Cerebyx, Versed, Diprivan, thiamine, folic acid, multivitamin and heparin. DESCRIPTION OF RECORD: The patient has overall some slowing of the background, predominantly higher theta range. EKG cannot be interpreted. Some ICU artifact seen. Photic stimulation is done. Photic stimulation did elicit driving response. No appreciable epileptic activity. Garage Attendant at one point was trying to wake the patient up. IMPRESSION: Some mild slowing of background, may be due to medicine effect and encephalopathic process, but no obvious epileptiform features. Clinical correlation. MD MARLEE Sloan/vito , 04:03 PM , 04:10 PM
--- NOTE | 2018-04-27 18:33 | MB ---
cc: Donny Trujillo MD, PhD DATE: 04/27/2018 REASON FOR CONSULTATION: Status epilepticus. HISTORY OF PRESENT ILLNESS: This is a 52-year-old man who was brought to the emergency room after he had witnessed tonic-clonic seizures, apparently multiple seen by EMS and was given IV Versed. He has been started on IV Keppra and loaded with Cerebyx with no recurrent seizure activity. PAST MEDICAL HISTORY: Unknown at the present time. Apparently, he does have a history of traumatic brain injury. Seizures are noted on the chart. CURRENT MEDICATIONS: 1. Tylenol. 2. DuoNeb. 3. Pepcid. 4. Cerebyx 100 mg IV q.8 hours. 5. Subcutaneous heparin. 6. Keppra 1000 mg IV q.12 hours. 7. Midazolam drip 2 mg per hour. 8. Multivitamin. 9. Propofol. 10. He received 1000 mg loading fosphenytoin. NEUROLOGIC EXAMINATION: VITAL SIGNS: His blood pressure is 135/93, pulse 53, temperature 97.1 degrees. HIGHER CORTICAL FUNCTION: Sedated, nonresponsive. Neck is supple. No meningismus. Pupils are equal and reactive. The extraocular movements are intact. MOTOR: No withdrawal. No spontaneous limb movements. No seizure activity. IMAGING DATA: CT brain is unremarkable. There is an incidental note of sinusitis. Arachnoid cyst is seen in the posterior fossa. CT cervical spine, no fracture, degenerative changes with mild stenosis at C5-C6. LABORATORY DATA: White count 7800, hemoglobin 14.8, hematocrit 43%, platelets 259,000. Tox screen positive for cannabis, benzodiazepines. Alcohol level was elevated at 261. PT 10, INR 1. Sodium 146, potassium 4.6, chloride 110, BUN 6, creatinine 0.85, GFR 78. IMPRESSION: Status epilepticus, now resolved, with a history of seizures, possibly related to brain injury that is on the chart, history of alcohol abuse, which could be contributory. According to the chart, a history of cocaine use, which may be contributory. RECOMMENDATIONS: Continue current medications, i.e., Cerebyx, Keppra. We will follow phenytoin levels. We will obtain an EEG as well as an MRI of the brain. We will also treat him with thiamine parenterally because of the history of alcohol use. Donny Trujillo MD, PhD CORBY/chris , 04:02 PM , 04:10 PM
[2018-04-28] MEDS: Propofol 1000 mg/100 ml Inj 1,000 MG/100 ML BOTTLE IV.CONT PRN ×2 (02:01→06:37)
[2018-04-28] MEDS: Sod Chloride 0.9% Inj 1,000 ML IV.CONT SCH ×3 (02:01→10:53)
[2018-04-28] MEDS: Heparin - SQ 10,000 UNITS/ML Vial SQ SCH ×2 (02:02→10:52)
[2018-04-28] MEDS: levETIRAcetam 1000mg/100mL Inj 100 ML IV.SIG SCH (02:02)
[2018-04-28] MEDS: Fosphenytoin Sodium Inj 100 MGPE/2 ML Vial IV.SIG SCH ×2 (02:03→10:52)
[2018-04-28 02:43] VITALS: TEMP 97.5
[2018-04-28] MEDS: Oral Hygiene Kit OROPHARYNG SCH ×2 (06:36→06:39)
[2018-04-28] MEDS: Chlorhexidine Gluconate 2% 1 Pack (2 Cloths) TOPICAL SCH (06:37)
[2018-04-28] MEDS: Midazolam 50 MG/50 ML Inj 50 MG/50 ML BAG IV.CONT PRN (06:38)
[2018-04-28 07:43] VITALS: BP 157/92
[2018-04-28] MEDS: Famotidine PF Inj 20 MG/2 ML Vial IV.PUSH SCH (08:57)
[2018-04-28 09:02] VITALS: PULSE 75; RESP 22
[2018-04-28 09:05] LABS: Baso % (Auto) 0.5 % (0.0-2.0); Hematocrit 37.6 % (39.0-51.0); Hemoglobin 13.1 gm/dL (13.0-17.0); Lymph # (Auto) 1.9 th/mm3 (1.0-4.8); Lymph % (Auto) 21.7 % (9.0-44.0); Mean Corpuscular HGB Conc 34.7 % (32.0-36.0); Mean Corpuscular Hemoglobin 32.9 pg (27.0-34.0); Mean Corpuscular Volume 94.8 fL (80.0-100.0); Mean Platelet Volume 8.2 fL (7.0-11.0); Mono # (Auto) 0.7 th/mm3 (0.0-0.9); Neut # (Auto) 6.2 th/mm3 (1.8-7.7); Neut % (Auto) 69.8 % (16.0-70.0); Platelet Count 198 th/mm3 (150-450); Red Blood Count 3.97 mil/mm3 (4.50-5.90); Red Cell Distribution Width 13.8 % (11.6-17.2); White Blood Count 8.9 th/mm3 (4.0-11.0)
[2018-04-28 09:24] LABS: Albumin 2.8 g/dL (3.4-5.0); Anion Gap 8 meq/L (5-15); Aspartate Aminotransferase 11 U/L (15-37); Blood Urea Nitrogen 8 mg/dL (7-18); Carbon Dioxide 26.2 meq/L (21.0-32.0); Chloride 112 meq/L (98-107); Glomerular Filtration Rate Greater Than 89 mL/min (>89); Glucose,Random 88 mg/dL (74-106); Potassium 3.7 meq/L (3.5-5.1); Sodium 146 meq/L (136-145)
[2018-04-28 09:30] LABS: Alanine Aminotransferase 17 U/L (12-78); Alkaline Phosphatase 110 U/L (45-117); Total Protein 6.5 g/dL (6.4-8.2)
[2018-04-28 09:33] VITALS: O2SAT 99
--- NOTE | 2018-04-28 09:35 | P.PNCC ---
Subjective Subjective Remarks/Hospital Course: 04/27: The patient is a 52 year old male (Lavelle Mcqueen with date of 1965) who was brought to the ED after sustaining witnessed tonic- clonic seizures. Patient received IV Versed by EMS, with which the seizure resolved but patient remained partially responsive with a GCS of 7. En route, intubation was attempted by EMS after giving 20 mg etomidate IV, however patient vomited and attempt was unsuccessful. Patient was suctioned, bag and mask ventilation was started and he was intubated in the emergency department. ER workup showed an alcohol level of 261, CT of the head and CT of the neck was unremarkable, chest x-ray did not show any evidence of aspiration. Critical care medicine was contacted for admission When I evaluated the patient he was intubated heavily sedated with propofol and Versed. Patient has received loading dose of Cerebyx in the ED. I will continue Cerebyx 100 mg IV every 8 hours, add Keppra 1 g every 12 hours, consult neurology, and get an EEG. Watch for alcohol withdrawal and supplement multivitamin and thiamine. 04/28: Arousable off sedation, orally intubated on mechanical ventilation at the time of my evaluation this morning. CPAP trials to decide extubation. No seizures overnight. Objective Vital Signs / I&O: Vital Signs 04/27/18 09:45 04/27/18 10:00 04/27/18 10:15 Temperature Pulse Rate 67 68 63 Respiratory Rate 16 16 16 Blood Pressure 99/60 L 113/72 119/75 Pulse Oximetry 100 100 100 04/27/18 10:30 04/27/18 11:00 04/27/18 11:15 Temperature Pulse Rate 67 65 60 Respiratory Rate 16 16 16 Blood Pressure 129/84 126/86 110/73 Pulse Oximetry 100 100 100 04/27/18 11:30 04/27/18 11:45 04/27/18 12:00 Temperature 97 F L Pulse Rate 59 L 57 L 57 L Respiratory Rate 16 16 16 Blood Pressure 103/68 103/69 101/68 Pulse Oximetry 100 100 100 04/27/18 12:15 04/27/18 12:30 04/27/18 12:45 Temperature Pulse Rate 55 L 54 L 54 L Respiratory Rate 16 16 16 Blood Pressure 102/71 104/69 104/68 Pulse Oximetry 100 100 100 04/27/18 12:56 04/27/18 13:00 04/27/18 13:16 Temperature Pulse Rate 59 L 59 L Respiratory Rate 16 16 16 Blood Pressure 146/87 H 137/81 Pulse Oximetry 100 100 100 04/27/18 13:30 04/27/18 13:45 04/27/18 14:00 Temperature Pulse Rate 54 L 54 L 53 L Respiratory Rate 16 16 16 Blood Pressure 119/74 111/71 104/66 Pulse Oximetry 100 100 100 04/27/18 14:15 04/27/18 14:30 04/27/18 14:45 Temperature Pulse Rate 53 L 53 L 57 L Respiratory Rate 16 16 16 Blood Pressure 107/70 117/78 140/90 Pulse Oximetry 100 100 100 04/27/18 15:00 04/27/18 15:15 04/27/18 15:30 Temperature Pulse Rate 60 53 L 52 L Respiratory Rate 16 16 16 Blood Pressure 157/102 H 135/93 H 132/85 Pulse Oximetry 100 100 100 04/27/18 15:45 04/27/18 16:00 04/27/18 16:15 Temperature 97 F L Pulse Rate 51 L 51 L 51 L Respiratory Rate 16 16 16 Blood Pressure 134/91 H 139/84 116/73 Pulse Oximetry 100 100 100 04/27/18 16:30 04/27/18 16:45 04/27/18 17:00 Temperature Pulse Rate 50 L 51 L 50 L Respiratory Rate 16 16 16 Blood Pressure 121/77 117/75 119/77 Pulse Oximetry 100 100 100 04/27/18 17:01 04/27/18 17:07 04/27/18 17:15 Temperature Pulse Rate 50 L 57 L Respiratory Rate 16 16 16 Blood Pressure 154/95 H Pulse Oximetry 100 97 04/27/18 17:45 04/27/18 18:00 04/27/18 18:15 Temperature Pulse Rate 59 L 61 54 L Respiratory Rate 16 16 16 Blood Pressure 144/86 H 151/95 H 140/85 Pulse Oximetry 100 100 100 04/27/18 18:30 04/27/18 19:00 04/27/18 20:00 Temperature 97.7 F 97.5 F L Pulse Rate 63 59 L 59 L Respiratory Rate 16 16 16 Blood Pressure 146/91 H 150/97 H 125/82 Pulse Oximetry 100 100 100 04/27/18 20:30 04/27/18 20:45 04/27/18 21:00 Temperature Pulse Rate 54 L 55 L 51 L Respiratory Rate 16 16 16 Blood Pressure 156/95 H 135/80 Pulse Oximetry 100 100 100 04/27/18 21:15 04/27/18 21:28 04/27/18 21:30 Temperature Pulse Rate 52 L 51 L Respiratory Rate 16 16 16 Blood Pressure 138/84 130/81 Pulse Oximetry 100 100 100 04/27/18 21:34 04/27/18 21:45 04/27/18 22:00 Temperature Pulse Rate 61 52 L 61 Respiratory Rate 16 16 16 Blood Pressure 126/82 156/99 H Pulse Oximetry 100 100 04/27/18 22:15 04/27/18 22:30 04/27/18 22:45 Temperature Pulse Rate 60 69 65 Respiratory Rate 16 17 18 Blood Pressure 163/101 H 168/106 H 168/93 H Pulse Oximetry 100 100 100 04/27/18 23:00 04/27/18 23:01 04/27/18 23:15 Temperature Pulse Rate 58 L 58 L 56 L Respiratory Rate 16 16 16 Blood Pressure 143/88 H 122/76 Pulse Oximetry 100 100 100 04/27/18 23:30 04/27/18 23:45 04/28/18 00:00 Temperature Pulse Rate 55 L 54 L 53 L Respiratory Rate 16 16 16 Blood Pressure 112/71 113/74 129/82 Pulse Oximetry 100 100 100 04/28/18 00:15 04/28/18 00:31 04/28/18 00:45 Temperature Pulse Rate 57 L 65 52 L Respiratory Rate 16 16 16 Blood Pressure 153/95 H 176/97 H 149/83 H Pulse Oximetry 100 99 100 04/28/18 01:00 04/28/18 01:07 04/28/18 01:15 Temperature Pulse Rate 54 L 58 L Respiratory Rate 16 16 16 Blood Pressure 153/88 H 153/96 H Pulse Oximetry 100 100 04/28/18 01:30 04/28/18 01:45 04/28/18 02:00 Temperature Pulse Rate 53 L 52 L 52 L Respiratory Rate 16 16 16 Blood Pressure 135/83 126/79 129/85 Pulse Oximetry 100 100 100 04/28/18 02:15 04/28/18 02:30 04/28/18 02:45 Temperature Pulse Rate 52 L 52 L 52 L Respiratory Rate 16 16 16 Blood Pressure 129/81 135/87 131/84 Pulse Oximetry 100 100 100 04/28/18 03:00 04/28/18 03:15 04/28/18 03:30 Temperature Pulse Rate 64 59 L 65 Respiratory Rate 16 16 18 Blood Pressure 164/98 H 158/97 H 164/100 H Pulse Oximetry 89 L 100 99 04/28/18 03:45 04/28/18 04:00 04/28/18 04:16 Temperature Pulse Rate 59 L 56 L 63 Respiratory Rate 16 16 18 Blood Pressure 150/95 H 130/81 170/99 H Pulse Oximetry 100 100 100 04/28/18 04:30 04/28/18 04:45 04/28/18 05:00 Temperature Pulse Rate 58 L 56 L 55 L Respiratory Rate 16 16 16 Blood Pressure 145/88 H 119/77 112/77 Pulse Oximetry 100 100 100 04/28/18 05:15 04/28/18 05:24 04/28/18 05:30 Temperature Pulse Rate 53 L 63 53 L Respiratory Rate 16 17 16 Blood Pressure 114/78 120/78 Pulse Oximetry 100 100 100 04/28/18 05:46 04/28/18 06:00 04/28/18 06:01 Temperature Pulse Rate 57 L 68 66 Respiratory Rate 16 17 19 Blood Pressure 138/83 156/98 H Pulse Oximetry 100 86 L 100 04/28/18 06:15 04/28/18 06:30 04/28/18 06:34 Temperature Pulse Rate 66 66 63 Respiratory Rate 16 20 17 Blood Pressure 161/92 H 171/136 H 157/92 H Pulse Oximetry 100 100 100 04/28/18 07:00 04/28/18 08:57 Temperature Pulse Rate 56 L 75 Respiratory Rate 16 22 Blood Pressure Pulse Oximetry 100 Intake & Output 04/27/18 04/28/18 04/28/18 18:59 06:59 18:59 Intake Total 2851.2 / 2851.2 3292 / 3292 100 / 100 Output Total 350 / 350 850 / 850 Balance 2501.2 / 2501.2 2442 / 2442 100 / 100 Intake: IV 2851.2 / 2851.2 1400 / 1400 100 / 100 Versed Inj 50 mg In 50 ml @ 2 50 / 50 100 / 100 MG/HR 2 mls/hr IV.CONT TITRATE PRN Rx#:[id number] Diprivan 1000 mg/100 ml Inj 1, 290 / 290 300 / 300 000 mg In 100 ml @ 5 MCG/KG/MIN 2.1 mls/hr IV.CONT TITRATE PRN Rx#:[id number] NS Inj 1,000 ML @ 125 mls/hr IV 1900 / 1900 1000 / 1000 .CONT .Q8H [facility] Rx#:[id number] MVI-12 Inj 10 ML Thiamine Inj 511.2 / 511.2 100 MG Folvite Inj 1 MG In NS Inj 500 ML @ 125 mls/hr IV.SIG Q24H [facility] Rx#:[id number] Keppra 1000 mg/100 mL Premix 100 / 100 100 / 100 100 ML @ 400 mls/hr IV.SIG Q12H [facility] Rx#:[id number] Other 1892 / 1892 Output: Urine 850 / 850 Urine Amount (Catheter) 350 / 350 Condom 0 / 0 Indwelling Urethral Catheter 350 / 350 Other: # Bowel Movements 0 Result Diagrams: 04/28/18 08:56 04/28/18 08:56 Imaging: Impressions Cervical Spine CT 04/26/18 23:39 CONCLUSION: 1. No fracture, subluxation or other acute abnormality seen of the cervical spine. 2. Degenerative changes as above. Associated mild to moderate bilateral foraminal stenosis and mild spinal stenosis at C5/C6. Chest X-Ray 04/26/18 23:39 CONCLUSION: No acute cardiopulmonary disease. Endotracheal tube and nasogastric tube positions as above. Head CT 04/26/18 23:39 CONCLUSION: 1. No acute intracranial abnormality. 2. Incidentally seen posterior fossa arachnoid cyst. 3. Sinusitis. . Objective Remarks: HEENT/ Neuro: Sedated, arousable, orally intubated, Pallor present, no icterus, tongue/ mucosa moist Neck: No JVD Chest/Pulm: on mech vent, good air entry bilaterally, no wheezing or crackles CVS: S1-S2 regular, no murmur GI/abdomen: soft, nontender, bowel sounds sluggish Extremities: warm bilaterally, no edema Assessment and Plan - Assessment and Plan Plan: NEURO: Status epilepticus Acute metabolic encephalopathy Seizure disorder Alcohol intoxication History of TBI Cocaine abuse and Marijuana abuse -Propofol and Versed for sedation and ventilator synchrony. Daily sedation vacation -Loaded with Cerebyx in the ED, continue Cerebyx 100 mg IV every 8 hours -Keppra thousand milligrams IV every 12 -Follow-up EEG, neurology consult -Once extubated patient needs counseling/treatment for alcohol abuse -Multivitamin thiamine, watch for withdrawal -CT head, CT C-spine negative for acute findings RESP: Acute respiratory failure -PRVC/AC -Ventilator bundle -DuoNeb every 6 hours scheduled and as needed -Ordered spontaneous breathing trial which patient tolerated and ordered extubation. CV: -Normal saline IV fluids 125 ML per hour GI: -If tolerating extubation, will initiate p.o. diet. IV famotidine : -Monitor renal function closely. ID: -Monitor for evidence infection HEME: -Monitor CBC, coags ENDO: -Electrolyte replacement per protocol PROPH: -Bilateral lower extremity SCDs. Heparin sq/famotidine LINES: -Utilize peripheral IVs, central line if needed
[2018-04-28] MEDS: Multivitamin Inj 10 ML, Thiamine Inj 100 MG, Folic Acid Inj 1 MG in Sodium Chlor 0.9% I... IV.SIG SCH (09:47)
[2018-04-28] MEDS: Chlorhexidine 0.12% Oral Kit 15 ML UDC OROPHARYNG SCH (09:47)
[2018-04-28] MEDS ORDERED: LORazepam 1 MG Tablet PO PRN (10:04)
[2018-04-28] MEDS ORDERED: Haloperidol Inj 5 MG/ML Ampul IV.PUSH PRN (10:04)
[2018-04-28] MEDS ORDERED: Gadobutrol PF 7.5 MMOL/7.5 ML Vial (for RAD) IV.SIG ONE (10:59)
--- NOTE | 2018-04-28 11:24 | MR ---
EXAM DATE: 04/28/2018 11:02 AM EDT AGE/SEX: 52 years / Male INDICATIONS: Seizures. CLINICAL DATA: This is the patient's subsequent encounter. Patient reports that signs and symptoms h ave been present for 1 day and indicates a pain score of 0/10. MEDICAL/SURGICAL HISTORY: . ETOH. Drug abuse. . Unknown. COMPARISON: [facility] [place], MR HEAD W/O CONTRAST, 03/31/2018. . TECHNIQUE: Multiplanar, multisequence examination of the brain was performed without and with 7.5 ml Gadavist (gadobutrol) contrast as a single exam dose. FINDINGS: Cerebrum: The ventricles are normal for age. No evidence of midline shift, mass lesion, hemorrhage or acute infarction. No extraaxial fluid collections are seen. The pituitary gland and suprasellar cistern are normal in configuration. White Matter: No significant signal abnormalities are seen in the white matter. Posterior Fossa: The cerebellum and brainstem are intact. The 4th ventricle is midline. There is an elongated CSF fluid collection in the left posterior fossa arachnoid cyst. The cerebellopontine angl e is unremarkable. The cerebellar tonsils are normal in position. Diffusion Imaging: No focal areas of restricted diffusion are seen. No evidence of acute infarction . Extracranial: The visualized portions of the orbits and paranasal sinuses are unremarkable. Post Contrast: No abnormal areas of parenchymal or dural enhancement. No evidence of blood-brain ba rrier breakdown. CONCLUSION: 1. Stable CSF fluid collection in the left posterior fossa inferiorly possibly arachnoid cyst. Its u nchanged from the previous study. There is no evidence of acute stroke or abnormal area of enhancemen t Electronically signed by: Marcell Pugh MD 04/28/2018 11:23 AM EDT
--- NOTE | 2018-04-28 11:26 | ECG ---
Date Performed: 04/26/2018 Time Performed: 23:33:34 PTAGE: 89 years EKG: SINUS TACHYCARDIA BORDERLINE RIGHT AXIS DEVIATION INCOMPLETE RIGHT BUNDLE BRANCH BLOCK MINI MAL ST DEPRESSION ABNORMAL RHYTHM ECG NO PREVIOUS TRACING DOCTOR: Marcell Erazo Interpretating Date/Time 04/28/2018 11:24:17
--- NOTE | 2018-04-28 14:56 | MG ---
cc: Yadira Stout MD EEG NUMBER: [id number] AGE: 52. TECHNIQUE: Room 511 with photic done 1 mg of Versed at 6:37 a.m. today, 10 mg at 9:46 a.m. today. Awake, drowsy extubated yesterday. Positive for benzos, marijuana, ethanol. CT did not show anything acute, here with a general tonic-clonic seizure, frothing at the mouth, moving all extremities, nonverbal. On Cerebyx, heparin and Keppra. DESCRIPTION OF RECORD: The patient shows some artifact, but overall has background of 6 Hz fairly symmetrical otherwise. No appreciable epileptiform features, noted to be talking at times, almost seems to have a normal alpha rhythm of 8-9 Hospital. 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 There is no epileptiform features noted though. Then, at epoch 100, he starts to have whole body shaking consistent with artifact. No spike and wave discharges. Photic stimulation looks like a driving response, looking at the ceiling at epoch 126, shaking his right hand, eyes fluttering. IMPRESSION: Some slowing with some normal alpha rhythm, all of the shaking spells, eyes fluttering, staring off do not correspond with any epileptic activity. There may be some mild encephalopathy, but no gross epileptic activity. Yadira Stout MD DF/ct , 02:29 PM , 02:35 PM
== END 2018-04-28 13:35 | disposition left against medical advice (07) ==
LOC: NEPC 23:24 → MERGE 04-27 01:42 → NEDA 04-27 01:42 → EDBD 04-27 01:42 → HIMC 04-27 03:10
PROVIDERS: ADMIT Internal Medicine; ATTEND Internal Medicine

== ENCOUNTER 2018-07-04 08:18 | Inpatient (IN) ==
[2018-07-04] MEDS ORDERED: Morphine Inj 4 MG/ML Vial IV.PUSH ONE (10:04)
[2018-07-04] MEDS ORDERED: Vancomycin Inj 1,000 MG in Sodium Chlor 0.9% Inj 250 ML IV.SIG ONE ×2 (10:04→11:00)
[2018-07-04] MEDS ORDERED: Tetanus/Diphtheria Toxoid Adult Vaccine Inj 0.5 ML Vial IM ONE (10:04)
--- NOTE | 2018-07-04 10:14 | ED ---
HPI General Chief complaint: Animal Bite Stated complaint: Poss Snake Bite Time Seen by Provider: 07/04/18 10:04 Source: patient Mode of arrival: ambulatory Limitations: no limitations History of Present Illness MD complaint: Reports abscess/boil Onset (ago): day(s) (4) Location: Reports RUE and LLE Severity: severe Severity scale (1-10): 10 Quality: Reports aching Pain Consistency: constant Relieving factors: none Context: Reports other (Witnessed bites by worms) Associated symptoms: Reports fever, chills, nausea and vomiting Treatments prior to arrival: Reports none Related Data Home Medications Medication Instructions Recorded Confirmed levetiracetam [Keppra] 1,500 mg PO Q12H 06/13/18 07/04/18 Previous Rx's Medication Instructions Recorded phenobarbital 97.2 mg PO DAILY #30 tab 05/06/18 levetiracetam [Keppra] 1,000 mg PO Q12H 30 Days #60 tab 06/13/18 Allergies Allergy/AdvReac Type Severity Reaction Status Date / Time doxycycline Allergy Severe Rash Verified 07/04/18 08:23 erythromycin base Allergy Severe Rash Verified 07/04/18 08:23 minocycline Allergy Severe Rash Verified 07/04/18 08:23 penicillin G Allergy Severe Rash Verified 07/04/18 08:23 tigecycline Allergy Severe Rash Verified 07/04/18 08:23 tetracycline Allergy Hives Verified 07/04/18 08:23 Penicillins AdvReac Difficulty Verified 07/04/18 08:23 Breathing Review of Systems ROS: all other systems reviewed are negative [facility] Medical History Medical History Cocaine abuse (Acute) ETOH abuse (Acute) Marijuana abuse (Acute) Medical history unknown (Acute) No significant past surgical history (Acute) Seizure (Acute) Seizure (Acute) Seizures (Acute) Surgical history unknown (Acute) Surgical history unknown (Acute) TBI (traumatic brain injury) (Acute) Family History Family History Other Unknown family medical history Social History Social History Substance History: Past History Second Hand Smoke Exposure: No Smoking Status: Current every day smoker Tobacco Type: Cigarettes How Often Do You Have a Drink Containing Alcohol: 4 or more times a week Recent Travel in [facility] within the Last 8 Weeks: No Recent Out of Country Travel within the Last 8 Weeks: No Substance Abuse Detail Crack/Cocaine: Substance Use Status: Active Route Used Substance Abuse: Inhalation Immunization History Tetanus Immunization: Unsure Exam Const General: cooperative, healthy appearing, comfortable, no acute distress, well developed and well groomed Orientation: alert, awake and oriented x3 HENMT Head: normal to inspection, normocephalic and atraumatic Nose: no nasal discharge and no epistaxis Mouth: moist mucous membranes Eyes Conjunctivae: conjunctivae normal Sclera: sclerae normal Pupils: PERRL EOM: EOM intact bilaterally Neck Neck: normal visual inspection and full ROM Chest Chest: normal inspection of the chest Resp Effort & Inspection: normal respiratory effort and able to speak in complete sentences Auscultation: clear to auscultation bilaterally Cardio Rate: regular rate Rhythm: regular rhythm Heart Sounds: no murmurs GI Inspection: non-distended Palpation: soft, no hepatosplenomegaly and nontender Back/Spine/Pelvis Cervical Spine: cervical ROM normal Thoracic/Lumbar Spine: thoraco-lumbar ROM normal Skin General: turgor normal and other (There is an area of induration and redness over the right third MCP joint. There is purulent drainage from this area. There are numerous larger lesions on his left thigh which are angry appearing but which are not draining any purulent fluid.) Neuro General: alert, awake, oriented x3, moves all extremities and CN's II-XI intact bilaterally Cranial Nerves: other Speech: speech normal Motor: no movement abnormalities noted Extrem General: normal to inspection and full ROM Psych Appearance: grossly normal Mental Status: mental status grossly normal Speech and Movement: speech and movement normal Mood: congruent mood Affect: normal affect Attitude: cooperative Thought Process: normal Thought Content: normal Judgment: judgment good Course Initial Documented Vital Signs Temperature 97.7 F 07/04/18 08:21 Pulse Rate 101 H 07/04/18 08:21 Respiratory Rate 16 07/04/18 08:21 Blood Pressure 142/91 H 07/04/18 08:21 Pulse Oximetry 98 07/04/18 08:21 Last Documented Vital Signs Temperature 99.2 F 07/04/18 15:45 Pulse Rate 77 07/04/18 15:45 Respiratory Rate 19 07/04/18 15:45 Blood Pressure 132/79 07/04/18 15:45 Pulse Oximetry 98 07/04/18 13:20 Medical Decision Making MDM Narrative Medical decision making narrative: This patient presents with multiple abscesses involving the dorsal aspect of the right hand and then several on the left thigh. The one on the dorsal aspect of the right hand has some purulent drainage and probably needs to be opened up and cultured. He reports the onset of symptoms approximately 4 days ago. He states that he was bitten multiple times while working by little tiny worms which had gotten into his work clothing. His lesions have become progressively worse over the course the last 4 days. He has associated subjective fevers and chills as well as nausea and vomiting. He gives a history of previous MRSA. He states that his current symptoms are similar. The patient is being worked up for possible cellulitis and/or osteomyelitis of the right hand. I have ordered IV vancomycin. The hand wound needs to be cultured and possibly I&D. I would suspect that he will need admission to the hospital. 11:[address] Farmer in [place] initially and now seen by me in [place] [facility]. Patient with abscess to right hand which was cultured, it is actively draining and does not need I&D at this time. He does have 3 abscesses to his left anterior thigh which are indurated and not amenable to drainage, there is surrounding area of cellulitis as well. He reports these have been present for several weeks. He was seen in our emergency department 06/13/18 for complaint of left anterior thigh abscesses and he was prescribed clindamycin. He states that he took the clindamycin as prescribed however the abscesses have continued to get larger and more painful. He is complaining of subjective fevers, nausea and vomiting as well. He adamantly denies IV drug use. Patient administered vancomycin here in the ED. He will need to be admitted for IV antibiotics due to failed outpatient therapy. CBC shows slightly elevated white blood cell count of 11.7, otherwise unremarkable. BMP is unremarkable. Lactic acid is within normal limits. X-ray imaging of the right hand and left femur are negative for any acute findings. I discussed the case with Dr. Cardozo [facility] who accepts patient to his service. Medical Screen Exam Complete: Yes Emergency Medical Condition: Yes Differential Diagnosis Differential Diagnosis: My differential diagnosis of abscess includes but is not limited to abscess, cyst, lipoma Lab Data Result diagrams: 07/04/18 10:17 07/04/18 10:45 Lab Results 07/04/18 07/04/18 07/04/18 Range/Units 10:17 10:45 10:45 WBC 11.7 H (4.0-11.0) th/mm3 RBC 4.61 (4.50-5.90) mil/mm3 Hgb 15.0 (13.0-17.0) gm/dL Hct 43.2 (39.0-51.0) % MCV 93.7 (80.0-100.0) fL MCH 32.6 (27.0-34.0) pg MCHC 34.8 (32.0-36.0) % RDW 16.6 (11.6-17.2) % Plt Count 289 (150-450) th/mm3 MPV 7.7 (7.0-11.0) fL Neut % (Auto) 66.2 (16.0-70.0) % Lymph % (Auto) 21.5 (9.0-44.0) % [place] % (Auto) 10.2 H (0.0-8.0) % Eos % (Auto) 1.5 (0.0-4.0) % Baso % (Auto) 0.6 (0.0-2.0) % Neut # (Auto) 7.7 (1.8-7.7) th/mm3 Lymph # (Auto) 2.5 (1.0-4.8) th/mm3 [place] # (Auto) 1.2 H (0.0-0.9) th/mm3 Eos # (Auto) 0.2 (0.0-0.4) th/mm3 Baso # (Auto) 0.1 (0.0-0.2) th/mm3 WBC Differential . Differential Comment Auto diff final ESR (0-15) mm/hr Sodium 138 (136-145) meq/L Potassium 3.8 (3.5-5.1) meq/L Chloride 104 (98-107) meq/L Carbon Dioxide 24.8 (21.0-32.0) meq/L Anion Gap 9 (5-15) meq/L BUN 12 (7-18) mg/dL Creatinine 0.62 (0.60-1.30) mg/dL Estimated GFR Greater than 89 (>89) mL/min Random Glucose 72 L (74-106) mg/dL Lactic Acid 1.7 (0.4-2.0) mmol/L Calcium 8.8 (8.5-10.1) mg/dL 07/04/18 Range/Units 11:20 WBC (4.0-11.0) th/mm3 RBC (4.50-5.90) mil/mm3 Hgb (13.0-17.0) gm/dL Hct (39.0-51.0) % MCV (80.0-100.0) fL MCH (27.0-34.0) pg MCHC (32.0-36.0) % RDW (11.6-17.2) % Plt Count (150-450) th/mm3 MPV (7.0-11.0) fL Neut % (Auto) (16.0-70.0) % Lymph % (Auto) (9.0-44.0) % [place] % (Auto) (0.0-8.0) % Eos % (Auto) (0.0-4.0) % Baso % (Auto) (0.0-2.0) % Neut # (Auto) (1.8-7.7) th/mm3 Lymph # (Auto) (1.0-4.8) th/mm3 [place] # (Auto) (0.0-0.9) th/mm3 Eos # (Auto) (0.0-0.4) th/mm3 Baso # (Auto) (0.0-0.2) th/mm3 WBC Differential Differential Comment ESR 25 H (0-15) mm/hr Sodium (136-145) meq/L Potassium (3.5-5.1) meq/L Chloride (98-107) meq/L Carbon Dioxide (21.0-32.0) meq/L Anion Gap (5-15) meq/L BUN (7-18) mg/dL Creatinine (0.60-1.30) mg/dL Estimated GFR (>89) mL/min Random Glucose (74-106) mg/dL Lactic Acid (0.4-2.0) mmol/L Calcium (8.5-10.1) mg/dL Imaging Data Radiologist's impression: Hand X-Ray 07/04/18 10:04 CONCLUSION: Negative. Femur X-Ray 07/04/18 11:44 CONCLUSION: Negative for fracture or radiopaque foreign body Discharge Plan Discharge Disposition Patient Disposition: ED Admit(ED Internal Use Only) Discharge Condition Condition: Stable Discharge Order Discharge Orders: ED Use Only Admit Order (Routine); Ordered 07/04/18 Ordered By: Sandra Cardozo Discharge Details Diagnosis: Abscess, Failure of outpatient treatment Physicians Team ED Provider: Sera Farmer ED Midlevel Provider: Sandra Cardozo Primary Care Provider: Primary Care Diane Garcia Attending Provider: Rip Cardozo Status ED Status: Left Department Discharge Information Discharge Date/Time: 07/04/18 14:48
[2018-07-04 10:34] LABS: Baso # (Auto) 0.1 th/mm3 (0.0-0.2); Baso % (Auto) 0.6 % (0.0-2.0); Eos # (Auto) 0.2 th/mm3 (0.0-0.4); Eos % (Auto) 1.5 % (0.0-4.0); Hematocrit 43.2 % (39.0-51.0); Lymph # (Auto) 2.5 th/mm3 (1.0-4.8); Lymph % (Auto) 21.5 % (9.0-44.0); Mean Corpuscular HGB Conc 34.8 % (32.0-36.0); Mean Corpuscular Hemoglobin 32.6 pg (27.0-34.0); Mean Corpuscular Volume 93.7 fL (80.0-100.0); Mean Platelet Volume 7.7 fL (7.0-11.0); Mono # (Auto) 1.2 th/mm3 (0.0-0.9); Mono % (Auto) 10.2 % (0.0-8.0); Neut # (Auto) 7.7 th/mm3 (1.8-7.7); Neut % (Auto) 66.2 % (16.0-70.0); Platelet Count 289 th/mm3 (150-450); Red Blood Count 4.61 mil/mm3 (4.50-5.90); Red Cell Distribution Width 16.6 % (11.6-17.2); White Blood Count 11.7 th/mm3 (4.0-11.0)
[2018-07-04 11:22] LABS: Anion Gap 9 meq/L (5-15); Blood Urea Nitrogen 12 mg/dL (7-18); Calcium 8.8 mg/dL (8.5-10.1); Carbon Dioxide 24.8 meq/L (21.0-32.0); Chloride 104 meq/L (98-107); Glomerular Filtration Rate Greater Than 89 mL/min (>89); Glucose,Random 72 mg/dL (74-106); Potassium 3.8 meq/L (3.5-5.1); Sodium 138 meq/L (136-145)
--- NOTE | 2018-07-04 12:16 | XR ---
EXAM DATE: 07/04/2018 11:26 AM EST AGE/SEX: 52 years / Male INDICATIONS: Patient possible snake bite to back right hand. CLINICAL DATA: This is the patient's initial encounter. Patient reports that signs and symptoms have been present for 4 - 6 days and indicates a pain score of 10/10. MEDICAL/SURGICAL HISTORY: None. None. COMPARISON: [facility], FINGER RIGHT 2ND DIGIT MIN 2V, 05/24/2018. . FINDINGS: Bony structures are intact and in normal alignment. Osseous density is normal. Soft tissues are unre markable. No radiopaque foreign bodies seen. CONCLUSION: Negative. Electronically signed by: Dewayne Mccray MD Board Certified Radiologist 07/04/2018 12:14 PM EST
--- NOTE | 2018-07-04 12:36 | XR ---
EXAM DATE: 07/04/2018 12:31 PM EST AGE/SEX: 52 years / Male INDICATIONS: Multiple bites to legs and hands, possible snake bites. CLINICAL DATA: This is the patient's initial encounter. Patient reports that signs and symptoms have been present for 4 - 6 days and indicates a pain score of 10/10. MEDICAL/SURGICAL HISTORY: None. None. COMPARISON: No prior exams available for comparison. FINDINGS: Bony structures are intact and in normal alignment. Osseous density is normal. Soft tissues are unre markable. No radiopaque foreign bodies seen. CONCLUSION: Negative for fracture or radiopaque foreign body Electronically signed by: Dewayne Mccray MD Board Certified Radiologist 07/04/2018 12:34 PM EST
[2018-07-04] MEDS ORDERED: Acetaminophen 325 MG Tablet PO PRN (13:35)
[2018-07-04] MEDS ORDERED: Enoxaparin Inj 40 MG/0.4 ML Syringe SQ SCH (13:45)
[2018-07-04] MEDS ORDERED: Haloperidol Inj 5 MG/ML Ampul IV.PUSH PRN (13:55)
[2018-07-04] MEDS ORDERED: LORazepam 1 MG Tablet PO PRN (13:55)
--- NOTE | 2018-07-04 14:11 | P.HPIM ---
History of Present Illness Primary Care Physician: No Primary Care Physician History of Present Illness: 52-year-old male with a history of seizure disorder and polysubstance abuse presents to the ER after failing outpatient treatment of multiple skin abscesses treated with p.o. ciprofloxacin. He states that for the last 3 weeks he has had outbreaks of pustules and ulcerations that evolved into tender circular bruising lumps that plague him on his leg his arms his hands, his fingers, his buttocks, his legs. He states he has had a few low- grade fevers, but denies any bug bites. He states that he is not homeless, he is living in a dwelling but cannot seem to rid himself of this infection despite antibiotic treatment. He does admit to drinking heavily every day and expects to have tremors and withdrawal today. He admits to smoking approximately 1 pack of cigarettes per day. He denies IV drug use. He denies cough, congestion. He denies chest pain or palpitations. He denies nausea, vomiting, diarrhea. Review of Systems Review of Systems: all other systems reviewed are negative [facility] Medical History Medical History Cocaine abuse (Acute) ETOH abuse (Acute) Marijuana abuse (Acute) Medical history unknown (Acute) No significant past surgical history (Acute) Seizure (Acute) Seizure (Acute) Seizures (Acute) Surgical history unknown (Acute) Surgical history unknown (Acute) TBI (traumatic brain injury) (Acute) Family History Family History Other Unknown family medical history Social History Social History Substance History: No History of Abuse, Active Abuse and Unable to Obtain Second Hand Smoke Exposure: Yes Smoking Status: Current every day smoker Tobacco Type: Cigarettes How Often Do You Have a Drink Containing Alcohol: 4 or more times a week Recent Travel in [facility] within the Last 8 Weeks: No Recent Out of Country Travel within the Last 8 Weeks: No Substance Abuse Detail Crack/Cocaine: Substance Use Status: Active Route Used Substance Abuse: Inhalation Immunization History Tetanus Immunization: Unsure Medications and Allergies Allergies Allergy/AdvReac Type Severity Reaction Status Date / Time doxycycline Allergy Severe Rash Verified 07/04/18 08:23 erythromycin base Allergy Severe Rash Verified 07/04/18 08:23 minocycline Allergy Severe Rash Verified 07/04/18 08:23 penicillin G Allergy Severe Rash Verified 07/04/18 08:23 tigecycline Allergy Severe Rash Verified 07/04/18 08:23 tetracycline Allergy Hives Verified 07/04/18 08:23 Penicillins AdvReac Difficulty Verified 07/04/18 08:23 Breathing Home Medications Medication Instructions Recorded Confirmed Type levetiracetam [Keppra] 1,500 mg PO Q12H 06/13/18 07/04/18 History Active Medications: Active Medications Acetaminophen (Tylenol) 650 mg PO Q4H PRN PRN Reason: Temp > 100.4 Al Hydroxide/Mg Hydroxide (Milk Of Monty Liq) 30 ml PO Q12H PRN PRN Reason: Mild Constipation Chlorhexidine Gluconate (Hibiclens 4% Topical) 1 applicatio TOPICAL DAILY WOLF Enoxaparin Sodium (Lovenox Inj) 40 mg SQ Q24H WOLF Flumazenil (Romazicon Inj) 0.2 mg IV.PUSH Q1M PRN PRN Reason: OVERSEDATION Haloperidol Lactate (Haldol Inj) 1 mg IV.PUSH Q15M PRN PRN Reason: for severe agitation Vancomycin HCl 1,000 mg/ (Sodium Chloride) 250 mls @ 250 mls/hr IV.SIG Q24H WOLF Ketorolac Tromethamine (Toradol Inj) 15 mg IV.PUSH Q6H WOLF Levetiracetam (Keppra) 1,500 mg PO Q12H WOLF Lorazepam (Ativan Inj) 1 mg IV.PUSH Q4H PRN PRN Reason: for CIWA 8-10 Lorazepam (Ativan Inj) 2 mg IV.PUSH Q15M PRN PRN Reason: for CIWA > 20 Lorazepam (Ativan Inj) 2 mg IV.PUSH Q1H PRN PRN Reason: for CIWA 15-20 Lorazepam (Ativan) 1 mg PO Q4H PRN PRN Reason: for CIWA 8-10 Lorazepam (Ativan) 2 mg PO Q2H PRN PRN Reason: for CIWA 11-14 Lorazepam (Ativan Inj) 2 mg IV.PUSH Q2H PRN PRN Reason: for CIWA 11-14 Morphine Sulfate (Morphine Inj) 4 mg IV.PUSH Q4H PRN PRN Reason: Acute Pain Mupirocin (Bactroban 2% Oint) 1 applicatio TOPICAL BID [facility] Non-Formulary Medication (Phenobarbital [Phenobarbital]) 97.2 mg PO DAILY WOLF Ondansetron HCl (Zofran Inj) 4 mg IV.PUSH Q6H PRN PRN Reason: NAUSEA OR VOMITING Sodium Chloride (Ns Flush) 2 ml IV.FLUSH PRN PRN PRN Reason: FLUSH AFTER USING IV ACCESS Sodium Chloride (Ns Flush) 2 ml IV.FLUSH BID WOLF Sodium Chloride (Ns Flush) 2 ml IV.FLUSH PRN PRN PRN Reason: FLUSH AFTER USING IV ACCESS Physical Exam Vital signs: Last Vital Signs Temp 98.4 F 07/04/18 10:23 Pulse 72 07/04/18 13:20 Resp 18 07/04/18 13:20 BP 150/70 H 07/04/18 13:20 Pulse Ox 98 07/04/18 13:20 Intake & Output 07/02/18 07/03/18 07/04/18 07/05/18 06:59 06:59 06:59 06:59 Intake Total 250 / 250 Balance 250 / 250 Weight 68.039 kg Narrative: GENERAL: AAOx3, no acute distress, adequate nutrition SKIN: Warm and dry, multiple skin infections of varying age ranging from 4 mm ulcerations to 4 cm crusted lumps, mostly over left thigh and right hand, but also involving left hand, arms, buttocks, right leg, torso. Tender to palpation HEAD: Atraumatic. Normocephalic. EYES: Pupils equal, round, reactive to light. No scleral icterus. No injection or drainage. ENT: No nasal bleeding or discharge. Moist mucous membranes. Nonerythematous oropharynx. NECK: Trachea midline. No JVD. Thyroid size within normal limits. CARDIOVASCULAR: Regular rate and rhythm. No murmur, no gallops, no rubs. RESPIRATORY: Clear and equal to auscultation bilaterally. No crackles, no wheezes. No accessory muscle use. GASTROINTESTINAL: Abdomen soft, non-tender, nondistended, normal active bowel sounds. Hepatic and splenic margins not palpable. MUSCULOSKELETAL: Extremities without clubbing or cyanosis. No obvious deformities. No edema. NEUROLOGICAL: Awake and alert. No obvious cranial nerve deficits. Motor grossly within normal limits. No focal deficits. Five out of 5 muscle strength in the arms and legs. Normal speech. PSYCHIATRIC: Appropriate mood and affect; insight and judgment normal. Results Labs CBC & Chem 7: 07/04/18 10:17 07/04/18 10:45 Imaging Impressions Hand X-Ray 07/04/18 10:04 CONCLUSION: Negative. Femur X-Ray 07/04/18 11:44 CONCLUSION: Negative for fracture or radiopaque foreign body Caprini VTE Risk Assessment Caprini VTE Risk Assessment: Moderate/High Risk (score >= 2) Caprini Risk Assessment Model: Point Value = 1 Point Value = 2 Point Value = 3 Point Value = 5 Age 41-60 Minor surgery BMI > 25 kg/m2 Swollen legs Varicose veins or History of unexplained or recurrent spontaneous Oral contraceptives or hormone replacement Sepsis (< 1 month) Serious lung disease, including pneumonia (< 1 month) Abnormal pulmonary function Acute myocardial infarction Congestive heart failure (< 1 month) History of inflammatory bowel disease Medical patient at bed rest Age 61-74 Arthroscopic surgery Major open surgery (> 45 min) Laparoscopic surgery (> 45 min) Malignancy Confined to bed (> 72 hours) Immobilizing plaster cast Central venous access Age >= 75 History of VTE Family history of VTE Factor V Leiden Prothrombin [id number] Lupus anticoagulant Anticardiolipin antibodies Elevated serum homocysteine Heparin-induced thrombocytopenia Other congenital or acquired thrombophilia Stroke (< 1 month) Elective arthroplasty Hip, pelvis, or leg fracture Acute spinal cord injury (< 1 month) Prophylaxis Regimen: Total Risk Factor Score Risk Level Prophylaxis Regimen 0-1 Low Early ambulation 2 Moderate Order ONE of the following: *Sequential Compression Device (SCD) *Heparin 5000 units SQ BID 3-4 Higher Order ONE of the following medications: *Heparin 5000 units SQ TID *Enoxaparin/Lovenox 40 mg SQ daily (WT < 150 kg, CrCl > 30 mL/min) *Enoxaparin/Lovenox 30 mg SQ daily (WT < 150 kg, CrCl > 10-29 mL/min) *Enoxaparin/Lovenox 30 mg SQ BID (WT < 150 kg, CrCl > 30 mL/min) AND/OR *Sequential Compression Device (SCD) 5 or more Highest Order ONE of the following medications: *Heparin 5000 units SQ TID (Preferred with Epidurals) *Enoxaparin/Lovenox 40 mg SQ daily (WT < 150 kg, CrCl > 30 mL/min) *Enoxaparin/Lovenox 30 mg SQ daily (WT < 150 kg, CrCl > 10-29 mL/min) *Enoxaparin/Lovenox 30 mg SQ BID (WT < 150 kg, CrCl > 30 mL/min) AND *Sequential Compression Device (SCD) Assessment and Plan Plan Cellulitis with abscesses He failed outpatient treatment with p.o. ciprofloxacin, majority of infection located on left thigh and right hand Started on vancomycin, he states this worked in the past for similar infection Patient reports great pain associated with his infections The pattern of spread is typical of superficial MRSA infestation Continue vancomycin IV Add Bactroban twice daily topically to all suspicious areas Start Hibiclens wash daily to full body History of seizure disorder Continue Keppra and phenobarbital History of alcohol abuse Patient is an everyday drinker, heavy use He expects to withdrawal and requests withdrawal medication Start CIWA protocol Tobacco abuse Patient counseled to quit smoking Nicotine patch ordered DVT Prophylaxis Lovenox
[2018-07-04] MEDS: levETIRAcetam 500 MG Tablet PO SCH (14:29)
[2018-07-04] MEDS: Enoxaparin Inj 40 MG/0.4 ML Syringe SQ SCH (15:09)
[2018-07-04] MEDS: Morphine Inj 4 MG/ML Vial IV.PUSH PRN (15:10)
[2018-07-04] MEDS: Ketorolac Inj 30 MG/ML (IVP) Vial IV.PUSH SCH ×2 (16:45→21:47)
[2018-07-05] MEDS: Morphine Inj 4 MG/ML Vial IV.PUSH PRN ×5 (01:10→20:20)
[2018-07-05] MEDS: levETIRAcetam 500 MG Tablet PO SCH ×2 (01:24→14:00)
[2018-07-05] MEDS: Ketorolac Inj 30 MG/ML (IVP) Vial IV.PUSH SCH ×4 (04:33→20:21)
[2018-07-05 07:36] LABS: Baso % (Auto) 0.6 % (0.0-2.0); Eos # (Auto) 0.3 th/mm3 (0.0-0.4); Eos % (Auto) 4.6 % (0.0-4.0); Hematocrit 39.2 % (39.0-51.0); Hemoglobin 13.8 gm/dL (13.0-17.0); Lymph # (Auto) 2.2 th/mm3 (1.0-4.8); Mean Corpuscular HGB Conc 35.2 % (32.0-36.0); Mean Corpuscular Hemoglobin 32.8 pg (27.0-34.0); Mean Corpuscular Volume 93.2 fL (80.0-100.0); Mean Platelet Volume 7.9 fL (7.0-11.0); Mono # (Auto) 0.7 th/mm3 (0.0-0.9); Mono % (Auto) 10.7 % (0.0-8.0); Neut # (Auto) 3.1 th/mm3 (1.8-7.7); Neut % (Auto) 49.1 % (16.0-70.0); Platelet Count 269 th/mm3 (150-450); Red Cell Distribution Width 15.7 % (11.6-17.2); White Blood Count 6.3 th/mm3 (4.0-11.0)
[2018-07-05 08:00] LABS: Anion Gap 8 meq/L (5-15); Blood Urea Nitrogen 13 mg/dL (7-18); Calcium 8.7 mg/dL (8.5-10.1); Carbon Dioxide 25.4 meq/L (21.0-32.0); Chloride 100 meq/L (98-107); Glomerular Filtration Rate Greater Than 89 mL/min (>89); Glucose,Random 90 mg/dL (74-106); Sodium 133 meq/L (136-145)
[2018-07-05] MEDS: Vancomycin Inj 1,000 MG in Sodium Chlor 0.9% Inj 250 ML IV.SIG SCH (10:08)
[2018-07-05] MEDS: Chlorhexidine 4% Topical 120 APPLIC/120 ML Bottle TOPICAL SCH (11:30)
--- NOTE | 2018-07-05 12:46 | P.PNIM ---
Subjective Interval history: The patient said that he felt a lot better with the IV vancomycin. He said that he needed some Flexeril to help him ambulate. He said he only feels a little shaky from the alcohol. No other acute complaints. Physical Exam Vital signs: Last Vital Signs Temp 98 F 07/05/18 11:50 Pulse 70 07/05/18 11:50 Resp 20 07/05/18 11:50 BP 130/86 07/05/18 11:50 Pulse Ox 95 07/05/18 11:50 Intake & Output 07/03/18 07/04/18 07/05/18 07/06/18 06:59 06:59 06:59 06:59 Intake Total 250 / 250 700 / 700 Balance 250 / 250 700 / 700 Weight 68.039 kg Narrative: GENERAL: NAD. SKIN: Warm and dry, multiple skin infections of varying age ranging from 4 mm ulcerations to 4 cm crusted lumps, mostly over left thigh and right hand, but also involving left hand, arms, buttocks, right leg, torso. Tender to palpation. HEAD: Atraumatic. Normocephalic. EYES: Pupils equal, round, reactive to light. No scleral icterus. No injection or drainage. ENT: No nasal bleeding or discharge. Moist mucous membranes. Nonerythematous oropharynx. NECK: Trachea midline. No JVD. Thyroid size within normal limits. CARDIOVASCULAR: Regular rate and rhythm. No murmur, no gallops, no rubs. RESPIRATORY: Clear and equal to auscultation bilaterally. No crackles, no wheezes. No accessory muscle use. GASTROINTESTINAL: Abdomen soft, non-tender, nondistended, normal active bowel sounds. Hepatic and splenic margins not palpable. MUSCULOSKELETAL: Extremities without clubbing or cyanosis. No obvious deformities. No edema. NEUROLOGICAL: Awake and alert. No obvious cranial nerve deficits. Motor grossly within normal limits. No focal deficits. Five out of 5 muscle strength in the arms and legs. Normal speech. PSYCHIATRIC: Appropriate mood and affect; insight and judgment normal. Results Labs CBC & Chem 7: 07/05/18 06:00 07/05/18 06:00 Labs: Microbiology 07/04/18 10:17 Blood - Peripheral Aerobic Blood Culture - Preliminary No growth in 1 day 07/04/18 10:17 Blood - Peripheral Anaerobic Blood Culture - Preliminary No growth in 1 day 07/04/18 10:05 Blood - Peripheral Aerobic Blood Culture - Preliminary No growth in 1 day 07/04/18 10:05 Blood - Peripheral Anaerobic Blood Culture - Preliminary No growth in 1 day 07/04/18 10:07 Abscess - Hand Gram Stain - Final Assessment and Plan Plan Cellulitis He failed outpatient treatment with p.o. ciprofloxacin, majority of infection located on left thigh and right hand. -Started on vancomycin, he states this worked in the past for similar infection. Improving. Transition to PO regimen with MRSA coverage on discharge. -Add Bactroban twice daily topically to all suspicious areas. -Start Hibiclens wash daily to full body. Muscle spasms Chronic. -add Flexeril as needed. History of seizure disorder Stable. -Continue Keppra and phenobarbital. History of alcohol abuse Patient is an everyday drinker, heavy use. He expects to withdraw and requests withdrawal medication. -Start CIWA protocol. Tobacco abuse -Patient counseled to quit smoking. -Nicotine patch ordered. DVT Prophylaxis: Lovenox Progress Note: Quality VTE Deep Vein Thrombosis/Pulmonary Embolism Present on Admission: No
[2018-07-05] MEDS: Enoxaparin Inj 40 MG/0.4 ML Syringe SQ SCH (14:05)
[2018-07-06] MEDS: Morphine Inj 4 MG/ML Vial IV.PUSH PRN ×3 (01:10→10:01)
[2018-07-06] MEDS: Ketorolac Inj 30 MG/ML (IVP) Vial IV.PUSH SCH ×2 (03:29→08:50)
[2018-07-06] MEDS: levETIRAcetam 500 MG Tablet PO SCH ×2 (03:29→13:24)
[2018-07-06 07:24] VITALS: RESP 16
[2018-07-06] MEDS: Vancomycin Inj 1,000 MG in Sodium Chlor 0.9% Inj 250 ML IV.SIG SCH (08:45)
[2018-07-06] MEDS: Chlorhexidine 4% Topical 120 APPLIC/120 ML Bottle TOPICAL SCH (09:30)
[2018-07-06 11:34] VITALS: BP 141/83; PULSE 66; TEMP 97.9; O2SAT 99
--- NOTE | 2018-07-06 12:24 | P.PNIM ---
Subjective Interval history: The patient said he was feeling better. He said the antibiotics were wearing him out. He requested pain medication and Flexeril. He wanted to know if he could stay in the hospital longer. Discussed with nursing and case management. Physical Exam Vital signs: Vital Signs 07/05/18 16:00 07/06/18 00:00 07/06/18 04:00 Temperature 98 F 98.3 F 98.5 F Pulse Rate 62 74 76 Respiratory Rate 20 18 18 Blood Pressure 124/79 121/68 120/64 Pulse Oximetry 98 98 98 07/06/18 07:23 07/06/18 11:33 Temperature 98.1 F 97.9 F Pulse Rate 57 L 66 Respiratory Rate 16 16 Blood Pressure 149/89 H 141/83 H Pulse Oximetry 99 Intake & Output 07/05/18 07/06/18 07/06/18 18:59 06:59 18:59 Intake Total 910 / 910 250 / 250 Balance 910 / 910 250 / 250 Weight 68.04 kg Intake: IV 250 / 250 250 / 250 Vancomycin Inj 1,000 MG In NS 250 / 250 250 / 250 Inj 250 ML @ 250 mls/hr IV.SIG Q24H ON LICENSE OF [facility] Rx#:[id number] Oral 660 / 660 Other: Date of Last Bowel Movement 07/05/18 Weight On Admission 68.039 kg Narrative: GENERAL: NAD. SKIN: Warm and dry, multiple skin infections of varying age ranging from 4 mm ulcerations to 4 cm crusted lumps, mostly over left thigh and right hand, improved. HEAD: Atraumatic. Normocephalic. EYES: Pupils equal, round, reactive to light. No scleral icterus. No injection or drainage. ENT: No nasal bleeding or discharge. Moist mucous membranes. Nonerythematous oropharynx. NECK: Trachea midline. No JVD. Thyroid size within normal limits. CARDIOVASCULAR: Regular rate and rhythm. No murmur, no gallops, no rubs. RESPIRATORY: Clear and equal to auscultation bilaterally. No crackles, no wheezes. No accessory muscle use. GASTROINTESTINAL: Abdomen soft, non-tender, nondistended, normal active bowel sounds. Hepatic and splenic margins not palpable. MUSCULOSKELETAL: Extremities without clubbing or cyanosis. No obvious deformities. No edema. NEUROLOGICAL: Awake and alert. No obvious cranial nerve deficits. Motor grossly within normal limits. No focal deficits. Five out of 5 muscle strength in the arms and legs. Normal speech. PSYCHIATRIC: Appropriate mood and affect; insight and judgment normal. Results Labs CBC & Chem 7: 07/05/18 06:00 07/05/18 06:00 Labs: Microbiology 07/04/18 10:07 Abscess - Hand Gram Stain - Final 07/04/18 10:07 Abscess - Hand Wound Culture - Preliminary Group A beta Strep 07/04/18 10:17 Blood - Peripheral Aerobic Blood Culture - Preliminary No growth in 2 days 07/04/18 10:17 Blood - Peripheral Anaerobic Blood Culture - Preliminary No growth in 2 days 07/04/18 10:05 Blood - Peripheral Aerobic Blood Culture - Preliminary No growth in 2 days 07/04/18 10:05 Blood - Peripheral Anaerobic Blood Culture - Preliminary No growth in 2 days Assessment and Plan Plan Cellulitis He failed outpatient treatment with p.o. ciprofloxacin, majority of infection located on left thigh and right hand. -Started on vancomycin, he states this worked in the past for similar infection. Improving. Transition to PO regimen with MRSA coverage on discharge. Will start Bactrim DS BID x 10 days. Outpt follow-up recommended. Muscle spasms Chronic. -add Flexeril as needed. Improved. History of seizure disorder Stable. -Continue Keppra and phenobarbital. History of alcohol abuse Patient is an everyday drinker, heavy use. He expects to withdraw and requests withdrawal medication. -Start CIWA protocol. Stable. -cessation instruction. Tobacco abuse -Patient counseled to quit smoking. -Nicotine patch ordered. -cessation instruction. DVT Prophylaxis: Lovenox Progress Note: Quality VTE Deep Vein Thrombosis/Pulmonary Embolism Present on Admission: No
== END 2018-07-06 13:26 | disposition home or self-care (01) | DRG 603 ==
LOC: NEPD 08:18 → NEDA 08:18 → NEPFCDU 14:53
PROVIDERS: ADMIT Hospitalist; ATTEND Hospitalist
CPT/HCPCS: 73130; 73552; 80048; 83605; 85025; 85651; 85652; 86403; 87040; 87070; 87186; 87205; 90702; 90714; 90718; J1650; J1885; J2270; J2405; J3370; J7050